=== PATIENT | female | born 1960 | race Caucasian/White ===

== ENCOUNTER 2020-09-28 09:58 | Emergency (ER) | payer MEDICAID, SELFPAY ==
[2020-09-28 10:41] VITALS: BP 109/50; PULSE 67; RESP 16; TEMP 36.4; O2SAT 95; BMI 28.3
--- NOTE | 2020-09-28 10:47 | ED.PSYCH ---
HPI - Psych General Chief Complaint: Psychiatric Symptoms Stated Complaint: Crisis Time Seen by Provider: 09/28/20 10:46 Source: patient Mode of arrival: ambulatory Limitations: no limitations History of Present Illness HPI Narrative: Patient is a 59-year-old female with a past medical history of anxiety and depression who presents saying that the devil is talking to her, she states she is a bad person bc she is mentally ill and she is going to hel . She denies SI or HI. She is asking for Ativan stating that it helps her feel better. She states she normally goes to [facility] for her care but they told her not to come back because she was going there too much. She states she does take 2 mental health medications and took 30 mg of Zyprexa this morning which is double her normal dose. She denies seeing a therapist or psychiatrist for her issues. She states she always has these thoughts in her head but today they are worse, she cannot articulate why today is worse. She keeps repeatedly asking for Ativan. She denies any physical complaints. Related Data Home Medications Medication Instructions Recorded Confirmed Vistaril 1 cap PO DAILY 09/28/20 09/28/20 Zyprexa 1 tab PO DAILY 09/28/20 09/28/20 Allergies Allergy/AdvReac Type Severity Reaction Status Date / Time cephalexin [From Keflex] Allergy Hives Verified 09/28/20 10:40 Review of Systems Review of Systems: Yes all other systems are reviewed and are negative [facility] Past Medical History Medical History Anxiety Surgical History S/P appendectomy Social History Social History Alcohol intake: never Patient Tobacco Use Status: Never used Tobacco Use of substances other than those prescribed or required for medical reasons: No Advance Directives: No Advance Directives Information Provided: No Physical Exam Vital Signs: Vital Signs: Last Vital Signs Temp 97.5 F 09/28/20 10:41 Pulse 67 09/28/20 10:41 Resp 16 09/28/20 10:41 BP 109/50 L 09/28/20 10:41 Pulse Ox 95 09/28/20 10:41 Body Mass Index 28.3 Const: General: cooperative, healthy appearing, comfortable, no acute distress and well developed Orientation/consciousness: patient oriented x3 Limitations: no limitations HENMT: Head: Yes normal to inspection Eyes: General: appearance normal, both eyes and all related structures Neck: Neck: Yes normal visual inspection and Yes full ROM Resp: Effort & Inspection: normal respiratory effort and able to speak in complete sentences Auscultation: clear to auscultation bilaterally Cardio: Rate: regular rate Rhythm: regular rhythm Heart sounds: normal S1 and S2 GI: Inspection: Yes normal to inspection Skin: General skin exam: no rashes or lesions noted Neuro: General: patient oriented x3 Extrem: General: Yes normal to inspection Psych: Appearance: grossly normal and well kempt Speech and movement: Normal speech and movement present Affect: Anxious affect present Attitude: cooperative Thought content: suicidality, no homicidality, Hallucination(s) present auditory and Depressive thoughts present Insight: Fair insight present (Psych) Judgement: Fair judgement present (Psych) Course Course Course Narrative: Patient is a 59-year-old female with a past medical history of anxiety and depression who presents saying that the devil is talking to her, she states she is a bad person bc she is mentally ill and she is going to hell . She denies SI or HI. VSS. PE grossly normal sans hearing the devil, will give ativan and referral for [facility]. Reevaluation(s) Reevaluation #1: Patient is requesting to leave, she has to go to work tomorrow, denies SI or HI, denies the double speaking to her anymore. Will discharge home with close follow-up with her psychiatrist. Time: 13:22 [facility] - Psych Lab Data Result diagrams: 09/28/20 12:05 09/28/20 12:04 Labs: Lab Results 09/28/20 09/28/20 09/28/20 Range/Units 11:11 11:11 12:04 WBC (4.8-10.8) X10*3/uL RBC (4.20-5.50) X10*6/uL Hgb (12.0-16.0) g/dl Hct (37-47) % MCV (80-98) fL MCH (27.0-33.0) pg MCHC (31.0-35.0) g/dl RDW (11.0-16.0) % Plt Count (160-400) X10*3/uL MPV (9.4-12.3) fL Immature Gran % (Auto) (0.0-0.4) % Neut % (Auto) (45-73) % Lymph % (Auto) (20-40) % [place] % (Auto) (2-11) % Eos % (Auto) (0-4) % Baso % (Auto) (0-2) % Lymph # (Auto) (1.2-4.9) X10*3/uL [place] # (Auto) (0.1-1.2) X10*3/uL Eos # (Auto) (0.0-0.4) X10*3/uL Baso # (Auto) (0.0-0.2) X10*3/uL Abs Immat Gran (auto) (0.00-0.03) X10*3/uL Absolute Neuts (auto) (2.0-8.3) X10*3/uL Absolute Nucleated RBC (0.0-0.012) X10*3/uL Nucleated RBC % (auto) (0.0-0.2) /100WBC PT (10.8-13.0) SEC INR (0.9-1.1) Sodium 141 (135-145) mmol/L Potassium 4.2 (3.3-5.1) mmol/L Chloride 109 H (96-108) mmol/L Carbon Dioxide 21 L (22-29) mmol/L Anion Gap 15 (12-20) BUN 12 (9-16) mg/dL Creatinine 0.69 (0.5-1.4) mg/dL Estim Creat Clear Calc 89.1 Estimated GFR > 60 Random Glucose 137 H (60-115) mg/dL Calcium 9.3 (8.4-10.2) mg/dL Magnesium 2.0 (1.6-2.6) mg/dL Total Bilirubin 0.4 (0.0-1.0) mg/dL AST 15 (5-31) U/L ALT 20 (0-31) U/L Alkaline Phosphatase 83 (39-117) U/L Total Protein 6.6 (6.5-8.0) g/dL Albumin 4.1 (3.5-5.0) g/dL Urine Color YELLOW Urine Appearance CLOUDY Urine pH 5.5 (5.0-8.0) Ur Specific [place] >= 1.030 H (1.005-1.025) Urine Protein NEG (NEG-TRACE) MG/DL Urine Glucose (UA) NEG (NEG) MG/DL Urine Ketones NEG (NEG) MG/DL Urine Blood NEG (NEG) Urine Nitrite NEG (NEG) Ur Leukocyte Esterase NEG (NEG) Urine Opiates Screen Not Detected (Not Detect) Ur Barbiturates Screen POSITIVE H (Not Detect) Ur Phencyclidine Scrn Not Detected (Not Detect) Ur Amphetamines Screen Not Detected (Not Detect) U Benzodiazepines Scrn Not Detected (Not Detect) Urine Cocaine Screen Not Detected (Not Detect) U Marijuana (THC) Screen POSITIVE H (Not Detect) Ethyl Alcohol mg/dL COVID-19 ([facility]) (Negative) COVID-19 Clin Com 09/28/20 09/28/20 09/28/20 Range/Units 12:04 12:04 12:05 WBC 5.9 (4.8-10.8) X10*3/uL RBC 4.40 (4.20-5.50) X10*6/uL Hgb 13.1 (12.0-16.0) g/dl Hct 38.1 (37-47) % MCV 86.6 (80-98) fL MCH 29.8 (27.0-33.0) pg MCHC 34.4 (31.0-35.0) g/dl RDW 11.9 (11.0-16.0) % Plt Count 330 (160-400) X10*3/uL MPV 10.3 (9.4-12.3) fL Immature Gran % (Auto) 0.3 (0.0-0.4) % Neut % (Auto) 70.6 (45-73) % Lymph % (Auto) 22.6 (20-40) % [place] % (Auto) 4.9 (2-11) % Eos % (Auto) 0.8 (0-4) % Baso % (Auto) 0.8 (0-2) % Lymph # (Auto) 1.3 (1.2-4.9) X10*3/uL [place] # (Auto) 0.3 (0.1-1.2) X10*3/uL Eos # (Auto) 0.1 (0.0-0.4) X10*3/uL Baso # (Auto) 0.1 (0.0-0.2) X10*3/uL Abs Immat Gran (auto) 0.02 (0.00-0.03) X10*3/uL Absolute Neuts (auto) 4.2 (2.0-8.3) X10*3/uL Absolute Nucleated RBC 0.000 (0.0-0.012) X10*3/uL Nucleated RBC % (auto) 0.0 (0.0-0.2) /100WBC PT (10.8-13.0) SEC INR (0.9-1.1) Sodium (135-145) mmol/L Potassium (3.3-5.1) mmol/L Chloride (96-108) mmol/L Carbon Dioxide (22-29) mmol/L Anion Gap (12-20) BUN (9-16) mg/dL Creatinine (0.5-1.4) mg/dL Estim Creat Clear Calc Estimated GFR Random Glucose (60-115) mg/dL Calcium (8.4-10.2) mg/dL Magnesium (1.6-2.6) mg/dL Total Bilirubin (0.0-1.0) mg/dL AST (5-31) U/L ALT (0-31) U/L Alkaline Phosphatase (39-117) U/L Total Protein (6.5-8.0) g/dL Albumin (3.5-5.0) g/dL Urine Color Urine Appearance Urine pH (5.0-8.0) Ur Specific [place] (1.005-1.025) Urine Protein (NEG-TRACE) MG/DL Urine Glucose (UA) (NEG) MG/DL Urine Ketones (NEG) MG/DL Urine Blood (NEG) Urine Nitrite (NEG) Ur Leukocyte Esterase (NEG) Urine Opiates Screen (Not Detect) Ur Barbiturates Screen (Not Detect) Ur Phencyclidine Scrn (Not Detect) Ur Amphetamines Screen (Not Detect) U Benzodiazepines Scrn (Not Detect) Urine Cocaine Screen (Not Detect) U Marijuana (THC) Screen (Not Detect) Ethyl Alcohol < 10 mg/dL COVID-19 ([facility]) Negative (Negative) COVID-19 Clin Com See Note 09/28/20 Range/Units 12:05 WBC (4.8-10.8) X10*3/uL RBC (4.20-5.50) X10*6/uL Hgb (12.0-16.0) g/dl Hct (37-47) % MCV (80-98) fL MCH (27.0-33.0) pg MCHC (31.0-35.0) g/dl RDW (11.0-16.0) % Plt Count (160-400) X10*3/uL MPV (9.4-12.3) fL Immature Gran % (Auto) (0.0-0.4) % Neut % (Auto) (45-73) % Lymph % (Auto) (20-40) % [place] % (Auto) (2-11) % Eos % (Auto) (0-4) % Baso % (Auto) (0-2) % Lymph # (Auto) (1.2-4.9) X10*3/uL [place] # (Auto) (0.1-1.2) X10*3/uL Eos # (Auto) (0.0-0.4) X10*3/uL Baso # (Auto) (0.0-0.2) X10*3/uL Abs Immat Gran (auto) (0.00-0.03) X10*3/uL Absolute Neuts (auto) (2.0-8.3) X10*3/uL Absolute Nucleated RBC (0.0-0.012) X10*3/uL Nucleated RBC % (auto) (0.0-0.2) /100WBC PT 13.6 H (10.8-13.0) SEC INR 1.1 (0.9-1.1) Sodium (135-145) mmol/L Potassium (3.3-5.1) mmol/L Chloride (96-108) mmol/L Carbon Dioxide (22-29) mmol/L Anion Gap (12-20) BUN (9-16) mg/dL Creatinine (0.5-1.4) mg/dL Estim Creat Clear Calc Estimated GFR Random Glucose (60-115) mg/dL Calcium (8.4-10.2) mg/dL Magnesium (1.6-2.6) mg/dL Total Bilirubin (0.0-1.0) mg/dL AST (5-31) U/L ALT (0-31) U/L Alkaline Phosphatase (39-117) U/L Total Protein (6.5-8.0) g/dL Albumin (3.5-5.0) g/dL Urine Color Urine Appearance Urine pH (5.0-8.0) Ur Specific [place] (1.005-1.025) Urine Protein (NEG-TRACE) MG/DL Urine Glucose (UA) (NEG) MG/DL Urine Ketones (NEG) MG/DL Urine Blood (NEG) Urine Nitrite (NEG) Ur Leukocyte Esterase (NEG) Urine Opiates Screen (Not Detect) Ur Barbiturates Screen (Not Detect) Ur Phencyclidine Scrn (Not Detect) Ur Amphetamines Screen (Not Detect) U Benzodiazepines Scrn (Not Detect) Urine Cocaine Screen (Not Detect) U Marijuana (THC) Screen (Not Detect) Ethyl Alcohol mg/dL COVID-19 ([facility]) (Negative) COVID-19 Clin Com Discharge Plan Discharge Clinical Impression: Panic attack Patient Disposition: Home, Self-Care Instructions: Panic Attack (ED) Additional Instructions: Please be sure to take both of your mental health medications, as prescribed, daily. Please be sure to follow-up with your primary care doctor or your therapist if you continue to have panic attacks. I have also attached some information for you on how to manage your panic attacks at home. If you have any thoughts of hurting yourself anyone else or have any auditory or visual hallucinations, please return to the emergency department. Prescriptions: No Action Vistaril 50 MG capsule 1 cap PO DAILY RF: 0 Zyprexa 15 MG tablet 1 tab PO DAILY RF: 0
[2020-09-28] MEDS: LORazepam 1 MG TABLET PO (11:16)
[2020-09-28 11:38] LABS: Amphetamine Screen Urine Not Detected (Not Detect); Barbiturates, Urine POSITIVE (Not Detect); Benzodiazepines Screen Urine Not Detected (Not Detect); Cannabinoid Screen Urine POSITIVE (Not Detect); Cocaine Screen Urine Not Detected (Not Detect); Opiate Screen Urine Not Detected (Not Detect); Phencyclidine Screen Urine Not Detected (Not Detect)
--- NOTE | 2020-09-28 11:43 | PC.NURSE ---
N referral sent electronically
--- NOTE | 2020-09-28 11:53 | PC.NURSE ---
Report recieved. MHT currently at bedside drawing blood. Pt calm and cooperative. Waiting to be seen by N
[2020-09-28 12:17] LABS: MANUAL DIFF FLAG NO
[2020-09-28 12:18] LABS: Basophils Absolute Auto 0.1 X10*3/uL (0.0-0.2); Basophils Percent Auto 0.8 % (0-2); Eosinophils Absolute Auto 0.1 X10*3/uL (0.0-0.4); Eosinophils Percent Auto 0.8 % (0-4); Hematocrit 38.1 % (37-47); Hemoglobin 13.1 g/dl (12.0-16.0); Imm Gran Abs Auto 0.02 X10*3/uL (0.00-0.03); Imm Gran Pct Auto 0.3 % (0.0-0.4); Lymphocytes Absolute Auto 1.3 X10*3/uL (1.2-4.9); Lymphocytes Percent Auto 22.6 % (20-40); Mean Corpuscular HGB Conc 34.4 g/dl (31.0-35.0); Mean Corpuscular Hemoglobin 29.8 pg (27.0-33.0); Mean Corpuscular Volume 86.6 fL (80-98); Mean Platelet Volume 10.3 fL (9.4-12.3); Monocytes Absolute Auto 0.3 X10*3/uL (0.1-1.2); Monocytes Percent Auto 4.9 % (2-11); Neutrophils Absolute Auto 4.2 X10*3/uL (2.0-8.3); Neutrophils Percent Auto 70.6 % (45-73); Platelet Count 330 X10*3/uL (160-400); Red Cell Distribution Width 11.9 % (11.0-16.0); White Blood Count 5.9 X10*3/uL (4.8-10.8)
[2020-09-28 12:20] LABS: INTERNATIONAL NORM RATIO 1.1 (0.9-1.1); Prothrombin Time 13.6 SEC (10.8-13.0)
--- NOTE | 2020-09-28 12:35 | PC.NURSE ---
Received confirmation call from [facility], ETA unknown
[2020-09-28 12:37] LABS: COVID-19 Test Negative (Negative)
[2020-09-28 12:47] LABS: Ethanol < 10 mg/dL
[2020-09-28 12:52] LABS: Alanine Aminotransferase 20 U/L (0-31); Albumin Level 4.1 g/dL (3.5-5.0); Alkaline Phosphatase 83 U/L (39-117); Anion Gap 15 (12-20); Aspartate Amino Transferase 15 U/L (5-31); Bilirubin Total 0.4 mg/dL (0.0-1.0); Blood Urea Nitrogen 12 mg/dL (9-16); Calcium 9.3 mg/dL (8.4-10.2); Carbon Dioxide 21 mmol/L (22-29); Chloride 109 mmol/L (96-108); Creatinine Clr Calc Pharmacy 89.1; Estimated Glomerular Filt Rate > 60; Glucose Random 137 mg/dL (60-115); Potassium 4.2 mmol/L (3.3-5.1); Sodium 141 mmol/L (135-145); Total Protein 6.6 g/dL (6.5-8.0)
[2020-09-28 13:04] LABS: Glucose Urine UA NEG (NEG); Leukocyte Esterase Urine NEG (NEG); Nitrite Urine NEG (NEG); PH 5.5 (5.0-8.0); Specific Gravity - Urine >= 1.030 (1.005-1.025); Urine Blood NEG (NEG); Urine Ketones NEG (NEG); Urine Protein NEG (NEG-TRACE)
[2020-09-28 13:06] LABS: Appearance Urine CLOUDY; Color Urine YELLOW
== END 2020-09-28 13:35 | disposition home or self-care (01) ==
PROVIDERS: Physician Assistant; Physician Assistant Medical; Emergency Provider Emergency Medicine Emergency Medical Services; PCP Family Medicine
DX: F33.1 Major depressive disorder, recurrent, moderate (principal); F41.0 Panic disorder [episodic paroxysmal anxiety]; F43.0 Acute stress reaction; Z79.899 Other long term (current) drug therapy; Z20.822 Contact with and (suspected) exposure to COVID-19
CPT/HCPCS: 36415; 80053; 80307; 81003; 82077; 83735; 85025; 85610; 87635; 99285

== ENCOUNTER 2020-09-30 10:16 | Emergency (ER) | payer MEDICAID, SELFPAY ==
[2020-09-30 10:21] VITALS: BP 143/65; PULSE 85; RESP 24; O2SAT 100; BMI 28.3
[2020-09-30 10:34] VITALS: PULSE 95; PULSE 97; RESP 24; O2SAT 97; BMI 28.3
--- NOTE | 2020-09-30 10:46 | ED.ANXIETY ---
HPI - Anxiety General Chief Complaint: Anxiety <CLAUDETTE Hdz Last Filed: 09/30/20 16:50> Stated Complaint: PSYCH EMERGENCY PER PT, MED ISSUE <CLAUDETTE Hdz Last Filed: 09/30/20 16:50> Time Seen by Provider: 09/30/20 10:38 <CLAUDETTE Hdz Last Filed: 09/30/20 16:50> Source: patient and EMS <CLAUDETTE Hdz Last Filed: 09/30/20 16:50> Mode of arrival: EMS <CLAUDETTE Hdz Last Filed: 09/30/20 16:50> Limitations: no limitations <CLAUDETTE Hdz Last Filed: 09/30/20 16:50> History of Present Illness HPI narrative: 59 y/o with history of anxiety who presents to the ED via EMS with acute anxiety attack. She was at work this morning when she started feeling very anxious and left. She went home and smoked marijuana and then threw it away because it wasn't helping me. EMS was called. She admits to negative thought process and spiraling thoughts for months. She is talking about the devil and going to hell. She is uncontrollably moving her legs. She admits to using crack and heroin last week but not today. She has been self-medicating because of her worsening anxiety. 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 <CLAUDETTE Hdz Last Filed: 09/30/20 16:50> MD complaint: anxiety <CLAUDETTE dHz Last Filed: 09/30/20 16:50> Onset (ago): month(s) <CLAUDETTE Hdz Last Filed: 09/30/20 16:50> Symptoms: sense of impending doom <CLAUDETTE Hdz Last Filed: 09/30/20 16:50> Severity: severe <CLAUDETTE Hdz Last Filed: 09/30/20 16:50> Quality: intermittent <CLAUDETTE Hdz Last Filed: 09/30/20 16:50> Place: work <CLAUDETTE Hdz Last Filed: 09/30/20 16:50> History of similar episodes: Yes <CLAUDETTE Hdz Last Filed: 09/30/20 16:50> Provoking factors: emotional stress and work/job stress <CLAUDETTE Hdz Last Filed: 09/30/20 16:50> Relieving factors: medication <CLAUDETTE Hdz Last Filed: 09/30/20 16:50> Exacerbating factors: thinking about event <CLAUDETTE Hdz Last Filed: 09/30/20 16:50> Associated symptoms: denies other symptoms <CLAUDETTE Hdz Last Filed: 09/30/20 16:50> Related Data Home Medications: Previous Rx's Medication Instructions Recorded risperidone 1 mg PO BID 30 Days #60 tab 10/31/20 sertraline 50 mg PO DAILY 30 Days #30 tab 10/31/20 <CLAUDETTE Hdz Last Filed: 09/30/20 16:50> Allergies/Adverse Reactions: Allergies Allergy/AdvReac Type Severity Reaction Status Date / Time cephalexin [From Keflex] Allergy Hives Verified 09/28/20 10:40 <CLAUDETTE Hdz Last Filed: 09/30/20 16:50> Review of Systems Review of Systems: Constitutional: No Fever, No Chills ENT/Mouth: No sore throat, No Rhinorrhea, No Swallowing Difficulty Cardiovascular: No Chest Pain, No SOB, No Orthopnea, No Edema Respiratory: No Cough, No Sputum, No Wheezing, No dyspnea Gastrointestinal: No Nausea, No Vomiting, No Diarrhea, No abdominal Pain Genitourinary: No Dysuria, No Urinary Frequency, No Hematuria Musculoskeletal: No joint pain, No Myalgias Skin: No Skin Lesions, No rash Neuro: No Weakness, No Numbness, No Dizziness, No Headache Psych: + Anxiety/Panic, + Depression Heme/Lymph: No Bruising, No Lymphadenopathy Endocrine: No Polyuria, No Polydipsia <CLAUDETTE Hdz Last Filed: 09/30/20 16:50> PMF Past Medical History Attestation statement: The following information was validated with the patient. <CLAUDETTE Hdz Last Filed: 09/30/20 16:50> Medical History: Medical History Anxiety <CLAUDETTE Hdz - Last Filed: 09/30/20 16:50> Surgical History: Surgical History S/P appendectomy <CLAUDETTE Hdz - Last Filed: 09/30/20 16:50> Social History Social History: Social History Household Members: None Household Members Other:: none Housing: Apartment Do you presently have visiting nurse or other home services: No Alcohol intake: former Patient Tobacco Use Status: Never used Tobacco Substance Use Type: Crack/Cocaine, Heroin and Marijuana Advance Directives: Yes Advance Directives Information Provided: No Advance Directives on File: No Patient : No service: No Sexual orientation: Asexual, she reports <CLAUDETTE Hdz - Last Filed: 09/30/20 16:50> Physical Exam Vital Signs: Vital Signs: Last Vital Signs Temp 97.4 F 09/30/20 14:14 Pulse 79 09/30/20 14:56 Resp 18 09/30/20 14:56 BP 108/65 09/30/20 14:56 Pulse Ox 95 09/30/20 14:56 Body Mass Index 28.3 Appearance: Alert. Oriented X3. Restless, uncontrollable LE movements. Eyes: Pupils equal, round and reactive to light. ENT: Pharynx normal. Neck: Normal inspection. Neck supple. CVS: Normal heart rate and rhythm. Pulses normal. Respiratory: No respiratory distress. Breath sounds normal. Abdomen: Soft and nontender. +BS x4 Skin: Skin warm and dry. Normal skin color. Normal skin turgor. No rashes. Extremities: No lower extremity edema. Neuro: Oriented X 3. No motor deficit. No sensory deficit. <CLAUDETTE Hdz - Last Filed: 09/30/20 16:50> Vital Signs: Last Vital Signs Temp 97.4 F 09/30/20 14:14 Pulse 79 09/30/20 14:56 Resp 18 09/30/20 14:56 BP 108/65 09/30/20 14:56 Pulse Ox 95 09/30/20 14:56 Body Mass Index 28.3 <Bam Hamilton MD - Last Filed: 11/07/20 13:26> Course Course Course Narrative: 59 y/o female with substance abuse and anxiety presenting with severe anxiety attack while at work today. She has been hearing voice and having negative thoughts for months. Not suicidal or homicidal. She states she would never hurt herself. She is worried about going to hell. She admits to recent drug use. She is very anxious on arrival. Will give IV ativan, get Utox and lab workup. Will monitor closely. <CLAUDETTE Hdz - Last Filed: 09/30/20 16:50> I have reviewed the chart <Bam Hamilton MD - Last Filed: 11/07/20 13:26> Reevaluation(s) Reevaluation #1: Much improved after ativan. Speaking in complete and coherent sentences. She still admits to these negative thoughts but they are chronic and unchanged. She has a phone call today for an intake with a therapist. She continues to deny suicidal thoughts and would like to go home. Case d/w [facility] briefly who is recommending outpatient followup and that she would not meet criteria for inpatient level of care. She is stable for discharge home. <CLAUDETTE Hzd - Last Filed: 09/30/20 16:50> MDM - Anxiety Lab Data Result diagrams: : 09/30/20 10:58 09/30/20 10:58 <CLAUDETTE Hdz - Last Filed: 09/30/20 16:50> Labs: Lab Results 09/30/20 09/30/20 09/30/20 Range/Units 10:58 10:58 10:58 WBC 8.8 (4.8-10.8) X10*3/uL RBC 4.62 (4.20-5.50) X10*6/uL Hgb 13.7 (12.0-16.0) g/dl Hct 40.1 (37-47) % MCV 86.8 (80-98) fL MCH 29.7 (27.0-33.0) pg MCHC 34.2 (31.0-35.0) g/dl RDW 12.1 (11.0-16.0) % Plt Count 378 (160-400) X10*3/uL MPV 10.1 (9.4-12.3) fL Immature Gran % (Auto) 0.5 H (0.0-0.4) % Neut % (Auto) 74.8 H (45-73) % Lymph % (Auto) 17.8 L (20-40) % [place] % (Auto) 5.4 (2-11) % Eos % (Auto) 0.8 (0-4) % Baso % (Auto) 0.7 (0-2) % Lymph # (Auto) 1.6 (1.2-4.9) X10*3/uL [place] # (Auto) 0.5 (0.1-1.2) X10*3/uL Eos # (Auto) 0.1 (0.0-0.4) X10*3/uL Baso # (Auto) 0.1 (0.0-0.2) X10*3/uL Abs Immat Gran (auto) 0.04 H (0.00-0.03) X10*3/uL Absolute Neuts (auto) 6.6 (2.0-8.3) X10*3/uL Absolute Nucleated RBC 0.000 (0.0-0.012) X10*3/uL Nucleated RBC % (auto) 0.0 (0.0-0.2) /100WBC Sodium 142 (135-145) mmol/L Potassium 4.4 (3.3-5.1) mmol/L Chloride 110 H (96-108) mmol/L Carbon Dioxide 21 L (22-29) mmol/L Anion Gap 15 (12-20) BUN 11 (9-16) mg/dL Creatinine 0.76 (0.5-1.4) mg/dL Estim Creat Clear Calc 80.8 Estimated GFR > 60 Random Glucose 106 (60-115) mg/dL Calcium 9.7 (8.4-10.2) mg/dL Magnesium 2.0 (1.6-2.6) mg/dL Total Bilirubin 0.6 (0.0-1.0) mg/dL Direct Bilirubin < 0.2 (0.0-0.5) mg/dL AST 15 (5-31) U/L ALT 22 (0-31) U/L Alkaline Phosphatase 84 (39-117) U/L Total Protein 6.8 (6.5-8.0) g/dL Albumin 4.3 (3.5-5.0) g/dL Urine Color Urine Appearance Urine pH (5.0-8.0) Ur Specific [place] (1.005-1.025) Urine Protein (NEG-TRACE) MG/DL Urine Glucose (UA) (NEG) MG/DL Urine Ketones (NEG) MG/DL Urine Blood (NEG) Urine Nitrite (NEG) Ur Leukocyte Esterase (NEG) Urine Opiates Screen (Not Detect) Ur Barbiturates Screen (Not Detect) Ur Phencyclidine Scrn (Not Detect) Ur Amphetamines Screen (Not Detect) U Benzodiazepines Scrn (Not Detect) Urine Cocaine Screen (Not Detect) U Marijuana (THC) Screen (Not Detect) Ethyl Alcohol < 10 mg/dL 09/30/20 09/30/20 Range/Units 12:35 12:35 WBC (4.8-10.8) X10*3/uL RBC (4.20-5.50) X10*6/uL Hgb (12.0-16.0) g/dl Hct (37-47) % MCV (80-98) fL MCH (27.0-33.0) pg MCHC (31.0-35.0) g/dl RDW (11.0-16.0) % Plt Count (160-400) X10*3/uL MPV (9.4-12.3) fL Immature Gran % (Auto) (0.0-0.4) % Neut % (Auto) (45-73) % Lymph % (Auto) (20-40) % [place] % (Auto) (2-11) % Eos % (Auto) (0-4) % Baso % (Auto) (0-2) % Lymph # (Auto) (1.2-4.9) X10*3/uL [place] # (Auto) (0.1-1.2) X10*3/uL Eos # (Auto) (0.0-0.4) X10*3/uL Baso # (Auto) (0.0-0.2) X10*3/uL Abs Immat Gran (auto) (0.00-0.03) X10*3/uL Absolute Neuts (auto) (2.0-8.3) X10*3/uL Absolute Nucleated RBC (0.0-0.012) X10*3/uL Nucleated RBC % (auto) (0.0-0.2) /100WBC Sodium (135-145) mmol/L Potassium (3.3-5.1) mmol/L Chloride (96-108) mmol/L Carbon Dioxide (22-29) mmol/L Anion Gap (12-20) BUN (9-16) mg/dL Creatinine (0.5-1.4) mg/dL Estim Creat Clear Calc Estimated GFR Random Glucose (60-115) mg/dL Calcium (8.4-10.2) mg/dL Magnesium (1.6-2.6) mg/dL Total Bilirubin (0.0-1.0) mg/dL Direct Bilirubin (0.0-0.5) mg/dL AST (5-31) U/L ALT (0-31) U/L Alkaline Phosphatase (39-117) U/L Total Protein (6.5-8.0) g/dL Albumin (3.5-5.0) g/dL Urine Color YELLOW Urine Appearance HAZY Urine pH 6.0 (5.0-8.0) Ur Specific [place] >= 1.030 H (1.005-1.025) Urine Protein NEG (NEG-TRACE) MG/DL Urine Glucose (UA) NEG (NEG) MG/DL Urine Ketones NEG (NEG) MG/DL Urine Blood NEG (NEG) Urine Nitrite NEG (NEG) Ur Leukocyte Esterase NEG (NEG) Urine Opiates Screen Not Detected (Not Detect) Ur Barbiturates Screen POSITIVE H (Not Detect) Ur Phencyclidine Scrn Not Detected (Not Detect) Ur Amphetamines Screen Not Detected (Not Detect) U Benzodiazepines Scrn Not Detected (Not Detect) Urine Cocaine Screen Not Detected (Not Detect) U Marijuana (THC) Screen POSITIVE H (Not Detect) Ethyl Alcohol mg/dL <CLAUDETTE Hdz - Last Filed: 09/30/20 16:50> Lab Results 09/30/20 09/30/20 09/30/20 Range/Units 10:58 10:58 10:58 WBC 8.8 (4.8-10.8) X10*3/uL RBC 4.62 (4.20-5.50) X10*6/uL Hgb 13.7 (12.0-16.0) g/dl Hct 40.1 (37-47) % MCV 86.8 (80-98) fL MCH 29.7 (27.0-33.0) pg MCHC 34.2 (31.0-35.0) g/dl RDW 12.1 (11.0-16.0) % Plt Count 378 (160-400) X10*3/uL MPV 10.1 (9.4-12.3) fL Immature Gran % (Auto) 0.5 H (0.0-0.4) % Neut % (Auto) 74.8 H (45-73) % Lymph % (Auto) 17.8 L (20-40) % [place] % (Auto) 5.4 (2-11) % Eos % (Auto) 0.8 (0-4) % Baso % (Auto) 0.7 (0-2) % Lymph # (Auto) 1.6 (1.2-4.9) X10*3/uL [place] # (Auto) 0.5 (0.1-1.2) X10*3/uL Eos # (Auto) 0.1 (0.0-0.4) X10*3/uL Baso # (Auto) 0.1 (0.0-0.2) X10*3/uL Abs Immat Gran (auto) 0.04 H (0.00-0.03) X10*3/uL Absolute Neuts (auto) 6.6 (2.0-8.3) X10*3/uL Absolute Nucleated RBC 0.000 (0.0-0.012) X10*3/uL Nucleated RBC % (auto) 0.0 (0.0-0.2) /100WBC Sodium 142 (135-145) mmol/L Potassium 4.4 (3.3-5.1) mmol/L Chloride 110 H (96-108) mmol/L Carbon Dioxide 21 L (22-29) mmol/L Anion Gap 15 (12-20) BUN 11 (9-16) mg/dL Creatinine 0.76 (0.5-1.4) mg/dL Estim Creat Clear Calc 80.8 Estimated GFR > 60 Random Glucose 106 (60-115) mg/dL Calcium 9.7 (8.4-10.2) mg/dL Magnesium 2.0 (1.6-2.6) mg/dL Total Bilirubin 0.6 (0.0-1.0) mg/dL Direct Bilirubin < 0.2 (0.0-0.5) mg/dL AST 15 (5-31) U/L ALT 22 (0-31) U/L Alkaline Phosphatase 84 (39-117) U/L Total Protein 6.8 (6.5-8.0) g/dL Albumin 4.3 (3.5-5.0) g/dL Urine Color Urine Appearance Urine pH (5.0-8.0) Ur Specific [place] (1.005-1.025) Urine Protein (NEG-TRACE) MG/DL Urine Glucose (UA) (NEG) MG/DL Urine Ketones (NEG) MG/DL Urine Blood (NEG) Urine Nitrite (NEG) Ur Leukocyte Esterase (NEG) Urine Opiates Screen (Not Detect) Ur Barbiturates Screen (Not Detect) Ur Phencyclidine Scrn (Not Detect) Ur Amphetamines Screen (Not Detect) U Benzodiazepines Scrn (Not Detect) Urine Cocaine Screen (Not Detect) U Marijuana (THC) Screen (Not Detect) Ethyl Alcohol < 10 mg/dL 09/30/20 09/30/20 Range/Units 12:35 12:35 WBC (4.8-10.8) X10*3/uL RBC (4.20-5.50) X10*6/uL Hgb (12.0-16.0) g/dl Hct (37-47) % MCV (80-98) fL MCH (27.0-33.0) pg MCHC (31.0-35.0) g/dl RDW (11.0-16.0) % Plt Count (160-400) X10*3/uL MPV (9.4-12.3) fL Immature Gran % (Auto) (0.0-0.4) % Neut % (Auto) (45-73) % Lymph % (Auto) (20-40) % [place] % (Auto) (2-11) % Eos % (Auto) (0-4) % Baso % (Auto) (0-2) % Lymph # (Auto) (1.2-4.9) X10*3/uL [place] # (Auto) (0.1-1.2) X10*3/uL Eos # (Auto) (0.0-0.4) X10*3/uL Baso # (Auto) (0.0-0.2) X10*3/uL Abs Immat Gran (auto) (0.00-0.03) X10*3/uL Absolute Neuts (auto) (2.0-8.3) X10*3/uL Absolute Nucleated RBC (0.0-0.012) X10*3/uL Nucleated RBC % (auto) (0.0-0.2) /100WBC Sodium (135-145) mmol/L Potassium (3.3-5.1) mmol/L Chloride (96-108) mmol/L Carbon Dioxide (22-29) mmol/L Anion Gap (12-20) BUN (9-16) mg/dL Creatinine (0.5-1.4) mg/dL Estim Creat Clear Calc Estimated GFR Random Glucose (60-115) mg/dL Calcium (8.4-10.2) mg/dL Magnesium (1.6-2.6) mg/dL Total Bilirubin (0.0-1.0) mg/dL Direct Bilirubin (0.0-0.5) mg/dL AST (5-31) U/L ALT (0-31) U/L Alkaline Phosphatase (39-117) U/L Total Protein (6.5-8.0) g/dL Albumin (3.5-5.0) g/dL Urine Color YELLOW Urine Appearance HAZY Urine pH 6.0 (5.0-8.0) Ur Specific [place] >= 1.030 H (1.005-1.025) Urine Protein NEG (NEG-TRACE) MG/DL Urine Glucose (UA) NEG (NEG) MG/DL Urine Ketones NEG (NEG) MG/DL Urine Blood NEG (NEG) Urine Nitrite NEG (NEG) Ur Leukocyte Esterase NEG (NEG) Urine Opiates Screen Not Detected (Not Detect) Ur Barbiturates Screen POSITIVE H (Not Detect) Ur Phencyclidine Scrn Not Detected (Not Detect) Ur Amphetamines Screen Not Detected (Not Detect) U Benzodiazepines Scrn Not Detected (Not Detect) Urine Cocaine Screen Not Detected (Not Detect) U Marijuana (THC) Screen POSITIVE H (Not Detect) Ethyl Alcohol mg/dL <Bam Hamilton MD - Last Filed: 11/07/20 13:26> Critical Care Time Critical Care Time Critical Care Time: No <CLAUDETTE Hdz - Last Filed: 09/30/20 16:50> Discharge Plan Discharge Clinical Impression: Acute anxiety <CLAUDETTE Hdz - Last Filed: 09/30/20 16:50> Patient Disposition: Home, Self-Care <CLAUDETTE Hdz - Last Filed: 09/30/20 16:50> Instructions: Anxiety (ED) <CLAUDETTE Hdz - Last Filed: 09/30/20 16:50> Additional Instructions: DO NOT USE ANY DRUGS. Follow up with your provider this week. Arrange outpatient therapy LAURA. If you have recurrent symptoms come back to the ER for further evaluation. <CLAUDETTE Hdz - Last Filed: 09/30/20 16:50> Prescriptions: No Action sertraline 50 mg Tablet 50 mg PO DAILY 30 Days Qty: 30 RF: 0 risperidone 1 mg Tablet 1 mg PO BID 30 Days Qty: 60 RF: 0 <CLAUDETTE Hdz - Last Filed: 09/30/20 16:50> Interventions: ED Discharge Assessment Last Done: 09/30/20 15:54 <CLAUDETTE Hdz - Last Filed: 09/30/20 16:50> Discharge Date/Time: 09/30/20 15:55 <CLAUDETTE Hdz - Last Filed: 09/30/20 16:50>
--- NOTE | 2020-09-30 10:48 | PC.NURSE ---
Pt thrashing around in bed. pt has an impended sense of doom that she is going to . Pt states she is having thoughts that the devil is in her head. pt is very anxious, and is hyper ventilating. Provider at bedside
[2020-09-30] MEDS: LORazepam 2 MG/ML VIAL IVPUSH (10:51)
[2020-09-30 11:03] LABS: MANUAL DIFF FLAG NO
--- NOTE | 2020-09-30 11:03 | PC.NURSE ---
Patient beginning to relax and is not thrashing around in bed. pt talking more rational. pt admits to using marijuana. pt also states that she has used heroine and cocaine in the last week
[2020-09-30 11:06] LABS: Basophils Absolute Auto 0.1 X10*3/uL (0.0-0.2); Basophils Percent Auto 0.7 % (0-2); Eosinophils Absolute Auto 0.1 X10*3/uL (0.0-0.4); Eosinophils Percent Auto 0.8 % (0-4); Hematocrit 40.1 % (37-47); Hemoglobin 13.7 g/dl (12.0-16.0); Imm Gran Abs Auto 0.04 X10*3/uL (0.00-0.03); Imm Gran Pct Auto 0.5 % (0.0-0.4); Lymphocytes Absolute Auto 1.6 X10*3/uL (1.2-4.9); Lymphocytes Percent Auto 17.8 % (20-40); Mean Corpuscular HGB Conc 34.2 g/dl (31.0-35.0); Mean Corpuscular Hemoglobin 29.7 pg (27.0-33.0); Mean Corpuscular Volume 86.8 fL (80-98); Mean Platelet Volume 10.1 fL (9.4-12.3); Monocytes Absolute Auto 0.5 X10*3/uL (0.1-1.2); Monocytes Percent Auto 5.4 % (2-11); Neutrophils Absolute Auto 6.6 X10*3/uL (2.0-8.3); Neutrophils Percent Auto 74.8 % (45-73); Platelet Count 378 X10*3/uL (160-400); Red Blood Count 4.62 X10*6/uL (4.20-5.50); Red Cell Distribution Width 12.1 % (11.0-16.0); White Blood Count 8.8 X10*3/uL (4.8-10.8)
[2020-09-30 11:26] LABS: Ethanol < 10 mg/dL
[2020-09-30 11:28] LABS: Alanine Aminotransferase 22 U/L (0-31); Albumin Level 4.3 g/dL (3.5-5.0); Alkaline Phosphatase 84 U/L (39-117); Anion Gap 15 (12-20); Aspartate Amino Transferase 15 U/L (5-31); Bilirubin Direct < 0.2 mg/dL (0.0-0.5); Bilirubin Total 0.6 mg/dL (0.0-1.0); Blood Urea Nitrogen 11 mg/dL (9-16); Calcium 9.7 mg/dL (8.4-10.2); Carbon Dioxide 21 mmol/L (22-29); Chloride 110 mmol/L (96-108); Creatinine Clr Calc Pharmacy 80.8; Estimated Glomerular Filt Rate > 60; Glucose Random 106 mg/dL (60-115); Potassium 4.4 mmol/L (3.3-5.1); Sodium 142 mmol/L (135-145); Total Protein 6.8 g/dL (6.5-8.0)
--- NOTE | 2020-09-30 12:09 | PC.NURSE ---
Patient remains calm and relaxed currently. pt denies pain or shortness of breath.
[2020-09-30 12:10] VITALS: BP 115/71; PULSE 78; RESP 18; O2SAT 97
[2020-09-30 12:46] LABS: Glucose Urine UA NEG (NEG); Leukocyte Esterase Urine NEG (NEG); Nitrite Urine NEG (NEG); Specific Gravity - Urine >= 1.030 (1.005-1.025); Urine Blood NEG (NEG); Urine Ketones NEG (NEG); Urine Protein NEG (NEG-TRACE)
[2020-09-30 12:49] LABS: Appearance Urine HAZY; Color Urine YELLOW
--- NOTE | 2020-09-30 13:14 | PC.NURSE ---
Patient is lying in bed calm and relaxed. Pt talking on the phone off and on. No distress noted.
[2020-09-30 13:24] LABS: Amphetamine Screen Urine Not Detected (Not Detect); Barbiturates, Urine POSITIVE (Not Detect); Benzodiazepines Screen Urine Not Detected (Not Detect); Cannabinoid Screen Urine POSITIVE (Not Detect); Cocaine Screen Urine Not Detected (Not Detect); Opiate Screen Urine Not Detected (Not Detect); Phencyclidine Screen Urine Not Detected (Not Detect)
--- NOTE | 2020-09-30 14:10 | PC.NURSE ---
Patient is alert and oriented. Pt is calm and cooperative with staff. Pt states that she wants to go home that she does not want to wait for crisis to come talk with her because she has a outpatient call at 3pm with a crisis therapist. Provider notified of patient request.
[2020-09-30 14:14] VITALS: BP 105/80; PULSE 82; RESP 16; TEMP 36.3; O2SAT 96
[2020-09-30 14:56] VITALS: BP 108/65; PULSE 79; RESP 18; O2SAT 95
== END 2020-09-30 15:55 | disposition home or self-care (01) ==
PROVIDERS: Physician Assistant; Emergency Provider Emergency Medicine
DX: F41.1 Generalized anxiety disorder (principal); F19.10 Other psychoactive substance abuse, uncomplicated; Z79.899 Other long term (current) drug therapy
CPT/HCPCS: 36415; 80048; 80076; 80307; 81003; 82077; 83735; 85025; 96374; 99283; 99284; J2060

== ENCOUNTER 2020-10-01 11:55 | Emergency (ER) | payer MEDICAID, SELFPAY ==
--- NOTE | 2020-10-01 13:18 | ED_ITS ---
HPI - Psych General Chief Complaint: Psychiatric Symptoms Stated Complaint: crisis Time Seen by Provider: 10/01/20 13:06 Source: patient and old records reviewed Mode of arrival: ambulatory Limitations: no limitations History of Present Illness HPI Narrative: requesting ativan for her anxiety MD complaint: anxiety Onset (ago): year(s) Duration: intermittent History of same: Yes Relieving factors: other (ativan) Exacerbating factors: none Context: significant life stressor Associated psychiatric symptoms: depression Associated symptoms: denies other symptoms Treatments prior to arrival: none Related Data Home Medications Medication Instructions Recorded Confirmed Vistaril 1 cap PO DAILY 09/28/20 09/28/20 Zyprexa 1 tab PO DAILY 09/28/20 09/28/20 Allergies Allergy/AdvReac Type Severity Reaction Status Date / Time cephalexin [From Keflex] Allergy Hives Verified 09/28/20 10:40 Review of Systems Review of Systems: Constitutional : No Fever, No Chills ENT/Mouth : No Ear Pain, No Nasal Congestion, No sore throat Eyes: No Eye Pain, No Swelling, No Redness Cardiovascular : No Chest Pain, No SOB Respiratory : No Cough, No Sputum, No Dyspnea Gastrointestinal : No Nausea, No Vomiting, No Diarrhea, No Hematochezia, No Melena Genitourinary : No Dysuria, No Urinary Frequency, No Hematuria Musculoskeletal : No Myalgias Skin : No Skin Lesions, No rash Neuro : No Weakness, No Numbness, No Paresthesias, No Dizziness, No Headache Psych : positive Anxiety, positive Depression, no SI/HI Heme/Lymph: No Lymphadenopathy Endocrine : No Polyuria, No Polydipsia All other systems reviewed and are negative [facility] Past Medical History Attestation statement: The following information was validated with the patient. Medical History Anxiety Surgical History S/P appendectomy Social History Social History Alcohol intake: current Patient Tobacco Use Status: Never used Tobacco Substance Use Type: Crack/Cocaine, Heroin and Marijuana Advance Directives: No Advance Directives Information Provided: No Physical Exam Vital Signs: Appearance: Alert. Oriented X3. No acute distress. Anxiuos can i have ativan Eyes: Pupils equal, round and reactive to light. ENT: Pharynx normal. Neck: Normal inspection. Neck supple. CVS: Normal heart rate and rhythm. Pulses normal. Respiratory: No respiratory distress. Breath sounds normal. Abdomen: Soft and nontender. Skin: Skin warm and dry. Normal skin color. Normal skin turgor. Extremities: No lower extremity edema. No calf ttp Neuro: Oriented X 3. No motor deficit. No sensory deficit. Psych: no SI/HI, anxiety MDM - Psych MDM Narrative Medical decision making narrative: 59 yo female no SI, does not want inpatient comes to ED again asking for ativan - she has chronic benzodiazepine abuse, she wants nothing but ativan, I offered her crsis but she declines, she now wants to leave if she is not going to receive ativan Discharge Plan Discharge Clinical Impression: Acute anxiety Patient Disposition: Home, Self-Care Instructions: Anxiety (ED) Additional Instructions: return to ED for any worsening symptoms or concerns Prescriptions: No Action Vistaril 50 MG capsule 1 cap PO DAILY RF: 0 Zyprexa 15 MG tablet 1 tab PO DAILY RF: 0 Referrals: [facility] [Provider Group] - 2 days
--- NOTE | 2020-10-01 13:59 | PC.NURSE ---
this pt presented to the ED in the same behavioral state as yesterday via private car. she is anxious but directable- she requesting ativan from the ED MD who is familiar with the pt from prior encounters. MD educated the pt on the care plan that would not include benzos for her stated anxiety. the pt then chose to leave and follow up with her therapist she received her belongings back and left the ed in her vehicle
== END 2020-10-01 14:05 | disposition home or self-care (01) ==
PROVIDERS: Emergency Provider Emergency Medicine
DX: F41.9 Anxiety disorder, unspecified (principal); F13.10 Sedative, hypnotic or anxiolytic abuse, uncomplicated; F11.90 Opioid use, unspecified, uncomplicated; F14.90 Cocaine use, unspecified, uncomplicated; F12.90 Cannabis use, unspecified, uncomplicated
CPT/HCPCS: 99281

== ENCOUNTER 2020-10-24 08:14 | Inpatient (IN) | payer OTHER, MEDICAID, SELFPAY ==
[2020-10-24 08:27] VITALS: BP 132/82; PULSE 110; RESP 14; TEMP 36.2; O2SAT 96; BMI 27.0
--- NOTE | 2020-10-24 09:18 | ECG_ITS ---
Test Reason : MED CLEARANCE Blood Pressure : / mmHG Vent. Rate : 060 BPM Atrial Rate : 060 BPM P-R Int : 124 ms QRS Dur : 092 ms QT Int : 404 ms P-R-T Axes : 042 068 057 degrees QTc Int : 404 ms Normal sinus rhythm Normal ECG No previous ECGs available Referred By: Ashley Eisenberg Electronically Signed By:ROLY DENNY MD
--- NOTE | 2020-10-24 09:52 | ED_ITS ---
HPI - Psych General Chief Complaint: Psychiatric Symptoms <CLAUDETTE Hammer Last Filed: 10/24/20 17:59> Stated Complaint: crisis <CLAUDETTE Hammer Last Filed: 10/24/20 17:59> Time Seen by Provider: 10/24/20 09:14 <CLAUDETTE Hammer Last Filed: 10/24/20 17:59> Source: patient and EMS <CLAUDETTE Hammer Last Filed: 10/24/20 17:59> Mode of arrival: EMS <CLAUDETTE Hammer Last Filed: 10/24/20 17:59> History of Present Illness HPI Narrative: 59-year-old female with a past medical history of anxiety, BIBA c/o increased anxiety and hearing voices x a long time. Reports feels tremulous. Admits to using marijuana yesterday, denies other illicit substances / ETOH. reports voices told her to throw out her Ativan/ tell negative things about herself. Denies SI/HI, cough, fever, chills, CP/ SOB, abdominal pain, nausea /vo miting <CLAUDETTE Hammer Last Filed: 10/24/20 17:59> MD complaint: anxiety and hallucinations <CLAUDETTE Hammer Last Filed: 10/24/20 17:59> Related Data Home Medications: Home Medications Medication Instructions Recorded Confirmed lorazepam 1 tab PO TID PRN 10/24/20 10/24/20 olanzapine 1 tab PO BEDTIME 10/24/20 10/24/20 <CLAUDETTE Hammer Last Filed: 10/24/20 17:59> Allergies/Adverse Reactions: Allergies Allergy/AdvReac Type Severity Reaction Status Date / Time cephalexin [From Keflex] Allergy Hives Verified 09/28/20 10:40 <CLAUDETTE Hammer Last Filed: 10/24/20 17:59> Review of Systems Review of Systems: Constitutional: No Fever, No Chills Cardiovascular: No Chest Pain, No SOB Respiratory: No Cough, No Dyspnea Gastrointestinal: No Nausea, No Vomiting, No Abdominal pain Genitourinary: No Dysuria, No Hematuria Musculoskeletal: No joint pain, No Myalgias, No Joint Swelling Skin: No Skin Lesions, No rash Neuro: No Weakness, No Headache, + tremulous Psych: + Anxiety/Panic, No Depression, No SI/HI, +AH, No VH <CLAUDETTE Hammer - Last Filed: 10/24/20 17:59> Yes all other systems are reviewed and are negative <CLAUDETTE Hammer - Last Filed: 10/24/20 17:59> [facility] Past Medical History Attestation statement: The following information was validated with the patient. <CLAUDETTE Hammer - Last Filed: 10/24/20 17:59> Medical History: Medical History Anxiety <CLAUDETTE Hammer - Last Filed: 10/24/20 17:59> Surgical History: Surgical History S/P appendectomy <CLAUDETTE Hammer - Last Filed: 10/24/20 17:59> Social History Social History: Social History Alcohol intake: former Patient Tobacco Use Status: Never used Tobacco Smoked in Last 30 Days: No Use of substances other than those prescribed or required for medical reasons: No Substance Use Type: Crack/Cocaine, Heroin and Marijuana Last Used Substance: Unknown Any prior treatment program specific to substance use: No Advance Directives: No Advance Directives Information Provided: No Guardian: No Patient : No <CLAUDETTE Hammer - Last Filed: 10/24/20 17:59> Physical Exam Vital Signs: Vital Signs: Last Vital Signs Temp 98.1 F 10/25/20 06:13 Pulse 85 10/25/20 06:13 Resp 18 10/25/20 06:13 BP 126/80 10/25/20 06:13 Pulse Ox 100 10/25/20 06:13 Body Mass Index 27.0 <CLAUDETTE Hammer - Last Filed: 10/24/20 17:59> Vital Signs: Last Vital Signs Temp 98.1 F 10/25/20 06:13 Pulse 85 10/25/20 06:13 Resp 18 10/25/20 06:13 BP 126/80 10/25/20 06:13 Pulse Ox 100 10/25/20 06:13 Body Mass Index 27.0 <Esther Cruz [facility] Last Filed: 10/25/20 10:09> Const: Other: tremulous, rocking back and forth in bed on exam <Ashley soto [place] - Last Filed: 10/24/20 17:59> General: cooperative, healthy appearing, alert, awake and anxious; No diaphoretic <Ashley Eisenberg [facility] Last Filed: 10/24/20 17:59> Orientation/consciousness: patient oriented x3 <Ashley Eisenberg [facility] Last Filed: 10/24/20 17:59> Limitations: no limitations <Ashley Eisenberg [facility] Last Filed: 10/24/20 17:59> HENMT: Head: Yes normal to inspection <Ashley Eisenberg [facility] Last Filed: 05/16 17:59> Ears: hearing grossly normal bilaterally <Ashley Eisenberg [facility] Last Filed: 10/24/20 17:59> General nose exam: Normal external nose present <Ashley Eisenberg [facility] Last Filed: 10/24/20 17:59> Face and sinus: Yes normal facial exam <Ashley Eisenberg [facility] Last Filed: 10/24/20 17:59> Eyes: General: appearance normal, both eyes and all related structures <Ashley Eisenberg [facility] Last Filed: 10/24/20 17:59> EOM: EOMs intact bilaterally <Ashley Eisenberg [facility] Last Filed: 10/24/20 17:59> Neck: Neck: Yes normal visual inspection <Ashley Eisenberg [facility] Last Filed: 10/24/20 17:59> Resp: Effort & Inspection: normal respiratory effort <Ashley Eisenberg [facility] Last Filed: 10/24/20 17:59> Auscultation: clear to auscultation bilaterally, no crackles, no rhonchi and no wheezes <Ashley Eisenberg [facility] Last Filed: 10/24/20 17:59> Cardio: Rate: tachycardic <Ashley Eisenberg [facility] Last Filed: 10/24/20 17:59> Heart sounds: S1 normal heart sound present and S2 normal heart sound present <Ashley Eisenberg [place] - Last Filed: 10/24/20 17:59> GI: Inspection: Yes normal to inspection <CLAUDETTE Hammer Last Filed: 10/24/20 17:59> Palpation (GI): Soft to palpation and nontender <CLAUDETTE Hammer Last Filed: 10/24/20 17:59> Skin: Rashes: no rashes <CLAUDETTE Hammer Last Filed: 10/24/20 17:59> Wounds: no wounds <CLAUDETTE Hammer Last Filed: 10/24/20 17:59> Neuro: General: patient oriented x3 <CLAUDETTE Hammer Last Filed: 10/24/20 17:59> Gait exam (Neuro): Normal gait present <CLAUDETTE Hammer Last Filed: 10/24/20 17:59> Extrem: General: Yes normal to inspection <CLAUDETTE Hammer Last Filed: 10/24/20 17:59> Psych: Affect: Anxious affect present <CLAUDETTE Hammer Last Filed: 10/24/20 17:59> Attitude: Guarded attititude/behavior present <CLAUDETTE Hammer Last Filed: 10/24/20 17:59> Thought process: Loose association thought process present <CLAUDETTE Hammer Last Filed: 10/24/20 17:59> Thought content: Hallucination(s) present auditory <CLAUDETTE Hammer Last Filed: 10/24/20 17:59> Course Course Course Narrative: - labs unremarkable, UA negative, drug screen positive for THC -1320-- patient was evaluated by care team and is now an inpatient bed search - physician observation initiated 1356 as patient needs more time to be an inpatient bed search - patient had increasing agitation/ anxiety and was pacing around, was given 1 mg Ativan. Now acting normally. Was re-evaluated by care team, plan is to hold overnight and re-evaluate in the morning, should avoid benzos if possible -1800-- ED care transferred to [facility] pending re-evaluation in the morning by care team <CLAUDETTE Hammer Last Filed: 10/24/20 17:59> MDM - Psych MDM Narrative Medical decision making narrative: 59-year-old female with a past medical history of anxiety, BIBA c/o increased anxiety and hearing voices x a long time. Reports feels tremulous. On exam tachycardic, anxious, rocking back and forth in bed, tremulous, NAD/ nontoxic appearing, no diaphoresis. Concern for increased anxiety vs benzo withdrawal vs medication seeking. plan: EKG, labs, UA /MEZA, PO Zyprexa, BHN evaluation <CLAUDETTE Hammer - Last Filed: 10/24/20 17:59> Medical Records Attestation: I reviewed the patient's medical records. <CLAUDETTE Hammer - Last Filed: 10/24/20 17:59> Lab Data Attestation: I reviewed the patient's lab results. <CLAUDETTE Hammer - Last Filed: 10/24/20 17:59> Result diagrams: : 10/24/20 09:30 10/24/20 09:46 <CLAUDETTE Hammer - Last Filed: 10/24/20 17:59> Labs: Lab Results 10/24/20 10/24/20 10/24/20 Range/Units 09:29 09:30 09:30 WBC 6.3 (4.8-10.8) X10*3/uL RBC 4.65 (4.20-5.50) X10*6/uL Hgb 13.9 (12.0-16.0) g/dl Hct 40.2 (37-47) % MCV 86.5 (80-98) fL MCH 29.9 (27.0-33.0) pg MCHC 34.6 (31.0-35.0) g/dl RDW 12.5 (11.0-16.0) % Plt Count 311 (160-400) X10*3/uL MPV 9.9 (9.4-12.3) fL Immature Gran % (Auto) 0.3 (0.0-0.4) % Neut % (Auto) 64.7 (45-73) % Lymph % (Auto) 24.4 (20-40) % [place] % (Auto) 7.8 (2-11) % Eos % (Auto) 1.8 (0-4) % Baso % (Auto) 1.0 (0-2) % Lymph # (Auto) 1.5 (1.2-4.9) X10*3/uL [place] # (Auto) 0.5 (0.1-1.2) X10*3/uL Eos # (Auto) 0.1 (0.0-0.4) X10*3/uL Baso # (Auto) 0.1 (0.0-0.2) X10*3/uL Abs Immat Gran (auto) 0.02 (0.00-0.03) X10*3/uL Absolute Neuts (auto) 4.1 (2.0-8.3) X10*3/uL Absolute Nucleated RBC 0.000 (0.0-0.012) X10*3/uL Nucleated RBC % (auto) 0.0 (0.0-0.2) /100WBC Sodium (135-145) mmol/L Potassium (3.3-5.1) mmol/L Chloride (96-108) mmol/L Carbon Dioxide (22-29) mmol/L Anion Gap (12-20) BUN (9-16) mg/dL Creatinine (0.5-1.4) mg/dL Estim Creat Clear Calc Estimated GFR Random Glucose (60-115) mg/dL Calcium (8.4-10.2) mg/dL Magnesium (1.6-2.6) mg/dL Total Bilirubin (0.0-1.0) mg/dL Direct Bilirubin (0.0-0.5) mg/dL AST (5-31) U/L ALT (0-31) U/L Alkaline Phosphatase (39-117) U/L Total Protein (6.5-8.0) g/dL Albumin (3.5-5.0) g/dL Urine Color Urine Appearance Urine pH (5.0-8.0) Ur Specific [place] (1.005-1.025) Urine Protein (NEG-TRACE) MG/DL Urine Glucose (UA) (NEG) MG/DL Urine Ketones (NEG) MG/DL Urine Blood (NEG) Urine Nitrite (NEG) Ur Leukocyte Esterase (NEG) Urine Opiates Screen Not Detected (Not Detect) Ur Barbiturates Screen Not Detected (Not Detect) Ur Phencyclidine Scrn Not Detected (Not Detect) Ur Amphetamines Screen Not Detected (Not Detect) U Benzodiazepines Scrn Not Detected (Not Detect) Urine Cocaine Screen Not Detected (Not Detect) U Marijuana (THC) Screen POSITIVE H (Not Detect) COVID-19 (NORA) Negative (Negative) COVID-19 Clin Com See Note 10/24/20 10/24/20 Range/Units 09:30 09:46 WBC (4.8-10.8) X10*3/uL RBC (4.20-5.50) X10*6/uL Hgb (12.0-16.0) g/dl Hct (37-47) % MCV (80-98) fL MCH (27.0-33.0) pg MCHC (31.0-35.0) g/dl RDW (11.0-16.0) % Plt Count (160-400) X10*3/uL MPV (9.4-12.3) fL Immature Gran % (Auto) (0.0-0.4) % Neut % (Auto) (45-73) % Lymph % (Auto) (20-40) % [place] % (Auto) (2-11) % Eos % (Auto) (0-4) % Baso % (Auto) (0-2) % Lymph # (Auto) (1.2-4.9) X10*3/uL [place] # (Auto) (0.1-1.2) X10*3/uL Eos # (Auto) (0.0-0.4) X10*3/uL Baso # (Auto) (0.0-0.2) X10*3/uL Abs Immat Gran (auto) (0.00-0.03) X10*3/uL Absolute Neuts (auto) (2.0-8.3) X10*3/uL Absolute Nucleated RBC (0.0-0.012) X10*3/uL Nucleated RBC % (auto) (0.0-0.2) /100WBC Sodium 142 (135-145) mmol/L Potassium 4.3 (3.3-5.1) mmol/L Chloride 110 H (96-108) mmol/L Carbon Dioxide 24 (22-29) mmol/L Anion Gap 12 (12-20) BUN 14 (9-16) mg/dL Creatinine 0.77 (0.5-1.4) mg/dL Estim Creat Clear Calc 83.9 Estimated GFR > 60 Random Glucose 111 (60-115) mg/dL Calcium 9.5 (8.4-10.2) mg/dL Magnesium 2.1 (1.6-2.6) mg/dL Total Bilirubin 0.4 (0.0-1.0) mg/dL Direct Bilirubin 0.2 (0.0-0.5) mg/dL AST 11 (5-31) U/L ALT 20 (0-31) U/L Alkaline Phosphatase 90 (39-117) U/L Total Protein 7.0 (6.5-8.0) g/dL Albumin 4.5 (3.5-5.0) g/dL Urine Color YELLOW Urine Appearance CLEAR Urine pH 5.5 (5.0-8.0) Ur Specific [place] >= 1.030 H (1.005-1.025) Urine Protein NEG (NEG-TRACE) MG/DL Urine Glucose (UA) NEG (NEG) MG/DL Urine Ketones NEG (NEG) MG/DL Urine Blood NEG (NEG) Urine Nitrite NEG (NEG) Ur Leukocyte Esterase NEG (NEG) Urine Opiates Screen (Not Detect) Ur Barbiturates Screen (Not Detect) Ur Phencyclidine Scrn (Not Detect) Ur Amphetamines Screen (Not Detect) U Benzodiazepines Scrn (Not Detect) Urine Cocaine Screen (Not Detect) U Marijuana (THC) Screen (Not Detect) COVID-19 (NORA) (Negative) COVID-19 Clin Com <CLAUDETTE Hammer - Last Filed: 10/24/20 17:59> Lab Results 10/24/20 10/24/20 10/24/20 Range/Units 09:29 09:30 09:30 WBC 6.3 (4.8-10.8) X10*3/uL RBC 4.65 (4.20-5.50) X10*6/uL Hgb 13.9 (12.0-16.0) g/dl Hct 40.2 (37-47) % MCV 86.5 (80-98) fL MCH 29.9 (27.0-33.0) pg MCHC 34.6 (31.0-35.0) g/dl RDW 12.5 (11.0-16.0) % Plt Count 311 (160-400) X10*3/uL MPV 9.9 (9.4-12.3) fL Immature Gran % (Auto) 0.3 (0.0-0.4) % Neut % (Auto) 64.7 (45-73) % Lymph % (Auto) 24.4 (20-40) % [place] % (Auto) 7.8 (2-11) % Eos % (Auto) 1.8 (0-4) % Baso % (Auto) 1.0 (0-2) % Lymph # (Auto) 1.5 (1.2-4.9) X10*3/uL [place] # (Auto) 0.5 (0.1-1.2) X10*3/uL Eos # (Auto) 0.1 (0.0-0.4) X10*3/uL Baso # (Auto) 0.1 (0.0-0.2) X10*3/uL Abs Immat Gran (auto) 0.02 (0.00-0.03) X10*3/uL Absolute Neuts (auto) 4.1 (2.0-8.3) X10*3/uL Absolute Nucleated RBC 0.000 (0.0-0.012) X10*3/uL Nucleated RBC % (auto) 0.0 (0.0-0.2) /100WBC Sodium (135-145) mmol/L Potassium (3.3-5.1) mmol/L Chloride (96-108) mmol/L Carbon Dioxide (22-29) mmol/L Anion Gap (12-20) BUN (9-16) mg/dL Creatinine (0.5-1.4) mg/dL Estim Creat Clear Calc Estimated GFR Random Glucose (60-115) mg/dL Calcium (8.4-10.2) mg/dL Magnesium (1.6-2.6) mg/dL Total Bilirubin (0.0-1.0) mg/dL Direct Bilirubin (0.0-0.5) mg/dL AST (5-31) U/L ALT (0-31) U/L Alkaline Phosphatase (39-117) U/L Total Protein (6.5-8.0) g/dL Albumin (3.5-5.0) g/dL Urine Color Urine Appearance Urine pH (5.0-8.0) Ur Specific [place] (1.005-1.025) Urine Protein (NEG-TRACE) MG/DL Urine Glucose (UA) (NEG) MG/DL Urine Ketones (NEG) MG/DL Urine Blood (NEG) Urine Nitrite (NEG) Ur Leukocyte Esterase (NEG) Urine Opiates Screen Not Detected (Not Detect) Ur Barbiturates Screen Not Detected (Not Detect) Ur Phencyclidine Scrn Not Detected (Not Detect) Ur Amphetamines Screen Not Detected (Not Detect) U Benzodiazepines Scrn Not Detected (Not Detect) Urine Cocaine Screen Not Detected (Not Detect) U Marijuana (THC) Screen POSITIVE H (Not Detect) COVID-19 (NORA) Negative (Negative) COVID-19 Clin Com See Note 10/24/20 10/24/20 Range/Units 09:30 09:46 WBC (4.8-10.8) X10*3/uL RBC (4.20-5.50) X10*6/uL Hgb (12.0-16.0) g/dl Hct (37-47) % MCV (80-98) fL MCH (27.0-33.0) pg MCHC (31.0-35.0) g/dl RDW (11.0-16.0) % Plt Count (160-400) X10*3/uL MPV (9.4-12.3) fL Immature Gran % (Auto) (0.0-0.4) % Neut % (Auto) (45-73) % Lymph % (Auto) (20-40) % [place] % (Auto) (2-11) % Eos % (Auto) (0-4) % Baso % (Auto) (0-2) % Lymph # (Auto) (1.2-4.9) X10*3/uL [place] # (Auto) (0.1-1.2) X10*3/uL Eos # (Auto) (0.0-0.4) X10*3/uL Baso # (Auto) (0.0-0.2) X10*3/uL Abs Immat Gran (auto) (0.00-0.03) X10*3/uL Absolute Neuts (auto) (2.0-8.3) X10*3/uL Absolute Nucleated RBC (0.0-0.012) X10*3/uL Nucleated RBC % (auto) (0.0-0.2) /100WBC Sodium 142 (135-145) mmol/L Potassium 4.3 (3.3-5.1) mmol/L Chloride 110 H (96-108) mmol/L Carbon Dioxide 24 (22-29) mmol/L Anion Gap 12 (12-20) BUN 14 (9-16) mg/dL Creatinine 0.77 (0.5-1.4) mg/dL Estim Creat Clear Calc 83.9 Estimated GFR > 60 Random Glucose 111 (60-115) mg/dL Calcium 9.5 (8.4-10.2) mg/dL Magnesium 2.1 (1.6-2.6) mg/dL Total Bilirubin 0.4 (0.0-1.0) mg/dL Direct Bilirubin 0.2 (0.0-0.5) mg/dL AST 11 (5-31) U/L ALT 20 (0-31) U/L Alkaline Phosphatase 90 (39-117) U/L Total Protein 7.0 (6.5-8.0) g/dL Albumin 4.5 (3.5-5.0) g/dL Urine Color YELLOW Urine Appearance CLEAR Urine pH 5.5 (5.0-8.0) Ur Specific [place] >= 1.030 H (1.005-1.025) Urine Protein NEG (NEG-TRACE) MG/DL Urine Glucose (UA) NEG (NEG) MG/DL Urine Ketones NEG (NEG) MG/DL Urine Blood NEG (NEG) Urine Nitrite NEG (NEG) Ur Leukocyte Esterase NEG (NEG) Urine Opiates Screen (Not Detect) Ur Barbiturates Screen (Not Detect) Ur Phencyclidine Scrn (Not Detect) Ur Amphetamines Screen (Not Detect) U Benzodiazepines Scrn (Not Detect) Urine Cocaine Screen (Not Detect) U Marijuana (THC) Screen (Not Detect) COVID-19 (NORA) (Negative) COVID-19 Clin Com <CLAUDETTE Lamar - Last Filed: 10/25/20 10:09> Discharge Plan Discharge Clinical Impression: Acute anxiety <CLAUDETTE Hammer - Last Filed: 10/24/20 17:59> Prescriptions: No Action olanzapine 15 mg tablet 1 tab PO BEDTIME RF: 0 lorazepam 1 mg tablet 1 tab PO TID PRN (Reason: anxiety) RF: 0 <CLAUDETTE Hammer Last Filed: 10/24/20 17:59> ED Observation ED Observation Progress Notes 1: Progress Note: 10/25/20 - 10:08 CLAUDETTE Lamar - physician observation was started overnight. Vital signs remained stable within normal limits. Patient had an uneventful night. Patient is currently awake this morning she was reporting anxiety and was asking for hydroxyzine therefore 50 mg Q 4 hour p.r.n. order placed at this time. Otherwise patient d enies any additional complaints or concerns at this time. No focal neuro deficits are noted. Lungs clear to auscultation. CV RRR. Abdomen is soft and nontender. Patient was re-evaluated by the care team and they recommended inpatient Section 12 bed search therefore will continue to monitor as patient waits admission. <CLAUDETTE Lamar - Last Filed: 10/25/20 10:09>
[2020-10-24 09:53] LABS: MANUAL DIFF FLAG NO
[2020-10-24 09:55] LABS: Glucose Urine UA NEG (NEG); Leukocyte Esterase Urine NEG (NEG); Nitrite Urine NEG (NEG); PH 5.5 (5.0-8.0); Specific Gravity - Urine >= 1.030 (1.005-1.025); Urine Blood NEG (NEG); Urine Ketones NEG (NEG); Urine Protein NEG (NEG-TRACE)
[2020-10-24 09:56] LABS: Basophils Absolute Auto 0.1 X10*3/uL (0.0-0.2); Eosinophils Absolute Auto 0.1 X10*3/uL (0.0-0.4); Eosinophils Percent Auto 1.8 % (0-4); Hematocrit 40.2 % (37-47); Hemoglobin 13.9 g/dl (12.0-16.0); Imm Gran Abs Auto 0.02 X10*3/uL (0.00-0.03); Imm Gran Pct Auto 0.3 % (0.0-0.4); Lymphocytes Absolute Auto 1.5 X10*3/uL (1.2-4.9); Lymphocytes Percent Auto 24.4 % (20-40); Mean Corpuscular HGB Conc 34.6 g/dl (31.0-35.0); Mean Corpuscular Hemoglobin 29.9 pg (27.0-33.0); Mean Corpuscular Volume 86.5 fL (80-98); Mean Platelet Volume 9.9 fL (9.4-12.3); Monocytes Absolute Auto 0.5 X10*3/uL (0.1-1.2); Monocytes Percent Auto 7.8 % (2-11); Neutrophils Absolute Auto 4.1 X10*3/uL (2.0-8.3); Neutrophils Percent Auto 64.7 % (45-73); Platelet Count 311 X10*3/uL (160-400); Red Blood Count 4.65 X10*6/uL (4.20-5.50); Red Cell Distribution Width 12.5 % (11.0-16.0); White Blood Count 6.3 X10*3/uL (4.8-10.8)
[2020-10-24] MEDS: OLANZapine 10 MG TABLET PO (10:02)
[2020-10-24 10:03] LABS: Appearance Urine CLEAR; Color Urine YELLOW
[2020-10-24 10:09] LABS: COVID-19 Test Negative (Negative)
[2020-10-24 10:20] LABS: Amphetamine Screen Urine Not Detected (Not Detect); Barbiturates, Urine Not Detected (Not Detect); Benzodiazepines Screen Urine Not Detected (Not Detect); Cannabinoid Screen Urine POSITIVE (Not Detect); Cocaine Screen Urine Not Detected (Not Detect); Opiate Screen Urine Not Detected (Not Detect); Phencyclidine Screen Urine Not Detected (Not Detect)
[2020-10-24 10:22] LABS: Alanine Aminotransferase 20 U/L (0-31); Albumin Level 4.5 g/dL (3.5-5.0); Alkaline Phosphatase 90 U/L (39-117); Anion Gap 12 (12-20); Aspartate Amino Transferase 11 U/L (5-31); Bilirubin Direct 0.2 mg/dL (0.0-0.5); Bilirubin Total 0.4 mg/dL (0.0-1.0); Blood Urea Nitrogen 14 mg/dL (9-16); Calcium 9.5 mg/dL (8.4-10.2); Carbon Dioxide 24 mmol/L (22-29); Chloride 110 mmol/L (96-108); Creatinine Clr Calc Pharmacy 83.9; Estimated Glomerular Filt Rate > 60; Glucose Random 111 mg/dL (60-115); Magnesium 2.1 mg/dL (1.6-2.6); Potassium 4.3 mmol/L (3.3-5.1); Sodium 142 mmol/L (135-145)
[2020-10-24 12:02] VITALS: BP 135/88; PULSE 100; RESP 16; TEMP 36.3; O2SAT 97
[2020-10-24] MEDS: hydrOXYzine HCL 25 MG TABLET PO ×2 (13:11→18:24)
--- NOTE | 2020-10-24 14:51 | PHA.MEDREC ---
Pharmacy Consult ? Medication Reconciliation Pharmacy has completed the medication reconciliation. There are no remarkable issues for provider's attention. Katherine Álvarez, JonathanD
[2020-10-24] MEDS: LORazepam 1 MG TABLET PO (14:53)
[2020-10-25 06:13] VITALS: BP 126/80; PULSE 85; RESP 18; TEMP 36.7; O2SAT 100
--- NOTE | 2020-10-25 06:21 | PC.NURSE ---
Patient slept through the night, up x1 for bathroom use and for water, good behavioral control, mood was pleasant, disposition is re-evaluation by Care Team in the morning and possible discharge, VSS, will continue to monitor.
--- NOTE | 2020-10-25 07:18 | PC.NURSE ---
patient awakened early this morning and continued with restless gestures as observed yesterday afternoon, as t/w had left yesterday patient had expressed desire to dc however patient may be ambivalent at this time. t/w discussed potential for inpatient admission to perhaps resolve symptoms. patient asked for vistaril, t/w expressed need for time to pursue order. patient said she wanted ativan. t/w explained with the lack of a provider to follow up that might not be a productive option. patient protested but theyll give it to me if i need it . t/w responded not necessarily
[2020-10-25] MEDS: hydrOXYzine HCL 50 MG TABLET PO (09:34)
[2020-10-25] MEDS: LORazepam 1 MG TABLET PO ×2 (10:22→15:29)
[2020-10-25] MEDS: Acetaminophen 325 MG TABLET 975 MG PO (12:06)
[2020-10-25 15:55] VITALS: BP 143/65; PULSE 75; RESP 16; TEMP 36.6; O2SAT 97
[2020-10-25 18:00] VITALS: BP 116/65; PULSE 70; RESP 16; TEMP 36.3; O2SAT 98
--- NOTE | 2020-10-25 18:39 | PC.ADMIT ---
Mya is a 59 year old single female admitted to M3 on CV from [facility] ED for exacerbation of Obsessive Compulsive Disorder and sedative induced anxiety. 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 Mya is dressed in hospital garb, irritable but cooperative with admission assessment. She reports that being in the hospital is her only stressor. She exhibits poor insight and offers numerous complaints about the unit requiring frequent redirection to focus on admission assessment. At [facility] you can have your phone. I wouldn't be anxious if I had my phone. despite the fact that she was anxious prior to presenting at the ED for complaints of anxiety. Mya denies depression but presents with poor appetite ( reports 13 lb weight loss), poor sleep if unmedicated, and her ability to focus is impaired. She is negatively focused and perseverative. She denies perceptual disturbances of any kind. She denies current or history of ideation, plan or intent to harm self or others. She denies physical complaint.
[2020-10-25] MEDS: OLANZapine 7.5 MG TABLET 15 MG PO (22:01)
[2020-10-25] MEDS: traZODone HCL 50 MG TABLET PO (22:14)
[2020-10-25] MEDS: hydrOXYzine HCL 25 MG TABLET PO (22:15)
[2020-10-26 06:00] VITALS: BP 127/70; PULSE 79; RESP 16; TEMP 36.8; O2SAT 96
[2020-10-26] MEDS: LORazepam 1 MG TABLET PO (08:15)
[2020-10-26] MEDS: chlorproMAZINE HCl 25 MG TABLET PO (15:05)
[2020-10-26] MEDS: Sertraline HCL 50 MG TABLET PO (15:08)
[2020-10-26 15:22] LABS: Estimated Average Glucose 111 mg/dL; Hemoglobin A1c % 5.5 %
[2020-10-26 15:39] LABS: Cholesterol 225 mg/dL; HDL Cholesterol 34 mg/dL; LDL Cholesterol Calculated 147 mg/dl; Triglycerides 220 mg/dL
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
[2020-10-26 17:08] VITALS: BP 126/65; PULSE 75; RESP 16; TEMP 36.5; O2SAT 96
[2020-10-26] MEDS: chlorproMAZINE HCl 100 MG TABLET PO (21:49)
[2020-10-27] MEDS: chlorproMAZINE HCl 25 MG TABLET PO ×2 (07:39→11:44)
[2020-10-27] MEDS: Sertraline HCL 50 MG TABLET PO (07:40)
[2020-10-27 08:20] VITALS: BP 123/66; PULSE 87; RESP 18; TEMP 36.8; O2SAT 97
[2020-10-27] MEDS: chlorproMAZINE HCl 25 MG TABLET 50 MG PO ×2 (14:11→16:50)
--- NOTE | 2020-10-27 14:56 | P.PNPSI_ITS ---
Subjective Subjective Date of Service: 10/27/20 Reason For Visit: psychosis Interim History: pt reports she has become quite anxious and the thorazine 25 mg was not very helpful. MD suggests increasing to 50, and she agrees. she does ask repeatedly if there is anything else that might be tried. says no, this is the route we are on at the moment. she reports she did sleep well last night after receiving thorazine 100 mg. she had been lying motionless in bed as MD arrived in her room and she quickly sat up onto the edge of her bed and began rocking back and forth and fidgeting with her hands. she continued these movements throughout the entirety of the interview. per staff, slept well overnight on thorazine 100 mg. anxious during the day; had one thorazine 25 mg PRN this morning. Mental Status Exam Mental Status Exam Narrative: appropriately dressed and groomed. PMA of rocking and hand fidgeting. cooperative with interview. speech incr rate. nml amount, loudne ss, tone, latency. thoughts linear and logical. affect constricted, appropriate, hyper-intense, non-labile. mood anxious. no SI/HI/AHV expressed. Diagnostics Vital Signs (24Hr): Vital Signs - 24 hr 10/26/20 17:08 10/27/20 08:20 Temperature 97.7 F 98.3 F Pulse Rate 75 87 Respiratory Rate 16 18 Blood Pressure 126/65 123/66 Pulse Oximetry 96 97 Body Mass Index 27.0 Labs Results: 10/24/20 09:30 10/24/20 09:46 Labs: Laboratory Results - last 48 hr 10/26/20 10/26/20 15:00 15:00 Estimat Average Glucose 111 Hemoglobin A1c % 5.5 Triglycerides 220 Cholesterol 225 LDL Cholesterol, Calc 147 HDL Cholesterol 34 Medications Medications Current Medications Generic Name Dose Route Start Last Admin Trade Name Freq PRN Reason Stop Dose Admin Acetaminophen 975 mg 10/25/20 11:52 10/25/20 12:06 Acetaminophen 325 Mg Tablet PO 975 mg Q6H PRN Administration pain Al Hydroxide/Mg Hydroxide 30 ml 10/25/20 16:45 Magnesium Hydrox/Alum Hydrox 30 Ml Oral.Susp PO Q6H PRN Heartburn/Nausea Chlorpromazine HCl 100 mg 10/26/20 14:46 Chlorpromazine Hcl 100 Mg Tablet PO BEDTIME PRN Insomnia Chlorpromazine HCl 100 mg 10/26/20 21:00 10/26/20 21:49 Chlorpromazine Hcl 100 Mg Tablet PO 100 mg BEDTIME JOSEF Administration Chlorpromazine HCl 50 mg 10/27/20 13:30 10/27/20 14:11 Chlorpromazine Hcl 25 Mg Tablet PO 50 mg Q4H PRN Administration Anxiety Magnesium Hydroxide 30 ml 10/25/20 16:45 Milk Of Magnesia 30 Ml Oral.Susp PO DAILY PRN Constipation Nicotine Polacrilex 2 mg 10/25/20 16:45 Nicotine Polacrilex 2 Mg Gum BUCCAL Q2H PRN Nicotine Cravings Sertraline HCl 50 mg 10/26/20 15:00 10/27/20 07:40 Sertraline Hcl 50 Mg Tablet PO 50 mg DAILY JOSEF Administration Allergies Allergies Allergy/AdvReac Type Severity Reaction Status Date / Time cephalexin [From Keflex] Allergy Hives Verified 09/28/20 10:40 Assessment & Plan Assessment & Plan (1) Opioid use disorder: Status: Acute Code(s): F11.99 - Opioid use, unspecified with unspecified opioid-induced disorder Assessment and Plan: abstain (2) Sedative abuse: Status: Acute Code(s): F13.10 - Sedative, hypnotic or anxiolytic abuse, uncomplicated Assessment and Plan: DCed ativan. use thorazine for anxiety. (3) Anxiety disorder: Status: Acute Code(s): F41.9 - Anxiety disorder, unspecified Assessment and Plan: started zoloft 50 mg daily. thorazine 100 at bedtime and 50 mg PRN anxiety. (4) Cannabis use disorder, mild, abuse: Status: Acute Code(s): F12.10 - Cannabis abuse, uncomplicated Assessment and Plan: encourage abstinence Greater than 50% of the session was spent on counseling and/or coordination of care Reason for contiued inpatient stay Substantial Risk for: inability to function
[2020-10-27] MEDS: chlorproMAZINE HCl 100 MG TABLET PO ×2 (16:50→21:35)
[2020-10-27 18:00] VITALS: BP 117/79; PULSE 105; RESP 20; TEMP 36.6; O2SAT 95
[2020-10-27] MEDS: LORazepam 1 MG TABLET 2 MG PO (18:36)
--- NOTE | 2020-10-27 19:13 | PC.NURSE ---
Patient awoke this morning (after sleeping all night), presented anxious: wringing hands, shallow, rapid breathing, Why is this happening to me. My thoughts are too much to handle. This chief writer tried to assist patient with relaxation/ coping techniques with minimal effect. Thorazine 25mg po prn given with some effect. Patient was active in the milieu intermittently. She required some prompting to use affirmations to keep her thoughts positively focused. She attended groups and interacted appropriately with staff and peers in am. At 11:45 she requested and received another thorazine 25mg prn for racing thoughts. At that time she noted that she is being punished by god for having relationships with women because that is a sin. We did guided meditation with some effect., guided imagery. Patient met with MD and immediately came to request another ( higher dose) thorazine. Dr Wynn verballly approved that dose administered at 2pm. At 3pm patient presented at the nurses' station complaining of anxiety and requesting ativan. I spent > 1 hour prompting/ assisting patient to try coping skills with intermittent/ variable effect. At that point she was wincing and flailing, walking with unsteady gait, shouting, this is the worst I have ever felt. Thorazine 150mg ordered by Dr Wynn and given. When patient received the meds she began shouting. This will never work I need ativan. Pt was accompanied to her room and redirected multiple times, encouraged to allow thorazine to work. Weighted blanket was offered and tried without effect. Patient appeared to be fighting the effect of the medication. At 6:15 patient attempted to stab her wrist with a safety pen and then a plastic fork but staff intervened and no injury occurred. Patient was briefly placed on 1:1 nursing discretion and an order for ativan 2mg was received from Dr Wynn. When patient was told she would be receiving ativan her behavior changed drastically: Shouting, wincing, flailing stopped, gait became steady and patient waited calmly at the med room window. She held still for vital signs ( which we had been unable to obtain prior) and waited 20 minutes quietly while I obtained the order and administered the medication. Dr Wynn informed.
[2020-10-28 08:10] VITALS: BP 142/63; PULSE 112; RESP 18; TEMP 36.2; O2SAT 97
[2020-10-28] MEDS: Sertraline HCL 50 MG TABLET PO (08:19)
[2020-10-28] MEDS: chlorproMAZINE HCl 25 MG TABLET 50 MG PO ×2 (08:23→12:50)
[2020-10-28] MEDS: Lithium Carbonate ER 450 MG TABLET.ER PO ×2 (13:06→22:06)
--- NOTE | 2020-10-28 13:11 | HO.PSYCHPN ---
Subjective Subjective Date of Service: 10/28/20 Reason For Visit: psychosis Interim History: pt reports she became extremely anxious yesterday and that the ativan wasvery helpful. it's the thing she knows works from prior experience. she asks if she becomes extremely anxious again will it be available; states it is always an option. per nursing report once pt was told she would be getting ativan yesterday afternoon she was able to immediately control her behavior and wait for 8 minutes or so calmly for the medication, which does not support dysregulation so much as malingering. however, she did tolerate a very high dose of thorazine over the past 24H. the possibility she might have a bipolar diathesis was broached, and she is open to considering. she agrees to lithium trial with the expectation that if she feels better on it then we will have our answer. her strong preference is to continue with the ativan, but she is willing to give a novel approach a try. per nursing staff, pt's behavior yesterday afternoon was quite dramatic - scratching at arm with pen, flailing, wincing, shouting, throwing herself on the ground. then the announcement that ativan would be forthcoming, and a halt to the behaviors and a period of patiently waiting. Mental Status Exam Mental Status Exam Narrative: appropriately dressed and groomed. PMA of fidgetiness. cooperative with interview. speech incr rate. nml amount, loudness, tone, latency. thoughts linear and logical. affect constricted, appropriate, hyper-intense, non-labile. mood anxious. no SI/HI/AHV expressed. Diagnostics Vital Signs (24Hr): Vital Signs - 24 hr 10/27/20 18:00 10/28/20 08:10 Temperature 97.8 F 97.2 F Pulse Rate 105 H 112 H Respiratory Rate 20 18 Blood Pressure 117/79 142/63 H Pulse Oximetry 95 97 Body Mass Index 27.0 Labs Results: 10/24/20 09:30 10/24/20 09:46 Labs: Laboratory Results - last 48 hr 10/26/20 10/26/20 15:00 15:00 Estimat Average Glucose 111 Hemoglobin A1c % 5.5 Triglycerides 220 Cholesterol 225 LDL Cholesterol, Calc 147 HDL Cholesterol 34 Medications Medications Current Medications Generic Name Dose Route Start Last Admin Trade Name Freq PRN Reason Stop Dose Admin Acetaminophen 975 mg 10/25/20 11:52 10/25/20 12:06 Acetaminophen 325 Mg Tablet PO 975 mg Q6H PRN Administration pain Al Hydroxide/Mg Hydroxide 30 ml 10/25/20 16:45 Magnesium Hydrox/Alum Hydrox 30 Ml Oral.Susp PO Q6H PRN Heartburn/Nausea Chlorpromazine HCl 100 mg 10/26/20 14:46 Chlorpromazine Hcl 100 Mg Tablet PO BEDTIME PRN Insomnia Chlorpromazine HCl 100 mg 10/26/20 21:00 10/27/20 21:35 Chlorpromazine Hcl 100 Mg Tablet PO 100 mg BEDTIME JOSEF Administration Chlorpromazine HCl 50 mg 10/27/20 13:30 10/28/20 12:50 Chlorpromazine Hcl 25 Mg Tablet PO 50 mg Q4H PRN Administration Anxiety [place] Carbonate 450 mg 10/28/20 21:00 [place] Carbonate Er 450 Mg Tablet.Er PO BID JOSEF Magnesium Hydroxide 30 ml 10/25/20 16:45 Milk Of Magnesia 30 Ml Oral.Susp PO DAILY PRN Constipation Nicotine Polacrilex 2 mg 10/25/20 16:45 Nicotine Polacrilex 2 Mg Gum BUCCAL Q2H PRN Nicotine Cravings Sertraline HCl 50 mg 10/26/20 15:00 10/28/20 08:19 Sertraline Hcl 50 Mg Tablet PO 50 mg DAILY JOSEF Administration Allergies Allergies Allergy/AdvReac Type Severity Reaction Status Date / Time cephalexin [From Keflex] Allergy Hives Verified 09/28/20 10:40 Assessment & Plan Assessment & Plan (1) Opioid use disorder: Status: Acute Code(s): F11.99 - Opioid use, unspecified with unspecified opioid-induced disorder Assessment and Plan: abstain (2) Sedative abuse: Status: Acute Code(s): F13.10 - Sedative, hypnotic or anxiolytic abuse, uncomplicated Assessment and Plan: DCed ativan. use thorazine for anxiety. (3) Anxiety disorder: Status: Acute Code(s): F41.9 - Anxiety disorder, unspecified Assessment and Plan: starteded zoloft 50 mg daily. thorazine 100 at bedtime and 50 mg PRN anxiety. lithium trial on the chance this is an atypical augie presentation. (4) Cannabis use disorder, mild, abuse: Status: Acute Code(s): F12.10 - Cannabis abuse, uncomplicated Assessment and Plan: encourage abstinence Greater than 50% of the session was spent on counseling and/or coordination of care Reason for contiued inpatient stay Substantial Risk for: inability to function and rapid decompensation
[2020-10-28] MEDS: LORazepam 1 MG TABLET PO (17:04)
[2020-10-28] MEDS: chlorproMAZINE HCl 100 MG TABLET PO (22:06)
[2020-10-28 22:15] VITALS: BP 113/75; PULSE 95; TEMP 36.5
[2020-10-28] MEDS: traZODone HCL 50 MG TABLET PO (23:19)
[2020-10-29 08:31] VITALS: BP 117/73; PULSE 113; RESP 18; TEMP 36.5; O2SAT 97
[2020-10-29] MEDS: chlorproMAZINE HCl 25 MG TABLET 50 MG PO (08:32)
[2020-10-29] MEDS: Sertraline HCL 50 MG TABLET PO (08:32)
[2020-10-29] MEDS: Lithium Carbonate ER 450 MG TABLET.ER PO ×2 (08:32→20:36)
--- NOTE | 2020-10-29 09:28 | P.PNPSI_ITS ---
Subjective Subjective Date of Service: 10/29/20 Reason For Visit: psychosis Interim History: Pt reports intrusive derogatory thoughts. She is also preoccupied with ideas of devil, hypersexuality. She presents as restless, ambivalent about whether to stay longer in hospital or try to leave early. She denies SI/HI. She denies AH but appears internally preoccupied. She has been visible in the unit, social with select peers, going to groups. She reports in the past she has been on risperidone with good effect. She also reports ativan being helpful for anxiety, which initially she reported helps and la be only medication she needs but later she able to understand that delusional content related to devil, intrusive thoughts fueling anxiety and sense of restlessness, therefore, treating it with an antipsychotic that she has found helpful in past. Review of Systems Review of Systems Constitutional: No Fever, No Chills Cardiovascular: No Chest Pain, No SOB Respiratory: No Cough, No Dyspnea Gastrointestinal: No Nausea, No Vomiting, No Abdominal pain Genitourinary: No Dysuria, No Hematuria Musculoskeletal: No joint pain, No Myalgias, No Joint Swelling Skin: No Skin Lesions, No rash Neuro: No Weakness, No Headache, + tremulous Psych: + Anxiety/Panic, No Depression, No SI/HI, +AH, No VH Yes all other systems are reviewed and are negative Mental Status Exam Mental Status Exam Narrative: Appearance: casually groomed, fair hygiene, in NAD Behavior: cooperative Psychomotor: restless Speech: clear, normal rate/rhythm/volume, spontaneous TP: tangential TC: preoccupied with ideas of devil, intrusive derogatory thoughts Mood: anxious Affect:congruent SI:denies HI:denies AH/VH:appears internally preoccupied Delusions:paranoid delusions related to devil Insight/judgment:poor x2 Memory/cog: alert, oriented x 3. impaired secondary to psychiatric symptoms. Diagnostics Vital Signs (24Hr): Vital Signs - 24 hr 10/28/20 22:15 10/29/20 08:31 Temperature 97.7 F 97.7 F Pulse Rate 95 113 H Respiratory Rate 18 Blood Pressure 113/75 117/73 Pulse Oximetry 97 Body Mass Index 27.0 Labs Results: 10/24/20 09:30 10/24/20 09:46 Medications Medications Current Medications Generic Name Dose Route Start Last Admin Trade Name Freq PRN Reason Stop Dose Admin Acetaminophen 975 mg 10/25/20 11:52 10/25/20 12:06 Acetaminophen 325 Mg Tablet PO 975 mg Q6H PRN Administration pain Al Hydroxide/Mg Hydroxide 30 ml 10/25/20 16:45 Magnesium Hydrox/Alum Hydrox 30 Ml Oral.Susp PO Q6H PRN Heartburn/Nausea Chlorpromazine HCl 100 mg 10/26/20 14:46 Chlorpromazine Hcl 100 Mg Tablet PO BEDTIME PRN Insomnia Chlorpromazine HCl 100 mg 10/26/20 21:00 10/28/20 22:06 Chlorpromazine Hcl 100 Mg Tablet PO 100 mg BEDTIME JOSEF Administration Chlorpromazine HCl 50 mg 10/27/20 13:30 10/29/20 08:32 Chlorpromazine Hcl 25 Mg Tablet PO 50 mg Q4H PRN Administration Anxiety [place] Carbonate 450 mg 10/28/20 21:00 10/29/20 08:32 [place] Carbonate Er 450 Mg Tablet.Er PO 450 mg BID JOSEF Administration Lorazepam 1 mg 10/29/20 11:55 10/29/20 15:57 Lorazepam 1 Mg Tablet PO 1 mg TID JOSEF Administration Magnesium Hydroxide 30 ml 10/25/20 16:45 Milk Of Magnesia 30 Ml Oral.Susp PO DAILY PRN Constipation Nicotine Polacrilex 2 mg 10/25/20 16:45 Nicotine Polacrilex 2 Mg Gum BUCCAL Q2H PRN Nicotine Cravings Risperidone 1 mg 10/29/20 12:00 10/29/20 12:04 Risperidone 1 Mg Tablet PO 1 mg BID JOSEF Administration Sertraline HCl 50 mg 10/26/20 15:00 10/29/20 08:32 Sertraline Hcl 50 Mg Tablet PO 50 mg DAILY JOSEF Administration Trazodone HCl 50 mg 10/28/20 22:59 10/28/20 23:19 Trazodone Hcl 50 Mg Tablet PO 50 mg BEDTIME PRN Administration Sleep Allergies Allergies Allergy/AdvReac Type Severity Reaction Status Date / Time cephalexin [From Keflex] Allergy Hives Verified 09/28/20 10:40 Assessment & Plan Assessment & Plan (1) Opioid use disorder: Status: Acute Code(s): F11.99 - Opioid use, unspecified with unspecified opioid-induced disorder Assessment and Plan: abstain (2) Sedative abuse: Status: Acute Code(s): F13.10 - Sedative, hypnotic or anxiolytic abuse, uncomplicated Assessment and Plan: DCed ativan. use thorazine for anxiety. (3) Anxiety disorder: Status: Acute Code(s): F41.9 - Anxiety disorder, unspecified Assessment and Plan: starteded zoloft 50 mg daily. thorazine 100 at bedtime and 50 mg PRN anxiety. lithium trial on the chance this is an atypical augie presentation. 1. Risperidone 1mg po BID started on 10/29 2. continue thorazine 100mg po qhs and prn 3. Start ativan 1mg po TID prn anxiety on 10/29- may reduce as delusional content is less (4) Cannabis use disorder, mild, abuse: Status: Acute Code(s): F12.10 - Cannabis abuse, uncomplicated Assessment and Plan: encourage abstinence Greater than 50% of the session was spent on counseling and/or coordination of care Reason for contiued inpatient stay Substantial Risk for: inability to function
[2020-10-29] MEDS: risperiDONE 1 MG TABLET PO ×2 (12:04→20:36)
[2020-10-29] MEDS: LORazepam 1 MG TABLET PO ×3 (12:04→20:36)
--- NOTE | 2020-10-29 14:30 | MHC.CLN ---
NUTRITION PATIENT REPORTS SOME WEIGHT LOSS OVER ONE MONTH AGO. REPORTS NOW THAT SHE IS GAINING WEIGHT AND APPETITE IS GOOD. REPORTED WEIGHT LOSS DOES NOT APPEAR TO BE SIGNIFICANT.
[2020-10-29 18:00] VITALS: BP 126/60; PULSE 98; RESP 18; TEMP 36.6; O2SAT 97
[2020-10-29] MEDS: chlorproMAZINE HCl 100 MG TABLET PO (20:36)
[2020-10-30 06:00] VITALS: BP 103/63; PULSE 108; RESP 16; O2SAT 97
[2020-10-30] MEDS: LORazepam 1 MG TABLET PO (08:13)
[2020-10-30] MEDS: Lithium Carbonate ER 450 MG TABLET.ER PO (08:14)
[2020-10-30] MEDS: Sertraline HCL 50 MG TABLET PO (08:14)
[2020-10-30] MEDS: risperiDONE 1 MG TABLET PO ×2 (08:14→22:03)
--- NOTE | 2020-10-30 13:06 | HO.PSYCHPN ---
Subjective Subjective Date of Service: 10/30/20 Reason For Visit: psychosis Interim History: pt appears happy this morning, relates the story of how covering provider yesterday started her on ativan 1 mg TID at her request, along with risperidone, and she feels great. she has been on risperidone in the past and feels it works better for her to slow racing thoughts than the thorazine has or than olanzapine has done for her in the past. once she has related her tale, informs her he will not be sending her out with an ativan script due to substance abuse/misuse concerns. she denies any such history or behavior. she is aware her three day notice matures tomorrow and insists on leaving. MD suggests a longer stay to sort out the usefulness of lithium, pt insistson leaving tomorrow. she feels continuing on the sertraline and risperidone would be good for her but agrees to DC lithium for now. she begs and pleads to continue the ativan script; suggests he talk to whoever was prescribing it previously. she reports it was her [place]CP, rashida craft [place] [facility] [facility] [place]. pt precipitously leaves the interview room without any clear ending or resolution having been met. Mental Status Exam Mental Status Exam Narrative: appropriately dressed and groomed. no PMA/PMR initially, once she receivs bad news some IVM of the prasanna-oral muscles. cooperative with interview. speech incr rate, amount. nml loudness, tone. decr latency. thoughts linear and logical. affect full range, appropriate, hyper-intense, non-labile. mood euthymic. no SI/HI/AHV expressed. Diagnostics Vital Signs (24Hr): Vital Signs - 24 hr 10/29/20 18:00 10/30/20 06:00 Temperature 97.8 F Pulse Rate 98 108 H Respiratory Rate 18 16 Blood Pressure 126/60 103/63 Pulse Oximetry 97 97 Body Mass Index 27.0 Labs Results: 10/24/20 09:30 10/24/20 09:46 Medications Medications Current Medications Generic Name Dose Route Start Last Admin Trade Name Freq PRN Reason Stop Dose Admin Acetaminophen 975 mg 10/25/20 11:52 10/25/20 12:06 Acetaminophen 325 Mg Tablet PO 975 mg Q6H PRN Administration pain Al Hydroxide/Mg Hydroxide 30 ml 10/25/20 16:45 Magnesium Hydrox/Alum Hydrox 30 Ml Oral.Susp PO Q6H PRN Heartburn/Nausea Chlorpromazine HCl 50 mg 10/27/20 13:30 10/29/20 08:32 Chlorpromazine Hcl 25 Mg Tablet PO 50 mg Q4H PRN Administration Anxiety Magnesium Hydroxide 30 ml 10/25/20 16:45 Milk Of Magnesia 30 Ml Oral.Susp PO DAILY PRN Constipation Nicotine Polacrilex 2 mg 10/25/20 16:45 Nicotine Polacrilex 2 Mg Gum BUCCAL Q2H PRN Nicotine Cravings Risperidone 1 mg 10/29/20 12:00 10/30/20 08:14 Risperidone 1 Mg Tablet PO 1 mg BID JOSEF Administration Sertraline HCl 50 mg 10/26/20 15:00 10/30/20 08:14 Sertraline Hcl 50 Mg Tablet PO 50 mg DAILY JOSEF Administration Trazodone HCl 50 mg 10/28/20 22:59 10/28/20 23:19 Trazodone Hcl 50 Mg Tablet PO 50 mg BEDTIME PRN Administration Sleep Allergies Allergies Allergy/AdvReac Type Severity Reaction Status Date / Time cephalexin [From Keflex] Allergy Hives Verified 09/28/20 10:40 Assessment & Plan Assessment & Plan (1) Opioid use disorder: Status: Acute Code(s): F11.99 - Opioid use, unspecified with unspecified opioid-induced disorder Assessment and Plan: abstain (2) Sedative abuse: Status: Acute Code(s): F13.10 - Sedative, hypnotic or anxiolytic abuse, uncomplicated Assessment and Plan: DCed ativan. use thorazine or risperidone for anxiety. (3) Anxiety disorder: Status: Acute Code(s): F41.9 - Anxiety disorder, unspecified Assessment and Plan: starteded zoloft 50 mg daily. thorazine 100 at bedtime and 50 mg PRN anxiety. lithium trial on the chance this is an atypical augie presentation. 1. Risperidone 1mg po BID started on 10/29 at pt request. 2. DCed thorazine 100mg po qhs and prn per pt request. 3. pt persistent in her requests for ativan as the only thing that works for her. in light of her focus on that, her fixation on discharge tomorrow, inability to be in touch with her PCP today (most recent prescriber of the ativan), and her h/o sedative/hypnotic misuse, i do not feel comfortable providing her with a script at discharge. (4) Cannabis use disorder, mild, abuse: Status: Acute Code(s): F12.10 - Cannabis abuse, uncomplicated Assessment and Plan: encourage abstinence Greater than 50% of the session was spent on counseling and/or coordination of care Reason for contiued inpatient stay Substantial Risk for: inability to function
[2020-10-30 17:22] VITALS: BP 121/63; PULSE 91; RESP 16; TEMP 36.8; O2SAT 96
[2020-10-30] MEDS: traZODone HCL 50 MG TABLET PO (22:03)
[2020-10-31 06:00] VITALS: BP 123/73; PULSE 100; RESP 20; TEMP 36.7; O2SAT 95
[2020-10-31] MEDS: Sertraline HCL 50 MG TABLET PO (08:19)
[2020-10-31] MEDS: risperiDONE 1 MG TABLET PO (08:19)
--- NOTE | 2020-10-31 10:14 | P.DS_ITS ---
DS: Providers Provider Date of Service: 10/31/20 Date of admission: 10/25/20 16:16 Primary care physician: Rogelio Mckeon MD DS: Diagnosis Discharge Diagnosis (1) Opioid use disorder: Status: Acute (2) Sedative abuse: Status: Acute (3) Anxiety disorder: Status: Acute (4) Cannabis use disorder, mild, abuse: Status: Acute DS: Medications Discharge Medications Home Medications: Home Medications Medication Instructions Recorded Confirmed lorazepam 1 tab PO TID PRN 10/24/20 10/24/20 olanzapine 1 tab PO BEDTIME 10/24/20 10/24/20 Discharge Plan Discharge Patient Disposition: Home, Self-Care Discharge Diagnosis: Panic Disorder Referrals: Brenda Alegre (therapy intake) [Other] - 11/04/20 4:00 pm (Telehealth appointment) Catrachita Robins (psychiatrist) [Other] - 11/27/20 9:00 am (Telehealth appointment) Catrachita Robins (psychiatrist) [Other] - 12/26/20 9:00 am (Telehealth appointment) Rogelio Mckeon MD [Primary Care Provider] - 1 Week Discharge Medications: New sertraline 50 mg Tablet 50 mg PO DAILY 30 Days Qty: 30 RF: 0 risperidone 1 mg Tablet 1 mg PO BID 30 Days Qty: 60 RF: 0 Discontinued olanzapine 15 mg tablet 1 tab PO BEDTIME RF: 0 lorazepam 1 mg tablet 1 tab PO TID PRN (Reason: anxiety) RF: 0 Discharge Orders: Discharge Order (Routine); Ordered 10/31/20 Ordered By: Bartolo Wynn Diet: regular diet Activity on Discharge: As tolerated Stand Alone Forms: Patient Portal Discharge page, Community Support Care Plan Goals: maintain independent living, reduce anxiety to manageable levels. Health Concerns: none Plan of Treatment: continue to take medications as prescribed. develop relationships with therapist and prescriber, attend appointments as scheduled. Assessment: safe for discharge to the community. not committable. Discharge Date/Time: 10/31/20 12:19 Mental Status Exam Mental Status Exam Narrative: appropriately dressed and groomed. no PMA/PMR initially, as interview progressed began crying a bit and saying she was feeling very anxious. cooperative with interview. speech incr rate, amount. nml loudness, tone. decr latency. thoughts linear and logical. affect constricted, appropriate, hyper-intense, min-labile. mood anxious. no SI/HI/AVH.. Data Data Completed and Pending Completed studies during hospitalization [Text1]: 10/24/20 10/24/20 10/26/20 09:29 09:46 15:00 Sodium 142 Potassium 4.3 Chloride 110 H Carbon Dioxide 24 Anion Gap 12 BUN 14 Creatinine 0.77 Estim Creat Clear Calc 83.9 Estimated GFR > 60 Random Glucose 111 Estimat Average Glucose 111 Hemoglobin A1c % 5.5 Calcium 9.5 Magnesium 2.1 Total Bilirubin 0.4 Direct Bilirubin 0.2 AST 11 ALT 20 Alkaline Phosphatase 90 Total Protein 7.0 Albumin 4.5 Triglycerides Cholesterol LDL Cholesterol, Calc HDL Cholesterol Urine Opiates Screen Not Detected Ur Barbiturates Screen Not Detected Ur Phencyclidine Scrn Not Detected Ur Amphetamines Screen Not Detected U Benzodiazepines Scrn Not Detected Urine Cocaine Screen Not Detected U Marijuana (THC) Screen POSITIVE H 10/26/20 15:00 Sodium Potassium Chloride Carbon Dioxide Anion Gap BUN Creatinine Estim Creat Clear Calc Estimated GFR Random Glucose Estimat Average Glucose Hemoglobin A1c % Calcium Magnesium Total Bilirubin Direct Bilirubin AST ALT Alkaline Phosphatase Total Protein Albumin Triglycerides 220 Cholesterol 225 LDL Cholesterol, Calc 147 HDL Cholesterol 34 Urine Opiates Screen Ur Barbiturates Screen Ur Phencyclidine Scrn Ur Amphetamines Screen U Benzodiazepines Scrn Urine Cocaine Screen U Marijuana (THC) Screen DS: Summary Hospital Course Hospital Course: dennis Wynn MD 10/26 Admission Note: BIBA after calling 911 due to having a panic attack at home. reported the devil was in her head telling her she is a bad person. appeared overwhelmed by anxiety initially in the ED, then after 1 mg ativan was quite calm and conversational. reported to crisis staff that she had dumped her last ativan Rx because the voices told her they were bad. per friend Marino pt has been decompensating for the past several months, but the past 3-4 years have been difficult. 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 mid-september accidental overdose on heroin requiring narcan. on interview with , pt c/o severe anxiety, saying she has been having a severe fear of afraid she will be going to [facility]. she believes she is not on the right path to go to [facility]. reports she has been listening to Jose Macario [facility] [place] [facility] [employer] and that MD should listen to Mr. Macario in order to understand where she is coming from. discuss her h/o substance use disorder and the problematic aspects of benzos, redirects pt toward SSRI and neuroleptic to address potential psychotic Sx as well as anxiety. pt reports zyprexa does not address her anxiety. suggests thorazine and pt agrees to thorazine at HS as well as PRN anxiety. informs pt ativan will be DCed, about which she is reluctant. she also agrees to start SSRI. had had good experience on paxil but reports it gave her hives. suggests sertraline, and pt agrees. R/B discussed, including sedation, activation, MARIO, GI upset, sexual dysfunction. will start at 50 mg daily. Past Psychiatric History: psych hosps: pt reports about 12 psych hosps. SA: denies SIB: remote h/o punching through windows (x3) HIB: denies denies outpt Tx currently. per Kingsley ANAND 10/27 Progress Note: pt reports she has become quite anxious and the thorazine 25 mg was not very helpful. suggests increasing to 50, and she agrees. she does ask repeatedly if there is anything else that might be tried. says no, this is the route we are on at the moment. she reports she did sleep well last night after receiving thorazine 100 mg. she had been lying motionless in bed as MD arrived in her room and she quickly sat up onto the edge of her bed and began rocking back and forth and fidgeting with her hands. she continued these movements throughout the entirety of the interview. per staff, slept well overnight on thorazine 100 mg. anxious during the day; had one thorazine 25 mg PRN this morning. per Kingsley ANAND 10/28 Progress Note: pt reports she became extremely anxious yesterday and that the ativan wasvery helpful. it's the thing she knows works from prior experience. she asks if she becomes extremely anxious again will it be available; states it is always an option. per nursing report once pt was told she would be getting ativan yesterday afternoon she was able to immediately control her behavior and wait for 8 minutes or so calmly for the medication, which does not support dysregulation so much as malingering. however, she did tolerate a very high dose of thorazine over the past 24H. the possibility she might have a bipolar diathesis was broached, and she is open to considering. she agrees to lithium trial with the expectation that if she feels better on it then we will have our answer. her strong preference is to continue with the ativan, but she is willing to give a novel approach a try. per nursing staff, pt's behavior yesterday afternoon was quite dramatic - scratching at arm with pen, flailing, wincing, shouting, throwing herself on the ground. then the announcement that ativan would be forthcoming, and a halt to the behaviors and a period of patiently waiting. per Theirno CHILDERS 10/29 Progress Note: Pt reports intrusive derogatory thoughts. She is also preoccupied with ideas of devil, hypersexuality. She presents as restless, ambivalent about whether to stay longer in hospital or try to leave early. She denies SI/HI. She denies AH but appears internally preoccupied. She has been visible in the unit, social with select peers, going to groups. She reports in the past she has been on risperidone with good effect. She also reports ativan being helpful for anxiety, which initially she reported helps and la be only medication she needs but later she able to understand that delusional content related to devil, intrusive thoughts fueling anxiety and sense of restlessness, therefore, treating it with an antipsychotic that she has found helpful in past. per Kingsley ANAND 10/30 Progress Note: pt appears happy this morning, relates the story of how covering provider yesterday started her on ativan 1 mg TID at her request, along with risperidone, and she feels great. she has been on risperidone in the past and feels it works better for her to slow racing thoughts than the thorazine has or than olanzapine has done for her in the past. once she has related her tale, informs her he will not be sending her out with an ativan script due to substance abuse/misuse concerns. she denies any such history or behavior. she is aware her three day notice matures tomorrow and insists on leaving. MD suggests a longer stay to sort out the usefulness of lithium, pt insistson leaving tomorrow. she feels continuing on the sertraline and risperidone would be good for her but agrees to DC lithium for now. she begs and pleads to continue the ativan script; MD suggests he talk to whoever was prescribing it previously. she reports it was [place], [place]gelio [place]ckeon [place] [facility] [place] [facility] [place]. pt precipitously leaves the interview room without any clear ending or resolution having been met. 10/31: pt observed on the unit seated calmly interacting with peers playing card games, walking the duff calmly with staff. once in the interview room with pt begins to cry and become emotionally dysregulated. states she is very anxious, preoccupied with the of a cousin, wondering why he had to . states that her spiritual guru said something rather bizarre to her. says a few times she does not want to be like this and calms herself. informs her [facility] [place] yesterday so he has been unable to speak with Dr. Mckeon. she is encouraged to take medications as prescribed and to follow up with outpt providers. contacted [facility] again today and Dr. Mckeon was out; MD left a message for Dr. Linda saleh ativan prescription (that this MD did not prescriber her any due to concerns about misuse and that this MD had redirected her back to him to discuss the medication). Precis: starteded zoloft 50 mg daily. thorazine 100 at bedtime and 50 mg PRN anxiety. lithium trial on the chance this is an atypical augie presentation. 1. Risperidone 1mg po BID started on 10/29 at pt request. 2. DCed thorazine 100mg po qhs and prn per pt request. 3. pt persistent in her requests for ativan as the only thing that works for her. in light of her focus on that, her fixation on discharge rather than staying longer, inability to be in touch with her PCP (most recent prescriber of the ativan), and her h/o sedative/hypnotic misuse, i do not feel comfortable providing her with a script at discharge. Time Spent with Patient Time attestation: Total time spent providing and/or coordinating discharge services:
--- NOTE | 2020-10-31 10:23 | PC.NURSE ---
Patient is alert, fully oriented, pleasant and cooperative with discharge process. He denies ideation, plan or intent to harm self or others. Education done related to prescribed medications, diabetes management, appointments, coping skills and crisis numbers. Garett denies questions regarding discharge, He denies physical complaint.
[2020-10-31] MEDS: chlorproMAZINE HCl 25 MG TABLET 50 MG PO (11:45)
--- NOTE | 2020-10-31 12:15 | PC.NURSE ---
Patient is alert, fully oriented, pleasant and cooperative with discharge process. She denies ideation, plan or intent to harm self or others. Education done related to prescribed medications, appointments, coping skills and crisis numbers. Mya denies questions regarding discharge. Mya was provided with printed handouts regarding coping skills including affirmations, guided mediation, deep breathing, progressive relaxation. She denies physical complaint.
== END 2020-10-31 12:19 | disposition home or self-care (01) | DRG 756 ==
LOC: HO.ED 10-25 10:03 → HO.PADLT16 10-25 16:25
PROVIDERS: Physician Assistant; Admitting Provider Psychiatry & Neurology Psychiatry; Emergency Provider Emergency Medicine Emergency Medical Services; PCP Family Medicine; Visit Provider Psychiatry & Neurology Psychiatry
DX: F41.9 Anxiety disorder, unspecified (principal); R44.0 Auditory hallucinations; F12.10 Cannabis abuse, uncomplicated; F13.10 Sedative, hypnotic or anxiolytic abuse, uncomplicated; Z20.822 Contact with and (suspected) exposure to COVID-19; Z79.899 Other long term (current) drug therapy
CPT/HCPCS: 36415; 80048; 80061; 80076; 80307; 81003; 83036; 83735; 85025; 87635; 93005; 99285

== ENCOUNTER 2020-11-07 10:05 | Emergency (ER) | payer MEDICAID, SELFPAY ==
[2020-11-07 10:16] VITALS: BP 119/88; PULSE 74; RESP 16; TEMP 36.8; O2SAT 96
[2020-11-07 10:22] VITALS: BP 119/88; PULSE 74; RESP 16; TEMP 36.8; O2SAT 96; BMI 30.2
--- NOTE | 2020-11-07 10:28 | ED_ITS ---
HPI - Psych General Chief Complaint: Psychiatric Symptoms Stated Complaint: anxiety Time Seen by Provider: 11/07/20 10:15 Source: patient Mode of arrival: ambulatory Limitations: no limitations History of Present Illness HPI Narrative: Patient comes to the emergency room complaining of severe anxiety. Patient was discharged from on 10/31/2020. Patient reports poor intake, denies using drugs except marijuana. Patient states she has not had aching her prescribed medications either, states she does not know why. Patient says that in her head she wants to . Related Data Previous Rx's Medication Instructions Recorded risperidone 1 mg PO BID 30 Days #60 tab 10/31/20 sertraline 50 mg PO DAILY 30 Days #30 tab 10/31/20 Allergies Allergy/AdvReac Type Severity Reaction Status Date / Time cephalexin [From Keflex] Allergy Hives Verified 09/28/20 10:40 Review of Systems Review of Systems: Constitutional : No Weight loss, No Fever, No Chills, No Night Sweats, No Fatigue, No Malaise ENT/Mouth : No Hearing loss, No Ear Pain, No Nasal Congestion, No Sinus Pain, No Hoarseness, No sore throat, No Rhinorrhea, No Swallowing Difficulty Eyes: No Eye Pain, No Swelling, No Redness, No Foreign Body, No Discharge, No Vision Changes Cardiovascular : No Chest Pain, No SOB, No Dyspnea on Exertion, No Orthopnea, No Edema, No Palpitations Respiratory : No Cough, No Sputum, No Wheezing, No Smoke Exposure, No Dyspnea Gastrointestinal : No Nausea, No Vomiting, No Diarrhea, No Constipation, No abdominal Pain, No Hematochezia, No Melena Genitourinary : no irregular bleeding, No Dysuria, No Urinary Frequency, No Hematuria, No Urinary Incontinence, No Urgency, No Flank Pain, No Urinary Flow Changes, No Hesitancy Musculoskeletal : No joint pain, No Myalgias, No Joint Swelling Skin : No Skin Lesions, No rash Neuro : No Weakness, No Numbness, No Paresthesias, No Loss of Consciousness, No Dizziness, No Headache Psych : Complaining of severe anxiety, depression, states that in her head she wants to . Heme/Lymph: No Bruising, No Bleeding,No Lymphadenopathy Endocrine : No Polyuria, No Polydipsia, No Temperature Intolerance PMFSH Past Medical History Medical History Anxiety Surgical History S/P appendectomy Social History Social History Household Members: None Household Members Other:: none Housing: Apartment Do you presently have visiting nurse or other home services: No Alcohol intake: former Patient Tobacco Use Status: Never used Tobacco Substance Use Type: Crack/Cocaine, Heroin and Marijuana Advance Directives: Yes Advance Directives Information Provided: No Advance Directives on File: No Patient : No service: No Sexual orientation: Asexual, she reports Physical Exam Vital Signs: Vital Signs: Last Vital Signs Temp 98.2 F 11/07/20 10:22 Pulse 74 11/07/20 10:22 Resp 16 11/07/20 10:22 BP 119/88 11/07/20 10:22 Pulse Ox 96 11/07/20 10:22 Body Mass Index 30.2 Appearance: Alert. Oriented X3. No acute distress. Eyes: Pupils equal, round and reactive to light. ENT: Pharynx normal. Neck: Normal inspection. Neck supple. No lymph nodes noted. No crepitus CVS: Normal heart rate and rhythm. Pulses normal. Normal S1 and S2 Respiratory: No respiratory distress. Breath sounds normal. No Wheezing. No rales Abdomen: Soft and nontender. No rigidity. No distention. good BS x4 Skin: Skin warm and dry. Normal skin color. Normal skin turgor. Extremities: No lower extremity edema. No lower extremity edema. No Lacerations. No Rash Neuro: Oriented X 3. No motor deficit. No sensory deficit. Moving all extermities. No slurred speech. Course Course Course Narrative: Patient is demanding to have Ativan. Reviewing the patient's discharge notes, patient does have history sedative medication abuse. In her previous admission, patient was being medicated p.r.n. with Thorazine. Patient received 1 dose of p.o. Thorazine 25 mg Labs pending, [facility] consult pending Patient was evaluated by [facility], she is well known to their service. Patient told [facility] that she is not suicidal, patient requested benzodiazepines. At this time, patient was not giving any benzos. When benzos were denied to the patient, patient stated that she wants to be discharged home. Patient denies suicidal or homicidal ideation. Patient requested to eat lunch before discharge. MDM - Psych Lab Data Result diagrams: 11/07/20 10:47 11/07/20 10:47 Labs: Lab Results 11/07/20 11/07/20 11/07/20 Range/Units 10:38 10:39 10:39 WBC (4.8-10.8) X10*3/uL RBC (4.20-5.50) X10*6/uL Hgb (12.0-16.0) g/dl Hct (37-47) % MCV (80-98) fL MCH (27.0-33.0) pg MCHC (31.0-35.0) g/dl RDW (11.0-16.0) % Plt Count (160-400) X10*3/uL MPV (9.4-12.3) fL Immature Gran % (Auto) (0.0-0.4) % Neut % (Auto) (45-73) % Lymph % (Auto) (20-40) % [place] % (Auto) (2-11) % Eos % (Auto) (0-4) % Baso % (Auto) (0-2) % Lymph # (Auto) (1.2-4.9) X10*3/uL [place] # (Auto) (0.1-1.2) X10*3/uL Eos # (Auto) (0.0-0.4) X10*3/uL Baso # (Auto) (0.0-0.2) X10*3/uL Abs Immat Gran (auto) (0.00-0.03) X10*3/uL Absolute Neuts (auto) (2.0-8.3) X10*3/uL Absolute Nucleated RBC (0.0-0.012) X10*3/uL Nucleated RBC % (auto) (0.0-0.2) /100WBC Sodium (135-145) mmol/L Potassium (3.3-5.1) mmol/L Chloride (96-108) mmol/L Carbon Dioxide (22-29) mmol/L Anion Gap (12-20) BUN (9-16) mg/dL Creatinine (0.5-1.4) mg/dL Estim Creat Clear Calc Estimated GFR Random Glucose (60-115) mg/dL Calcium (8.4-10.2) mg/dL Total Bilirubin (0.0-1.0) mg/dL Direct Bilirubin (0.0-0.5) mg/dL AST (5-31) U/L ALT (0-31) U/L Alkaline Phosphatase (39-117) U/L Total Protein (6.5-8.0) g/dL Albumin (3.5-5.0) g/dL Urine Color YELLOW Urine Appearance CLEAR Urine pH 5.5 (5.0-8.0) Ur Specific [place] >= 1.030 H (1.005-1.025) Urine Protein NEG (NEG-TRACE) MG/DL Urine Glucose (UA) NEG (NEG) MG/DL Urine Ketones NEG (NEG) MG/DL Urine Blood NEG (NEG) Urine Nitrite NEG (NEG) Ur Leukocyte Esterase NEG (NEG) Urine Test NEGATIVE (NEGATIVE) Urine Opiates Screen Not Detected (Not Detect) Ur Barbiturates Screen Not Detected (Not Detect) Ur Phencyclidine Scrn Not Detected (Not Detect) Ur Amphetamines Screen Not Detected (Not Detect) U Benzodiazepines Scrn Not Detected (Not Detect) Urine Cocaine Screen Not Detected (Not Detect) U Marijuana (THC) Screen POSITIVE H (Not Detect) COVID-19 (NORA) (Negative) COVID-19 Clin Com 11/07/20 11/07/20 11/07/20 Range/Units 10:47 10:47 10:50 WBC 8.8 (4.8-10.8) X10*3/uL RBC 4.36 (4.20-5.50) X10*6/uL Hgb 12.8 (12.0-16.0) g/dl Hct 37.4 (37-47) % MCV 85.8 (80-98) fL MCH 29.4 (27.0-33.0) pg MCHC 34.2 (31.0-35.0) g/dl RDW 12.1 (11.0-16.0) % Plt Count 288 (160-400) X10*3/uL MPV 10.2 (9.4-12.3) fL Immature Gran % (Auto) 0.5 H (0.0-0.4) % Neut % (Auto) 72.8 (45-73) % Lymph % (Auto) 19.7 L (20-40) % [place] % (Auto) 5.5 (2-11) % Eos % (Auto) 1.0 (0-4) % Baso % (Auto) 0.5 (0-2) % Lymph # (Auto) 1.7 (1.2-4.9) X10*3/uL [place] # (Auto) 0.5 (0.1-1.2) X10*3/uL Eos # (Auto) 0.1 (0.0-0.4) X10*3/uL Baso # (Auto) 0.0 (0.0-0.2) X10*3/uL Abs Immat Gran (auto) 0.04 H (0.00-0.03) X10*3/uL Absolute Neuts (auto) 6.4 (2.0-8.3) X10*3/uL Absolute Nucleated RBC 0.000 (0.0-0.012) X10*3/uL Nucleated RBC % (auto) 0.0 (0.0-0.2) /100WBC Sodium 141 (135-145) mmol/L Potassium 4.1 (3.3-5.1) mmol/L Chloride 109 H (96-108) mmol/L Carbon Dioxide 25 (22-29) mmol/L Anion Gap 11 L (12-20) BUN 11 (9-16) mg/dL Creatinine 0.80 (0.5-1.4) mg/dL Estim Creat Clear Calc 85.2 Estimated GFR > 60 Random Glucose 107 (60-115) mg/dL Calcium 8.9 D (8.4-10.2) mg/dL Total Bilirubin 0.4 (0.0-1.0) mg/dL Direct Bilirubin < 0.2 (0.0-0.5) mg/dL AST 10 (5-31) U/L ALT 14 (0-31) U/L Alkaline Phosphatase 78 (39-117) U/L Total Protein 6.3 L (6.5-8.0) g/dL Albumin 4.0 (3.5-5.0) g/dL Urine Color Urine Appearance Urine pH (5.0-8.0) Ur Specific [place] (1.005-1.025) Urine Protein (NEG-TRACE) MG/DL Urine Glucose (UA) (NEG) MG/DL Urine Ketones (NEG) MG/DL Urine Blood (NEG) Urine Nitrite (NEG) Ur Leukocyte Esterase (NEG) Urine Test (NEGATIVE) Urine Opiates Screen (Not Detect) Ur Barbiturates Screen (Not Detect) Ur Phencyclidine Scrn (Not Detect) Ur Amphetamines Screen (Not Detect) U Benzodiazepines Scrn (Not Detect) Urine Cocaine Screen (Not Detect) U Marijuana (THC) Screen (Not Detect) COVID-19 (NORA) Negative (Negative) COVID-19 Clin Com See Note Discharge Plan Discharge Clinical Impression: Acute anxiety Patient Disposition: Home, Self-Care Instructions: Anxiety (ED) Additional Instructions: Please take your home medications as prescribed. Please follow-up with your primary care physician tomorrow. If you have any worsening or new symptoms, please return to the emergency room or call 911 Prescriptions: No Action sertraline 50 mg Tablet 50 mg PO DAILY 30 Days Qty: 30 RF: 0 risperidone 1 mg Tablet 1 mg PO BID 30 Days Qty: 60 RF: 0
[2020-11-07] MEDS: chlorproMAZINE HCl 25 MG TABLET PO (10:29)
[2020-11-07 10:59] LABS: MANUAL DIFF FLAG NO
[2020-11-07 11:04] LABS: Glucose Urine UA NEG (NEG); Leukocyte Esterase Urine NEG (NEG); Nitrite Urine NEG (NEG); PH 5.5 (5.0-8.0); Specific Gravity - Urine >= 1.030 (1.005-1.025); Urine Blood NEG (NEG); Urine Ketones NEG (NEG); Urine Protein NEG (NEG-TRACE)
[2020-11-07 11:09] LABS: UPreg QC Valid YES; Urine Pregnancy NEGATIVE (NEGATIVE)
[2020-11-07 11:10] LABS: Appearance Urine CLEAR; Color Urine YELLOW
[2020-11-07 11:16] LABS: Basophils Percent Auto 0.5 % (0-2); Eosinophils Absolute Auto 0.1 X10*3/uL (0.0-0.4); Hematocrit 37.4 % (37-47); Hemoglobin 12.8 g/dl (12.0-16.0); Imm Gran Abs Auto 0.04 X10*3/uL (0.00-0.03); Imm Gran Pct Auto 0.5 % (0.0-0.4); Lymphocytes Absolute Auto 1.7 X10*3/uL (1.2-4.9); Lymphocytes Percent Auto 19.7 % (20-40); Mean Corpuscular HGB Conc 34.2 g/dl (31.0-35.0); Mean Corpuscular Hemoglobin 29.4 pg (27.0-33.0); Mean Corpuscular Volume 85.8 fL (80-98); Mean Platelet Volume 10.2 fL (9.4-12.3); Monocytes Absolute Auto 0.5 X10*3/uL (0.1-1.2); Monocytes Percent Auto 5.5 % (2-11); Neutrophils Absolute Auto 6.4 X10*3/uL (2.0-8.3); Neutrophils Percent Auto 72.8 % (45-73); Platelet Count 288 X10*3/uL (160-400); Red Blood Count 4.36 X10*6/uL (4.20-5.50); Red Cell Distribution Width 12.1 % (11.0-16.0); White Blood Count 8.8 X10*3/uL (4.8-10.8)
[2020-11-07 11:18] LABS: COVID-19 Test Negative (Negative)
[2020-11-07 11:24] LABS: Alanine Aminotransferase 14 U/L (0-31); Alkaline Phosphatase 78 U/L (39-117); Anion Gap 11 (12-20); Aspartate Amino Transferase 10 U/L (5-31); Bilirubin Direct < 0.2 mg/dL (0.0-0.5); Bilirubin Total 0.4 mg/dL (0.0-1.0); Blood Urea Nitrogen 11 mg/dL (9-16); Calcium 8.9 mg/dL (8.4-10.2); Carbon Dioxide 25 mmol/L (22-29); Chloride 109 mmol/L (96-108); Creatinine Clr Calc Pharmacy 85.2; Estimated Glomerular Filt Rate > 60; Glucose Random 107 mg/dL (60-115); Potassium 4.1 mmol/L (3.3-5.1); Sodium 141 mmol/L (135-145); Total Protein 6.3 g/dL (6.5-8.0)
[2020-11-07 11:25] LABS: Amphetamine Screen Urine Not Detected (Not Detect); Barbiturates, Urine Not Detected (Not Detect); Benzodiazepines Screen Urine Not Detected (Not Detect); Cannabinoid Screen Urine POSITIVE (Not Detect); Cocaine Screen Urine Not Detected (Not Detect); Opiate Screen Urine Not Detected (Not Detect); Phencyclidine Screen Urine Not Detected (Not Detect)
--- NOTE | 2020-11-07 11:34 | PC.NURSE ---
per dr angeles and rebeca from CARE team no need to call [facility] att, wctm pt in pod, likely d/c home.
--- NOTE | 2020-11-07 12:46 | MHC.CARE ---
Patient is a 59 year-old woman, known to [facility] through previous ED visits for anxiety and one recent (D/C 10/31/20) [facility] admission. Local crisis team reported they are very familiar with patient who has OCD and anxiety at baseline, calls for support multiple times a day. Today patient drove herself to the hospital reported that she has not taken medications since discharge and has been feeling anxious, not functioning well. CARE Team met with patient in 3, she was alert and oriented, was difficult to engage, she sat on the side of the bed, was rocking back and forth, wringing her hands, staring intently, blinking her eyes tightly. Patient was unable to state why she has not taken her medication, stated they were not working. When asked what she needs and why she came to the hospital, patient said she needed an Ativan. Explained clearly to her that she will not be given Ativan today, patient stated that she wanted to go home. Explored patient's level of risk, she denied suicidal ideation, plan or intention. Discussed case with chick room supervisor and provider, plan is for patient to discharge home after lunch. If her presentation changes dramatically or she makes any statements about being unsafe or self-harming, please refer to [facility] Crisis for full evaluation.
[2020-11-07] MEDS: hydrOXYzine HCL 25 MG TABLET PO (12:55)
== END 2020-11-07 14:01 | disposition home or self-care (01) ==
PROVIDERS: Emergency Provider Emergency Medicine; PCP Family Medicine
DX: F41.9 Anxiety disorder, unspecified (principal); Z79.899 Other long term (current) drug therapy; Z20.822 Contact with and (suspected) exposure to COVID-19
CPT/HCPCS: 36415; 80048; 80076; 80307; 81003; 81025; 85025; 87635; 99284

== ENCOUNTER 2020-11-11 09:50 | Emergency (ER) | payer MEDICAID, SELFPAY ==
[2020-11-11 09:57] VITALS: BP 116/68; PULSE 71; RESP 20; TEMP 37; O2SAT 97; BMI 27.4
[2020-11-11 11:13] LABS: MANUAL DIFF FLAG NO
[2020-11-11 11:14] LABS: COVID-19 Test Negative (Negative)
[2020-11-11 11:16] LABS: Basophils Absolute Auto 0.1 X10*3/uL (0.0-0.2); Basophils Percent Auto 0.7 % (0-2); Eosinophils Absolute Auto 0.1 X10*3/uL (0.0-0.4); Eosinophils Percent Auto 1.3 % (0-4); Hematocrit 40.5 % (37-47); Hemoglobin 13.9 g/dl (12.0-16.0); Imm Gran Abs Auto 0.04 X10*3/uL (0.00-0.03); Imm Gran Pct Auto 0.5 % (0.0-0.4); Lymphocytes Absolute Auto 1.4 X10*3/uL (1.2-4.9); Lymphocytes Percent Auto 18.9 % (20-40); Mean Corpuscular HGB Conc 34.3 g/dl (31.0-35.0); Mean Corpuscular Hemoglobin 29.3 pg (27.0-33.0); Mean Corpuscular Volume 85.4 fL (80-98); Mean Platelet Volume 10.1 fL (9.4-12.3); Monocytes Absolute Auto 0.4 X10*3/uL (0.1-1.2); Monocytes Percent Auto 5.1 % (2-11); Neutrophils Absolute Auto 5.4 X10*3/uL (2.0-8.3); Neutrophils Percent Auto 73.5 % (45-73); Platelet Count 327 X10*3/uL (160-400); Red Blood Count 4.74 X10*6/uL (4.20-5.50); Red Cell Distribution Width 12.1 % (11.0-16.0); White Blood Count 7.4 X10*3/uL (4.8-10.8)
--- NOTE | 2020-11-11 11:26 | ED_ITS ---
HPI - Psych General Chief Complaint: Psychiatric Symptoms Stated Complaint: pt states the devil is in her head Time Seen by Provider: 11/11/20 10:42 Source: patient Mode of arrival: ambulatory Limitations: no limitations History of Present Illness HPI Narrative: Patient comes emergency room complaining hearing voices, states she hears the devil telling her that the patient is going to go to hell. Patient denies suicidal homicidal ideation. Patient is very anxious, states that she can no longer keep doing this. Patient states that she is extremely anxious and would like the Pradaxa and Ativan. Related Data Previous Rx's Medication Instructions Recorded risperidone 1 mg PO BID 30 Days #60 tab 10/31/20 sertraline 50 mg PO DAILY 30 Days #30 tab 10/31/20 Allergies Allergy/AdvReac Type Severity Reaction Status Date / Time cephalexin [From Keflex] Allergy Hives Verified 09/28/20 10:40 Review of Systems Review of Systems: Constitutional : No Weight loss, No Fever, No Chills, No Night Sweats, No Fatigue, No Malaise ENT/Mouth : No Hearing loss, No Ear Pain, No Nasal Congestion, No Sinus Pain, No Hoarseness, No sore throat, No Rhinorrhea, No Swallowing Difficulty Eyes: No Eye Pain, No Swelling, No Redness, No Foreign Body, No Discharge, No Vision Changes Cardiovascular : No Chest Pain, No SOB, No Dyspnea on Exertion, No Orthopnea, No Edema, No Palpitations Respiratory : No Cough, No Sputum, No Wheezing, No Smoke Exposure, No Dyspnea Gastrointestinal : No Nausea, No Vomiting, No Diarrhea, No Constipation, No a bdominal Pain, No Hematochezia, No Melena Genitourinary : no irregular bleeding, No Dysuria, No Urinary Frequency, No Hematuria, No Urinary Incontinence, No Urgency, No Flank Pain, No Urinary Flow Changes, No Hesitancy Musculoskeletal : No joint pain, No Myalgias, No Joint Swelling Skin : No Skin Lesions, No rash Neuro : No Weakness, No Numbness, No Paresthesias, No Loss of Consciousness, No Dizziness, No Headache Psych : Or homicidal ideation, complaining of anxiety, requesting Ativan and Zyprexa Heme/Lymph: No Bruising, No Bleeding,No Lymphadenopathy Endocrine : No Polyuria, No Polydipsia, No Temperature Intolerance PMFSH Past Medical History Medical History Anxiety Surgical History S/P appendectomy Social History Social History Household Members: None Household Members Other:: none Housing: Apartment Do you presently have visiting nurse or other home services: No Alcohol intake: never Patient Tobacco Use Status: Never used Tobacco Use of substances other than those prescribed or required for medical reasons: No Substance Use Type: Crack/Cocaine, Heroin and Marijuana Advance Directives: No Advance Directives Information Provided: No Patient : No service: No Sexual orientation: Asexual, she reports Physical Exam Vital Signs: Vital Signs: Last Vital Signs Temp 98.6 F 11/11/20 09:57 Pulse 71 11/11/20 09:57 Resp 20 11/11/20 09:57 BP 116/68 11/11/20 09:57 Pulse Ox 97 11/11/20 09:57 Body Mass Index 27.4 Appearance: Alert. Oriented X3. No acute distress. Eyes: Pupils equal, round and reactive to light. ENT: Pharynx normal. Neck: Normal inspection. Neck supple. No lymph nodes noted. No crepitus CVS: Normal heart rate and rhythm. Pulses normal. Normal S1 and S2 Respiratory: No respiratory distress. Breath sounds normal. No Wheezing. No rales Abdomen: Soft and nontender. No rigidity. No distention Skin: Skin warm and dry. Normal skin color. Normal skin turgor. Extremities: No lower extremity edema. No lower extremity edema. No Lacerations. No Rash Neuro: Oriented X 3. No motor deficit. No sensory deficit. Moving all extermities. No slurred speech. Psych: anxious, speaking in full sentences, very anxious stating that the there was sign her that she will go to [facility] Course Course Course Narrative: Reviewing patient's notes from Psychiatry on her previous admission, patient is not to be given Ativan. Patient will be given p.o. Thorazine [facility]. Patient was seen at another hospital this morning, patient when in requesting Ativan, same as she did when she came to emergency room. Unfortunately, patient has history benzodiazepine abuse. Patient is not suicidal, not homicidal, when patient found out that she was not getting any Ativan, patient requested to be discharged. MDM - Psych Lab Data Result diagrams: 11/11/20 11:05 11/11/20 11:05 Labs: Lab Results 11/11/20 11/11/20 11/11/20 Range/Units 10:47 11:05 11:05 WBC 7.4 (4.8-10.8) X10*3/uL RBC 4.74 (4.20-5.50) X10*6/uL Hgb 13.9 (12.0-16.0) g/dl Hct 40.5 (37-47) % MCV 85.4 (80-98) fL MCH 29.3 (27.0-33.0) pg MCHC 34.3 (31.0-35.0) g/dl RDW 12.1 (11.0-16.0) % Plt Count 327 (160-400) X10*3/uL MPV 10.1 (9.4-12.3) fL Immature Gran % (Auto) 0.5 H (0.0-0.4) % Neut % (Auto) 73.5 H (45-73) % Lymph % (Auto) 18.9 L (20-40) % [place] % (Auto) 5.1 (2-11) % Eos % (Auto) 1.3 (0-4) % Baso % (Auto) 0.7 (0-2) % Lymph # (Auto) 1.4 (1.2-4.9) X10*3/uL [place] # (Auto) 0.4 (0.1-1.2) X10*3/uL Eos # (Auto) 0.1 (0.0-0.4) X10*3/uL Baso # (Auto) 0.1 (0.0-0.2) X10*3/uL Abs Immat Gran (auto) 0.04 H (0.00-0.03) X10*3/uL Absolute Neuts (auto) 5.4 (2.0-8.3) X10*3/uL Absolute Nucleated RBC 0.000 (0.0-0.012) X10*3/uL Nucleated RBC % (auto) 0.0 (0.0-0.2) /100WBC Sodium 138 (135-145) mmol/L Potassium 4.3 (3.3-5.1) mmol/L Chloride 106 (96-108) mmol/L Carbon Dioxide 23 (22-29) mmol/L Anion Gap 13 (12-20) BUN 10 (9-16) mg/dL Creatinine 0.80 (0.5-1.4) mg/dL Estim Creat Clear Calc 75.7 Estimated GFR > 60 Random Glucose 115 (60-115) mg/dL Calcium 9.4 (8.4-10.2) mg/dL Total Bilirubin 0.5 (0.0-1.0) mg/dL AST 12 (5-31) U/L ALT 16 (0-31) U/L Alkaline Phosphatase 91 (39-117) U/L Total Protein 7.0 (6.5-8.0) g/dL Albumin 4.4 (3.5-5.0) g/dL Urine Color Urine Appearance Urine pH (5.0-8.0) Ur Specific [place] (1.005-1.025) Urine Protein (NEG-TRACE) MG/DL Urine Glucose (UA) (NEG) MG/DL Urine Ketones (NEG) MG/DL Urine Blood (NEG) Urine Nitrite (NEG) Ur Leukocyte Esterase (NEG) Urine RBC (0) /HPF Urine WBC (0-4) /HPF Ur Squamous Epith Cells /LPF Urine Bacteria /LPF Urine Test (NEGATIVE) Urine Opiates Screen (Not Detect) Ur Barbiturates Screen (Not Detect) Ur Phencyclidine Scrn (Not Detect) Ur Amphetamines Screen (Not Detect) U Benzodiazepines Scrn (Not Detect) Urine Cocaine Screen (Not Detect) U Marijuana (THC) Screen (Not Detect) Ethyl Alcohol mg/dL COVID-19 (NORA) Negative (Negative) COVID-19 Clin Com See Note 11/11/20 11/11/20 11/11/20 Range/Units 11:05 12:05 12:05 WBC (4.8-10.8) X10*3/uL RBC (4.20-5.50) X10*6/uL Hgb (12.0-16.0) g/dl Hct (37-47) % MCV (80-98) fL MCH (27.0-33.0) pg MCHC (31.0-35.0) g/dl RDW (11.0-16.0) % Plt Count (160-400) X10*3/uL MPV (9.4-12.3) fL Immature Gran % (Auto) (0.0-0.4) % Neut % (Auto) (45-73) % Lymph % (Auto) (20-40) % [place] % (Auto) (2-11) % Eos % (Auto) (0-4) % Baso % (Auto) (0-2) % Lymph # (Auto) (1.2-4.9) X10*3/uL [place] # (Auto) (0.1-1.2) X10*3/uL Eos # (Auto) (0.0-0.4) X10*3/uL Baso # (Auto) (0.0-0.2) X10*3/uL Abs Immat Gran (auto) (0.00-0.03) X10*3/uL Absolute Neuts (auto) (2.0-8.3) X10*3/uL Absolute Nucleated RBC (0.0-0.012) X10*3/uL Nucleated RBC % (auto) (0.0-0.2) /100WBC Sodium (135-145) mmol/L Potassium (3.3-5.1) mmol/L Chloride (96-108) mmol/L Carbon Dioxide (22-29) mmol/L Anion Gap (12-20) BUN (9-16) mg/dL Creatinine (0.5-1.4) mg/dL Estim Creat Clear Calc Estimated GFR Random Glucose (60-115) mg/dL Calcium (8.4-10.2) mg/dL Total Bilirubin (0.0-1.0) mg/dL AST (5-31) U/L ALT (0-31) U/L Alkaline Phosphatase (39-117) U/L Total Protein (6.5-8.0) g/dL Albumin (3.5-5.0) g/dL Urine Color YELLOW Urine Appearance CLOUDY Urine pH 5.5 (5.0-8.0) Ur Specific [place] >= 1.030 H (1.005-1.025) Urine Protein NEG (NEG-TRACE) MG/DL Urine Glucose (UA) NEG (NEG) MG/DL Urine Ketones NEG (NEG) MG/DL Urine Blood NEG (NEG) Urine Nitrite POS H (NEG) Ur Leukocyte Esterase 1+ H (NEG) Urine RBC 0 (0) /HPF Urine WBC 15-29 H (0-4) /HPF Ur Squamous Epith Cells 2+ /LPF Urine Bacteria 4+ /LPF Urine Test (NEGATIVE) Urine Opiates Screen Not Detected (Not Detect) Ur Barbiturates Screen Not Detected (Not Detect) Ur Phencyclidine Scrn Not Detected (Not Detect) Ur Amphetamines Screen Not Detected (Not Detect) U Benzodiazepines Scrn Not Detected (Not Detect) Urine Cocaine Screen Not Detected (Not Detect) U Marijuana (THC) Screen POSITIVE H (Not Detect) Ethyl Alcohol < 10 mg/dL COVID-19 (NORA) (Negative) COVID-19 Clin Com 11/11/20 Range/Units 12:05 WBC (4.8-10.8) X10*3/uL RBC (4.20-5.50) X10*6/uL Hgb (12.0-16.0) g/dl Hct (37-47) % MCV (80-98) fL MCH (27.0-33.0) pg MCHC (31.0-35.0) g/dl RDW (11.0-16.0) % Plt Count (160-400) X10*3/uL MPV (9.4-12.3) fL Immature Gran % (Auto) (0.0-0.4) % Neut % (Auto) (45-73) % Lymph % (Auto) (20-40) % [place] % (Auto) (2-11) % Eos % (Auto) (0-4) % Baso % (Auto) (0-2) % Lymph # (Auto) (1.2-4.9) X10*3/uL [place] # (Auto) (0.1-1.2) X10*3/uL Eos # (Auto) (0.0-0.4) X10*3/uL Baso # (Auto) (0.0-0.2) X10*3/uL Abs Immat Gran (auto) (0.00-0.03) X10*3/uL Absolute Neuts (auto) (2.0-8.3) X10*3/uL Absolute Nucleated RBC (0.0-0.012) X10*3/uL Nucleated RBC % (auto) (0.0-0.2) /100WBC Sodium (135-145) mmol/L Potassium (3.3-5.1) mmol/L Chloride (96-108) mmol/L Carbon Dioxide (22-29) mmol/L Anion Gap (12-20) BUN (9-16) mg/dL Creatinine (0.5-1.4) mg/dL Estim Creat Clear Calc Estimated GFR Random Glucose (60-115) mg/dL Calcium (8.4-10.2) mg/dL Total Bilirubin (0.0-1.0) mg/dL AST (5-31) U/L ALT (0-31) U/L Alkaline Phosphatase (39-117) U/L Total Protein (6.5-8.0) g/dL Albumin (3.5-5.0) g/dL Urine Color Urine Appearance Urine pH (5.0-8.0) Ur Specific [place] (1.005-1.025) Urine Protein (NEG-TRACE) MG/DL Urine Glucose (UA) (NEG) MG/DL Urine Ketones (NEG) MG/DL Urine Blood (NEG) Urine Nitrite (NEG) Ur Leukocyte Esterase (NEG) Urine RBC (0) /HPF Urine WBC (0-4) /HPF Ur Squamous Epith Cells /LPF Urine Bacteria /LPF Urine Test NEGATIVE (NEGATIVE) Urine Opiates Screen (Not Detect) Ur Barbiturates Screen (Not Detect) Ur Phencyclidine Scrn (Not Detect) Ur Amphetamines Screen (Not Detect) U Benzodiazepines Scrn (Not Detect) Urine Cocaine Screen (Not Detect) U Marijuana (THC) Screen (Not Detect) Ethyl Alcohol mg/dL COVID-19 (NORA) (Negative) COVID-19 Clin Com Discharge Plan Discharge Clinical Impression: Anxiety Patient Disposition: Home, Self-Care Instructions: Anxiety (ED) Additional Instructions: Please follow-up with your primary care physician tomorrow. If you have any worsening or new symptoms, please return to the emergency room or call 911 Prescriptions: No Action sertraline 50 mg Tablet 50 mg PO DAILY 30 Days Qty: 30 RF: 0 risperidone 1 mg Tablet 1 mg PO BID 30 Days Qty: 60 RF: 0
[2020-11-11 11:51] LABS: Ethanol < 10 mg/dL
[2020-11-11 11:56] LABS: Alanine Aminotransferase 16 U/L (0-31); Albumin Level 4.4 g/dL (3.5-5.0); Alkaline Phosphatase 91 U/L (39-117); Anion Gap 13 (12-20); Aspartate Amino Transferase 12 U/L (5-31); Bilirubin Total 0.5 mg/dL (0.0-1.0); Blood Urea Nitrogen 10 mg/dL (9-16); Calcium 9.4 mg/dL (8.4-10.2); Carbon Dioxide 23 mmol/L (22-29); Chloride 106 mmol/L (96-108); Creatinine Clr Calc Pharmacy 75.7; Estimated Glomerular Filt Rate > 60; Glucose Random 115 mg/dL (60-115); Potassium 4.3 mmol/L (3.3-5.1); Sodium 138 mmol/L (135-145)
[2020-11-11 12:22] LABS: Glucose Urine UA NEG (NEG); Leukocyte Esterase Urine 1+ (NEG); Nitrite Urine POS (NEG); PH 5.5 (5.0-8.0); Specific Gravity - Urine >= 1.030 (1.005-1.025); UACC Culture Trigger YES; Urine Blood NEG (NEG); Urine Ketones NEG (NEG); Urine Protein NEG (NEG-TRACE)
[2020-11-11 12:24] LABS: Appearance Urine CLOUDY; Color Urine YELLOW
[2020-11-11 12:25] LABS: UPreg QC Valid YES; Urine Pregnancy NEGATIVE (NEGATIVE)
--- NOTE | 2020-11-11 12:28 | PC.NURSE ---
MARICEL[facility] referral sent via online referral program
[2020-11-11 12:30] LABS: Bacteria Urine 4+ /LPF; RBC Urine 0 /HPF (0); Squamous Epithelial Cell Urine 2+ /LPF
--- NOTE | 2020-11-11 12:40 | PC.NURSE ---
this RN spoke w/Harmony at [facility] to confirm that [facility] received the online referral. N confirms receipt.
[2020-11-11 12:44] LABS: Amphetamine Screen Urine Not Detected (Not Detect); Barbiturates, Urine Not Detected (Not Detect); Benzodiazepines Screen Urine Not Detected (Not Detect); Cannabinoid Screen Urine POSITIVE (Not Detect); Cocaine Screen Urine Not Detected (Not Detect); Opiate Screen Urine Not Detected (Not Detect); Phencyclidine Screen Urine Not Detected (Not Detect)
[2020-11-11] MEDS: chlorproMAZINE HCl 25 MG TABLET PO (13:39)
--- NOTE | 2020-11-11 15:09 | MHC.CARE ---
CARE Team met with Pt to provide support. Pt is requesting for PRN Atvian. T/w explained that PRN Ativan would not be provided to Pt while in the ED. Pt now requesting to be d/c'd. Pt is denying current SI/HI/VH/AH. CARE Team called SCHEDULING SPECIALIST [place] who reported Pt presented to [facility] ED requesting Ativan and was discharged by SCHEDULING SPECIALIST. CARE Team case consulted with CARE online merchandising coordinator, plan for Pt to discharge. Pt provided [facility] Crisis information.
== END 2020-11-11 15:48 | disposition home or self-care (01) ==
PROVIDERS: Emergency Provider Emergency Medicine; PCP Family Medicine
DX: F41.9 Anxiety disorder, unspecified (principal); Z79.899 Other long term (current) drug therapy; Z20.822 Contact with and (suspected) exposure to COVID-19
CPT/HCPCS: 36415; 80053; 80307; 81001; 81003; 81025; 82077; 85025; 87086; 87635; 99284

== ENCOUNTER 2020-11-16 15:32 | Inpatient (IN) | payer OTHER, SELFPAY ==
[2020-11-16 15:50] VITALS: BP 107/64; PULSE 73; TEMP 36.2
[2020-11-16] MEDS: LORazepam 1 MG TABLET PO (16:25)
--- NOTE | 2020-11-16 16:39 | PC.ADMIT ---
Pt is a 59 year old female who presents to from [facility] ED at approx 15:30 on a cv status. Pt is covid -. No tox screen was performed before transport. Pt self presented to [facility] with complains of high anxiety, hopelessness and thoughts of dying. Pt has delusional thoughts of the devil. Pt mentioned I will be going to hell and there is nothing you can do about it .Pt denied trauma hx. Pt is diagnosed with major depression with psychotic features and delusional disorder. Pt required a stat dose of 1mg Ativan for high anxiety. Pt denied all psychotic symptoms during the admit. Pt restless during admit and shaking.Dr Porfirio Cobb called for orders and notified of admission.
[2020-11-16 17:52] VITALS: BP 116/73; PULSE 86
[2020-11-16] MEDS: Propranolol HCL 10 MG TABLET PO ×2 (17:52→20:29)
[2020-11-16 20:29] VITALS: BP 118/66; PULSE 73
[2020-11-16] MEDS: traZODone HCL 100 MG TABLET PO (20:29)
[2020-11-16] MEDS: diphenhydrAMINE HCL 25 MG TABLET 50 MG PO (20:29)
[2020-11-16] MEDS: OLANZapine 10 MG TABLET 20 MG PO (20:29)
[2020-11-17 06:00] VITALS: BP 133/77; PULSE 97; RESP 18; TEMP 36.5; O2SAT 98
[2020-11-17] MEDS: LORazepam 1 MG TABLET PO (08:25)
[2020-11-17] MEDS: Omeprazole 20 MG CAPSULE.DR PO (08:25)
[2020-11-17] MEDS: Escitalopram Oxalate 20 MG TABLET PO (08:25)
[2020-11-17 08:26] VITALS: BP 132/56; PULSE 75
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
[2020-11-17 14:25] VITALS: BP 109/97; PULSE 108
[2020-11-17] MEDS: Propranolol HCL 10 MG TABLET PO ×2 (14:25→19:57)
[2020-11-17] MEDS: OLANZapine 5 MG TABLET PO (14:47)
[2020-11-17] MEDS: hydrOXYzine HCL 50 MG TABLET PO (15:58)
[2020-11-17 16:55] VITALS: BP 120/75; PULSE 69; TEMP 36.6
[2020-11-17 19:57] VITALS: BP 116/67; PULSE 75
[2020-11-17] MEDS: OLANZapine 10 MG TABLET PO (19:57)
[2020-11-17] MEDS: diphenhydrAMINE HCL 25 MG TABLET 50 MG PO (19:57)
[2020-11-17] MEDS: traZODone HCL 100 MG TABLET PO (19:58)
[2020-11-18 06:00] VITALS: BP 109/67; PULSE 74; TEMP 35.8; O2SAT 96
[2020-11-18 08:29] VITALS: BP 110/68; PULSE 77
[2020-11-18] MEDS: Propranolol HCL 10 MG TABLET PO ×2 (08:29→19:48)
[2020-11-18] MEDS: Escitalopram Oxalate 10 MG TABLET PO (08:30)
[2020-11-18] MEDS: hydrOXYzine HCL 50 MG TABLET PO ×3 (08:30→18:20)
[2020-11-18] MEDS: OLANZapine 10 MG TABLET PO ×2 (08:30→19:47)
--- NOTE | 2020-11-18 08:31 | HO.PSYCHPN ---
Subjective Subjective Date of Service: 11/21/20 Reason For Visit: major depressive d/o w/psychonic Interim History: Pt reports feeling very anxious. She reports intrusive thoughts of going to hell and not able to find salvation as she thinks that if she is not able to meditate daily she will not find salvation. She reports feeling very anxious, unable to function. She is somewhat guarded and at times not wanting to provide much details. She reports passive suicidal ideation but denies any plan or intent to hurt herself. She has been mostly in room. Review of Systems Cardiovascular: Denies chest pain, Denies chest pain with activity, Denies lightheadedness and Denies dyspnea Respiratory: Denies dyspnea Musculoskeletal: Denies atrophy and Denies muscle weakness Mental Status Exam Mental Status Exam Narrative: Appearance: casually groomed, fair hygiene, in NAD Behavior:distressed limited her engagement in interview. Psychomotor: restless Speech: clear, normal rate/rhythm/volume, spontaneous TP: tangential TC: preoccupied with ideas of devil, intrusive derogatory thoughts Mood: anxious Affect:congruent SI:denies HI:denies AH/VH:reports hearing voices of devil Delusions:paranoid delusions related to devil/Jose master talking to her Insight/judgment:poor x2 Memory/cog: alert, oriented x 3. impaired secondary to psychiatric symptoms. Diagnostics Vital Signs (24Hr): Vital Signs - 24 hr 11/20/20 08:32 11/20/20 15:18 11/20/20 18:00 Temperature 97.9 F Pulse Rate 87 78 70 Respiratory Rate 18 Blood Pressure 111/71 142/58 H 106/74 Pulse Oximetry 93 11/20/20 20:28 11/21/20 06:24 Temperature 97.5 F Pulse Rate 62 62 Respiratory Rate 18 Blood Pressure 105/58 L 109/62 Pulse Oximetry 95 Medications Medications Current Medications Generic Name Dose Route Start Last Admin Trade Name Freq PRN Reason Stop Dose Admin Acetaminophen 650 mg 11/16/20 16:35 Acetaminophen 325 Mg Tablet PO Q6H PRN Headache/Pain Mild Scale (1-3) Al Hydroxide/Mg Hydroxide 30 ml 11/16/20 16:35 Magnesium Hydrox/Alum Hydrox 30 Ml Oral.Susp PO Q6H PRN Heartburn/Nausea Diphenhydramine HCl 50 mg 11/16/20 16:35 Diphenhydramine Hcl 25 Mg Tablet PO BEDTIME PRN insomnia Diphenhydramine HCl 50 mg 11/16/20 21:00 11/20/20 20:28 Diphenhydramine Hcl 25 Mg Tablet PO 50 mg BEDTIME JOSEF Administration Divalproex Sodium 500 mg 11/19/20 12:00 11/20/20 20:28 Divalproex Sodium 500 Mg Tablet. PO 500 mg BID JOSEF Administration Gabapentin 600 mg 11/16/20 16:45 11/20/20 20:28 Gabapentin 600 Mg Tablet PO 600 mg TID JOSEF Administration Hydroxyzine HCl 50 mg 11/17/20 15:26 11/20/20 15:17 Hydroxyzine Hcl 50 Mg Tablet PO 50 mg Q4H PRN Administration Anxiety Magnesium Hydroxide 30 ml 11/16/20 16:35 Milk Of Magnesia 30 Ml Oral.Susp PO DAILY PRN Constipation Olanzapine 5 mg 11/16/20 16:35 11/20/20 16:28 Olanzapine 5 Mg Tablet PO 5 mg Q4H PRN Administration agitation. max 4 doses in 24hr Olanzapine 10 mg 11/17/20 21:00 11/20/20 20:28 Olanzapine 10 Mg Tablet PO 10 mg BID JOSEF Administration Omeprazole 20 mg 11/17/20 09:00 11/20/20 08:32 Omeprazole 20 Mg Capsule. PO 20 mg DAILY JOSEF Administration Propranolol HCl 10 mg 11/16/20 16:45 11/20/20 20:28 Propranolol Hcl 10 Mg Tablet PO Not Given TID [facility] Protocol Sertraline HCl 50 mg 11/20/20 09:00 11/20/20 08:33 Sertraline Hcl 50 Mg Tablet PO 50 mg DAILY JOSEF Administration Trazodone HCl 100 mg 11/16/20 21:00 11/20/20 20:28 Trazodone Hcl 100 Mg Tablet PO 100 mg BEDTIME JOSEF Administration Allergies Allergies Allergy/AdvReac Type Severity Reaction Status Date / Time cephalexin [From Keflex] Allergy Hives Verified 09/28/20 10:40 Assessment & Plan Assessment & Plan (1) MDD (major depressive disorder), recurrent, severe, with psychosis: Status: Acute Code(s): F33.3 - Major depressive disorder, recurrent, severe with psychotic symptoms Assessment and Plan: 1. continue olanzapine 10mg po BID 2. Olanzapine 5mg po Q6hr prn agitation 3. AVOID BENZOS given hx of misuse and abuse. 4. we discussed adding depakote for mood stabilization - as pt continues to present as dysphoric, even with olanzapine and propanolol Greater than 50% of the session was spent on counseling and/or coordination of care Reason for contiued inpatient stay Substantial Risk for: inability to function
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
[2020-11-18] MEDS: OLANZapine 5 MG TABLET PO ×2 (13:09→19:47)
[2020-11-18 18:00] VITALS: BP 117/71; PULSE 73; RESP 18; TEMP 36.7; O2SAT 96
[2020-11-18] MEDS: Gabapentin 600 MG TABLET PO (19:47)
[2020-11-18] MEDS: traZODone HCL 100 MG TABLET PO (19:47)
[2020-11-18 19:48] VITALS: BP 111/73; PULSE 82
[2020-11-18] MEDS: diphenhydrAMINE HCL 25 MG TABLET 50 MG PO (19:48)
[2020-11-19 06:00] VITALS: BP 138/66; PULSE 67; RESP 18; TEMP 36.8; O2SAT 97
[2020-11-19] MEDS: OLANZapine 10 MG TABLET PO ×2 (08:18→20:25)
[2020-11-19] MEDS: Gabapentin 600 MG TABLET PO ×3 (08:19→20:25)
[2020-11-19] MEDS: Escitalopram Oxalate 10 MG TABLET PO (08:19)
[2020-11-19] MEDS: Omeprazole 20 MG CAPSULE.DR PO (08:19)
[2020-11-19 08:20] VITALS: BP 114/66; PULSE 71
[2020-11-19] MEDS: Propranolol HCL 10 MG TABLET PO ×2 (08:20→14:35)
[2020-11-19] MEDS: Divalproex Sodium 500 MG TABLET.DR PO ×2 (13:16→20:25)
[2020-11-19] MEDS: OLANZapine 5 MG TABLET PO (13:16)
[2020-11-19] MEDS: hydrOXYzine HCL 50 MG TABLET PO (13:16)
[2020-11-19 14:35] VITALS: BP 111/65; PULSE 65
[2020-11-19 18:00] VITALS: BP 138/69; PULSE 63; RESP 18; TEMP 36.6; O2SAT 98
[2020-11-19] MEDS: traZODone HCL 100 MG TABLET PO (20:25)
[2020-11-19] MEDS: diphenhydrAMINE HCL 25 MG TABLET 50 MG PO (20:25)
[2020-11-20 06:00] VITALS: BP 108/75; PULSE 72; TEMP 35.6; O2SAT 97
[2020-11-20 08:32] VITALS: BP 111/71; PULSE 87
[2020-11-20] MEDS: Omeprazole 20 MG CAPSULE.DR PO (08:32)
[2020-11-20] MEDS: Propranolol HCL 10 MG TABLET PO ×2 (08:32→15:18)
[2020-11-20] MEDS: OLANZapine 10 MG TABLET PO ×2 (08:33→20:28)
[2020-11-20] MEDS: Divalproex Sodium 500 MG TABLET.DR PO ×2 (08:33→20:28)
[2020-11-20] MEDS: Sertraline HCL 50 MG TABLET PO (08:33)
[2020-11-20] MEDS: Gabapentin 600 MG TABLET PO ×3 (08:33→20:28)
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
[2020-11-20] MEDS: hydrOXYzine HCL 50 MG TABLET PO (15:17)
[2020-11-20 15:18] VITALS: BP 142/58; PULSE 78
[2020-11-20] MEDS: OLANZapine 5 MG TABLET PO (16:28)
[2020-11-20 18:00] VITALS: BP 106/74; PULSE 70; RESP 18; TEMP 36.6; O2SAT 93
[2020-11-20 20:28] VITALS: BP 105/58; PULSE 62
[2020-11-20] MEDS: traZODone HCL 100 MG TABLET PO (20:28)
[2020-11-20] MEDS: diphenhydrAMINE HCL 25 MG TABLET 50 MG PO (20:28)
[2020-11-21 06:24] VITALS: BP 109/62; PULSE 62; RESP 18; TEMP 36.4; O2SAT 95
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
[2020-11-21] MEDS: Omeprazole 20 MG CAPSULE.DR PO (08:43)
[2020-11-21] MEDS: OLANZapine 10 MG TABLET PO (08:43)
[2020-11-21 08:44] VITALS: BP 119/70; PULSE 70
[2020-11-21] MEDS: Gabapentin 600 MG TABLET PO ×3 (08:44→21:04)
[2020-11-21] MEDS: Sertraline HCL 50 MG TABLET PO (08:44)
[2020-11-21] MEDS: Divalproex Sodium 500 MG TABLET.DR PO ×2 (08:44→21:04)
[2020-11-21] MEDS: Propranolol HCL 10 MG TABLET PO ×2 (08:44→21:05)
[2020-11-21] MEDS: hydrOXYzine HCL 50 MG TABLET PO (17:22)
[2020-11-21 18:00] VITALS: BP 119/62; PULSE 70; RESP 18; TEMP 36.4; O2SAT 96
[2020-11-21] MEDS: traZODone HCL 100 MG TABLET PO (21:04)
[2020-11-21] MEDS: OLANZapine 10 MG TABLET 20 MG PO (21:04)
[2020-11-21] MEDS: diphenhydrAMINE HCL 25 MG TABLET 50 MG PO (21:04)
[2020-11-21 21:05] VITALS: BP 115/60; PULSE 66
[2020-11-22 06:00] VITALS: BP 109/55; PULSE 66; RESP 16; TEMP 36.3; O2SAT 97
[2020-11-22] MEDS: OLANZapine 10 MG TABLET PO (09:02)
[2020-11-22] MEDS: Sertraline HCL 50 MG TABLET PO (09:02)
[2020-11-22] MEDS: Gabapentin 600 MG TABLET PO ×3 (09:02→21:08)
[2020-11-22] MEDS: Omeprazole 20 MG CAPSULE.DR PO (09:02)
[2020-11-22] MEDS: Divalproex Sodium 500 MG TABLET.DR PO ×2 (09:03→21:08)
[2020-11-22 09:05] VITALS: BP 119/57; PULSE 71
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
[2020-11-22] MEDS: OLANZapine 5 MG TABLET PO (12:27)
[2020-11-22] MEDS: hydrOXYzine HCL 50 MG TABLET PO ×2 (12:27→18:55)
[2020-11-22 17:34] VITALS: BP 113/68; PULSE 68; RESP 16; TEMP 36.7; O2SAT 98
[2020-11-22] MEDS: OLANZapine 10 MG TABLET 20 MG PO (21:07)
[2020-11-22 21:08] VITALS: BP 125/61; PULSE 70
[2020-11-22] MEDS: diphenhydrAMINE HCL 25 MG TABLET 50 MG PO (21:08)
[2020-11-22] MEDS: traZODone HCL 100 MG TABLET PO (21:08)
[2020-11-22] MEDS: Propranolol HCL 10 MG TABLET PO (21:08)
[2020-11-23 06:00] VITALS: BP 110/63; PULSE 65; RESP 18; TEMP 35.8; O2SAT 98
[2020-11-23 09:13] VITALS: BP 119/60; PULSE 69
[2020-11-23] MEDS: Gabapentin 600 MG TABLET PO ×3 (09:13→20:57)
[2020-11-23] MEDS: OLANZapine 10 MG TABLET PO (09:13)
[2020-11-23] MEDS: Omeprazole 20 MG CAPSULE.DR PO (09:13)
[2020-11-23] MEDS: Propranolol HCL 10 MG TABLET PO ×2 (09:13→20:57)
[2020-11-23] MEDS: Divalproex Sodium 500 MG TABLET.DR PO ×2 (09:13→20:57)
[2020-11-23] MEDS: Sertraline HCL 50 MG TABLET PO (09:13)
[2020-11-23] MEDS: hydrOXYzine HCL 50 MG TABLET PO ×2 (13:00→18:03)
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
[2020-11-23 16:22] VITALS: BP 111/73; PULSE 75; RESP 16; TEMP 36.6; O2SAT 98
[2020-11-23] MEDS: OLANZapine 10 MG TABLET 20 MG PO (20:56)
[2020-11-23 20:57] VITALS: BP 140/65; PULSE 70
[2020-11-23] MEDS: diphenhydrAMINE HCL 25 MG TABLET 50 MG PO (20:57)
[2020-11-23] MEDS: traZODone HCL 100 MG TABLET PO (20:57)
[2020-11-24] MEDS: Divalproex Sodium 500 MG TABLET.DR PO ×2 (09:00→21:03)
[2020-11-24] MEDS: Sertraline HCL 50 MG TABLET PO (09:00)
[2020-11-24] MEDS: Omeprazole 20 MG CAPSULE.DR PO (09:00)
[2020-11-24] MEDS: OLANZapine 10 MG TABLET PO (09:00)
[2020-11-24] MEDS: Gabapentin 600 MG TABLET PO ×3 (09:00→21:03)
[2020-11-24 09:01] VITALS: BP 124/58; PULSE 69
[2020-11-24] MEDS: hydrOXYzine HCL 50 MG TABLET PO (13:09)
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
[2020-11-24 17:04] VITALS: BP 114/67; PULSE 62; RESP 18; TEMP 36.8; O2SAT 95
[2020-11-24] MEDS: OLANZapine 10 MG TABLET 20 MG PO (21:02)
[2020-11-24 21:03] VITALS: BP 98/64; PULSE 69
[2020-11-24] MEDS: traZODone HCL 100 MG TABLET PO (21:03)
[2020-11-24] MEDS: diphenhydrAMINE HCL 25 MG TABLET 50 MG PO (21:03)
[2020-11-24] MEDS: Propranolol HCL 10 MG TABLET PO (21:03)
[2020-11-25 06:00] VITALS: BP 111/64; PULSE 70; RESP 18; TEMP 36; O2SAT 70
[2020-11-25 08:55] LABS: Valproate 60.9 mcg/mL (50.0-100.0)
[2020-11-25 09:07] VITALS: BP 111/64; PULSE 70
[2020-11-25] MEDS: Propranolol HCL 10 MG TABLET PO ×2 (09:07→21:12)
[2020-11-25] MEDS: Sertraline HCL 50 MG TABLET PO (09:08)
[2020-11-25] MEDS: OLANZapine 10 MG TABLET PO (09:08)
[2020-11-25] MEDS: Divalproex Sodium 500 MG TABLET.DR PO (09:08)
[2020-11-25] MEDS: Gabapentin 600 MG TABLET PO ×3 (09:11→21:04)
[2020-11-25] MEDS: Omeprazole 20 MG CAPSULE.DR PO (09:11)
--- NOTE | 2020-11-25 16:40 | HO.PSYCHPN ---
Subjective Subjective Date of Service: 11/25/20 Reason For Visit: major depressive d/o w/psychonic Subjective Notes: Conditional Voluntary Healthcare Proxy: No Guardianship: No Medical Problems Affecting Mental Status: No Interim History: Valproate Level 60.9. Pt agrees to titrate dosing to 750 mg bid. Reports she is feeling ready for discharge and wants to return to work on 11/27. Reports sleep/appt/concentration are intact, however we could do more to help with anxiety. Discussed rationale for not giving benzodiazepines Medication Compliance: Yes Side effects from medications: No (denies) Attending Groups: Intermittent (per pt report.) Review of Systems Acute medical concerns: No Medical Review of Systems: unchanged Review of Systems Psychiatric: Reports anxiety and Reports depression Mental Status Exam Mental Status Exam Patient Appearance: Appropriate Patient Orientation: Person, Place, Time and Situation Level of Consciousness: Alert Patient Behavior: Appropriate, Anxious and Good Eye Contact Mood Description: Anxious Affect Description: Constricted Patient Cognition Impaired: No Ability to Follow Directions: Good Speech Pattern: Spontaneous Speech Memory Description: Intact Hallucinations: None (denies) Delusions: Not Present Thought Process: Goal Oriented Thought Content: positive for Goal Oriented and positive for Suicidal Ideation (denies) Depressive Symptoms: Increased Anxiety Judgement: Fair Diagnostics Vital Signs (24Hr): Vital Signs - 24 hr 11/24/20 17:04 11/24/20 21:03 11/25/20 06:00 Temperature 98.2 F 96.8 F Pulse Rate 62 69 70 Respiratory Rate 18 18 Blood Pressure 114/67 98/64 111/64 Pulse Oximetry 95 70 L 11/25/20 09:07 Temperature Pulse Rate 70 Respiratory Rate Blood Pressure 111/64 Pulse Oximetry Labs Labs: Laboratory Results - last 48 hr 11/25/20 07:17 Valproic Acid 60.9 Medications Medications Current Medications Generic Name Dose Route Start Last Admin Trade Name Freq PRN Reason Stop Dose Admin Acetaminophen 650 mg 11/16/20 16:35 Acetaminophen 325 Mg Tablet PO Q6H PRN Headache/Pain Mild Scale (1-3) Al Hydroxide/Mg Hydroxide 30 ml 11/16/20 16:35 Magnesium Hydrox/Alum Hydrox 30 Ml Oral.Susp PO Q6H PRN Heartburn/Nausea Diphenhydramine HCl 50 mg 11/16/20 16:35 Diphenhydramine Hcl 25 Mg Tablet PO BEDTIME PRN insomnia Diphenhydramine HCl 50 mg 11/16/20 21:00 11/24/20 21:03 Diphenhydramine Hcl 25 Mg Tablet PO 50 mg BEDTIME JOSEF Administration Divalproex Sodium 750 mg 11/25/20 21:00 Divalproex Sodium 250 Mg Tablet.Dr PO BID JOSEF Gabapentin 600 mg 11/16/20 16:45 11/25/20 14:55 Gabapentin 600 Mg Tablet PO 600 mg TID JOSEF Administration Hydroxyzine HCl 50 mg 11/17/20 15:26 11/24/20 13:09 Hydroxyzine Hcl 50 Mg Tablet PO 50 mg Q4H PRN Administration Anxiety Magnesium Hydroxide 30 ml 11/16/20 16:35 Milk Of Magnesia 30 Ml Oral.Susp PO DAILY PRN Constipation Olanzapine 5 mg 11/16/20 16:35 11/22/20 12:27 Olanzapine 5 Mg Tablet PO 5 mg Q4H PRN Administration agitation. max 4 doses in 24hr Olanzapine 10 mg 11/22/20 09:00 11/25/20 09:08 Olanzapine 10 Mg Tablet PO 10 mg DAILY JOSEF Administration Olanzapine 20 mg 11/21/20 21:00 11/24/20 21:02 Olanzapine 10 Mg Tablet PO 20 mg BEDTIME JOSEF Administration Omeprazole 20 mg 11/17/20 09:00 11/25/20 09:11 Omeprazole 20 Mg Capsule. PO 20 mg DAILY JOSEF Administration Propranolol HCl 10 mg 11/21/20 21:00 11/25/20 09:07 Propranolol Hcl 10 Mg Tablet PO 10 mg BID JOSEF Administration Protocol Sertraline HCl 50 mg 11/20/20 09:00 11/25/20 09:08 Sertraline Hcl 50 Mg Tablet PO 50 mg DAILY JOSEF Administration Trazodone HCl 100 mg 11/16/20 21:00 11/24/20 21:03 Trazodone Hcl 100 Mg Tablet PO 100 mg BEDTIME JOSEF Administration Allergies Allergies Allergy/AdvReac Type Severity Reaction Status Date / Time cephalexin [From Keflex] Allergy Hives Verified 09/28/20 10:40 Assessment & Plan Assessment & Plan (1) MDD (major depressive disorder), recurrent, severe, with psychosis: Status: Acute Code(s): F33.3 - Major depressive disorder, recurrent, severe with psychotic symptoms Assessment and Plan: 1. continue olanzapine 10mg po daily and 20mg po qhs. 2. Olanzapine 5mg po Q6hr prn agitation 3. AVOID BENZOS given hx of misuse and abuse. 4. Increase depakote 750mg po BID. Valproate Level 11/25/20 60.9 (2) Moderate benzodiazepine use disorder: Status: Acute Code(s): F13.20 - Sedative, hypnotic or anxiolytic dependence, uncomplicated Assessment and Plan: NO change to the above Greater than 50% of the session was spent on counseling and/or coordination of care Patient educated on: medication risk/benefits, substance abuse and therapeutic strategies Informed Consent: further education needed Reason for contiued inpatient stay Substantial Risk for: harm to self, inability to function and rapid decompensation
[2020-11-25 18:00] VITALS: BP 108/85; PULSE 89; RESP 16; TEMP 36.8; O2SAT 98
[2020-11-25] MEDS: diphenhydrAMINE HCL 25 MG TABLET 50 MG PO (21:03)
[2020-11-25] MEDS: Divalproex Sodium 250 MG TABLET.DR 750 MG PO (21:04)
[2020-11-25] MEDS: OLANZapine 10 MG TABLET 20 MG PO (21:04)
[2020-11-25] MEDS: traZODone HCL 100 MG TABLET PO (21:04)
[2020-11-25] MEDS: hydrOXYzine HCL 50 MG TABLET PO (21:11)
[2020-11-25 21:12] VITALS: BP 131/87
[2020-11-26 06:00] VITALS: BP 98/58; PULSE 68; RESP 18; TEMP 36.1; O2SAT 96
[2020-11-26 09:18] VITALS: BP 100/88; PULSE 72
[2020-11-26] MEDS: Gabapentin 600 MG TABLET PO (09:18)
[2020-11-26] MEDS: Propranolol HCL 10 MG TABLET PO (09:18)
[2020-11-26] MEDS: Sertraline HCL 50 MG TABLET PO (09:19)
[2020-11-26] MEDS: Omeprazole 20 MG CAPSULE.DR PO (09:19)
[2020-11-26] MEDS: OLANZapine 10 MG TABLET PO (09:20)
[2020-11-26] MEDS: Divalproex Sodium 250 MG TABLET.DR 750 MG PO (09:20)
--- NOTE | 2020-11-27 06:45 | P.DS_ITS ---
DS: Providers Provider Date of Service: 11/26/20 Date of admission: 11/16/20 15:32 Date of discharge: 11/26/20 Primary care physician: Shalonda WILKINS Admitting clinician: Natividad Pa Attending physician on admission: Drew Armas Attending physician on discharge: Drew Armas Discharging clinician: Imelda Chavez DS: Diagnosis Discharge Diagnosis (1) MDD (major depressive disorder), recurrent, severe, with psychosis: Status: Acute (2) Moderate benzodiazepine use disorder: Status: Acute DS: Medications Discharge Medications Home Medications: Previous Rx's Medication Instructions Recorded divalproex 250 mg tablet,delayed 750 mg PO BID #180 tab 11/26/20 release gabapentin 300 mg capsule 2 cap PO TID #180 cap 11/26/20 naloxone 4 mg/actuation nasal 4 mg INTRANASAL Q2M PRN #2 ea 11/26/20 spray (Narcan) olanzapine 10 mg tablet 10 mg PO DAILY #30 tab 11/26/20 olanzapine 20 mg tablet 1 tab PO BEDTIME #30 tab 11/26/20 omeprazole 20 mg capsule,delayed 20 mg PO DAILY #30 cap 11/26/20 release propranolol 10 mg tablet 10 mg PO BID #60 tab 11/26/20 sertraline 50 mg tablet 50 mg PO DAILY 30 Days #30 tab 11/26/20 trazodone 100 mg tablet 100 mg PO BEDTIME #30 tab 11/26/20 Mental Status Exam Mental Status Exam Patient Appearance: Appropriate Patient Orientation: Person, Place, Time and Situation Level of Consciousness: Alert Patient Behavior: Appropriate, Anxious and Good Eye Contact Mood Description: Anxious Affect Description: Constricted Patient Cognition Impaired: No Ability to Follow Directions: Good Speech Pattern: Spontaneous Speech Memory Description: Intact Hallucinations: None (denies) Delusions: Not Present Thought Process: Goal Oriented Thought Content: positive for Goal Oriented and positive for Suicidal Ideation (denies) Depressive Symptoms: Increased Anxiety Judgement: Fair Data Data Completed and Pending Completed studies during hospitalization [Text1]: 11/25/20 07:17 Valproic Acid 60.9 DS: Summary Hospital Course Hospital Course: Pt was admitted on conditional voluntary after recent M3 admit (10/29) and then presenting for evaluation three times with reports of symptoms of anxiety and SI along with intrusive thoughts. New medication options discussed and implemented included Olanzapine, titrated to 10 mg a.m. 20 mg pm and 5 mg prn every six hours and Depakote, titrated to 750 mg bid with a level at discharge of 60.9. Benzodiazepines were avoided as pt has a history of misuse, although she continued to request reconsideration. Pt was able to utilize the milieu and team for support, establish management of her symptoms and discharged to home with her partner with out patient appointments scheduled. Time spent discussing smoking cessation with patient: 3 to 10 minutes Status at Discharge Cognitive/behavioral status at discharge: Alert, oriented, non-psychotic, non- suicidal. Functional status at discharge: independent ambulation Overall status at discharge: patient is progressing back to baseline Time Spent with Patient Time attestation: Total time spent providing and/or coordinating discharge services: 30 Time spent: Less than 30 minutes Discharge Plan Discharge Anticipated Discharge Date/Time: 11/26/20 14:00 Patient Disposition: Home, Self-Care Discharge Diagnosis: Recurrent major depression, severe, with psychosis Benzodiazepine use disorder Referrals: Mariluz Burton ([facility] Community Partner) [Other] (Call for assistance coordinating community services) Catrachita Robins (psychiatrist) [Other] - 11/27/20 9:00 am (Telehealth appointment) Catrachita Robins (psychiatrist) [Other] - 12/26/20 9:00 am (Telehealth appointment) Therapy [Other] (Next appointment is pending, intake will follow up to provide the date/time) Shalonda Jaffe PA [Physician Data Services Developer] - 11/29/20 10:35 am (IN OFFICE) Discharge Medications: New divalproex 250 mg Tablet,Delayed Release (Dr/Ec) 750 mg PO BID Qty: 180 RF: 0 olanzapine 10 mg Tablet 10 mg PO DAILY Qty: 30 RF: 0 propranolol 10 mg Tablet 10 mg PO BID Qty: 60 RF: 0 Narcan 4 mg/actuation spray,non-aerosol 4 mg intranasal Q2M PRN (Reason: opioid overdose) Qty: 2 RF: 0 Continued trazodone 100 mg Tablet 100 mg PO BEDTIME Qty: 30 RF: 0 gabapentin 300 mg capsule 2 cap PO TID Qty: 180 RF: 0 omeprazole 20 mg Capsule,Delayed Release(Dr/Ec) 20 mg PO DAILY Qty: 30 RF: 0 sertraline 50 mg Tablet 50 mg PO DAILY 30 Days Qty: 30 RF: 0 olanzapine 20 mg tablet 1 tab PO BEDTIME Qty: 30 RF: 0 Discontinued risperidone 1 mg Tablet 1 mg PO BID 30 Days Qty: 60 RF: 0 propranolol 10 mg Tablet 10 mg PO TID RF: 0 lorazepam 1 mg tablet 1 tab PO Q6H PRN (Reason: anxiety) RF: 0 escitalopram oxalate 20 mg tablet 1 tab PO DAILY RF: 0 Discharge Orders: Discharge Order (Routine); Ordered 11/26/20 Ordered By: Imelda Chavez Diet: advance to usual diet Activity on Discharge: As tolerated Stand Alone Forms: Patient Portal Discharge page, Community Support Care Plan Goals: Mood Stabilization Sobriety Health Concerns: Recurrent major depression with psychosis Benzodiazepine use disorder Cannabis use disorder Opiate use disorder Plan of Treatment: Attend scheduled appointments Take medications as directed. Assessment: Alert, non-suicidal, non-psychotic Discharge Date/Time: 11/26/20 12:45
== END 2020-11-26 12:45 | disposition home or self-care (01) | DRG 751 ==
PROVIDERS: Admitting Provider Psychiatry & Neurology Psychiatry; Visit Provider Social Worker
DX: F33.3 Major depressive disorder, recurrent, severe with psychotic symptoms (principal); R45.851 Suicidal ideations; F13.20 Sedative, hypnotic or anxiolytic dependence, uncomplicated; F41.9 Anxiety disorder, unspecified; Z79.899 Other long term (current) drug therapy
CPT/HCPCS: 36415; 80164; Q0163

== ENCOUNTER 2021-01-29 19:50 | Inpatient (IN) | payer OTHER, SELFPAY ==
[2021-01-29 21:40] VITALS: PULSE 81; TEMP 35.9; O2SAT 98
[2021-01-29] MEDS: OLANZapine 10 MG TABLET 20 MG PO (22:38)
[2021-01-29] MEDS: chlorproMAZINE HCl 25 MG TABLET 50 MG PO (22:38)
[2021-01-29] MEDS: traZODone HCL 100 MG TABLET PO (22:38)
--- NOTE | 2021-01-29 23:15 | PC.ADMIT ---
Pt is a 60 year old female admitted to the unit after referral from SUPER[facility]ING at [facility]. Arrived on unit at 2135 and placed on 5 minute safety checks per unit policy. Legal status: CV. Medical issues: fibroid tumors, breast cancer dx 11/01/20. Substance issues: Pt states that she has been sober from alcohol for several years. Reports smoking marijuana, last use yesterday. MEZA also positive for amphetamines. Precipitant: Pt reports that she has been experiencing a lot of anxiety and depression. She states that she frequently listened to a gentleman on the radio who talked a lot about heaven and hell, and she began to think too much into this, believing that she is no good and is going to go to hell. Pt states that she cannot get this thoughts out of her head. Also reports poor sleep, racing thoughts. Per crisis eval, pt was having [facility] telling her that the devil was going to take her to hell. Also c/o paranoid delusions and that the chief radiology, Jose Macario, is telling her that taking medications is sinful. Pt had presented to ED x3 in the last 3 days for worsening anxiety. At the time of admission, pt denies auditory/visual hallucinations. Denies SI, though states that she has had thoughts that she would be better off , but this is only due to these constant thoughts and high anxiety; pt reports that she is actually afraid of and therefore does not have active SI. Denies HI. She reports being compliant with her medication, though wonders how effective it is. Med reconciliation completed with pharamacy and patient. Nurse to nurse completed prior to admission. Treatment plan initiated. Sarah Perez APRN notified of admission and orders obtained. Pt placed on 15 minute safety checks. Verbalized understanding and agreement to seek out staff if needed.
[2021-01-30 08:20] VITALS: BP 122/61; PULSE 82; RESP 16; TEMP 36.8; O2SAT 96
[2021-01-30] MEDS: chlorproMAZINE HCl 25 MG TABLET 50 MG PO (09:21)
[2021-01-30] MEDS: chlorproMAZINE HCl 100 MG TABLET PO (09:51)
[2021-01-30] MEDS: LORazepam 1 MG TABLET 2 MG PO (15:26)
[2021-01-30] MEDS: Divalproex Sodium 500 MG TABLET.DR PO (15:27)
[2021-01-30] MEDS: OLANZapine ODT 10 MG TAB.RAPDIS 20 MG TRANSLINGU (15:30)
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
[2021-01-30 20:24] VITALS: BP 113/61; PULSE 80; TEMP 36.2; O2SAT 97
[2021-01-31 07:50] VITALS: BP 148/72; PULSE 93; RESP 16; TEMP 36.3; O2SAT 96
[2021-01-31] MEDS: Divalproex Sodium 500 MG TABLET.DR PO ×2 (08:01→21:43)
[2021-01-31] MEDS: OLANZapine 10 MG TABLET 20 MG PO ×2 (08:01→21:43)
[2021-01-31] MEDS: chlorproMAZINE HCl 100 MG TABLET PO ×2 (08:02→14:01)
--- NOTE | 2021-01-31 10:34 | P.PNPSI_ITS ---
Subjective Subjective Date of Service: 02/01/21 Reason For Visit: depressive disorder Subjective Notes: Conditional Voluntary Interim History: Pt presents calmer today in that she is less labile, less episodes of her yelling and punching her head. She reports she was able to sleep through the night with medications. 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 She reports AH are very distressing and bothersome. She denies SI. Although she reports nothing works medication do seem to help pt present as much less labile. Medication Compliance: Yes Side effects from medications: No Attending Groups: No Review of Systems Review of Systems General - no fevers or chills Cardiovascular - no chest pain Respiratory - no shortness of breath or cough Abdominal- no abdominal pain, nausea, vomiting, diarrhea Constitutional: Reports fatigue and Denies weight gain Eyes: Denies no additional eye complaints Cardiovascular: Denies chest pain, Denies chest pain at rest, Denies chest pain with activity, Denies Epigastric Pain, Denies syncope, Denies rapid heart rate, Denies irregular heart rhythm, Denies leg edema, Denies lightheadedness and Denies dyspnea Respiratory: Denies pain on inspiration, Denies pain with cough and Denies dyspnea Gastrointestinal: Denies constipation and Denies nausea Denies syncope Endocrine: Reports fatigue Mental Status Exam Mental Status Exam Narrative: Appearance: casually groomed, poor hygiene, restless Behavior:distressed limited her engagement in interview. 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 impaired secondary to psychiatric symptoms. Diagnostics Vital Signs (24Hr): Vital Signs - 24 hr 01/31/21 20:27 02/01/21 06:00 Temperature 97.4 F 97.3 F Pulse Rate 92 93 Respiratory Rate 18 16 Blood Pressure 106/68 122/78 Pulse Oximetry 98 98 Medications Medications Current Medications Acetaminophen (Acetaminophen 325 Mg Tablet) 650 mg PO Q6H PRN PRN Reason: Headache/Pain Mild Scale (1-3) Al Hydroxide/Mg Hydroxide (Magnesium Hydrox/Alum Hydrox 30 Ml Oral.Susp) 30 ml PO Q6H PRN PRN Reason: Heartburn/Nausea Chlorpromazine HCl (Chlorpromazine Hcl 100 Mg Tablet) 100 mg PO Q4H PRN PRN Reason: anxiety/agitation Last Admin: 02/01/21 08:00 Dose: 100 mg Documented by: Clonidine HCl (Clonidine Hcl 0.1 Mg Tablet) 0.1 mg PO BID PRN; Protocol PRN Reason: anxiety Divalproex Sodium (Divalproex Sodium 500 Mg Tablet.Dr) 500 mg PO BID [facility] Last Admin: 02/01/21 08:00 Dose: 500 mg Documented by: Magnesium Hydroxide (Milk Of Magnesia 30 Ml Oral.Susp) 30 ml PO DAILY PRN PRN Reason: Constipation Olanzapine (Olanzapine 10 Mg Tablet) 20 mg PO BID [facility] Last Admin: 02/01/21 08:00 Dose: 20 mg Documented by: Senna/Docusate Sodium (Sennosides/Docusate Sodium Tablet) 2 tab PO BEDTIME [facility] Last Admin: 01/31/21 21:43 Dose: 2 tab Documented by: Trazodone HCl (Trazodone Hcl 100 Mg Tablet) 100 mg PO BEDTIME [facility] Last Admin: 01/31/21 21:43 Dose: 100 mg Documented by: Allergies Allergies Allergy/AdvReac Type Severity Reaction Status Date / Time cephalexin [From Keflex] Allergy Hives Verified 09/28/20 10:40 Assessment & Plan Assessment & Plan (1) Mood disorder: Status: Acute Code(s): F39 - Unspecified mood [affective] disorder Assessment and Plan: Ms. Ritchie is a 60 year-old woman with hx of AH, labile mood, unclear use of substances including alcohol, cannabis and cocaine (although pt denies). Bipolar disorder versus schizoaffective disorder complicated by substance use and personality traits. She is known to this unit through 3 previous inpatient admission with similar presentation. she self presented to [facility] ED reporting increased depression, AH, suicidal ideation. In the ED her utox was positive for cannabinoids and amphetamines. Pt denies recent use of cocaine, or alcohol use. 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 We discussed risks, benefits and alternative treatment options. Although pt insists nothing has worked, she does appear much less labile with combination of depakote and antipsychotic. PLAN: 1. Admit M3 2. Increase Olanzapine to 20mg po BID 3. Start Depakote 1000mg po BID. 4. Given hx of misuse abuse of benzos and unclear substance use, use of benzodiazepines restricted to hospital but pt understands she would not be given rx on discharged. Pt denies significant alcohol use and denies withdrawal. 4. Obtain collateral information 5. Aftercare planning. Greater than 50% of the session was spent on counseling and/or coordination of care Reason for contiued inpatient stay Substantial Risk for: inability to function
--- NOTE | 2021-01-31 13:58 | P.CONIM_ITS ---
History of Present Illness Data of Consult Service Date: 01/31/21 Primary Care Provider: Rogelio Mckeon MD HPI Reason for consult: Routine Medical Consult This is a 60 yo F who is admitted to the inpatient adult psych unit. Medical consultation sought for routine medical H&P. Patient is seen and examined in her room. She appears to be anxious but denies any complaints. She denies any chronic medical issues. She endorses as a history of about appendectomy and breast cancer -- s/p lumpectomy and radiation. Review of Systems Review of Systems: General - no fevers or chills Cardiovascular - no chest pain Respiratory - no shortness of breath or cough Abdominal- no abdominal pain, nausea, vomiting, diarrhea PMFSH Medical History (Updated 01/31/21 @ 14:34 by Rob Bee MD) Anxiety Pertinent family history: denies any significant medical problems in the family Surgical History S/P appendectomy Social History Household Members: None Household Members Other:: none Housing: Apartment Do you presently have visiting nurse or other home services: No Alcohol intake: never Patient Tobacco Use Status: Never used Tobacco Use of substances other than those prescribed or required for medical reasons: No Substance Use Type: Crack/Cocaine, Heroin and Marijuana Currently Displaying Signs/Symptoms of Drug Intoxication Withdrawal: No Have you been hit, kicked, punched, or otherwise hurt by someone within the past year? If so, by whom?: No Do you feel safe in your current relationship?: No Is there a partner from a previous relationship who is making you feel unsafe now?: No Are you made to feel afraid or neglected: No Spiritual Healthcare Practices: none identified Muslim Healthcare Practices: none identified Cultural Healthcare Practices: none identified Advance Directives: No Advance Directives Information Provided: No Do you have thoughts of harming others: None Do you have a plan to hurt others: No Plan Recently lost weight without trying: No Nutrition Risks: No Nutritional Risk Patient : No : No Poor oral hygiene: No service: No Sexual orientation: Straight/Heterosexual Meds Allergies Allergy/AdvReac Type Severity Reaction Status Date / Time cephalexin [From Keflex] Allergy Hives Verified 09/28/20 10:40 Active Medications: Current Medications Acetaminophen (Acetaminophen 325 Mg Tablet) 650 mg PO Q6H PRN PRN Reason: Headache/Pain Mild Scale (1-3) Al Hydroxide/Mg Hydroxide (Magnesium Hydrox/Alum Hydrox 30 Ml Oral.Susp) 30 ml PO Q6H PRN PRN Reason: Heartburn/Nausea Chlorpromazine HCl (Chlorpromazine Hcl 100 Mg Tablet) 100 mg PO Q4H PRN PRN Reason: anxiety/agitation Last Admin: 01/31/21 08:02 Dose: 100 mg Documented by: Divalproex Sodium (Divalproex Sodium 500 Mg Tablet.Dr) 500 mg PO BID [facility] Last Admin: 01/31/21 08:01 Dose: 500 mg Documented by: Magnesium Hydroxide (Milk Of Magnesia 30 Ml Oral.Susp) 30 ml PO DAILY PRN PRN Reason: Constipation Olanzapine (Olanzapine 10 Mg Tablet) 20 mg PO BID [facility] Last Admin: 01/31/21 08:01 Dose: 20 mg Documented by: Senna/Docusate Sodium (Sennosides/Docusate Sodium Tablet) 2 tab PO BEDTIME [facility] Last Admin: 01/31/21 00:24 Dose: Not Given Documented by: Trazodone HCl (Trazodone Hcl 100 Mg Tablet) 100 mg PO BEDTIME [facility] Last Admin: 01/31/21 00:24 Dose: Not Given Documented by: Home Medications Medication Instructions Recorded Confirmed Last Taken Type lorazepam 1 mg tablet 1 mg PO TID PRN 01/29/21 01/29/21 Unknown History Physical Exam Vital Signs and Narrative: Vital Signs: Last Vital Signs Temp 97.3 F 01/31/21 07:50 Pulse 93 01/31/21 07:50 Resp 16 01/31/21 07:50 BP 148/72 H 01/31/21 07:50 Pulse Ox 96 01/31/21 07:50 Const: Other: General - no acute distress, appears comfortable Cardiovascular - regular rate and rhythm, S1-S2 Lungs - normal respiratory effort, clear to auscultation bilaterally, no wheezing Abdomen - soft, nontender, no rebound or guarding Extremities - no edema bilaterally Neuro - awake and alert, no focal deficits; CN 2-12 intact bilaterally Assessment and Plan (1) Routine medical exam: Status: Acute This is a 60 yo F with no significant PMH other than (breast ca - s/p lumpectomy and radiation) who is admitted to the adult psych floor. Medical services consulted for routine medical H&P. She has no current medical issues. Continue psych care. In regards to her breast cancer history - she reports that she follows up at [facility]. Recommend that she continues to do this as outpatient. Please re-consult with any issues arise. Thank you.
[2021-01-31] MEDS: HaloperidoL 5 MG TABLET PO (16:31)
[2021-01-31] MEDS: LORazepam 1 MG TABLET 2 MG PO (16:31)
[2021-01-31 20:27] VITALS: BP 106/68; PULSE 92; RESP 18; TEMP 36.3; O2SAT 98
[2021-01-31] MEDS: traZODone HCL 100 MG TABLET PO (21:43)
[2021-01-31] MEDS: Sennosides/Docusate Sodium TABLET 2 TAB PO (21:43)
[2021-02-01 06:00] VITALS: BP 122/78; PULSE 93; RESP 16; TEMP 36.3; O2SAT 98
[2021-02-01] MEDS: OLANZapine 10 MG TABLET 20 MG PO ×2 (08:00→21:10)
[2021-02-01] MEDS: Divalproex Sodium 500 MG TABLET.DR PO ×2 (08:00→21:09)
[2021-02-01] MEDS: chlorproMAZINE HCl 100 MG TABLET PO ×2 (08:00→15:06)
[2021-02-01 15:06] VITALS: BP 120/67; PULSE 100
[2021-02-01] MEDS: cloNIDine HCL 0.1 MG TABLET PO (15:06)
--- NOTE | 2021-02-01 17:01 | P.PNPSI_ITS ---
Subjective Subjective Date of Service: 02/01/21 Reason For Visit: depressive disorder Interim History: Pt reports anxiety and is requesting Lorazepam. Discussed that team has agreed not to offer Ativan due to dependence history. Team reports pt has been promoting behaviors to obtain Ativan as one time dose for emergent sx. Discussed with pt other options. In the past she has used clonidine and hydroxyzine with some success. Review of Systems Acute medical concerns: No Medical Review of Systems: unchanged Review of Systems Reports behavioral changes Psychiatric: Reports anxiety, Reports behavioral changes, Reports difficulty concentrating and Reports panic attacks Mental Status Exam Mental Status Exam Patient Appearance: Appropriate Patient Orientation: Person, Place, Time and Situation Level of Consciousness: Alert Patient Behavior: Talkative, Restless, Anxious and Good Eye Contact Mood Description: Anxious and Apprehensive Affect Description: Constricted Patient Cognition Impaired: No Ability to Follow Directions: Good Speech Pattern: Spontaneous Speech Memory Description: Episodic Impaired Hallucinations: None Delusions: Not Present Perceptual Disturbances: Depersonalization and Derealization Thought Process: Distracted and Rumination Thought Content: positive for [place] and positive for Circumstantial Depressive Symptoms: Increased Anxiety, Hopelessness, Unhappiness and Difficulty Concentrating Abnormal Motor Activity Signs and Symptoms: Restlessness Judgement: Fair Diagnostics Vital Signs (24Hr): Vital Signs - 24 hr 01/31/21 20:27 02/01/21 06:00 02/01/21 15:06 Temperature 97.4 F 97.3 F Pulse Rate 92 93 100 Respiratory Rate 18 16 Blood Pressure 106/68 122/78 120/67 Pulse Oximetry 98 98 Medications Medications Current Medications Acetaminophen (Acetaminophen 325 Mg Tablet) 650 mg PO Q6H PRN PRN Reason: Headache/Pain Mild Scale (1-3) Al Hydroxide/Mg Hydroxide (Magnesium Hydrox/Alum Hydrox 30 Ml Oral.Susp) 30 ml PO Q6H PRN PRN Reason: Heartburn/Nausea Chlorpromazine HCl (Chlorpromazine Hcl 100 Mg Tablet) 100 mg PO Q4H PRN PRN Reason: anxiety/agitation Last Admin: 02/01/21 15:06 Dose: 100 mg Documented by: Clonidine HCl (Clonidine Hcl 0.1 Mg Tablet) 0.1 mg PO BID PRN; Protocol PRN Reason: anxiety Last Admin: 02/01/21 15:06 Dose: 0.1 mg Documented by: Divalproex Sodium (Divalproex Sodium 500 Mg Tablet.) 500 mg PO BID [facility] Last Admin: 02/01/21 08:00 Dose: 500 mg Documented by: Magnesium Hydroxide (Milk Of Magnesia 30 Ml Oral.Susp) 30 ml PO DAILY PRN PRN Reason: Constipation Olanzapine (Olanzapine 10 Mg Tablet) 20 mg PO BID [facility] Last Admin: 02/01/21 08:00 Dose: 20 mg Documented by: Senna/Docusate Sodium (Sennosides/Docusate Sodium Tablet) 2 tab PO BEDTIME [facility] Last Admin: 01/31/21 21:43 Dose: 2 tab Documented by: Trazodone HCl (Trazodone Hcl 100 Mg Tablet) 100 mg PO BEDTIME [facility] Last Admin: 01/31/21 21:43 Dose: 100 mg Documented by: Allergies Allergies Allergy/AdvReac Type Severity Reaction Status Date / Time cephalexin [From Keflex] Allergy Hives Verified 09/28/20 10:40 Assessment & Plan Assessment & Plan (1) Mood disorder: Status: Acute Code(s): F39 - Unspecified mood [affective] disorder Assessment and Plan: Ms. Ritchie is a 60 year-old woman with hx of AH, labile mood, unclear use of substances including alcohol, cannabis and cocaine (although pt denies). Bipolar disorder versus schizoaffective disorder complicated by substance use and personality traits. She is known to this unit through 3 previous inpatient admission with similar presentation. she self presented to [facility] ED reporting increased depression, AH, suicidal ideation. In the ED her utox was positive for cannabinoids and amphetamines. Pt denies recent use of cocaine, or alcohol use. 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 We discussed risks, benefits and alternative treatment options. Although pt insists nothing has worked, she does appear much less labile with combination of depakote and antipsychotic. PLAN: 1. Admit M3 2. Increase Olanzapine to 20mg po BID 3. Start Depakote 1000mg po BID. 4. Given hx of misuse abuse of benzos and unclear substance use, use of benzodiazepines restricted to hospital but pt understands she would not be given rx on discharged. Pt denies significant alcohol use and denies withdrawal. 4. Obtain collateral information 5. Aftercare planning. 02/01/21: Coverage: Pt continues to report poor symptom mgt of anxiety and is requesting Lorazeapm. Team reports she is promoting behavioral situations to obtain one time doses-discussed with pt today who persists in requesting Lorazepam. She reports that by history Clonidine/Hydroxyzine have helped. She denies hx of misuse of these agents. Plan: Clonidine 0.1 mg bid prn anxiety. Greater than 50% of the session was spent on counseling and/or coordination of care Patient educated on: medication risk/benefits Informed Consent: understands Reason for contiued inpatient stay Substantial Risk for: harm to self, inability to function and rapid decompensation
[2021-02-01 19:46] VITALS: BP 110/64; PULSE 90; RESP 18; TEMP 36.3; O2SAT 98
[2021-02-01] MEDS: Sennosides/Docusate Sodium TABLET 2 TAB PO (21:09)
[2021-02-01] MEDS: traZODone HCL 100 MG TABLET PO (21:10)
[2021-02-02 09:05] VITALS: BP 99/64; PULSE 92; RESP 14; TEMP 36.8; O2SAT 98
[2021-02-02] MEDS: Divalproex Sodium 500 MG TABLET.DR PO ×2 (09:50→20:52)
[2021-02-02] MEDS: OLANZapine 10 MG TABLET 20 MG PO ×2 (09:50→20:51)
[2021-02-02 10:07] VITALS: BP 110/61; PULSE 103; O2SAT 97
[2021-02-02] MEDS: chlorproMAZINE HCl 100 MG TABLET PO ×2 (10:13→17:56)
[2021-02-02 10:14] VITALS: BP 110/61; PULSE 103
[2021-02-02] MEDS: cloNIDine HCL 0.1 MG TABLET PO ×2 (10:14→17:56)
--- NOTE | 2021-02-02 10:38 | P.PNPSI_ITS ---
Subjective Subjective Date of Service: 02/02/21 Reason For Visit: depressive disorder Interim History: Mya discussed wanting to return home on Wednesday in order to return to work on . She feels prepared. Team report an outburst last evening with reports of depression and intermittent auditory perceptual alterations. Review of all medications with pt. She is non committal regarding efficacy. She describes ongoing lability Discussed augmentation with low dose [place] which she is willing to trial. Medication Compliance: Yes Side effects from medications: No Attending Groups: Yes Review of Systems Acute medical concerns: No Medical Review of Systems: unchanged Review of Systems Reports behavioral changes Psychiatric: Reports anxiety, Reports behavioral changes, Reports difficulty concentrating and Reports panic attacks Mental Status Exam Mental Status Exam Patient Appearance: Appropriate Patient Orientation: Person, Place, Time and Situation Level of Consciousness: Alert Patient Behavior: Talkative, Restless, Anxious and Good Eye Contact Mood Description: Anxious and Apprehensive Affect Description: Constricted Patient Cognition Impaired: No Ability to Follow Directions: Good Speech Pattern: Spontaneous Speech Memory Description: Episodic Impaired Hallucinations: None Delusions: Not Present Perceptual Disturbances: Depersonalization and Derealization Thought Process: Distracted and Rumination Thought Content: positive for [place] and positive for Circumstantial Depressive Symptoms: Increased Anxiety, Hopelessness, Unhappiness and Difficulty Concentrating Abnormal Motor Activity Signs and Symptoms: Restlessness Judgement: Fair Diagnostics Vital Signs (24Hr): Vital Signs - 24 hr 02/01/21 15:06 02/01/21 19:46 02/02/21 09:05 Temperature 97.4 F 98.3 F Pulse Rate 100 90 92 Respiratory Rate 18 14 Blood Pressure 120/67 110/64 99/64 Pulse Oximetry 98 98 02/02/21 10:07 02/02/21 10:14 Temperature Pulse Rate 103 H 103 H Respiratory Rate Blood Pressure 110/61 110/61 Pulse Oximetry 97 Medications Medications Current Medications Acetaminophen (Acetaminophen 325 Mg Tablet) 650 mg PO Q6H PRN PRN Reason: Headache/Pain Mild Scale (1-3) Al Hydroxide/Mg Hydroxide (Magnesium Hydrox/Alum Hydrox 30 Ml Oral.Susp) 30 ml PO Q6H PRN PRN Reason: Heartburn/Nausea Chlorpromazine HCl (Chlorpromazine Hcl 100 Mg Tablet) 100 mg PO Q4H PRN PRN Reason: anxiety/agitation Last Admin: 02/02/21 10:13 Dose: 100 mg Documented by: Clonidine HCl (Clonidine Hcl 0.1 Mg Tablet) 0.1 mg PO BID PRN; Protocol PRN Reason: anxiety Last Admin: 02/02/21 10:14 Dose: 0.1 mg Documented by: Divalproex Sodium (Divalproex Sodium 500 Mg Tablet.) 500 mg PO BID [facility] Last Admin: 02/02/21 09:50 Dose: 500 mg Documented by: [place] Carbonate ([place] Carbonate 300 Mg Capsule) 300 mg PO BEDTIME [facility] Magnesium Hydroxide (Milk Of Magnesia 30 Ml Oral.Susp) 30 ml PO DAILY PRN PRN Reason: Constipation Olanzapine (Olanzapine 10 Mg Tablet) 20 mg PO BID [facility] Last Admin: 02/02/21 09:50 Dose: 20 mg Documented by: Senna/Docusate Sodium (Sennosides/Docusate Sodium Tablet) 2 tab PO BEDTIME [facility] Last Admin: 02/01/21 21:09 Dose: 2 tab Documented by: Trazodone HCl (Trazodone Hcl 100 Mg Tablet) 100 mg PO BEDTIME [facility] Last Admin: 02/01/21 21:10 Dose: 100 mg Documented by: Allergies Allergies Allergy/AdvReac Type Severity Reaction Status Date / Time cephalexin [From Keflex] Allergy Hives Verified 09/28/20 10:40 Assessment & Plan Assessment & Plan (1) Mood disorder: Status: Acute Code(s): F39 - Unspecified mood [affective] disorder Assessment and Plan: Ms. Ritchie is a 60 year-old woman with hx of AH, labile mood, unclear use of substances including alcohol, cannabis and cocaine (although pt denies). Bipolar disorder versus schizoaffective disorder complicated by substance use and personality traits. She is known to this unit through 3 previous inpatient admission with similar presentation. she self presented to [facility] ED reporting increased depression, AH, suicidal ideation. In the ED her utox was positive for cannabinoids and amphetamines. Pt denies recent use of cocaine, or alcohol use. 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 We discussed risks, benefits and alternative treatment options. Although pt insists nothing has worked, she does appear much less labile with combination of depakote and antipsychotic. PLAN: 1. Admit M3 2. Increase Olanzapine to 20mg po BID 3. Start Depakote 1000mg po BID. 4. Given hx of misuse abuse of benzos and unclear substance use, use of benzodiazepines restricted to hospital but pt understands she would not be given rx on discharged. Pt denies significant alcohol use and denies withdrawal. 4. Obtain collateral information 5. Aftercare planning. 02/01/21: Coverage: Pt continues to report poor symptom mgt of anxiety and is requesting Lorazeapm. Team reports she is promoting behavioral situations to obtain one time doses-discussed with pt today who persists in requesting Lorazepam. She reports that by history Clonidine/Hydroxyzine have helped. She denies hx of misuse of these agents. Plan: Clonidine 0.1 mg bid prn anxiety. 02/02/21: Pt discussing discharge and reporting ongoing breakthrough lability with a reported outburst on 02/01 along with intermittent auditory perceptual alterations. Will begin a trial of low dose [place] to augment Depakote while titrating (short term) to assist in mood mgt. Greater than 50% of the session was spent on counseling and/or coordination of care Patient educated on: medication risk/benefits Informed Consent: understands and further education needed Reason for contiued inpatient stay Substantial Risk for: harm to self, inability to function and rapid decompensation
[2021-02-02 17:56] VITALS: BP 112/68; PULSE 96
[2021-02-02 18:00] VITALS: BP 107/71; PULSE 85; RESP 18; TEMP 36.2; O2SAT 96
[2021-02-02] MEDS: traZODone HCL 100 MG TABLET PO (20:52)
[2021-02-02] MEDS: Lithium Carbonate 300 MG CAPSULE PO (20:52)
[2021-02-03] MEDS: OLANZapine 10 MG TABLET 20 MG PO ×2 (09:06→20:07)
[2021-02-03] MEDS: Divalproex Sodium 500 MG TABLET.DR PO ×2 (09:06→20:07)
[2021-02-03 09:10] VITALS: BP 112/65; PULSE 91
[2021-02-03] MEDS: cloNIDine HCL 0.1 MG TABLET PO ×2 (09:10→21:15)
[2021-02-03 09:37] VITALS: BP 112/65; PULSE 91; RESP 16; TEMP 36.3; O2SAT 98
--- NOTE | 2021-02-03 15:10 | P.PNPSI_ITS ---
Subjective Subjective Date of Service: 02/03/21 Reason For Visit: depressive disorder Subjective Notes: 3 Day (02/06/21) Interim History: Team reports three day notice to 02/06. Pt reporting sx of depression/anxiety 09/02. Constipation sx resolved. [place] augment initiated 02/02. Pt reports feeling prepared for discharge even with symptoms as she is focused on a return to work Medication Compliance: Yes Side effects from medications: No Attending Groups: Yes Review of Systems Acute medical concerns: No Medical Review of Systems: unchanged Review of Systems Review of Systems Yes all other systems are reviewed and are negative Reports behavioral changes Psychiatric: Reports anxiety, Reports behavioral changes, Reports depression, Reports irritability and Reports suicidal ideation (denies) Mental Status Exam Mental Status Exam Patient Appearance: Appropriate Patient Orientation: Person, Place, Time and Situation Level of Consciousness: Alert Patient Behavior: Talkative, Restless, Anxious and Good Eye Contact Mood Description: Anxious and Apprehensive Affect Description: Constricted Patient Cognition Impaired: No Ability to Follow Directions: Good Speech Pattern: Spontaneous Speech Memory Description: Episodic Impaired Hallucinations: None Delusions: Not Present Perceptual Disturbances: Depersonalization and Derealization Thought Process: Distracted and Rumination Thought Content: positive for [place] and positive for Circumstantial Depressive Symptoms: Increased Anxiety, Hopelessness, Unhappiness and Difficulty Concentrating Abnormal Motor Activity Signs and Symptoms: Restlessness Judgement: Fair Diagnostics Vital Signs (24Hr): Vital Signs - 24 hr 02/02/21 17:56 02/02/21 18:00 02/03/21 09:10 Temperature 97.1 F Pulse Rate 96 85 91 Respiratory Rate 18 Blood Pressure 112/68 107/71 112/65 Pulse Oximetry 96 02/03/21 09:37 Temperature 97.3 F Pulse Rate 91 Respiratory Rate 16 Blood Pressure 112/65 Pulse Oximetry 98 Medications Medications Current Medications Acetaminophen (Acetaminophen 325 Mg Tablet) 650 mg PO Q6H PRN PRN Reason: Headache/Pain Mild Scale (1-3) Al Hydroxide/Mg Hydroxide (Magnesium Hydrox/Alum Hydrox 30 Ml Oral.Susp) 30 ml PO Q6H PRN PRN Reason: Heartburn/Nausea Chlorpromazine HCl (Chlorpromazine Hcl 100 Mg Tablet) 100 mg PO Q4H PRN PRN Reason: anxiety/agitation Last Admin: 02/02/21 17:56 Dose: 100 mg Documented by: Clonidine HCl (Clonidine Hcl 0.1 Mg Tablet) 0.1 mg PO BID PRN; Protocol PRN Reason: anxiety Last Admin: 02/03/21 09:10 Dose: 0.1 mg Documented by: Divalproex Sodium (Divalproex Sodium 500 Mg Tablet.) 500 mg PO BID [facility] Last Admin: 02/03/21 09:06 Dose: 500 mg Documented by: [place] Carbonate ([place] Carbonate 300 Mg Capsule) 300 mg PO BEDTIME [facility] Last Admin: 02/02/21 20:52 Dose: 300 mg Documented by: Magnesium Hydroxide (Milk Of Magnesia 30 Ml Oral.Susp) 30 ml PO DAILY PRN PRN Reason: Constipation Olanzapine (Olanzapine 10 Mg Tablet) 20 mg PO BID [facility] Last Admin: 02/03/21 09:06 Dose: 20 mg Documented by: Polyethylene Glycol (Polyethylene Glycol 3350 17 Gm Powd.Pack) 17 gm PO DAILY PRN PRN Reason: Constipation Senna/Docusate Sodium (Sennosides/Docusate Sodium Tablet) 2 tab PO BEDTIME [facility] Last Admin: 02/02/21 20:51 Dose: Not Given Documented by: Trazodone HCl (Trazodone Hcl 100 Mg Tablet) 100 mg PO BEDTIME [facility] Last Admin: 02/02/21 20:52 Dose: 100 mg Documented by: Allergies Allergies Allergy/AdvReac Type Severity Reaction Status Date / Time cephalexin [From Keflex] Allergy Hives Verified 09/28/20 10:40 Assessment & Plan Assessment & Plan (1) Mood disorder: Status: Acute Code(s): F39 - Unspecified mood [affective] disorder Assessment and Plan: Ms. Ritchie is a 60 year-old woman with hx of AH, labile mood, unclear use of substances including alcohol, cannabis and cocaine (although pt denies). Bipolar disorder versus schizoaffective disorder complicated by substance use and personality traits. She is known to this unit through 3 previous inpatient admission with similar presentation. she self presented to [facility] ED reporting increased depression, AH, suicidal ideation. In the ED her utox was positive for cannabinoids and amphetamines. Pt denies recent use of cocaine, or alcohol use. 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 We discussed risks, benefits and alternative treatment options. Although pt insists nothing has worked, she does appear much less labile with combination of depakote and antipsychotic. PLAN: 1. Admit M3 2. Increase Olanzapine to 20mg po BID 3. Start Depakote 1000mg po BID. 4. Given hx of misuse abuse of benzos and unclear substance use, use of benzodiazepines restricted to hospital but pt understands she would not be given rx on discharged. Pt denies significant alcohol use and denies withdrawal. 4. Obtain collateral information 5. Aftercare planning. 02/01/21: Coverage: Pt continues to report poor symptom mgt of anxiety and is requesting Lorazeapm. Team reports she is promoting behavioral situations to obtain one time doses-discussed with pt today who persists in requesting Lorazepam. She reports that by history Clonidine/Hydroxyzine have helped. She denies hx of misuse of these agents. Plan: Clonidine 0.1 mg bid prn anxiety. 02/02/21: Pt discussing discharge and reporting ongoing breakthrough lability with a reported outburst on 02/01 along with intermittent auditory perceptual alterations. Will begin a trial of low dose [place] to augment Depakote while titrating (short term) to assist in mood mgt. 02/03/21: Three day notice to 02/06. Pt requesting discharge 02/05 so she may return to work on 02/06. Reports sx of depression anxiety 09/02. [place] augment initiated 02/02. Denies SI. Constipation reportedly resolved. Continue current regime. Greater than 50% of the session was spent on counseling and/or coordination of care Patient educated on: medication risk/benefits Informed Consent: understands and further education needed Reason for contiued inpatient stay Substantial Risk for: harm to self, harm to others, inability to function and rapid decompensation
[2021-02-03] MEDS: chlorproMAZINE HCl 100 MG TABLET PO (17:43)
[2021-02-03 18:00] VITALS: BP 112/57; PULSE 88; RESP 18; TEMP 35.7; O2SAT 97
[2021-02-03] MEDS: Lithium Carbonate 300 MG CAPSULE PO (20:06)
[2021-02-03] MEDS: Sennosides/Docusate Sodium TABLET 2 TAB PO (20:07)
[2021-02-03] MEDS: traZODone HCL 100 MG TABLET PO (20:08)
[2021-02-03 21:15] VITALS: BP 112/57; PULSE 88
[2021-02-04 09:49] VITALS: BP 105/80; PULSE 101; RESP 16; TEMP 36.2; O2SAT 98
[2021-02-04 09:51] VITALS: BP 105/80; PULSE 101
[2021-02-04] MEDS: OLANZapine 10 MG TABLET 20 MG PO ×2 (09:51→20:15)
[2021-02-04] MEDS: Divalproex Sodium 500 MG TABLET.DR PO ×2 (09:51→20:15)
[2021-02-04] MEDS: cloNIDine HCL 0.1 MG TABLET PO ×2 (09:51→18:24)
--- NOTE | 2021-02-04 13:07 | P.PNPSI_ITS ---
Subjective Subjective Date of Service: 02/04/21 Reason For Visit: depressive disorder Interim History: pt reports she is doing well, no complaints or requests, hoping to discharge tomorrow. feels her regimen is working well for her. per staff, pt doing well. Mental Status Exam Mental Status Exam Narrative: Appearance: casually groomed, fair hygiene Behavior:no PMA/PMR Speech: clear, normal rate/rhythm/volume, spontaneous TP: linear and logical TC: no delusions or paranoia noted Mood: euthymic Affect: constricted, normo-intense, non-labile SI:denies HI:denies AH/VH: denies Diagnostics Vital Signs (24Hr): Vital Signs - 24 hr 02/03/21 18:00 02/03/21 21:15 02/04/21 09:49 Temperature 96.2 F L 97.1 F Pulse Rate 88 88 101 H Respiratory Rate 18 16 Blood Pressure 112/57 L 112/57 L 105/80 Pulse Oximetry 97 98 02/04/21 09:51 Temperature Pulse Rate 101 H Respiratory Rate Blood Pressure 105/80 Pulse Oximetry Medications Medications Current Medications Acetaminophen (Acetaminophen 325 Mg Tablet) 650 mg PO Q6H PRN PRN Reason: Headache/Pain Mild Scale (1-3) Al Hydroxide/Mg Hydroxide (Magnesium Hydrox/Alum Hydrox 30 Ml Oral.Susp) 30 ml PO Q6H PRN PRN Reason: Heartburn/Nausea Chlorpromazine HCl (Chlorpromazine Hcl 100 Mg Tablet) 100 mg PO Q4H PRN PRN Reason: anxiety/agitation Last Admin: 02/03/21 17:43 Dose: 100 mg Documented by: Clonidine HCl (Clonidine Hcl 0.1 Mg Tablet) 0.1 mg PO BID PRN; Protocol PRN Reason: anxiety Last Admin: 02/04/21 09:51 Dose: 0.1 mg Documented by: Divalproex Sodium (Divalproex Sodium 500 Mg Tablet.Dr) 500 mg PO BID [facility] Last Admin: 02/04/21 09:51 Dose: 500 mg Documented by: [place] Carbonate ([place] Carbonate 300 Mg Capsule) 300 mg PO BEDTIME [facility] Last Admin: 02/03/21 20:06 Dose: 300 mg Documented by: Magnesium Hydroxide (Milk Of Magnesia 30 Ml Oral.Susp) 30 ml PO DAILY PRN PRN Reason: Constipation Olanzapine (Olanzapine 10 Mg Tablet) 20 mg PO BID [facility] Last Admin: 02/04/21 09:51 Dose: 20 mg Documented by: Polyethylene Glycol (Polyethylene Glycol 3350 17 Gm Powd.Pack) 17 gm PO DAILY PRN PRN Reason: Constipation Senna/Docusate Sodium (Sennosides/Docusate Sodium Tablet) 2 tab PO BEDTIME [facility] Last Admin: 02/03/21 20:07 Dose: 2 tab Documented by: Trazodone HCl (Trazodone Hcl 100 Mg Tablet) 100 mg PO BEDTIME [facility] Last Admin: 02/03/21 20:08 Dose: 100 mg Documented by: Allergies Allergies Allergy/AdvReac Type Severity Reaction Status Date / Time cephalexin [From Keflex] Allergy Hives Verified 09/28/20 10:40 Assessment & Plan Assessment & Plan (1) Mood disorder: Status: Acute Code(s): F39 - Unspecified mood [affective] disorder Assessment and Plan: Ms. Ritchie is a 60 year-old woman with hx of AH, labile mood, unclear use of substances including alcohol, cannabis and cocaine (although pt denies). Bipolar disorder versus schizoaffective disorder complicated by substance use and personality traits. She is known to this unit through 3 previous inpatient admission with similar presentation. she self presented to [facility] ED reporting increased depression, AH, suicidal ideation. In the ED her utox was positive for cannabinoids and amphetamines. Pt denies recent use of cocaine, or alcohol use. 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 We discussed risks, benefits and alternative treatment options. Although pt insists nothing has worked, she does appear much less labile with combination of depakote and antipsychotic. PLAN: 1. Admit M3 2. Increased Olanzapine to 20mg po BID 3. Started Depakote 1000mg po BID. 4. Given hx of misuse abuse of benzos and unclear substance use, use of benzodiazepines restricted to hospital but pt understands she would not be given rx on discharged. Pt denies significant alcohol use and denies withdrawal. 4. Obtain collateral information 5. Aftercare planning. 02/01/21: Coverage: Pt continues to report poor symptom mgt of anxiety and is requesting Lorazeapm. Team reports she is promoting behavioral situations to obtain one time doses-discussed with pt today who persists in requesting Lorazepam. She reports that by history Clonidine/Hydroxyzine have helped. She denies hx of misuse of these agents. Plan: Clonidine 0.1 mg bid prn anxiety. 02/02/21: Pt discussing discharge and reporting ongoing breakthrough lability with a reported outburst on 02/01 along with intermittent auditory perceptual alterations. Will begin a trial of low dose [place] to augment Depakote while titrating (short term) to assist in mood mgt. 02/03/21: Three day notice to 02/06. Pt requesting discharge 02/05 so she may return to work on 02/06. Reports sx of depression anxiety 09/02. [place] augment initiated 02/02. Denies SI. Constipation reportedly resolved. Continue current regime. 02/04/21: pt denies any psychiatric Sx, has no requests other than discharge tomorrow. labs ordered for tomorrow morning (VPA, BMP, CBC, LFTs). Greater than 50% of the session was spent on counseling and/or coordination of care Reason for contiued inpatient stay Substantial Risk for: harm to self, inability to function and rapid decompensation
[2021-02-04 18:24] VITALS: BP 122/62; PULSE 72
[2021-02-04] MEDS: chlorproMAZINE HCl 100 MG TABLET PO (18:24)
[2021-02-04 20:05] VITALS: BP 112/58; PULSE 92; RESP 18; TEMP 36.5; O2SAT 94
[2021-02-04] MEDS: Sennosides/Docusate Sodium TABLET 2 TAB PO (20:15)
[2021-02-04] MEDS: traZODone HCL 100 MG TABLET PO (20:15)
[2021-02-04] MEDS: Lithium Carbonate 300 MG CAPSULE PO (20:15)
[2021-02-05 06:53] LABS: MANUAL DIFF FLAG NO
[2021-02-05 06:57] LABS: Basophils Absolute Auto 0.1 X10*3/uL (0.0-0.2); Eosinophils Absolute Auto 0.2 X10*3/uL (0.0-0.4); Eosinophils Percent Auto 4.2 % (0-4); Hematocrit 40.5 % (37-47); Hemoglobin 13.7 g/dl (12.0-16.0); Imm Gran Abs Auto 0.02 X10*3/uL (0.00-0.03); Imm Gran Pct Auto 0.4 % (0.0-0.4); Lymphocytes Absolute Auto 1.7 X10*3/uL (1.2-4.9); Lymphocytes Percent Auto 36.4 % (20-40); Mean Corpuscular HGB Conc 33.8 g/dl (31.0-35.0); Mean Corpuscular Hemoglobin 29.9 pg (27.0-33.0); Mean Corpuscular Volume 88.4 fL (80-98); Mean Platelet Volume 10.4 fL (9.4-12.3); Monocytes Absolute Auto 0.5 X10*3/uL (0.1-1.2); Monocytes Percent Auto 10.5 % (2-11); Neutrophils Absolute Auto 2.3 X10*3/uL (2.0-8.3); Neutrophils Percent Auto 47.5 % (45-73); Platelet Count 255 X10*3/uL (160-400); Red Blood Count 4.58 X10*6/uL (4.20-5.50); Red Cell Distribution Width 12.3 % (11.0-16.0); White Blood Count 4.8 X10*3/uL (4.8-10.8)
[2021-02-05 07:16] LABS: Alanine Aminotransferase 13 U/L (0-31); Albumin Level 3.9 g/dL (3.5-5.0); Alkaline Phosphatase 69 U/L (39-117); Anion Gap 10 (12-20); Aspartate Amino Transferase 9 U/L (5-31); Bilirubin Direct < 0.2 mg/dL (0.0-0.5); Bilirubin Total 0.3 mg/dL (0.0-1.0); Blood Urea Nitrogen 14 mg/dL (9-16); Calcium 9.2 mg/dL (8.4-10.2); Carbon Dioxide 27 mmol/L (22-29); Chloride 106 mmol/L (96-108); Estimated Glomerular Filt Rate > 60; Glucose Random 102 mg/dL (60-115); Potassium 4.5 mmol/L (3.3-5.1); Sodium 138 mmol/L (135-145); Total Protein 6.2 g/dL (6.5-8.0)
[2021-02-05 08:34] LABS: Valproate 83.8 mcg/mL (50.0-100.0)
[2021-02-05 08:48] VITALS: BP 139/67; PULSE 81; RESP 17; TEMP 36.7; O2SAT 97
[2021-02-05] MEDS: Divalproex Sodium 500 MG TABLET.DR PO (08:51)
[2021-02-05] MEDS: OLANZapine 10 MG TABLET 20 MG PO (08:51)
[2021-02-05 08:53] VITALS: BP 139/67; PULSE 81
[2021-02-05] MEDS: cloNIDine HCL 0.1 MG TABLET PO (08:53)
--- NOTE | 2021-02-05 09:22 | P.DS_ITS ---
DS: Providers Provider Date of Service: 02/05/21 Date of admission: 01/29/21 19:50 Primary care physician: Rogelio Mckeon MD Consults: 01/29/21 19:49 Consult to Hospitalist Routine Consulting Provider: Hospitalist Reason For Exam: Transfer from acute care facility DS: Medications Discharge Medications Home Medications: Previous Rx's Medication Instructions Recorded clonidine HCl 0.1 mg tablet 0.1 mg PO BID PRN #15 tab 02/05/21 divalproex 500 mg tablet,delayed 500 mg PO BID #60 tab 02/05/21 release olanzapine 20 mg tablet 20 mg PO BID #60 tab 02/05/21 sennosides 8.6 mg-docusate sodium 2 tab PO BEDTIME #60 tab 02/05/21 50 mg tablet (Senna Plus) trazodone 100 mg tablet 100 mg PO BEDTIME #30 tab 02/05/21 Data Data Completed and Pending Completed studies during hospitalization [Text1]: 02/05/21 02/05/21 06:48 06:48 WBC 4.8 RBC 4.58 Hgb 13.7 Hct 40.5 MCV 88.4 MCH 29.9 MCHC 33.8 RDW 12.3 Plt Count 255 MPV 10.4 Immature Gran % (Auto) 0.4 Neut % (Auto) 47.5 Lymph % (Auto) 36.4 [place] % (Auto) 10.5 Eos % (Auto) 4.2 H Baso % (Auto) 1.0 Lymph # (Auto) 1.7 [place] # (Auto) 0.5 Eos # (Auto) 0.2 Baso # (Auto) 0.1 Abs Immat Gran (auto) 0.02 Absolute Neuts (auto) 2.3 Absolute Nucleated RBC 0.000 Nucleated RBC % (auto) 0.0 Sodium 138 Potassium 4.5 Chloride 106 Carbon Dioxide 27 Anion Gap 10 L BUN 14 Creatinine 0.75 Estim Creat Clear Calc TNP Estimated GFR > 60 Random Glucose 102 Calcium 9.2 Total Bilirubin 0.3 Direct Bilirubin < 0.2 AST 9 ALT 13 Alkaline Phosphatase 69 D Total Protein 6.2 L Albumin 3.9 Valproic Acid 83.8 DS: Summary Hospital Course Hospital Course: HPI: Narrative: Ms. Ritchie is a 60 year-old woman with hx of mood disorder, psychosis, substance use including cocaine, alcohol use. Ms. Ritchie has had more than 16 ED visits this year due to anxious mood, AH mostly of a sampler radioactive waste. She has also had about 6 inpatient psychiatric admission this year with similar presentation. Ms. Ritchie is known to this unit through at least 3 previous inpatient admission with similar presentation. This time, pt had presented initially 3 times in a row to ED at [facility]. Per [employer] [employer] crisis report, pt reported increased anxious mood, passive suicidal ideation, auditory hallucinations of sampler radioactive waste telling her that she is not worth it and that medications are not good. In the ED, her utox is positive for cannabis, which she admits using almost daily. Pt denies alcohol use or minimize it. She was also positive for amphetamines, which she denies using. On the unit, Ms. Ritchie presents as labile, having episodes of screaming, hitting her head, reporting I can't stop thoughts in my head. She requests ati van, which has been of concern in the past as pt has hx of misusing benzodiazepines. Per crisis report, pt had reported drinking daily. Today, pt reports she had 3 beers in a week and denied any symptoms of withdrawal. She does report using cannabis daily as she states it calmer her down. Although pt reports nothing has worked, pt does significantly calm down and appears much less labile with combination of depakote and antipsychotic. Past Psychiatric History: psych hosps: pt reports more than 12 psych hospitalizations. In 2020- more than 17 ED visits. And total of 5 inpatient admission- 3 of them at [facility] [place]. OP: reports seeing providers through [facility] [employer]. SA: denies SIB: remote h/o punching through windows (x3) HIB: denies Past medication trials: depakote, olanzapine, risperidone, thorazine Medical Evaluation Reviewed: Yes HOSPITAL COURSE On the unit, Ms. Ritchie was admitted on a CV and placed on 15 minutes checks for safety. Pt initially presented as very irritable, labile, dysphoric, reporting thinking that she will go to hell, hearing voices of redio host who several years ago. Significant degree of druze preoccupation with themes of pt being sinner, not worth of God's forgiveness. After discussing risks, benefits and alternative treatment options, pt reported nothing works. However,, based on previous admission, pt does respond to combination of mood stabilizer and antipsychotic.She was started on Olanzapine and depakote. Her affect gradually presented as much less irritable, less labile/dysphoric. She reported less intensity of AH of sampler radioactive waste. Her sleep/appetite improved. Her insight is poor in that she does not see need to continue medications on discharge and quickly de-compensate. There were no incidences of disruptive behaviors nor use of restraints. She did agree to follow through with OP through [employer]. Time spent discussing smoking cessation with patient: 3 to 10 minutes Status at Discharge Cognitive/behavioral status at discharge: Pt presents as much less labile/dysphoric, explosive, anxious. She denies SI/HI. Less intrusive thoughts of Marino Master and devil. No signs of aggression towards self or others several days prior to discharge Functional status at discharge: independent ambulation Overall status at discharge: patient is progressing back to baseline Time Spent with Patient Time attestation: Total time spent providing and/or coordinating discharge services: Discharge Plan Discharge Patient Disposition: Home, Self-Care Discharge Diagnosis: Schizoaffective versus Bipolar type 1 Disorder polysubstance use Referrals: Briseyda Johnson (therapist) [Other] Wanda (psychiatrist) [Other] - 02/12/21 11:00 am (In-person appointment) Rogelio Mckeon MD [Primary Care Provider] - 1 Week Discharge Medications: New clonidine HCl 0.1 mg Tablet 0.1 mg PO BID PRN (Reason: anxiety) Qty: 15 RF: 1 divalproex 500 mg Tablet,Delayed Release (Dr/Ec) 500 mg PO BID Qty: 60 RF: 0 olanzapine 20 mg tablet 20 mg PO BID Qty: 60 RF: 0 sennosides-docusate sodium [Senna Plus] 8.6-50 mg Tablet 2 tab PO BEDTIME Qty: 60 RF: 0 trazodone 100 mg Tablet 100 mg PO BEDTIME Qty: 30 RF: 0 Discontinued trazodone 100 mg Tablet 100 mg PO BEDTIME Qty: 30 RF: 0 olanzapine 20 mg tablet 1 tab PO BEDTIME Qty: 30 RF: 0 lorazepam 1 mg Tablet 1 mg PO TID PRN (Reason: Anxiety) RF: 0 Discharge Orders: Discharge Order (Routine); Ordered 02/05/21 Ordered By: Natividad Pa Diet: regular diet Activity on Discharge: As tolerated Stand Alone Forms: Patient Portal Discharge page, Community Support Care Plan Goals: 1. Maintain mood 2. No SI/HI 3. Less labile mood Health Concerns: 1. Follow up with PCP Plan of Treatment: 1. Take medications as prescribed 2. Follow through with appointments 3. Go to nearest ED or call 911 in event of emergency Assessment: Pt much less labile, no SI/HI. Less AH, less delusional content. Discharge Date/Time: 02/05/21 11:57
--- NOTE | 2021-02-05 13:14 | PC.NURSE ---
Patient is Alert and oriented x 4. Patient is in a stable mood. Patient is cooperative with staff. Speech is coherent and appropriate. Patient verbalizes an understanding of discharge instructions. Patient is in agreement with discharge. Patient denies SI/HI/AH/VH. Patient states I feel safe and ready to go. I am going to go back to work. Patient is independent and ambulatory with a steady gait.
== END 2021-02-05 11:57 | disposition home or self-care (01) | DRG 753 ==
PROVIDERS: Admitting Provider Psychiatry & Neurology Psychiatry; PCP Family Medicine; Visit Provider Social Worker
DX: F39 Unspecified mood [affective] disorder (principal); F19.90 Other psychoactive substance use, unspecified, uncomplicated; Z79.899 Other long term (current) drug therapy
CPT/HCPCS: 36415; 80048; 80076; 80164; 85025

== ENCOUNTER 2021-07-17 19:11 | Inpatient (IN) | payer OTHER, MEDICAID, SELFPAY ==
--- NOTE | 2021-07-17 | ECG_ITS ---
Test Reason : MED CLEARANCE Blood Pressure : / mmHG Vent. Rate : 093 BPM Atrial Rate : 093 BPM P-R Int : 132 ms QRS Dur : 080 ms QT Int : 332 ms P-R-T Axes : 072 069 051 degrees QTc Int : 412 ms Normal sinus rhythm Possible Left atrial enlargement Nonspecific ST abnormality Abnormal ECG No previous ECGs available Referred By: Jose Smith Electronically Signed By:ROLY DENNY MD
[2021-07-17 19:24] VITALS: BP 124/88; PULSE 106; RESP 20; TEMP 37.4; O2SAT 95; BMI 26.6
[2021-07-17 19:46] LABS: Appearance Urine CLEAR; Color Urine YELLOW; Glucose Urine UA NEG (NEG); Leukocyte Esterase Urine NEG (NEG); Nitrite Urine NEG (NEG); PH 5.5 (5.0-8.0); Specific Gravity - Urine >= 1.030 (1.005-1.025); Urine Blood NEG (NEG); Urine Ketones 5 MG/DL (NEG); Urine Protein NEG (NEG-TRACE)
[2021-07-17 20:01] LABS: Amphetamine Screen Urine Not Detected (Not Detect); Barbiturates, Urine Not Detected (Not Detect); Benzodiazepines Screen Urine Not Detected (Not Detect); Cannabinoid Screen Urine POSITIVE (Not Detect); Cocaine Screen Urine Not Detected (Not Detect); Fentanyl, urine Not Detected (Not Detect); Opiate Screen Urine Not Detected (Not Detect); Phencyclidine Screen Urine Not Detected (Not Detect)
[2021-07-17 20:02] LABS: COVID-19 Test Negative (Negative)
[2021-07-17 20:17] LABS: MANUAL DIFF FLAG NO
[2021-07-17 20:19] LABS: Basophils Absolute Auto 0.1 X10*3/uL (0.0-0.2); Basophils Percent Auto 0.7 % (0-2); Eosinophils Absolute Auto 0.1 X10*3/uL (0.0-0.4); Eosinophils Percent Auto 0.7 % (0-4); Hematocrit 43.3 % (37.0-47.0); Imm Gran Abs Auto 0.05 X10*3/uL (0.00-0.03); Imm Gran Pct Auto 0.4 % (0.0-0.4); Lymphocytes Absolute Auto 2.6 X10*3/uL (1.2-4.9); Lymphocytes Percent Auto 21.5 % (20-40); Mean Corpuscular HGB Conc 34.6 g/dl (31.0-35.0); Mean Corpuscular Hemoglobin 29.8 pg (27.0-33.0); Mean Corpuscular Volume 86.1 fL (80.0-98.0); Mean Platelet Volume 10.5 fL (9.4-12.3); Monocytes Percent Auto 7.9 % (2-11); Neutrophils Absolute Auto 8.4 x10*3/uL (2.0-8.3); Neutrophils Percent Auto 68.8 % (45-73); Platelet Count 372 X10*3/uL (160-400); Red Blood Count 5.03 X10*6/uL (4.20-5.50); Red Cell Distribution Width 12.2 % (11.0-16.0); White Blood Count 12.2 X10*3/uL (4.8-10.8)
[2021-07-17 20:33] LABS: Ethanol < 10 mg/dL
[2021-07-17] MEDS: OLANZapine 10 MG TABLET 20 MG PO (20:36)
[2021-07-17] MEDS: diphenhydrAMINE HCL 25 MG TABLET 50 MG PO (20:36)
[2021-07-17 20:39] LABS: Acetaminophen LAB < 1 mcg/mL (<30); Alanine Aminotransferase 22 U/L (0-31); Albumin Level 4.7 g/dL (3.5-5.0); Alkaline Phosphatase 94 U/L (39-117); Anion Gap 17 (12-20); Aspartate Amino Transferase 15 U/L (5-31); Bilirubin Direct 0.2 mg/dL (0.0-0.5); Bilirubin Total 0.7 mg/dL (0.0-1.0); Blood Urea Nitrogen 14 mg/dL (9-16); Carbon Dioxide 20 mmol/L (22-29); Chloride 107 mmol/L (96-108); Creatinine Clr Calc Pharmacy 72.8; Estimated Glomerular Filt Rate > 60; Glucose Random 143 mg/dL (60-115); Potassium 4.1 mmol/L (3.3-5.1); Salicylate < 5.0 mg/dL (15-30); Sodium 140 mmol/L (135-145); Total Protein 7.6 g/dL (6.5-8.0)
[2021-07-17 20:45] LABS: Valproate < 2.0 mcg/mL (50.0-100.0)
[2021-07-17 20:58] LABS: TSH reflex Free T4 2.42 uIU/mL (0.32-4.0)
--- NOTE | 2021-07-17 22:04 | ED.PSYCH ---
HPI - Psych General Chief Complaint: Psychiatric Symptoms Stated Complaint: Crisis Time Seen by Provider: 07/17/21 20:16 Source: patient Mode of arrival: ambulatory Limitations: no limitations History of Present Illness HPI Narrative: 60-year-old female with significant history of psych presents to ED for suicidal ideation. Patient states she is going to hell because she is a bad person. Patient states she is compliant with her meds. Patient states voices telling her she is a bad person. Patient denies any visual hallucinations. Related Data Home Medications Medication Instructions Recorded Confirmed clonazepam 0.5 mg tablet 0.5 mg PO BID PRN 07/17/21 07/17/21 clonidine HCl 0.1 mg tablet 1 tab PO Q8H PRN 07/17/21 07/17/21 olanzapine 20 mg tablet 1 tab PO BEDTIME 07/17/21 07/17/21 trazodone 100 mg tablet 1 tab PO BEDTIME 07/17/21 07/17/21 Allergies Allergy/AdvReac Type Severity Reaction Status Date / Time cephalexin [From Keflex] Allergy Hives Verified 04/02/21 14:07 From KEFLEX Allergy Unknown UNK Uncoded 04/02/21 14:07 From PAXIL Allergy Unknown UNK Uncoded 04/02/21 14:07 Review of Systems Review of Systems: Suicidal ideation Yes all other systems are reviewed and are negative [facility] Past Medical History Medical History (Updated 07/17/21 @ 22:10 by CLAUDETTE Nicholson) Anxiety Surgical History (Updated 04/02/21 @ 14:07 by Latoya Pelletier) S/P appendectomy Social History Social History (System 04/02/21 @ 14:07 by Latoya Pelletier) Household Members: None Household Members Other:: none Housing: Apartment Do you presently have visiting nurse or other home services: No Alcohol intake: never Patient Tobacco Use Status: Never used Tobacco Substance Use Type: Crack/Cocaine, Heroin and Marijuana Advance Directives: No Patient : No service: No Sexual orientation: Straight/Heterosexual Physical Exam Vital Signs: Vital Signs: Last Vital Signs Temp 99.3 F 07/17/21 19:24 Pulse 106 H 07/17/21 19:24 Resp 20 07/17/21 19:24 BP 124/88 07/17/21 19:24 Pulse Ox 95 07/17/21 19:24 BMI result Body Mass Index 26.6 Const: General: cooperative, healthy appearing, comfortable, no acute distress, well developed, alert, awake and Physically active Orientation/consciousness: patient oriented x3 HEENT: Head: Yes normal to inspection, Yes No palpable skull fracture present, Yes normocephalic, Yes atraumatic and No abrasion Eyes: General: appearance normal, both eyes and all related structures Neck: Neck: Yes normal visual inspection, Yes full ROM, Yes no lymphadenopathy, Yes no meningeal signs, Yes trachea midline, Yes supple, No anterior neck swelling and No tender Chest: Chest palpation & inspection: normal inspection of the chest and normal palpation of entire chest wall Resp: Effort & Inspection: normal respiratory effort and able to speak in complete sentences Cardio: Jugular venous distension: no JVD Heart sounds: S1 normal heart sound present and S2 normal heart sound present GI: Inspection: Yes normal to inspection and No abdominal wall ecchymosis Palpation (GI): Soft to palpation, not firm, nontender, no guarding and not rigid : General: No CVA tenderness and Yes no CVA tenderness Back/Spine/Pelvis: Back: no CVA tenderness, No CVA tenderness and No back tenderness Skin: General skin exam: no rashes or lesions noted and elasticity normal Neuro: General: patient oriented x3, gait normal, no meningeal signs and CN's II-XI intact bilaterally Cranial nerves: Yes CN's II-XII intact bilaterally Extrem: General: Yes normal to inspection and Yes full ROM Psych: Other: Suicidal Appearance: grossly normal, well kempt and not disheveled Course Course Course Narrative: Basic labs ordered. Crisis consult placed Reevaluation(s) Reevaluation #1: Patient labs normal and at baseline. Patient awaiting psych evaluation. Time: 22:09 MDM - Psych MDM Narrative Medical decision making narrative: Suicidal ideation Lab Data Result diagrams: 07/17/21 20:10 07/17/21 20:10 Labs: Lab Results 07/17/21 07/17/21 07/17/21 Range/Units 19:37 19:37 19:37 WBC (4.8-10.8) X10*3/uL RBC (4.20-5.50) X10*6/uL Hgb (12.0-16.0) g/dl Hct (37.0-47.0) % MCV (80.0-98.0) fL MCH (27.0-33.0) pg MCHC (31.0-35.0) g/dl RDW (11.0-16.0) % Plt Count (160-400) X10*3/uL MPV (9.4-12.3) fL Immature Gran % (Auto) (0.0-0.4) % Neut % (Auto) (45-73) % Lymph % (Auto) (20-40) % [place] % (Auto) (2-11) % Eos % (Auto) (0-4) % Baso % (Auto) (0-2) % Lymph # (Auto) (1.2-4.9) X10*3/uL [place] # (Auto) (0.1-1.2) X10*3/uL Eos # (Auto) (0.0-0.4) X10*3/uL Baso # (Auto) (0.0-0.2) X10*3/uL Abs Immat Gran (auto) (0.00-0.03) X10*3/uL Absolute Neuts (auto) (2.0-8.3) x10*3/uL Absolute Nucleated RBC (0.0-0.012) X10*3/uL Nucleated RBC % (auto) (0.0-0.2) /100WBC Sodium Potassium Chloride Carbon Dioxide Anion Gap BUN Creatinine Estim Creat Clear Calc Estimated GFR Random Glucose Calcium Magnesium (1.6-2.6) mg/dL Total Bilirubin (0.0-1.0) mg/dL Direct Bilirubin (0.0-0.5) mg/dL AST (5-31) U/L ALT (0-31) U/L Alkaline Phosphatase (39-117) U/L Total Protein (6.5-8.0) g/dL Albumin (3.5-5.0) g/dL TSH (0.32-4.0) uIU/mL Urine Color YELLOW Urine Appearance CLEAR Urine pH 5.5 (5.0-8.0) Ur Specific [place] >= 1.030 H (1.005-1.025) Urine Protein NEG (NEG-TRACE) MG/DL Urine Glucose (UA) NEG (NEG) MG/DL Urine Ketones 5 (NEG) MG/DL Urine Blood NEG (NEG) Urine Nitrite NEG (NEG) Ur Leukocyte Esterase NEG (NEG) Salicylates (15-30) mg/dL Urine Opiates Screen Not Detected (Not Detect) Urine Fentanyl Screen Not Detected (Not Detect) Acetaminophen (<30) mcg/mL Ur Barbiturates Screen Not Detected (Not Detect) Valproic Acid (50.0-100.0) mcg/mL Ur Phencyclidine Scrn Not Detected (Not Detect) Ur Amphetamines Screen Not Detected (Not Detect) U Benzodiazepines Scrn Not Detected (Not Detect) Urine Cocaine Screen Not Detected (Not Detect) U Marijuana (THC) Screen POSITIVE H (Not Detect) Ethyl Alcohol mg/dL COVID-19 ([facility]A) Negative (Negative) COVID-19 Clin Com See Note 07/17/21 07/17/21 07/17/21 Range/Units 20:10 20:10 20:10 WBC 12.2 H (4.8-10.8) X10*3/uL RBC 5.03 (4.20-5.50) X10*6/uL Hgb 15.0 (12.0-16.0) g/dl Hct 43.3 (37.0-47.0) % MCV 86.1 (80.0-98.0) fL MCH 29.8 (27.0-33.0) pg MCHC 34.6 (31.0-35.0) g/dl RDW 12.2 (11.0-16.0) % Plt Count 372 (160-400) X10*3/uL MPV 10.5 (9.4-12.3) fL Immature Gran % (Auto) 0.4 (0.0-0.4) % Neut % (Auto) 68.8 (45-73) % Lymph % (Auto) 21.5 (20-40) % [place] % (Auto) 7.9 (2-11) % Eos % (Auto) 0.7 (0-4) % Baso % (Auto) 0.7 (0-2) % Lymph # (Auto) 2.6 (1.2-4.9) X10*3/uL [place] # (Auto) 1.0 (0.1-1.2) X10*3/uL Eos # (Auto) 0.1 (0.0-0.4) X10*3/uL Baso # (Auto) 0.1 (0.0-0.2) X10*3/uL Abs Immat Gran (auto) 0.05 H (0.00-0.03) X10*3/uL Absolute Neuts (auto) 8.4 H (2.0-8.3) x10*3/uL Absolute Nucleated RBC 0.000 (0.0-0.012) X10*3/uL Nucleated RBC % (auto) 0.0 (0.0-0.2) /100WBC Sodium Cancelled Potassium Cancelled Chloride Cancelled Carbon Dioxide Cancelled Anion Gap Cancelled BUN Cancelled Creatinine Cancelled Estim Creat Clear Calc Cancelled Estimated GFR Cancelled Random Glucose Cancelled Calcium Cancelled Magnesium (1.6-2.6) mg/dL Total Bilirubin (0.0-1.0) mg/dL Direct Bilirubin (0.0-0.5) mg/dL AST (5-31) U/L ALT (0-31) U/L Alkaline Phosphatase (39-117) U/L Total Protein (6.5-8.0) g/dL Albumin (3.5-5.0) g/dL TSH (0.32-4.0) uIU/mL Urine Color Urine Appearance Urine pH (5.0-8.0) Ur Specific [place] (1.005-1.025) Urine Protein (NEG-TRACE) MG/DL Urine Glucose (UA) (NEG) MG/DL Urine Ketones (NEG) MG/DL Urine Blood (NEG) Urine Nitrite (NEG) Ur Leukocyte Esterase (NEG) Salicylates (15-30) mg/dL Urine Opiates Screen (Not Detect) Urine Fentanyl Screen (Not Detect) Acetaminophen (<30) mcg/mL Ur Barbiturates Screen (Not Detect) Valproic Acid (50.0-100.0) mcg/mL Ur Phencyclidine Scrn (Not Detect) Ur Amphetamines Screen (Not Detect) U Benzodiazepines Scrn (Not Detect) Urine Cocaine Screen (Not Detect) U Marijuana (THC) Screen (Not Detect) Ethyl Alcohol < 10 mg/dL COVID-19 (NORA) (Negative) COVID-19 Clin Com 07/17/21 07/17/21 Range/Units 20:10 20:10 WBC (4.8-10.8) X10*3/uL RBC (4.20-5.50) X10*6/uL Hgb (12.0-16.0) g/dl Hct (37.0-47.0) % MCV (80.0-98.0) fL MCH (27.0-33.0) pg MCHC (31.0-35.0) g/dl RDW (11.0-16.0) % Plt Count (160-400) X10*3/uL MPV (9.4-12.3) fL Immature Gran % (Auto) (0.0-0.4) % Neut % (Auto) (45-73) % Lymph % (Auto) (20-40) % [place] % (Auto) (2-11) % Eos % (Auto) (0-4) % Baso % (Auto) (0-2) % Lymph # (Auto) (1.2-4.9) X10*3/uL [place] # (Auto) (0.1-1.2) X10*3/uL Eos # (Auto) (0.0-0.4) X10*3/uL Baso # (Auto) (0.0-0.2) X10*3/uL Abs Immat Gran (auto) (0.00-0.03) X10*3/uL Absolute Neuts (auto) (2.0-8.3) x10*3/uL Absolute Nucleated RBC (0.0-0.012) X10*3/uL Nucleated RBC % (auto) (0.0-0.2) /100WBC Sodium 140 Potassium 4.1 Chloride 107 Carbon Dioxide 20 L Anion Gap 17 BUN 14 Creatinine 0.84 Estim Creat Clear Calc 72.8 Estimated GFR > 60 Random Glucose 143 H Calcium 10.0 D Magnesium 2.0 Cancelled (1.6-2.6) mg/dL Total Bilirubin 0.7 (0.0-1.0) mg/dL Direct Bilirubin 0.2 (0.0-0.5) mg/dL AST 15 D (5-31) U/L ALT 22 (0-31) U/L Alkaline Phosphatase 94 D (39-117) U/L Total Protein 7.6 D (6.5-8.0) g/dL Albumin 4.7 D (3.5-5.0) g/dL TSH 2.42 Cancelled (0.32-4.0) uIU/mL Urine Color Urine Appearance Urine pH (5.0-8.0) Ur Specific [place] (1.005-1.025) Urine Protein (NEG-TRACE) MG/DL Urine Glucose (UA) (NEG) MG/DL Urine Ketones (NEG) MG/DL Urine Blood (NEG) Urine Nitrite (NEG) Ur Leukocyte Esterase (NEG) Salicylates < 5.0 L Cancelled (15-30) mg/dL Urine Opiates Screen (Not Detect) Urine Fentanyl Screen (Not Detect) Acetaminophen < 1 Cancelled (<30) mcg/mL Ur Barbiturates Screen (Not Detect) Valproic Acid < 2.0 L (50.0-100.0) mcg/mL Ur Phencyclidine Scrn (Not Detect) Ur Amphetamines Screen (Not Detect) U Benzodiazepines Scrn (Not Detect) Urine Cocaine Screen (Not Detect) U Marijuana (THC) Screen (Not Detect) Ethyl Alcohol mg/dL COVID-19 ([facility]) (Negative) COVID-19 Clin Com Discharge Plan Discharge Clinical Impression: Depression Patient Disposition: Still a Patient Prescriptions: No Action trazodone 100 mg tablet 1 tab PO BEDTIME 0RF olanzapine 20 mg tablet 1 tab PO BEDTIME 0RF clonazepam 0.5 mg tablet 0.5 mg PO BID PRN (Reason: Anxiety) 0RF clonidine HCl 0.1 mg tablet 1 tab PO Q8H PRN (Reason: anxiety) 0RF
[2021-07-17 22:06] VITALS: BP 115/84; PULSE 114; RESP 20; O2SAT 96
[2021-07-17] MEDS: traZODone HCL 100 MG TABLET PO (22:06)
[2021-07-17] MEDS: clonazePAM 0.5 MG TABLET PO (22:06)
[2021-07-17] MEDS: cloNIDine HCL 0.1 MG TABLET PO (22:06)
[2021-07-18] MEDS: HaloperidoL 5 MG TABLET 10 MG PO (01:04)
--- NOTE | 2021-07-18 05:55 | PC.NURSE ---
Patient slept though the night, no distress observed/reported, behavior appropriate and non concerning at this time, medication compliant, patient was assessed by [facility], disposition per [facility] is section 12 inpatient bed search, will continue to monitor. Patient was restless, tangential, speech pressured, paranoid at the time of arrival, Olanzapine 20 mg and Benadryl 50 mg administered at 2036 with some effect, HS medication were administered thereafter, with good effect, slept until woken up [facility] for assessment, patient was engaged but got restless and shaky, Haldol 10 mg PO administered at 0104 with + effect. Patient in bed appears sleeping.
[2021-07-18 05:57] VITALS: BP 106/59; PULSE 83; RESP 15; TEMP 36.7; O2SAT 95
--- NOTE | 2021-07-18 08:22 | PC.NURSE ---
Pt's friend Cruz would like pt to call him when she wakes up [phone]
[2021-07-18] MEDS: clonazePAM 0.5 MG TABLET PO ×2 (08:31→15:41)
--- NOTE | 2021-07-18 08:32 | PC.NURSE ---
Pt requesting PRN clonazepam, appears anxious, states I'm going to soon
[2021-07-18 09:07] VITALS: RESP 16
[2021-07-18] MEDS: Acetaminophen 325 MG TABLET 650 MG PO (10:46)
--- NOTE | 2021-07-18 14:55 | PC.NURSE ---
Report given to Emile YANG
--- NOTE | 2021-07-18 16:06 | PC.NURSE ---
Patient verbalized understanding of reason for admission to [facility] escorted to m3 via wheelchair with security, belongings and staff
[2021-07-18 16:26] VITALS: BP 119/77; PULSE 101; RESP 17; TEMP 36.8; O2SAT 97
--- NOTE | 2021-07-18 16:59 | PC.ADMIT ---
PT admitted to unit from [facility] on conditional voluntary with a diagnosis of Bipolar I with psychotic features. Pt presented to the ED via [facility] department due to increased SI, anxiety and depression. Upon arrival to unit pt denies SI, states that she her license was recently suspended and she lost it and made suicidal statements, she states that she does and did not have thoughts of suicide. PT states that she is just worried that by losing her car she will lose her job, her home and her cats. Pt reports feeling extremely overwhelmed with increased depression and anxiety. Pt denies hallucinations and delusions. She presents as hopeless stating do you think things will get better for me? I don't think this will ever get better . Pt reports being medication compliant, though states that she does not feel the medications are helping currently. Pt is calm and cooperative with admission process, focused on dinner. Pt is covid negative. Tox screen was positive for THC. 15 minute safety checks initiated for safety.
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
[2021-07-18 20:36] VITALS: BP 110/67; PULSE 98; TEMP 36.6; O2SAT 95
[2021-07-18] MEDS: OLANZapine 10 MG TABLET 20 MG PO (21:05)
[2021-07-18] MEDS: Lithium Carbonate ER 300 MG TABLET.ER PO (21:05)
[2021-07-18] MEDS: traZODone HCL 100 MG TABLET PO (21:06)
[2021-07-19 08:27] LABS: Cholesterol 200 mg/dL; HDL Cholesterol 31 mg/dL; LDL Cholesterol Calculated 143 mg/dl; Triglycerides 134 mg/dL
[2021-07-19 08:49] LABS: Free T4 (Free Thyroxine) 0.97 ng/dL (0.71-1.85); Thyroid Stimulating Hormone 2.43 uIU/mL (0.32-4.0)
[2021-07-19 08:54] LABS: Estimated Average Glucose 114 mg/dL; Hemoglobin A1c % 5.6 %
[2021-07-19] MEDS: clonazePAM 0.5 MG TABLET PO ×2 (08:57→14:42)
[2021-07-19 09:04] VITALS: BP 131/60; PULSE 92; RESP 16; TEMP 36.4; O2SAT 96
--- NOTE | 2021-07-19 14:28 | HO.PSYCHPN ---
Subjective Subjective Date of Service: 07/19/21 Reason For Visit: SI Interim History: Patient seen and discussed with team. Patient evaluated today and upon interview she reports increased anxiety, as her brother cant help her with rides, which she needs to get to work due to suspended license. Says I slept a little bit. Continues with perseverative thoughts, Im so negative, thinking of past things, says she has regrets. Klonopin didnt do anything, will temporarily increase to 1 mg PRN. Still feels like medication is a waste of time. Willing to go up on olanzapine. Mood is anxious, I cant stand it, its mental thing, im blocked. In the milieu, patient is safe and appropriate in behavior. Denies SI/SIB/HI upon inquiry. Denies irritability or assaultive ideation. Says she feels safe. Medication Compliance: Yes Side effects from medications: No Attending Groups: Yes Review of Systems Acute medical concerns: No Medical Review of Systems: unchanged Mental Status Exam Mental Status Exam Narrative: A&O. Well groomed, good hygiene, overweight. Good eye contact, attentive. No Tics or Tremors. No abnormal involuntary movements. Calm, cooperative, engaged. Non-pressured speech, spontaneous with regular rate and rhythm, normal volume and prosody. No prolonged speech latency or dysarthria. Mood is ?anxious,? affect is anxious. Denies SI/SIB/HI upon inquiry. Denies A/VH. Endorses fixed delusional thought content, ideations of reference. Thoughts are perseverative. No known cognitive or memory impairment. Insight/ Judgment limited but adequate. Diagnostics Vital Signs (24Hr): Vital Signs - 24 hr 07/20/21 20:05 Respiratory Rate 16 BMI result Body Mass Index 26.6 Labs Results: 07/17/21 20:10 07/17/21 20:10 Labs: Laboratory Results - last 48 hr 07/19/21 07/19/21 07/19/21 07:02 07:02 07:02 Estimat Average Glucose 114 Hemoglobin A1c % 5.6 Triglycerides 134 Cholesterol 200 LDL Cholesterol, Calc 143 HDL Cholesterol 31 Vitamin B12 258 Folate 13.4 TSH 2.43 Free T4 0.97 Medications Medications Current Medications Acetaminophen (Acetaminophen 325 Mg Tablet) 650 mg PO Q6H PRN PRN Reason: Headache/Pain Mild Scale (1-3) Al Hydroxide/Mg Hydroxide (Magnesium Hydrox/Alum Hydrox 30 Ml Oral.Susp) 30 ml PO Q6H PRN PRN Reason: Heartburn/Nausea Clonazepam (Clonazepam 1 Mg Tablet) 1 mg PO BID PRN PRN Reason: Anxiety Last Admin: 07/20/21 15:59 Dose: 1 mg Documented by: Clonidine HCl (Clonidine Hcl 0.1 Mg Tablet) 0.1 mg PO Q8H PRN; Protocol PRN Reason: anxiety Last Admin: 07/20/21 16:21 Dose: 0.1 mg Documented by: Hydroxyzine HCl (Hydroxyzine Hcl 25 Mg Tablet) 25 mg PO BEDTIME PRN PRN Reason: Anxiety [place] Carbonate ([place] Carbonate Er 450 Mg Tablet.Er) 450 mg PO BEDTIME JOSEF Last Admin: 07/20/21 20:13 Dose: 450 mg Documented by: Magnesium Hydroxide (Milk Of Magnesia 30 Ml Oral.Susp) 30 ml PO DAILY PRN PRN Reason: Constipation Nicotine Polacrilex (Nicotine Polacrilex 2 Mg Gum) 2 mg BUCCAL Q2H PRN PRN Reason: Nicotine Cravings Olanzapine (Olanzapine 10 Mg Tablet) 30 mg PO BEDTIME JOSEF Last Admin: 07/20/21 20:13 Dose: 30 mg Documented by: Trazodone HCl (Trazodone Hcl 100 Mg Tablet) 100 mg PO BEDTIME JOSEF Last Admin: 07/20/21 20:13 Dose: 100 mg Documented by: Trazodone HCl (Trazodone Hcl 50 Mg Tablet) 50 mg PO BEDTIME PRN PRN Reason: Insomnia Allergies Allergies Allergy/AdvReac Type Severity Reaction Status Date / Time cephalexin [From Keflex] Allergy Hives Verified 04/02/21 14:07 From KEFLEX Allergy Unknown UNK Uncoded 04/02/21 14:07 From PAXIL Allergy Unknown UNK Uncoded 04/02/21 14:07 Assessment & Plan Assessment & Plan (1) Schizoaffective disorder, depressive type: Status: Acute Code(s): F25.1 - Schizoaffective disorder, depressive type Plan Mya is a 60 y.o. Female who carries a dx of schizoaffective disorder. She [place] [facility] [place] due to SI, stating she is going to [facility] because she is a bad person. She endorsed AH, hearing voices telling her she is a bad person. Precipitating factors include that [place] had [place] car towed for driving under an indefinite suspended license. Utox positive for cannabis only. Plan: -Reviewed chart and pt historically has done well with a combination of mood stabilizer and antipsychotic. During previous admission on M3 in 01/2021, pt was stabilized on Olanzapine and depakote. Hx of benzodiazepine abuse. She has been adherent with olanzapine 20 mg QHS. However, pt says she would like to trial a different mood stabilizer, has not been adherent with depakote because she did not notice a benefit. Pt is willing to trial lithium for sx of depression, passive SI, and racing perseverative thoughts.?Will start lithium ER 300 mg QHS. 07/19: increase klonopin to 1 mg BID PRN for anxious distress. Increase zyprexa to 30 mg QHS for delusional thought content, perseveration. Q15 min safety checks, CV Monitor response to medications. Monitor for safety in the milieu. Discharge on stabilization. Patient seen. Chart reviewed. Discussed with team. Obtain collateral contact info?as needed I spent minutes with the patient and/or on the patient floor today, greater than?50% of which was spent counseling/coordinating care. Reason for contiued inpatient stay Substantial Risk for: harm to self, inability to function and med/psych decompensation
[2021-07-19] MEDS: clonazePAM 1 MG TABLET PO (16:08)
[2021-07-19] MEDS: OLANZapine 10 MG TABLET 30 MG PO (20:59)
[2021-07-19] MEDS: Lithium Carbonate ER 300 MG TABLET.ER PO (20:59)
[2021-07-19] MEDS: traZODone HCL 100 MG TABLET PO (20:59)
[2021-07-19 21:01] VITALS: BP 116/64; PULSE 82; TEMP 36.6; O2SAT 96
[2021-07-20] MEDS: clonazePAM 1 MG TABLET PO ×2 (10:30→15:59)
[2021-07-20] MEDS: cloNIDine HCL 0.1 MG TABLET PO (16:21)
--- NOTE | 2021-07-20 18:34 | P.PNPSI_ITS ---
Subjective Subjective Date of Service: 07/20/21 Reason For Visit: SI Subjective Notes: Koroma Warning and Conditional Voluntary Interim History: Patient seen and discussed with team. Patient evaluated today and upon interview pt reports I dont see a solution my problem, ruminating on losing her license, doesnt think she can afford [employer] to get to work. Doesnt think she can get provider to sign the paperwork to obtain her license. Says she feels the same on medication. No questions or concerns. Mood is not good. She is able to sleep at night. During the day I dont know what to do with myself, so I lay down, its a terrible existence. Says even when she tries to distract herself, I still get caught up in my head, cant stop ruminating.? In the milieu, patient is safe but isolative to her room. Denies SI/SIB/HI upon inquiry. Medication Compliance: Yes Side effects from medications: No Attending Groups: No Review of Systems Acute medical concerns: No Medical Review of Systems: unchanged Mental Status Exam Mental Status Exam Narrative: A&O. Well groomed, good hygiene, overweight. Good eye contact, attentive. No Tics or Tremors. No abnormal involuntary movements. Calm, cooperative, engaged. Non-pressured speech, spontaneous with regular rate and rhythm, normal volume and prosody. No prolonged speech latency or dysarthria. Mood is ?anxious,? affect is anxious, distressed. Denies SI/SIB/HI upon inquiry. Denies A/VH. Endorses fixed delusional thought content, ideations of reference. Thoughts are perseverative/ ruminative. No known cognitive or memory impairment. Insight/ Judgment limited but adequate. Diagnostics Vital Signs (24Hr): Vital Signs - 24 hr 07/20/21 20:05 Respiratory Rate 16 BMI result Body Mass Index 26.6 Labs Results: 07/17/21 20:10 07/17/21 20:10 Labs: Laboratory Results - last 48 hr 07/19/21 07/19/21 07/19/21 07:02 07:02 07:02 Estimat Average Glucose 114 Hemoglobin A1c % 5.6 Triglycerides 134 Cholesterol 200 LDL Cholesterol, Calc 143 HDL Cholesterol 31 Vitamin B12 258 Folate 13.4 TSH 2.43 Free T4 0.97 Medications Medications Current Medications Acetaminophen (Acetaminophen 325 Mg Tablet) 650 mg PO Q6H PRN PRN Reason: Headache/Pain Mild Scale (1-3) Al Hydroxide/Mg Hydroxide (Magnesium Hydrox/Alum Hydrox 30 Ml Oral.Susp) 30 ml PO Q6H PRN PRN Reason: Heartburn/Nausea Clonazepam (Clonazepam 1 Mg Tablet) 1 mg PO BID PRN PRN Reason: Anxiety Last Admin: 07/20/21 15:59 Dose: 1 mg Documented by: Clonidine HCl (Clonidine Hcl 0.1 Mg Tablet) 0.1 mg PO Q8H PRN; Protocol PRN Reason: anxiety Last Admin: 07/20/21 16:21 Dose: 0.1 mg Documented by: Hydroxyzine HCl (Hydroxyzine Hcl 25 Mg Tablet) 25 mg PO BEDTIME PRN PRN Reason: Anxiety [place] Carbonate ([place] Carbonate Er 450 Mg Tablet.Er) 450 mg PO BEDTIME JOSEF Last Admin: 07/20/21 20:13 Dose: 450 mg Documented by: Magnesium Hydroxide (Milk Of Magnesia 30 Ml Oral.Susp) 30 ml PO DAILY PRN PRN Reason: Constipation Nicotine Polacrilex (Nicotine Polacrilex 2 Mg Gum) 2 mg BUCCAL Q2H PRN PRN Reason: Nicotine Cravings Olanzapine (Olanzapine 10 Mg Tablet) 30 mg PO BEDTIME JOSEF Last Admin: 07/20/21 20:13 Dose: 30 mg Documented by: Trazodone HCl (Trazodone Hcl 100 Mg Tablet) 100 mg PO BEDTIME JOSEF Last Admin: 07/20/21 20:13 Dose: 100 mg Documented by: Trazodone HCl (Trazodone Hcl 50 Mg Tablet) 50 mg PO BEDTIME PRN PRN Reason: Insomnia Allergies Allergies Allergy/AdvReac Type Severity Reaction Status Date / Time cephalexin [From Keflex] Allergy Hives Verified 04/02/21 14:07 From KEFLEX Allergy Unknown UNK Uncoded 04/02/21 14:07 From PAXIL Allergy Unknown UNK Uncoded 04/02/21 14:07 Assessment & Plan Assessment & Plan (1) Schizoaffective disorder, depressive type: Status: Acute Code(s): F25.1 - Schizoaffective disorder, depressive type Plan Mya is a 60 y.o. Female who carries a dx of schizoaffective disorder. She presented to [facility] [place] [facility] on [place]17[place]21 due to SI, stating she is [facility] because she is a bad person. She endorsed AH, hearing voices telling her she is a bad person. Precipitating factors include that [place] [employer] had her car towed for driving under an indefinite suspended license. Utox positive for cannabis only. Plan: -Reviewed chart and pt historically has done well with a combination of mood stabilizer and antipsychotic. During previous admission on M3 in 01/2021, pt was stabilized on Olanzapine and depakote. Hx of benzodiazepine abuse. She has been adherent with olanzapine 20 mg QHS. However, pt says she would like to trial a different mood stabilizer, has not been adherent with depakote because she did not notice a benefit. Pt is willing to trial lithium for sx of depression, passive SI, and racing perseverative thoughts.?Will start lithium ER 300 mg QHS. 07/19: increase klonopin to 1 mg BID PRN for anxious distress. Increase zyprexa to 30 mg QHS for delusional thought content, perseveration. 07/20: Increase lithium to 450 mg ER to target depression, mood dysregulation, obtain lab work for Li level. Tolerating meds but denies benefit. Q15 min safety checks, CV Monitor response to medications. Monitor for safety in the milieu. Discharge on stabilization. Patient seen. Chart reviewed. Discussed with team. Obtain collateral contact info?as needed I spent minutes with the patient and/or on the patient floor today, greater than?50% of which was spent counseling/coordinating care. Reason for contiued inpatient stay Substantial Risk for: harm to self, rapid decompensation and med/psych d ecompensation
[2021-07-20 20:05] VITALS: RESP 16
[2021-07-20] MEDS: traZODone HCL 100 MG TABLET PO (20:13)
[2021-07-20] MEDS: OLANZapine 10 MG TABLET 30 MG PO (20:13)
[2021-07-20] MEDS: Lithium Carbonate ER 450 MG TABLET.ER PO (20:13)
[2021-07-21 04:57] LABS: Folate 13.4 ng/mL (> or = 4.0); Vitamin B12 258 pg/mL (200-900)
[2021-07-21 08:50] VITALS: BP 125/89; PULSE 97; RESP 18; TEMP 36.2; O2SAT 98
[2021-07-21] MEDS: cloNIDine HCL 0.1 MG TABLET PO (09:00)
[2021-07-21] MEDS: clonazePAM 1 MG TABLET PO ×2 (09:00→16:02)
--- NOTE | 2021-07-21 12:54 | P.PNPSI_ITS ---
Subjective Subjective Date of Service: 07/21/21 Reason For Visit: SI Interim History: pt found resting in her bed late morning, easily rousable and comes with MD to interview room. states she would like to discharge on . 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 she is concerned bcse she will have to use ubers and it will cost her a lot of money. denies SI/HI/AVH but says she is pretty depressed. per staff, visible, intermittently tearful. difficult to calm. isolative to bed. slept all NOC. Mental Status Exam Mental Status Exam Narrative: A&O. Well groomed, fair hygiene, overweight. fair eye contact, attentive. No Tics or Tremors. mild cud-chewing motion of mandible. Calm, cooperative, engaged. Non-pressured speech, spontaneous with regular rate and rhythm, normal volume and prosody. No prolonged speech latency or dysarthria. Mood is ?pretty depressed,? affect is constricted. Denies SI/HI/AVH. Diagnostics Vital Signs (24Hr): Vital Signs - 24 hr 07/20/21 20:05 07/21/21 08:50 Temperature 97.1 F Pulse Rate 97 Respiratory Rate 16 18 Blood Pressure 125/89 Pulse Oximetry 98 BMI result Body Mass Index 26.6 Labs Results: 07/17/21 20:10 07/17/21 20:10 Labs: Laboratory Results - last 48 hr 07/19/21 07:02 Vitamin B12 258 Folate 13.4 Medications Medications Current Medications Acetaminophen (Acetaminophen 325 Mg Tablet) 650 mg PO Q6H PRN PRN Reason: Headache/Pain Mild Scale (1-3) Al Hydroxide/Mg Hydroxide (Magnesium Hydrox/Alum Hydrox 30 Ml Oral.Susp) 30 ml PO Q6H PRN PRN Reason: Heartburn/Nausea Clonazepam (Clonazepam 1 Mg Tablet) 1 mg PO BID PRN PRN Reason: Anxiety Last Admin: 07/21/21 09:00 Dose: 1 mg Documented by: Clonidine HCl (Clonidine Hcl 0.1 Mg Tablet) 0.1 mg PO Q8H PRN; Protocol PRN Reason: anxiety Last Admin: 07/21/21 09:00 Dose: 0.1 mg Documented by: Hydroxyzine HCl (Hydroxyzine Hcl 25 Mg Tablet) 25 mg PO BEDTIME PRN PRN Reason: Anxiety [place] Carbonate ([place] Carbonate Er 450 Mg Tablet.Er) 450 mg PO BEDTIME [facility] Last Admin: 07/20/21 20:13 Dose: 450 mg Documented by: Magnesium Hydroxide (Milk Of Magnesia 30 Ml Oral.Susp) 30 ml PO DAILY PRN PRN Reason: Constipation Nicotine Polacrilex (Nicotine Polacrilex 2 Mg Gum) 2 mg BUCCAL Q2H PRN PRN Reason: Nicotine Cravings Olanzapine (Olanzapine 10 Mg Tablet) 30 mg PO BEDTIME [facility] Last Admin: 07/20/21 20:13 Dose: 30 mg Documented by: Trazodone HCl (Trazodone Hcl 100 Mg Tablet) 100 mg PO BEDTIME [facility] Last Admin: 07/20/21 20:13 Dose: 100 mg Documented by: Trazodone HCl (Trazodone Hcl 50 Mg Tablet) 50 mg PO BEDTIME PRN PRN Reason: Insomnia Allergies Allergies Allergy/AdvReac Type Severity Reaction Status Date / Time cephalexin [From Keflex] Allergy Hives Verified 04/02/21 14:07 From KEFLEX Allergy Unknown UNK Uncoded 04/02/21 14:07 From PAXIL Allergy Unknown UNK Uncoded 04/02/21 14:07 Assessment & Plan Assessment & Plan (1) Schizoaffective disorder, depressive type: Status: Acute Code(s): F25.1 - Schizoaffective disorder, depressive type Plan Mya is a 60 y.o. Female who carries a dx of schizoaffective disorder. She presented to [facility] on 07/17/21 due to SI, stating she is going to hell because she is a bad person. She endorsed AH, hearing voices telling her she is a bad person. Precipitating factors include that [place] [employer] had her car towed for driving under an indefinite suspended license. Utox positive for cannabis only. Plan: -Reviewed chart and pt historically has done well with a combination of mood stabilizer and antipsychotic. During previous admission on M3 in 01/2021, pt was stabilized on Olanzapine and depakote. Hx of benzodiazepine abuse. She has been adherent with olanzapine 20 mg QHS. However, pt says she would like to trial a different mood stabilizer, has not been adherent with depakote because she did not notice a benefit. Pt is willing to trial lithium for sx of depression, passive SI, and racing perseverative thoughts.?Will start lithium ER 300 mg QHS. 07/19: increase klonopin to 1 mg BID PRN for anxious distress. Increase zyprexa to 30 mg QHS for delusional thought content, perseveration. 07/20: Increase lithium to 450 mg ER to target depression, mood dysregulation, obtain lab work for Li level. Tolerating meds but denies benefit. 07/21: appears improved from admission. no change in meds today. planning for discharge. check lithium level morning. T/C reduction in zyprexa due to possible TD (jaw mvmt). I spent ___25___ minutes with the patient and/or on the patient floor today, greater than?50% of which was spent counseling/coordinating care. Reason for contiued inpatient stay Substantial Risk for: harm to self, inability to function and rapid decomp ensation
[2021-07-21 15:59] VITALS: BP 118/74; PULSE 100; RESP 18; O2SAT 96
[2021-07-21 22:02] VITALS: RESP 16
[2021-07-21] MEDS: traZODone HCL 100 MG TABLET PO (22:19)
[2021-07-21] MEDS: OLANZapine 10 MG TABLET 30 MG PO (22:19)
[2021-07-21] MEDS: Lithium Carbonate ER 450 MG TABLET.ER PO (22:19)
[2021-07-22 09:50] VITALS: BP 130/81; PULSE 99; RESP 18; TEMP 35.2; O2SAT 99
[2021-07-22] MEDS: clonazePAM 1 MG TABLET PO (09:51)
--- NOTE | 2021-07-22 10:44 | HO.PSYCHPN ---
Subjective Subjective Date of Service: 07/22/21 Reason For Visit: SI Interim History: pt found seated in milieu, easily engaged. reports no change in clinical status from yesterday. remains anxious about returning to work without her own transportation and the cost to her of uber or lyft. planning to discharge on morning. denies any psychotic Sx, says mood is OK, denies SI. agreeable to lithium level and to reduce HS zyprexa from 30 mg to 20 mg as of tonight. per staff, irritable and anxious. slept well overnight. focused on car/work. Mental Status Exam Mental Status Exam Narrative: A&O. Well groomed, fair hygiene, overweight. fair eye contact, attentive. No Tics or Tremors. less cud-chewing motion of mandible. Calm, cooperative, engaged. Non-pressured speech, spontaneous with regular rate and rhythm, normal volume and prosody. No prolonged speech latency or dysarthria. Mood is ?OK,? affect is constricted. Denies SI. no HI/AVH expressed. Diagnostics Vital Signs (24Hr): Vital Signs - 24 hr 07/21/21 15:59 07/21/21 22:02 Pulse Rate 100 Respiratory Rate 18 16 Blood Pressure 118/74 Pulse Oximetry 96 BMI result Body Mass Index 26.6 Labs Results: 07/17/21 20:10 07/17/21 20:10 Labs: Laboratory Results - last 48 hr 07/19/21 07:02 Vitamin B12 258 Folate 13.4 Medications Medications Current Medications Acetaminophen (Acetaminophen 325 Mg Tablet) 650 mg PO Q6H PRN PRN Reason: Headache/Pain Mild Scale (1-3) Al Hydroxide/Mg Hydroxide (Magnesium Hydrox/Alum Hydrox 30 Ml Oral.Susp) 30 ml PO Q6H PRN PRN Reason: Heartburn/Nausea Clonazepam (Clonazepam 1 Mg Tablet) 1 mg PO BID PRN PRN Reason: Anxiety Last Admin: 07/22/21 09:51 Dose: 1 mg Documented by: Clonidine HCl (Clonidine Hcl 0.1 Mg Tablet) 0.1 mg PO Q8H PRN; Protocol PRN Reason: anxiety Last Admin: 07/21/21 09:00 Dose: 0.1 mg Documented by: Hydroxyzine HCl (Hydroxyzine Hcl 25 Mg Tablet) 25 mg PO BEDTIME PRN PRN Reason: Anxiety [place] Carbonate ([place] Carbonate Er 450 Mg Tablet.Er) 450 mg PO BEDTIME [facility] Last Admin: 07/21/21 22:19 Dose: 450 mg Documented by: Magnesium Hydroxide (Milk Of Magnesia 30 Ml Oral.Susp) 30 ml PO DAILY PRN PRN Reason: Constipation Nicotine Polacrilex (Nicotine Polacrilex 2 Mg Gum) 2 mg BUCCAL Q2H PRN PRN Reason: Nicotine Cravings Olanzapine (Olanzapine 10 Mg Tablet) 20 mg PO BEDTIME [facility] Trazodone HCl (Trazodone Hcl 100 Mg Tablet) 100 mg PO BEDTIME [facility] Last Admin: 07/21/21 22:19 Dose: 100 mg Documented by: Trazodone HCl (Trazodone Hcl 50 Mg Tablet) 50 mg PO BEDTIME PRN PRN Reason: Insomnia Allergies Allergies Allergy/AdvReac Type Severity Reaction Status Date / Time cephalexin [From Keflex] Allergy Hives Verified 04/02/21 14:07 From KEFLEX Allergy Unknown UNK Uncoded 04/02/21 14:07 From PAXIL Allergy Unknown UNK Uncoded 04/02/21 14:07 Assessment & Plan Assessment & Plan (1) Schizoaffective disorder, depressive type: Status: Acute Code(s): F25.1 - Schizoaffective disorder, depressive type Plan Mya is a 60 y.o. Female who carries a dx of schizoaffective disorder. She presented to [facility] on 07/17/21 due to SI, stating she is going to hell because she is a bad person. She endorsed AH, hearing voices telling her she is a bad person. Precipitating factors include that [place] [employer] had her car towed for driving under an indefinite suspended license. Utox positive for cannabis only. Plan: -Reviewed chart and pt historically has done well with a combination of mood stabilizer and antipsychotic. During previous admission on M3 in 01/2021, pt was stabilized on Olanzapine and depakote. Hx of benzodiazepine abuse. She has been adherent with olanzapine 20 mg QHS. However, pt says she would like to trial a different mood stabilizer, has not been adherent with depakote because she did not notice a benefit. Pt is willing to trial lithium for sx of depression, passive SI, and racing perseverative thoughts.?Will start lithium ER 300 mg QHS. 07/19: increase klonopin to 1 mg BID PRN for anxious distress. Increase zyprexa to 30 mg QHS for delusional thought content, perseveration. 07/20: Increase lithium to 450 mg ER to target depression, mood dysregulation, obtain lab work for Li level. Tolerating meds but denies benefit. 07/21: appears improved from admission. no change in meds today. planning for discharge. check lithium level . T/C reduction in zyprexa due to possible TD (jaw mvmt). 07/22: zyprexa decreased from 30 mg QHS to 20 mg QHS as of tonight. labs . I spent ___25___ minutes with the patient and/or on the patient floor today, greater than?50% of which was spent counseling/coordinating care. Reason for contiued inpatient stay Substantial Risk for: harm to self, inability to function and rapid decompensation
[2021-07-22 12:53] VITALS: BP 134/75; PULSE 98; RESP 18; O2SAT 97
[2021-07-22] MEDS: cloNIDine HCL 0.1 MG TABLET PO (12:55)
[2021-07-22] MEDS: Acetaminophen 325 MG TABLET 650 MG PO (16:15)
[2021-07-22] MEDS: Magnesium Hydrox/Alum Hydrox 30 ML ORAL.SUSP PO (16:55)
[2021-07-22 20:10] VITALS: BP 131/75; PULSE 93; RESP 19; TEMP 36.6; O2SAT 97
[2021-07-22] MEDS: traZODone HCL 100 MG TABLET PO (20:17)
[2021-07-22] MEDS: OLANZapine 10 MG TABLET 20 MG PO (20:18)
[2021-07-22] MEDS: Lithium Carbonate ER 450 MG TABLET.ER PO (20:18)
[2021-07-22] MEDS: traZODone HCL 50 MG TABLET PO (21:31)
[2021-07-23] MEDS: hydrOXYzine HCL 25 MG TABLET PO ×2 (02:30→23:44)
[2021-07-23] MEDS: traZODone HCL 50 MG TABLET PO ×2 (02:30→23:44)
[2021-07-23 08:32] VITALS: BP 121/77; PULSE 93; RESP 18; TEMP 36.7; O2SAT 97
[2021-07-23] MEDS: clonazePAM 1 MG TABLET PO ×2 (08:36→15:13)
[2021-07-23] MEDS: cloNIDine HCL 0.1 MG TABLET PO (08:36)
--- NOTE | 2021-07-23 14:41 | HO.PSYCHPN ---
Subjective Subjective Date of Service: 07/23/21 Reason For Visit: SI Interim History: pt found sleeping in her bed mid-morning. states she did not sleep well last night but does not know why. no change in her emotional state. planning for discharge tomorrow. aware lithium level to be drawn. per staff, 3-day up tomorrow. anxious. comes to groups only very briefly. taking klonopin and clonidine PRNs. up at 0230 got trazodone and atarax and slept after. Mental Status Exam Mental Status Exam Narrative: A&O. Well groomed, fair hygiene, overweight. fair eye contact, attentive. No Tics or Tremors. no motion of mandible noted. Calm, cooperative, engaged. Non-pressured speech, spontaneous with regular rate and rhythm, normal volume and prosody. No prolonged speech latency or dysarthria. naffect is constricted. no SI/HI/AVH expressed. Diagnostics Vital Signs (24Hr): Vital Signs - 24 hr 07/22/21 20:10 07/23/21 08:32 Temperature 97.8 F 98.0 F Pulse Rate 93 93 Respiratory Rate 19 18 Blood Pressure 131/75 121/77 Pulse Oximetry 97 97 BMI result Body Mass Index 26.6 Labs Results: 07/17/21 20:10 07/17/21 20:10 Medications Medications Current Medications Acetaminophen (Acetaminophen 325 Mg Tablet) 650 mg PO Q6H PRN PRN Reason: Headache/Pain Mild Scale (1-3) Last Admin: 07/22/21 16:15 Dose: 650 mg Documented by: Al Hydroxide/Mg Hydroxide (Magnesium Hydrox/Alum Hydrox 30 Ml Oral.Susp) 30 ml PO Q6H PRN PRN Reason: Heartburn/Nausea Last Admin: 07/22/21 16:55 Dose: 30 ml Documented by: Clonazepam (Clonazepam 1 Mg Tablet) 1 mg PO BID PRN PRN Reason: Anxiety Last Admin: 07/23/21 08:36 Dose: 1 mg Documented by: Clonidine HCl (Clonidine Hcl 0.1 Mg Tablet) 0.1 mg PO Q8H PRN; Protocol PRN Reason: anxiety Last Admin: 07/23/21 08:36 Dose: 0.1 mg Documented by: Hydroxyzine HCl (Hydroxyzine Hcl 25 Mg Tablet) 25 mg PO BEDTIME PRN PRN Reason: Anxiety Last Admin: 07/23/21 02:30 Dose: 25 mg Documented by: [place] Carbonate ([place] Carbonate Er 450 Mg Tablet.Er) 450 mg PO BEDTIME [facility] Last Admin: 07/22/21 20:18 Dose: 450 mg Documented by: Magnesium Hydroxide (Milk Of Magnesia 30 Ml Oral.Susp) 30 ml PO DAILY PRN PRN Reason: Constipation Nicotine Polacrilex (Nicotine Polacrilex 2 Mg Gum) 2 mg BUCCAL Q2H PRN PRN Reason: Nicotine Cravings Olanzapine (Olanzapine 10 Mg Tablet) 20 mg PO BEDTIME [facility] Last Admin: 07/22/21 20:18 Dose: 20 mg Documented by: Trazodone HCl (Trazodone Hcl 100 Mg Tablet) 100 mg PO BEDTIME [facility] Last Admin: 07/22/21 20:17 Dose: 100 mg Documented by: Trazodone HCl (Trazodone Hcl 50 Mg Tablet) 50 mg PO BEDTIME PRN PRN Reason: Insomnia Last Admin: 07/23/21 02:30 Dose: 50 mg Documented by: Allergies Allergies Allergy/AdvReac Type Severity Reaction Status Date / Time cephalexin [From Keflex] Allergy Hives Verified 04/02/21 14:07 From KEFLEX Allergy Unknown UNK Uncoded 04/02/21 14:07 From PAXIL Allergy Unknown UNK Uncoded 04/02/21 14:07 Assessment & Plan Assessment & Plan (1) Schizoaffective disorder, depressive type: Status: Acute Code(s): F25.1 - Schizoaffective disorder, depressive type Plan Mya is a 60 y.o. Female who carries a dx of schizoaffective disorder. She presented to [facility] on 07/17/21 due to SI, stating she is going to [facility] because she is a bad person. She endorsed AH, hearing voices telling her she is a bad person. Precipitating factors include that [place] [employer] had her car towed for driving under an indefinite suspended license. Utox positive for cannabis only. Plan: -Reviewed chart and pt historically has done well with a combination of mood stabilizer and antipsychotic. During previous admission on M3 in 01/2021, pt was stabilized on Olanzapine and depakote. Hx of benzodiazepine abuse. She has been adherent with olanzapine 20 mg QHS. However, pt says she would like to trial a different mood stabilizer, has not been adherent with depakote because she did not notice a benefit. Pt is willing to trial lithium for sx of depression, passive SI, and racing perseverative thoughts.?Will start lithium ER 300 mg QHS. 07/19: increase klonopin to 1 mg BID PRN for anxious distress. Increase zyprexa to 30 mg QHS for delusional thought content, perseveration. 07/20: Increase lithium to 450 mg ER to target depression, mood dysregulation, obtain lab work for Li level. Tolerating meds but denies benefit. 07/21: appears improved from admission. no change in meds today. planning for discharge. check lithium level morning. T/C reduction in zyprexa due to possible TD (jaw mvmt). 07/22: zyprexa decreased from 30 mg QHS to 20 mg QHS as of tonight. labs . 07/23: no change. DC tomorrow at 11. I spent __25____ minutes with the patient and/or on the patient floor today, greater than?50% of which was spent counseling/coordinating care. Reason for contiued inpatient stay Substantial Risk for: harm to self, inability to function and rapid decompensation
[2021-07-23] MEDS: traZODone HCL 100 MG TABLET PO (20:52)
[2021-07-23] MEDS: OLANZapine 10 MG TABLET 20 MG PO (20:52)
[2021-07-23] MEDS: Lithium Carbonate ER 450 MG TABLET.ER PO (20:52)
[2021-07-23 20:55] VITALS: BP 114/68; PULSE 94; TEMP 35.8; O2SAT 96
[2021-07-24 08:00] VITALS: BMI 27.6
[2021-07-24 09:00] VITALS: BP 128/71; PULSE 100; RESP 18; TEMP 36.6; O2SAT 95
[2021-07-24 09:03] LABS: Lithium 0.46 mmol/L (0.60-1.20)
[2021-07-24 09:09] LABS: Anion Gap 14 (12-20); Blood Urea Nitrogen 16 mg/dL (9-16); Calcium 9.5 mg/dL (8.4-10.2); Carbon Dioxide 23 mmol/L (22-29); Chloride 107 mmol/L (96-108); Creatinine Clr Calc Pharmacy 82.7; Estimated Glomerular Filt Rate > 60; Glucose Random 116 mg/dL (60-115); Potassium 4.5 mmol/L (3.3-5.1); Sodium 139 mmol/L (135-145)
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
[2021-07-24] MEDS: clonazePAM 1 MG TABLET PO (10:51)
[2021-07-24] MEDS: cloNIDine HCL 0.1 MG TABLET PO (10:51)
== END 2021-07-24 11:18 | disposition home or self-care (01) | DRG 750 ==
LOC: HO.ED 22:10 → HO.PADLT16 07-18 15:09
PROVIDERS: Physician Assistant; Admitting Provider Psychiatry & Neurology Psychiatry; Emergency Provider Emergency Medicine; Visit Provider Psychiatry & Neurology Psychiatry
DX: F25.1 Schizoaffective disorder, depressive type (principal); R45.851 Suicidal ideations; Z20.822 Contact with and (suspected) exposure to COVID-19; Z79.899 Other long term (current) drug therapy
CPT/HCPCS: 36415; 80048; 80061; 80076; 80143; 80164; 80178; 80179; 80307; 81003; 82077; 82607; 82746; 83036; 83735; 84439; 84443; 85025; 87635; 93005; 99284; 99285; Q0163

== ENCOUNTER 2023-02-02 11:50 | Emergency (ER) | payer MEDICAID, SELFPAY ==
[2023-02-02 11:57] VITALS: BP 126/84; BP 132/69; PULSE 108; PULSE 96; RESP 18; TEMP 36.4; O2SAT 96; O2SAT 98; BMI 30.7
[2023-02-02 13:30] LABS: Alanine Aminotransferase 29 U/L (0-31); Albumin Level 4.5 g/dL (3.5-5.0); Alkaline Phosphatase 81 U/L (39-117); Anion Gap 15 (12-20); Aspartate Amino Transferase 20 U/L (5-31); Bilirubin Total 0.4 mg/dL (0.0-1.0); Blood Urea Nitrogen 10 mg/dL (9-16); Calcium 10.3 mg/dL (8.4-10.2); Carbon Dioxide 21 mmol/L (22-29); Chloride 108 mmol/L (96-108); Estimated Glomerular Filt Rate > 60; Ethanol < 10 mg/dL; Glucose Random 119 mg/dL (60-115); Magnesium 1.9 mg/dL (1.6-2.6); Potassium 4.2 mmol/L (3.3-5.1); Sodium 140 mmol/L (135-145); Total Protein 7.7 g/dL (6.5-8.0)
--- NOTE | 2023-02-02 13:45 | ED.PSYCH ---
HPI - Psych General Chief Complaint: Psychiatric Symptoms Stated Complaint: substance use Time Seen by Provider: 02/02/23 12:00 Source: patient and EMS Mode of arrival: EMS Limitations: no limitations History of Present Illness HPI Narrative: This is a 62-year-old female History of depression, anxiety, schizoaffective disorder, opiate use disorder, breast cancer presenting by ambulance with paranoia and bizarre behavior after smoking marijuana, patient reports the double tells her that marijuana is bad, she says she has been smoking to try to calm herself down however she thinks it may be doing the office it. 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 No hallucinations. Denies SI and HI. No medical complaints. Reports she is followed by psychiatrist and med compliant. Related Data Home Medications Medication Instructions Recorded Confirmed olanzapine 20 mg tablet 1 tab PO BEDTIME 07/17/21 02/02/23 clonazepam 1 mg tablet 1 mg PO BID PRN Anxiety 02/02/23 02/02/23 haloperidol 1 mg tablet 1 mg PO TID PRN anxiety 02/02/23 02/02/23 hydroxyzine HCl 25 mg tablet 25 mg PO TID PRN anxiety 02/02/23 02/02/23 Allergies Allergy/AdvReac Type Severity Reaction Status Date / Time cephalexin [From Keflex] Allergy Hives Verified 04/02/21 14:07 From KEFLEX Allergy Unknown UNK Uncoded 04/02/21 14:07 From PAXIL Allergy Unknown UNK Uncoded 04/02/21 14:07 Review of Systems Review of Systems: Constitutional : No Weight loss, No Fever, No Chills, No Fatigue, No Malaise ENT/Mouth : No sore throat, No Rhinorrhea Eyes: No Eye Pain, No Swelling, No Redness Cardiovascular : No Chest Pain, No SOB, No Dyspnea on Exertion, No Orthopnea, No Edema, No Palpitations Respiratory : No Cough, No Sputum, No Wheezing Gastrointestinal : No Nausea, No Vomiting, No Diarrhea, No Constipation, No abdominal Pain, No Hematochezia, No Melena Genitourinary : No Dysuria, No Urinary Frequency, No Hematuria, Musculoskeletal : No joint pain, No Myalgias, No Joint Swelling Skin : No Skin Lesions, No rash Neuro : No Weakness, No Numbness, No Dizziness, No Headache Psych : + Anxiety/Panic, + Depression All other systems reviewed and are negative Yes all other systems are reviewed and are negative [facility] Past Medical History Attestation statement: The following information was validated with the patient. Source: old records reviewed and nursing notes reviewed Medical History Depression Anxiety Surgical History S/P appendectomy Social History Social History Household Members: Spouse Household Members Other:: none Housing: Apartment Do you presently have visiting nurse or other home services: No Alcohol intake: never Patient Tobacco Use Status: Never used Tobacco Substance Use Type: Marijuana Advance Directives: No Advance Directives Information Provided: Yes Healthcare Proxy: No Guardian: No service: No Sexual orientation: N/A Physical Exam Vital Signs: Vital Signs: Last Vital Signs Temp 97.3 F 02/03/23 07:32 Pulse 78 02/03/23 07:32 Resp 18 02/03/23 07:32 BP 122/86 02/03/23 07:32 Pulse Ox 96 02/03/23 07:32 O2 Del Method Room Air 02/03/23 07:32 BMI result Body Mass Index 30.7 vss Appearance: Alert.? Oriented X3.? No acute distress.? Head: Normocephalic, atraumatic, no step-offs or deformities Eyes: Pupils equal, round and reactive to light.? CVS: Normal heart rate and rhythm.? Pulses normal.? Respiratory: No respiratory distress.? Breath sounds normal.? Abdomen: Soft and nontender.? Skin: Skin warm and dry.? Normal skin color.? Normal skin turgor.? Extremities: No lower extremity edema.? No calf ttp. 5/5 strength to bilateral upper and lower extremities Neuro: Oriented X 3.? No motor deficit.? No sensory deficit. CN 2-12 intact Course Reevaluation(s) Reevaluation #1: CBC unremarkable. Chemistry unremarkable. UA without infection. Urine toxicology positive for benzodiazepines and marijuana. Patient was given medications by Psychiatry. Will continue to monitor pending care team evaluation. Time: 13:49 Reevaluation #2: I spoke to Psychiatry nurse practitioner states patient is to be admitted. Care team to follow. Time: 14:15 Reevaluation #3: Patient doing better seen by care team and psych cleared to go home w/ out patient providers. Apt w/ therapist today at 3:00. No si or hi Time: 10:44 Medications Administered Generic Name Dose Route Start Last Admin Trade Name Freq PRN Reason Stop Dose Admin Haloperidol 2 mg 02/02/23 21:00 02/03/23 08:07 Haloperidol 1 Mg Tablet PO 2 mg BID JOSEF Administration Olanzapine 20 mg 02/02/23 21:00 02/02/23 20:25 Olanzapine Odt 10 Mg Tab.Rapdis TRANSLINGU 20 mg BEDTIME JOSEF Administration Propranolol HCl 20 mg 02/02/23 21:00 02/03/23 08:07 Propranolol Hcl 20 Mg Tablet PO 20 mg BID JOSEF Administration Protocol Discontinued Medications Generic Name Dose Route Start Last Admin Trade Name Freq PRN Reason Stop Dose Admin Clonazepam 1 mg 02/02/23 12:02 02/02/23 12:07 Clonazepam 1 Mg Tablet PO 02/02/23 12:03 1 mg ONCE ONE Administration Clonazepam 1 mg 02/03/23 08:44 02/03/23 08:49 Clonazepam 1 Mg Tablet PO 02/03/23 08:45 1 mg ONCE ONE Administration Lorazepam 1 mg 02/02/23 16:24 02/02/23 16:29 Lorazepam 1 Mg Tablet PO 02/02/23 16:25 1 mg ONCE ONE Administration Olanzapine 10 mg 02/02/23 12:00 02/02/23 12:07 Olanzapine Odt 10 Mg Tab.Rapdis TRANSLINGU 02/02/23 12:01 10 mg ONCE ONE Administration Medical Decision Making Medical Decision Making [facility] Narrative: 1332 62-year-old female presents with paranoia status post smoking marijuana. Physical examination benign. Likely anxiety secondary to marijuana and paranoia. other differentials include schizoaffective disorder versus bipolar. will rule out alcohol intoxication, polysubstance abuse. Unlikely metabolic derangements. Plan- labs, care team eval. Differential Diagnosis Differential Diagnoses: The differential diagnosis associated with the presentation includes Likely anxiety secondary to marijuana and paranoia. other differentials include schizoaffective disorder versus bipolar. will rule out alcohol intoxication, polysubstance abuse. Unlikely metabolic derangements. Admission/Observation Consideration of admission/observation: Escalation of care including admission/observation considered likely Lab Data MDM Lab Attestation statement: I reviewed the patient's lab results. 02/02/23 13:10 02/02/23 13:10 Labs: Lab Results 02/02/23 02/02/23 Range/Units 12:08 13:10 WBC 8.2 (4.8-10.8) X10*3/uL RBC 4.94 (4.20-5.50) X10*6/uL Hgb 14.7 (12.0-16.0) g/dl Hct 41.9 (37.0-47.0) % MCV 84.8 (80.0-98.0) fL MCH 29.8 (27.0-33.0) pg MCHC 35.1 H (31.0-35.0) g/dl RDW 12.1 (11.0-16.0) % Plt Count 347 (160-400) X10*3/uL MPV 9.9 (9.4-12.3) fL Immature Gran % (Auto) 0.2 (0.0-0.4) % Neut % (Auto) 69.5 (45-73) % Lymph % (Auto) 21.5 (20-40) % [place] % (Auto) 6.6 (2-11) % Eos % (Auto) 1.2 (0-4) % Baso % (Auto) 1.0 (0-2) % Lymph # (Auto) 1.8 (1.2-4.9) X10*3/uL [place] # (Auto) 0.5 (0.1-1.2) X10*3/uL Eos # (Auto) 0.1 (0.0-0.4) X10*3/uL Baso # (Auto) 0.1 (0.0-0.2) X10*3/uL Abs Immat Gran (auto) 0.02 (0.00-0.03) X10*3/uL Absolute Neuts (auto) 5.7 (2.0-8.3) x10*3/uL Absolute Nucleated RBC 0.000 (0.0-0.012) X10*3/uL Nucleated RBC % (auto) 0.0 (0.0-0.2) /100WBC Sodium 140 (135-145) mmol/L Potassium 4.2 (3.3-5.1) mmol/L Chloride 108 (96-108) mmol/L Carbon Dioxide 21 L (22-29) mmol/L Anion Gap 15 (12-20) BUN 10 (9-16) mg/dL Creatinine 0.76 (0.5-1.4) mg/dL Estim Creat Clear Calc 87.0 Estimated GFR > 60 Random Glucose 119 H (60-115) mg/dL Calcium 10.3 H D (8.4-10.2) mg/dL Magnesium 1.9 (1.6-2.6) mg/dL Total Bilirubin 0.4 (0.0-1.0) mg/dL AST 20 (5-31) U/L ALT 29 (0-31) U/L Alkaline Phosphatase 81 (39-117) U/L Total Protein 7.7 (6.5-8.0) g/dL Albumin 4.5 (3.5-5.0) g/dL Urine Color Yellow Urine Appearance Clear Urine pH 5.5 (5.0-9.0) Ur Specific [place] 1.010 (1.005-1.025) Urine Protein Negative (Neg-Trace) mg/dL Urine Glucose (UA) Negative (Negative) mg/dL Urine Ketones Negative (Negative) mg/dL Urine Blood Negative (Negative) Urine Nitrite Negative (Negative) Ur Leukocyte Esterase Negative (Negative) Salicylates < 5.0 L (15-30) mg/dL Urine Opiates Screen Not Detected (Not Detect) Urine Fentanyl Screen Not Detected (Not Detect) Acetaminophen < 17 (<30) mcg/mL Ur Barbiturates Screen Not Detected (Not Detect) Ur Phencyclidine Scrn Not Detected (Not Detect) Ur Amphetamines Screen Not Detected (Not Detect) U Benzodiazepines Scrn POSITIVE H (Not Detect) [place] < 0.10 L (0.60-1.20) mmol/L Urine Cocaine Screen Not Detected (Not Detect) U Marijuana (THC) Screen POSITIVE H (Not Detect) Ethyl Alcohol < 10 mg/dL COVID-19 (NORA) Negative (Negative) COVID-19 Clin Com See Note Critical Care Time Critical Care Time Critical Care Time: No Discharge Plan Discharge Clinical Impression: Acute anxiety, Depression Patient Disposition: Home, Self-Care Instructions: Depression (ED), Anxiety (ED) Additional Instructions: Take your medications as prescribed. If you were prescribed antibiotics today, it is important that you take your medication to their entirety, do not skip any doses, do not finish them early. Follow-up with your primary care provider this week. Return to the emergency department with new or worsening symptoms. Such as fevers, chills, chest pain, shortness of breath, nausea, vomiting, dizziness, headache, vision changes, lethargy In case of emergency call 911 Prescriptions: No Action olanzapine 20 mg tablet 1 tab PO BEDTIME clonazepam 1 mg tablet 1 mg PO BID PRN (Reason: Anxiety) haloperidol 1 mg tablet 1 mg PO TID PRN (Reason: anxiety) hydroxyzine HCl 25 mg tablet 25 mg PO TID PRN (Reason: anxiety) Referrals: Physician,Unknown J [Primary Care Provider] - 2 days Interventions: [place]-Suicide Risk Severity Scale Last Done: 02/03/23 06:29
[2023-02-02 20:22] VITALS: BP 123/87; PULSE 83; RESP 16; TEMP 36.4; O2SAT 96
[2023-02-03 00:44] VITALS: BP 112/76; PULSE 68; RESP 17; TEMP 36.4; O2SAT 96
--- NOTE | 2023-02-03 06:31 | PC.NURSE ---
Patient slept through the night, no distress observed/reported, behavior non concerning, medication compliant, patient was assessed by care team disposition is pending, patient will be reevaluated, labs completed/resulted, VSS, will continue to monitor.
[2023-02-03 07:32] VITALS: BP 122/86; PULSE 78; RESP 18; TEMP 36.3; O2SAT 96
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
== END 2023-02-03 11:18 | disposition home or self-care (01) ==
PROVIDERS: Physician Assistant; Emergency Provider Student in an Organized Health Care Education/Training Program
DX: F33.1 Major depressive disorder, recurrent, moderate (principal); F25.9 Schizoaffective disorder, unspecified; F41.1 Generalized anxiety disorder; F43.0 Acute stress reaction; R94.31 Abnormal electrocardiogram [ECG] [EKG]; F11.90 Opioid use, unspecified, uncomplicated; F12.90 Cannabis use, unspecified, uncomplicated; Z11.52 Encounter for screening for COVID-19; Z20.822 Contact with and (suspected) exposure to COVID-19; Z20.828 Contact with and (suspected) exposure to other viral communicable diseases; Z79.899 Other long term (current) drug therapy
CPT/HCPCS: 36415; 80053; 80143; 80178; 80179; 80307; 81003; 83735; 85025; 87635; 93005; 99284; S9485

== ENCOUNTER → 2023-02-02 12:48 | Outpatient (BNV) | payer OTHER, SELFPAY | PROVIDERS: Emergency Provider Student in an Organized Health Care Education/Training Program; Visit Provider Social Worker | DX: F20.0 Paranoid schizophrenia (principal) | CPT/HCPCS: 99285 ==

== ENCOUNTER 2023-07-07 17:59 | Inpatient (IN) | payer MEDICAID, OTHER, SELFPAY ==
--- NOTE | 2023-07-07 | ECG_ITS ---
Test Reason : AMS Blood Pressure : / mmHG Vent. Rate : 074 BPM Atrial Rate : 074 BPM P-R Int : 126 ms QRS Dur : 084 ms QT Int : 380 ms P-R-T Axes : 046 058 053 degrees QTc Int : 421 ms Normal sinus rhythm Normal ECG When compared with ECG of 02-FEB-2023 18:17, Criteria for Septal infarct are no longer Present ST no longer depressed in Anterior leads Referred By: Generic ED Physician Electronically Signed By:ROLY DENNY MD
[2023-07-07 18:20] VITALS: BP 111/74; PULSE 93; RESP 16; TEMP 36.9; O2SAT 98; BMI 27.5
--- NOTE | 2023-07-07 19:04 | PC.NURSE ---
Pt brought to rm 19 for treatment assumed care of pt at this time. Pt states she doesn't know why she is here or what is going on. States she went to an AA meeting to find peace but I didn't find it . Brought to ED by two women at meeting. 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 States she hasn't done that in a while though Reports this is the 4th ER visit this week. Seen at [facility] yesterday and discharged with recovery services. Pt states she was supposed to see therapist but i blew her off because I didn't want to drive Denies SI/HI, denies hx of withdrawal seizures. Ambulatory to bathroom with tech, urine sample obtained and sent for processing. laboratory monitor applied, NSR on monitor, VSS. Awaiting primary provider eval, aware of plan of care.
[2023-07-07 19:22] LABS: MANUAL DIFF FLAG NO
[2023-07-07 19:23] VITALS: BP 124/73; PULSE 81; RESP 20; O2SAT 96
[2023-07-07 19:24] LABS: Basophils Percent Auto 0.4 % (0-2); Eosinophils Absolute Auto 0.1 X10*3/uL (0.0-0.4); Eosinophils Percent Auto 0.6 % (0-4); Hemoglobin 13.4 g/dl (12.0-16.0); Imm Gran Abs Auto 0.03 X10*3/uL (0.00-0.03); Imm Gran Pct Auto 0.3 % (0.0-0.4); Lymphocytes Absolute Auto 2.2 X10*3/uL (1.2-4.9); Lymphocytes Percent Auto 22.3 % (20-40); Mean Corpuscular HGB Conc 34.4 g/dl (31.0-35.0); Mean Corpuscular Hemoglobin 28.9 pg (27.0-33.0); Mean Corpuscular Volume 84.2 fL (80.0-98.0); Monocytes Percent Auto 10.7 % (2-11); Neutrophils Absolute Auto 6.3 x10*3/uL (2.0-8.3); Neutrophils Percent Auto 65.7 % (45-73); Platelet Count 457 X10*3/uL (160-400); Red Blood Count 4.63 X10*6/uL (4.20-5.50); Red Cell Distribution Width 12.8 % (11.0-16.0); White Blood Count 9.6 X10*3/uL (4.8-10.8)
[2023-07-07 19:37] LABS: Amphetamine Screen Urine Not Detected (Not Detect); Barbiturates, Urine Not Detected (Not Detect); Benzodiazepines Screen Urine POSITIVE (Not Detect); Cannabinoid Screen Urine POSITIVE (Not Detect); Cocaine Screen Urine Not Detected (Not Detect); Fentanyl, urine Not Detected (Not Detect); Opiate Screen Urine Not Detected (Not Detect); Phencyclidine Screen Urine Not Detected (Not Detect)
[2023-07-07 19:44] LABS: Alanine Aminotransferase 30 U/L (0-31); Albumin Level 4.5 g/dL (3.5-5.0); Alkaline Phosphatase 87 U/L (39-117); Anion Gap 15 (12-20); Aspartate Amino Transferase 16 U/L (5-31); Bilirubin Total 0.5 mg/dL (0.0-1.0); Blood Urea Nitrogen 15 mg/dL (9-16); Calcium 10.1 mg/dL (8.4-10.2); Carbon Dioxide 23 mmol/L (22-29); Chloride 108 mmol/L (96-108); Creatinine Clr Calc Pharmacy 82.2; Estimated Glomerular Filt Rate > 60; Glucose Random 140 mg/dL (60-115); Potassium 4.2 mmol/L (3.3-5.1); Sodium 142 mmol/L (135-145); Total Protein 7.6 g/dL (6.5-8.0)
--- NOTE | 2023-07-07 20:21 | PC.NURSE ---
Pt resting on stretcher talking incessantly on cell phone since previous RN interaction. NAD, VSS. Lab results received, awaiting provider eval.
[2023-07-07 21:59] VITALS: BP 132/89; PULSE 73; RESP 18; TEMP 37; O2SAT 95
--- NOTE | 2023-07-07 22:28 | PC.NURSE ---
Pt resting on stretcher eyes closed, skin pwd respirations even unlabored, VSS. Continues to await provider for primary eval.
--- NOTE | 2023-07-07 22:57 | ED_ITS ---
HPI - General Adult General Chief complaint: General Medical Stated complaint: etoh, benzo withdrawal Time Seen by Provider: 07/07/23 22:56 Source: patient Mode of arrival: ambulatory Limitations: no limitations History of Present Illness HPI narrative: Patient history of depression, schizoaffective disorder noncompliant to her antipsychotics takes Ativan for anxiety and depression ran out of her medication as she took extra for last 1 week been to different ERs 4 times received Ativan last night at [facility] brought by a team as she has not functional and feel more depressed denies any hallucinations very tremulous feels like she was withdrawing. Denies any SI no hallucinations or delusion patient is smoking cannabis all day she does same when she feels depressed Related Data Home Medications Medication Instructions Recorded Confirmed hydroxyzine HCl 25 mg tablet 25 mg PO TID PRN anxiety 02/02/23 07/08/23 diazepam 5 mg tablet 5 mg PO BID 07/08/23 07/08/23 fluoxetine 20 mg capsule 20 mg PO DAILY 07/08/23 07/08/23 Previous Rx's Medication Instructions Recorded olanzapine 20 mg tablet 20 mg PO BEDTIME #30 tabs 02/03/23 Allergies Allergy/AdvReac Type Severity Reaction Status Date / Time cephalexin [From Keflex] Allergy Hives Verified 04/02/21 14:07 From KEFLEX Allergy Unknown UNK Uncoded 04/02/21 14:07 From PAXIL Allergy Unknown UNK Uncoded 04/02/21 14:07 Review of Systems 2 Review of Systems: Yes all other systems are reviewed and are negative PMFSH Past Medical History Surgical History S/P appendectomy Social History Social History Household Members: Spouse Household Members Other:: none Housing: Apartment Do you presently have visiting nurse or other home services: No Alcohol intake: never Patient Tobacco Use Status: Never used Tobacco Smoked in Last 30 Days: No Substance Use Type: Marijuana and Prescription Drugs Advance Directives: No Advance Directives Information Provided: No Patient : No service: No Sexual orientation: N/A Physical Exam ED Vital Signs: Vital Signs - 24 hr 07/07/23 18:20 07/07/23 19:23 07/07/23 21:59 Temperature 98.5 F 98.6 F Pulse Rate 93 81 73 Respiratory Rate 16 20 18 Blood Pressure 111/74 124/73 132/89 Pulse Oximetry 98 96 95 Oxygen Delivery Method Room Air Room Air Room Air 07/08/23 01:51 Temperature 98.8 F Pulse Rate 71 Respiratory Rate 16 Blood Pressure 108/67 Pulse Oximetry 95 Oxygen Delivery Method Room Air BMI result Body Mass Index 27.5 Appearance: Alert. Oriented X3. No acute distress. Eyes: PERRLA, No Nystagmus ENT: Pharynx normal. Oral Mucosa moist Neck: Normal inspection. Neck supple. CVS: Normal heart rate and rhythm. Pulses normal. Respiratory: No respiratory distress. Equal air entry bilateral, no wheezing/rales/rhonchi Abdomen: Soft and nontender. Bowel sounds are present, no mass palpable, no CVA tenderness Skin: Skin warm and dry. Normal skin color. Normal skin turgor. Extremities: No lower extremity edema. No calf tenderness psych: Feels depressed denies any hallucination or delusions no SI or HI Neuro: Oriented X 3. No motor deficit. No sensory deficit.No cerebellar signs , cranial nerves II-XII intact Medications Administered Discontinued Medications Generic Name Dose Route Start Last Admin Trade Name Freq PRN Reason Stop Dose Admin Ibuprofen 600 mg 07/08/23 02:30 07/08/23 02:33 Ibuprofen 600 Mg Tablet PO 07/08/23 02:31 600 mg ONCE ONE Administration Olanzapine 5 mg 07/08/23 01:53 07/08/23 02:02 Olanzapine 5 Mg Tablet PO 07/08/23 01:54 5 mg ONCE ONE Administration Medical Decision Making Medical Decision Making [facility] Narrative: Patient depression schizoaffective disorder feel more depressed seen by care team plan for inpatient psych evaluation patient is not compliant to her medication for schizoaffective disorder Lab Data [facility] Lab Attestation statement: I reviewed the patient's lab results. 07/07/23 19:14 07/07/23 19:14 Labs: Lab Results 07/07/23 Range/Units 19:14 WBC 9.6 (4.8-10.8) X10*3/uL RBC 4.63 (4.20-5.50) X10*6/uL Hgb 13.4 (12.0-16.0) g/dl Hct 39.0 (37.0-47.0) % MCV 84.2 (80.0-98.0) fL MCH 28.9 (27.0-33.0) pg MCHC 34.4 (31.0-35.0) g/dl RDW 12.8 (11.0-16.0) % Plt Count 457 H D (160-400) X10*3/uL MPV 10.0 (9.4-12.3) fL Immature Gran % (Auto) 0.3 (0.0-0.4) % Neut % (Auto) 65.7 (45-73) % Lymph % (Auto) 22.3 (20-40) % [place] % (Auto) 10.7 (2-11) % Eos % (Auto) 0.6 (0-4) % Baso % (Auto) 0.4 (0-2) % Lymph # (Auto) 2.2 (1.2-4.9) X10*3/uL [place] # (Auto) 1.0 (0.1-1.2) X10*3/uL Eos # (Auto) 0.1 (0.0-0.4) X10*3/uL Baso # (Auto) 0.0 (0.0-0.2) X10*3/uL Abs Immat Gran (auto) 0.03 (0.00-0.03) X10*3/uL Absolute Neuts (auto) 6.3 (2.0-8.3) x10*3/uL Absolute Nucleated RBC 0.000 (0.0-0.012) X10*3/uL Nucleated RBC % (auto) 0.0 (0.0-0.2) /100WBC Sodium 142 (135-145) mmol/L Potassium 4.2 (3.3-5.1) mmol/L Chloride 108 (96-108) mmol/L Carbon Dioxide 23 (22-29) mmol/L Anion Gap 15 (12-20) BUN 15 (9-16) mg/dL Creatinine 0.71 (0.5-1.4) mg/dL Estim Creat Clear Calc 82.2 Estimated GFR > 60 Random Glucose 140 H (60-115) mg/dL Calcium 10.1 (8.4-10.2) mg/dL Total Bilirubin 0.5 (0.0-1.0) mg/dL AST 16 (5-31) U/L ALT 30 (0-31) U/L Alkaline Phosphatase 87 (39-117) U/L Total Protein 7.6 (6.5-8.0) g/dL Albumin 4.5 (3.5-5.0) g/dL Urine Opiates Screen Not Detected (Not Detect) Urine Fentanyl Screen Not Detected (Not Detect) Ur Barbiturates Screen Not Detected (Not Detect) Ur Phencyclidine Scrn Not Detected (Not Detect) Ur Amphetamines Screen Not Detected (Not Detect) U Benzodiazepines Scrn POSITIVE H (Not Detect) Urine Cocaine Screen Not Detected (Not Detect) U Marijuana (THC) Screen POSITIVE H (Not Detect) Ethyl Alcohol < 10 mg/dL Discharge Plan Discharge Clinical Impression: Moderate benzodiazepine use disorder, Schizoaffective disorder, depressive type, Anxiety disorder, Cannabis abuse Patient Disposition: Still a Patient Prescriptions: No Action hydroxyzine HCl 25 mg tablet 25 mg PO TID PRN (Reason: anxiety) olanzapine 20 mg tablet 20 mg PO BEDTIME Qty: 30 0RF fluoxetine 20 mg capsule 20 mg PO DAILY diazepam 5 mg tablet 5 mg PO BID
--- NOTE | 2023-07-07 23:07 | PC.NURSE ---
Provider to bedside for primary eval, report given to Ashley RN, pt exits my care at this time.
[2023-07-08 00:32] LABS: Ethanol < 10 mg/dL
--- NOTE | 2023-07-08 01:42 | PC.NURSE ---
this rn assumed care of pt @ 8590. @ this time pt continues to deny SI/HI, denies AH/VH pt changed into ligature free hospital attire. report given to POD
[2023-07-08 01:51] VITALS: BP 108/67; PULSE 71; RESP 16; TEMP 37.1; O2SAT 95
[2023-07-08] MEDS: OLANZapine 5 MG TABLET PO (02:02)
[2023-07-08] MEDS: Ibuprofen 600 MG TABLET PO ×2 (02:33→14:00)
--- NOTE | 2023-07-08 06:43 | PC.NURSE ---
Assumed care of pt at 0300. PT appears to be sleeping. Respirations even and unlabored. Safety precautions in place. Plan of care ongoing
--- NOTE | 2023-07-08 08:33 | PC.NURSE ---
Assumed care of patient at 0700, patient appears to be sleeping, respirations even and unlabored, no apparent distress noted. Continue plan of care for Sec 12, inpatient bedsearch
[2023-07-08] MEDS: diazePAM 5 MG TABLET PO ×2 (08:35→21:28)
[2023-07-08] MEDS: FLUoxetine HCl 20 MG CAPSULE PO (08:35)
[2023-07-08 09:04] VITALS: BP 120/84; PULSE 90; RESP 18; TEMP 37.1; O2SAT 96
[2023-07-08 09:17] LABS: COVID-19 Test Negative (Negative); IDNOW Serial# 9DB6401D
[2023-07-08 12:18] LABS: Appearance Urine Turbid; Color Urine Dark Yellow; Glucose Urine UA Negative (Negative); Leukocyte Esterase Urine Trace (Negative); Nitrite Urine Negative (Negative); Specific Gravity - Urine >= 1.030 (1.005-1.025); UMIC TRIGGER UA YES; Urine Blood Negative (Negative); Urine Ketones Trace mg/dL (Negative); Urine Protein Trace mg/dL (Neg-Trace)
[2023-07-08 12:34] LABS: Bacteria Urine 1+ (None Seen); RBC Urine 0-2 /HPF (0-2); WBC Urine 0-5 /HPF (0-5)
[2023-07-08 12:36] LABS: Calcium Oxalate Crystals Urine Present
--- NOTE | 2023-07-08 13:07 | PC.NURSE ---
Patient aware of plan of care for inpatient admission to , calm and cooperative, no apparent distress noted, eating lunch at this time
[2023-07-08] MEDS: Acetaminophen 325 MG TABLET 975 MG PO (14:01)
[2023-07-08 15:25] VITALS: BP 128/70; PULSE 87; RESP 16; TEMP 36.7; O2SAT 96
[2023-07-08 15:27] VITALS: BMI 28.0
[2023-07-08] MEDS: Acetaminophen 325 MG TABLET 650 MG PO (16:19)
--- NOTE | 2023-07-08 16:25 | PC.ADMIT ---
Patient admitted to S1 from [facility] at 1515 on CV. Has made request for 3 day notice. Patient has been diagnosed with Schizoaffective disorder, depressive type. Hx of polysubstance use including alcohol, marijuana and benzodiazepines. Patient currently reports taking valium daily with 2 alcoholic beverages. Also reports cannabis use daily, all day long. Patient also has a history of med non-compliance. Presents as alert and oriented to person, place, time and situation. Patient states, I want to clear my mind so I can think straight. Dressed in hospital attire. Appears to have good Hygiene. Patient makes appropriate eye contact. Denies SI/HI/Avh. Able to contract for safety. Denies pain. Oriented to unit. Phone numbers obtained from cell phone. Patient observed to be watching tv with peers.
[2023-07-08 18:00] VITALS: BP 116/65; PULSE 75; RESP 16; TEMP 36; O2SAT 97
[2023-07-08] MEDS: OLANZapine 10 MG TABLET 20 MG PO (21:27)
[2023-07-09 08:22] LABS: Estimated Average Glucose 111 mg/dL; Hemoglobin A1c % 5.5 % (<6.0)
[2023-07-09] MEDS: FLUoxetine HCl 20 MG CAPSULE PO (08:31)
[2023-07-09] MEDS: diazePAM 5 MG TABLET PO ×2 (08:31→19:54)
[2023-07-09 08:33] LABS: Alanine Aminotransferase 29 U/L (0-31); Albumin Level 4.1 g/dL (3.5-5.0); Alkaline Phosphatase 76 U/L (39-117); Anion Gap 11 (12-20); Aspartate Amino Transferase 15 U/L (5-31); Bilirubin Total 0.6 mg/dL (0.0-1.0); Blood Urea Nitrogen 18 mg/dL (9-16); Calcium 9.3 mg/dL (8.4-10.2); Carbon Dioxide 25 mmol/L (22-29); Chloride 108 mmol/L (96-108); Cholesterol 191 mg/dL (<200); Creatinine Clr Calc Pharmacy 64.8; Estimated Glomerular Filt Rate > 60; Glucose Fasting 199 mg/dL (60-99); HDL Cholesterol 33 mg/dL (>40); LDL Cholesterol Calculated 121 mg/dL (<100); Sodium 140 mmol/L (135-145); Total Protein 6.9 g/dL (6.5-8.0); Triglycerides 185 mg/dL (<150)
[2023-07-09 08:49] LABS: Thyroid Stimulating Hormone 1.67 uIU/mL (0.32-4.0)
[2023-07-09 09:05] LABS: Folate 10.3 ng/mL (> or = 4.0); Vitamin B12 339 pg/mL (200-900)
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
[2023-07-09 13:07] VITALS: BP 116/63; PULSE 88; RESP 18
[2023-07-09] MEDS: Propranolol HCL 20 MG TABLET PO ×2 (13:08→19:53)
[2023-07-09] MEDS: OLANZapine 10 MG TABLET PO (13:08)
[2023-07-09 18:00] VITALS: BP 101/59; PULSE 71; RESP 18; TEMP 36.2; O2SAT 96
[2023-07-09] MEDS: OLANZapine 10 MG TABLET 20 MG PO (19:56)
[2023-07-10 08:00] VITALS: BP 143/92; PULSE 98; RESP 20; TEMP 36.8; O2SAT 99
[2023-07-10] MEDS: FLUoxetine HCl 20 MG CAPSULE PO (09:22)
[2023-07-10] MEDS: Propranolol HCL 20 MG TABLET PO ×2 (09:22→19:41)
[2023-07-10] MEDS: OLANZapine 10 MG TABLET PO (09:22)
[2023-07-10] MEDS: diazePAM 5 MG TABLET PO (09:22)
--- NOTE | 2023-07-10 10:06 | P.PNPSI_ITS ---
Subjective Subjective Date of Service: 07/10/23 Reason For Visit: SI Subjective Notes: Conditional Voluntary and 3 Day Interim History: Pt reports sleeping better. She reports less AH of Jose Master and other preoccupation about being a sinner, going to hell. She also appears calmer with propanolol- especially tapping feet. She has been visible on the unit, social with select peers. No behavioral concerns. She denies SI/HI. Review of Systems Review of Systems Yes all other systems are reviewed and are negative Mental Status Exam Mental Status Exam Narrative: Appearance:wearing hospital gown, fair hygiene, in NAD behavior:cooperative Psychomotor:restlessness, bilat tapping feet Speech:mostly clear, regular rate/rhythm/volume, spontaneous TP:mostly linear TC:worried about , being a sinner Mood: better Affect:restless/dysphoric SI: denies HI:none VH/AH: hearing voices of Jose masters Delusions:orthodoxy/paranoid delusions Insight/judgment:poor x 2. memory/cog: alert, oriented x 3. poor attention due to being internally preoccupied. Diagnostics Vital Signs (24Hr): Vital Signs - 24 hr 07/09/23 13:07 07/09/23 18:00 Temperature 97.2 F Pulse Rate 88 71 Respiratory Rate 18 18 Blood Pressure 116/63 101/59 L Pulse Oximetry 96 Oxygen Delivery Method Room Air BMI result Body Mass Index 28.0 Labs 07/07/23 19:14 07/09/23 08:07 Labs: Laboratory Results - last 48 hr 07/07/23 07/09/23 19:14 08:07 Sodium 140 Potassium 4.0 Chloride 108 Carbon Dioxide 25 Anion Gap 11 L BUN 18 H Creatinine 0.91 Estim Creat Clear Calc 64.8 Estimated GFR > 60 Fasting Glucose 199 H Estimat Average Glucose 111 Hemoglobin A1c % 5.5 Calcium 9.3 D Total Bilirubin 0.6 AST 15 ALT 29 Alkaline Phosphatase 76 Total Protein 6.9 Albumin 4.1 Triglycerides 185 H Cholesterol 191 LDL Cholesterol, Calc 121 H HDL Cholesterol 33 L Vitamin B12 339 Folate 10.3 TSH 1.67 Urine Color Dark Yellow Urine Appearance Turbid Urine pH 5.0 Ur Specific [place] >= 1.030 H Urine Protein Trace Urine Glucose (UA) Negative Urine Ketones Trace Urine Blood Negative Urine Nitrite Negative Ur Leukocyte Esterase Trace H Urine RBC 0-2 Urine WBC 0-5 Ur Squamous Epith Cells 3-5 Calcium Oxalate Crystal Present Urine Bacteria 1+ Hyaline Casts 3-5 Medications Medications Current Medications Acetaminophen (Acetaminophen 325 Mg Tablet) 650 mg PO Q6H PRN PRN Reason: Headache/Pain Mild Scale (1-3) Last Admin: 07/08/23 16:19 Dose: 650 mg Al Hydroxide/Mg Hydroxide (Magnesium Hydrox/Alum Hydrox 30 Ml Oral.Susp) 30 ml PO Q6H PRN PRN Reason: Heartburn/Nausea Benztropine Mesylate (Benztropine Mesylate 1 Mg Tablet) 1 mg PO TID PRN PRN Reason: Extrapyramidal Effects Diazepam (Diazepam 5 Mg Tablet) 5 mg PO BID [facility] Last Admin: 07/10/23 09:22 Dose: 5 mg Fluoxetine HCl (Fluoxetine Hcl 20 Mg Capsule) 20 mg PO DAILY [facility] Last Admin: 07/10/23 09:22 Dose: 20 mg Haloperidol (Haloperidol 5 Mg Tablet) 5 mg PO Q6H PRN PRN Reason: agitation Magnesium Hydroxide (Milk Of Magnesia 30 Ml Oral.Susp) 30 ml PO DAILY PRN PRN Reason: Constipation Olanzapine (Olanzapine 10 Mg Tablet) 20 mg PO BEDTIME [facility] Last Admin: 07/09/23 19:56 Dose: 20 mg Olanzapine (Olanzapine 10 Mg Tablet) 10 mg PO DAILY [facility] Last Admin: 07/10/23 09:22 Dose: 10 mg Propranolol HCl (Propranolol Hcl 20 Mg Tablet) 20 mg PO BID [facility]; Protocol Last Admin: 07/10/23 09:22 Dose: 20 mg Trazodone HCl (Trazodone Hcl 50 Mg Tablet) 50 mg PO BEDTIME MRX1 PRN PRN Reason: Insomnia Allergies Allergies Allergy/AdvReac Type Severity Reaction Status Date / Time cephalexin [From Keflex] Allergy Hives Verified 07/08/23 14:36 From KEFLEX Allergy Unknown UNK Uncoded 07/08/23 14:36 From PAXIL Allergy Unknown UNK Uncoded 07/08/23 14:36 Assessment & Plan Assessment & Plan (1) Schizoaffective disorder, depressive type: Status: Acute Code(s): F25.1 - Schizoaffective disorder, depressive type (2) Tardive akathisia: Status: Acute Code(s): G25.71 - Drug induced akathisia Plan Ms. Haynes is a 62 year-old woman with hx of schizoaffective disorder who is well known to [facility]. She self presented reporting increase AH,orthodoxy delusions, passive SI. Utox is positive for cannabinoids and benzodiazepine. PLAN 1. continue current medications 2. obtain collateral information 3. aftercare planning. Reason for continued inpatient stay Substantial Risk for: inability to function Time Spent With Patient Time: Total time managing care of this patient today ____ minutes.
[2023-07-10 18:00] VITALS: BP 118/64; PULSE 64; RESP 20; TEMP 36.6; O2SAT 96
[2023-07-10] MEDS: diazePAM 5 MG TABLET 2.5 MG PO (19:40)
[2023-07-10] MEDS: OLANZapine 10 MG TABLET 20 MG PO (19:41)
[2023-07-10] MEDS: traZODone HCL 50 MG TABLET PO (19:44)
[2023-07-11 08:20] VITALS: BP 125/69; PULSE 72; RESP 16; TEMP 36.3; O2SAT 97
[2023-07-11] MEDS: diazePAM 5 MG TABLET 2.5 MG PO ×2 (08:26→20:49)
[2023-07-11] MEDS: OLANZapine 10 MG TABLET PO (08:26)
[2023-07-11] MEDS: Propranolol HCL 20 MG TABLET PO ×2 (08:26→20:50)
[2023-07-11] MEDS: FLUoxetine HCl 20 MG CAPSULE PO (08:27)
--- NOTE | 2023-07-11 13:30 | HO.PSYCHPN ---
Subjective Subjective Date of Service: 07/11/23 Reason For Visit: SI Interim History: Pt reports sleeping better. She reports less AH of Jose Master and other preoccupation about being a sinner, going to hell. She also appears calmer with propanolol- especially tapping feet. She has been visible on the unit, social with select peers. No behavioral concerns. She denies SI/HI. Review of Systems Review of Systems Yes all other systems are reviewed and are negative Mental Status Exam Mental Status Exam Narrative: Appearance:wearing hospital gown, fair hygiene, in NAD behavior:cooperative Psychomotor:restlessness, bilat tapping feet Speech:mostly clear, regular rate/rhythm/volume, spontaneous TP:mostly linear TC:worried about , being a sinner Mood: better Affect:restless/dysphoric SI: denies HI:none VH/AH: hearing voices of Jose masters Delusions:oriental orthodox/paranoid delusions Insight/judgment:poor x 2. memory/cog: alert, oriented x 3. poor attention due to being internally preoccupied. Diagnostics Vital Signs (24Hr): Vital Signs - 24 hr 07/10/23 18:00 07/11/23 08:20 Temperature 97.8 F 97.3 F Pulse Rate 64 72 Respiratory Rate 20 16 Blood Pressure 118/64 125/69 Pulse Oximetry 96 97 Oxygen Delivery Method Room Air Room Air BMI result Body Mass Index 28.0 Labs 07/07/23 19:14 07/09/23 08:07 Medications Medications Current Medications Acetaminophen (Acetaminophen 325 Mg Tablet) 650 mg PO Q6H PRN PRN Reason: Headache/Pain Mild Scale (1-3) Last Admin: 07/08/23 16:19 Dose: 650 mg Al Hydroxide/Mg Hydroxide (Magnesium Hydrox/Alum Hydrox 30 Ml Oral.Susp) 30 ml PO Q6H PRN PRN Reason: Heartburn/Nausea Benztropine Mesylate (Benztropine Mesylate 1 Mg Tablet) 1 mg PO TID PRN PRN Reason: Extrapyramidal Effects Diazepam (Diazepam 5 Mg Tablet) 2.5 mg PO BID [facility] Last Admin: 07/11/23 08:26 Dose: 2.5 mg Fluoxetine HCl (Fluoxetine Hcl 20 Mg Capsule) 20 mg PO DAILY [facility] Last Admin: 07/11/23 08:27 Dose: 20 mg Haloperidol (Haloperidol 5 Mg Tablet) 5 mg PO Q6H PRN PRN Reason: agitation Magnesium Hydroxide (Milk Of Magnesia 30 Ml Oral.Susp) 30 ml PO DAILY PRN PRN Reason: Constipation Olanzapine (Olanzapine 10 Mg Tablet) 20 mg PO BEDTIME [facility] Last Admin: 07/10/23 19:41 Dose: 20 mg Olanzapine (Olanzapine 10 Mg Tablet) 10 mg PO DAILY [facility] Last Admin: 07/11/23 08:26 Dose: 10 mg Propranolol HCl (Propranolol Hcl 20 Mg Tablet) 20 mg PO BID [facility]; Protocol Last Admin: 07/11/23 08:26 Dose: 20 mg Trazodone HCl (Trazodone Hcl 50 Mg Tablet) 50 mg PO BEDTIME PRN PRN Reason: Insomnia Last Admin: 07/10/23 19:44 Dose: 50 mg Allergies Allergies Allergy/AdvReac Type Severity Reaction Status Date / Time cephalexin [From Keflex] Allergy Hives Verified 07/08/23 14:36 From KEFLEX Allergy Unknown UNK Uncoded 07/08/23 14:36 From PAXIL Allergy Unknown UNK Uncoded 07/08/23 14:36 Assessment & Plan Assessment & Plan (1) Schizoaffective disorder, depressive type: Status: Acute Code(s): F25.1 - Schizoaffective disorder, depressive type (2) Tardive akathisia: Status: Acute Code(s): G25.71 - Drug induced akathisia Plan Ms. Haynes is a 62 year-old woman with hx of schizoaffective disorder who is well known to [facility]. She self presented reporting increase AH,oriental orthodox delusions, passive SI. Utox is positive for cannabinoids and benzodiazepine. PLAN 1. continue tx. Reason for continued inpatient stay Substantial Risk for: inability to function Time Spent With Patient Time: Total time managing care of this patient today ____ minutes.
[2023-07-11] MEDS: HaloperidoL 5 MG TABLET PO (17:32)
[2023-07-11 18:00] VITALS: BP 124/69; PULSE 62; RESP 18; TEMP 36.2; O2SAT 97
[2023-07-11] MEDS: traZODone HCL 50 MG TABLET PO (20:49)
[2023-07-11] MEDS: OLANZapine 10 MG TABLET 20 MG PO (20:49)
[2023-07-12 07:59] VITALS: BP 130/56; PULSE 80; RESP 16; TEMP 36.3; O2SAT 96
[2023-07-12] MEDS: Propranolol HCL 20 MG TABLET PO ×2 (08:31→20:07)
[2023-07-12] MEDS: OLANZapine 10 MG TABLET PO (08:31)
[2023-07-12] MEDS: FLUoxetine HCl 20 MG CAPSULE PO (08:31)
[2023-07-12] MEDS: diazePAM 5 MG TABLET 2.5 MG PO ×2 (08:31→20:07)
--- NOTE | 2023-07-12 11:19 | HO.PSYCHPN ---
Subjective Subjective Date of Service: 07/12/23 Reason For Visit: SI Subjective Notes: Conditional Voluntary Interim History: Pt reports sleeping better. She reports hearing some voices causing anxiety. She denies SI/HI. She has been visible on the unit. She agrees with discharge tomorrow. No behaviors. Review of Systems Review of Systems Yes all other systems are reviewed and are negative Mental Status Exam Mental Status Exam Narrative: Appearance:wearing hospital gown, fair hygiene, in NAD behavior:cooperative Psychomotor:restlessness, bilat tapping feet Speech:mostly clear, regular rate/rhythm/volume, spontaneous TP:mostly linear TC:worried about , being a sinner Mood: better Affect:restless/dysphoric SI: denies HI:none VH/AH: hearing voices of Jose masters Delusions:confucianism/paranoid delusions Insight/judgment:poor x 2. memory/cog: alert, oriented x 3. poor attention due to being internally preoccupied. Diagnostics Vital Signs (24Hr): Vital Signs - 24 hr 07/11/23 18:00 07/12/23 07:59 Temperature 97.2 F 97.4 F Pulse Rate 62 80 Respiratory Rate 18 16 Blood Pressure 124/69 130/56 L Pulse Oximetry 97 96 Oxygen Delivery Method Room Air Room Air BMI result Body Mass Index 28.0 Labs 07/07/23 19:14 07/09/23 08:07 Medications Medications Current Medications Acetaminophen (Acetaminophen 325 Mg Tablet) 650 mg PO Q6H PRN PRN Reason: Headache/Pain Mild Scale (1-3) Last Admin: 07/08/23 16:19 Dose: 650 mg Al Hydroxide/Mg Hydroxide (Magnesium Hydrox/Alum Hydrox 30 Ml Oral.Susp) 30 ml PO Q6H PRN PRN Reason: Heartburn/Nausea Benztropine Mesylate (Benztropine Mesylate 1 Mg Tablet) 1 mg PO TID PRN PRN Reason: Extrapyramidal Effects Diazepam (Diazepam 5 Mg Tablet) 2.5 mg PO BID [facility] Last Admin: 07/12/23 08:31 Dose: 2.5 mg Fluoxetine HCl (Fluoxetine Hcl 20 Mg Capsule) 20 mg PO DAILY JOSEF Last Admin: 07/12/23 08:31 Dose: 20 mg Haloperidol (Haloperidol 5 Mg Tablet) 5 mg PO Q6H PRN PRN Reason: agitation Last Admin: 07/11/23 17:32 Dose: 5 mg Magnesium Hydroxide (Milk Of Magnesia 30 Ml Oral.Susp) 30 ml PO DAILY PRN PRN Reason: Constipation Olanzapine (Olanzapine 10 Mg Tablet) 20 mg PO BEDTIME JOSEF Last Admin: 07/11/23 20:49 Dose: 20 mg Olanzapine (Olanzapine 10 Mg Tablet) 10 mg PO DAILY JOSEF Last Admin: 07/12/23 08:31 Dose: 10 mg Propranolol HCl (Propranolol Hcl 20 Mg Tablet) 20 mg PO BID JOSEF; Protocol Last Admin: 07/12/23 08:31 Dose: 20 mg Trazodone HCl (Trazodone Hcl 50 Mg Tablet) 50 mg PO BEDTIME PRN PRN Reason: Insomnia Last Admin: 07/11/23 20:49 Dose: 50 mg Allergies Allergies Allergy/AdvReac Type Severity Reaction Status Date / Time cephalexin [From Keflex] Allergy Hives Verified 07/08/23 14:36 From KEFLEX Allergy Unknown UNK Uncoded 07/08/23 14:36 From PAXIL Allergy Unknown UNK Uncoded 07/08/23 14:36 Assessment & Plan Assessment & Plan (1) Schizoaffective disorder, depressive type: Status: Acute Code(s): F25.1 - Schizoaffective disorder, depressive type (2) Tardive akathisia: Status: Acute Code(s): G25.71 - Drug induced akathisia Plan Ms. Haynes is a 62 year-old woman with hx of schizoaffective disorder who is well known to [facility]. She self presented reporting increase AH,confucianism delusions, passive SI. Utox is positive for cannabinoids and benzodiazepine. PLAN 1. continue tx. Reason for continued inpatient stay Substantial Risk for: inability to function Time Spent With Patient Time: Total time managing care of this patient today ____ minutes.
[2023-07-12] MEDS: HaloperidoL 5 MG TABLET PO (15:23)
[2023-07-12 20:02] VITALS: BP 122/63; PULSE 66; RESP 17; TEMP 36.1; O2SAT 98
[2023-07-12] MEDS: OLANZapine 10 MG TABLET 20 MG PO (20:07)
[2023-07-12] MEDS: traZODone HCL 50 MG TABLET PO (20:08)
[2023-07-12] MEDS: Acetaminophen 325 MG TABLET 650 MG PO (21:00)
[2023-07-13 08:30] VITALS: BP 134/62; PULSE 81; RESP 20; TEMP 36.3; O2SAT 96
[2023-07-13] MEDS: Propranolol HCL 20 MG TABLET PO (08:36)
[2023-07-13] MEDS: OLANZapine 10 MG TABLET PO (08:36)
[2023-07-13] MEDS: diazePAM 5 MG TABLET 2.5 MG PO (08:36)
[2023-07-13] MEDS: FLUoxetine HCl 20 MG CAPSULE PO (08:36)
--- NOTE | 2023-07-13 09:32 | PM.PSYDC ---
DS: Providers Provider Date of Service: 07/13/23 Date of admission: 07/08/23 14:30 Primary care physician: Unknown Physician Discharging clinician: Natividad Pa DS: Diagnosis Discharge Diagnosis (1) Schizoaffective disorder, depressive type: Status: Acute (2) Tardive akathisia: Status: Acute DS: Medications Discharge Medications Home Medications: Home Medications Medication Instructions Recorded Confirmed fluoxetine 20 mg capsule 20 mg PO DAILY 07/08/23 07/08/23 Previous Rx's Medication Instructions Recorded olanzapine 10 mg tablet 10 mg PO DAILY #30 tabs 07/13/23 olanzapine 20 mg tablet 20 mg PO BEDTIME #30 tabs 07/13/23 propranolol 20 mg tablet 20 mg PO BID #60 tabs 07/13/23 trazodone 50 mg tablet 50 mg PO BEDTIME PRN Insomnia #30 07/13/23 tabs Mental Status Exam Mental Status Exam Narrative: Appearance:wearing hospital gown, fair hygiene, in NAD behavior:cooperative Psychomotor:less bilat tapping feet s/s akathisia Speech:mostly clear, regular rate/rhythm/volume, spontaneous TP:mostly linear TC: feeling better, looking forward to go home Mood: better Affect:less restless SI: denies HI:none VH/AH: less AH. Delusions:less gnosticist/paranoid delusions Insight/judgment:improving x 2. memory/cog: alert, oriented x 3. improved attention as psychosis and delusions are less. Data Data Completed and Pending Completed studies during hospitalization [Text1]: 07/07/23 07/08/23 07/09/23 19:14 08:56 08:07 WBC 9.6 RBC 4.63 Hgb 13.4 Hct 39.0 MCV 84.2 MCH 28.9 MCHC 34.4 RDW 12.8 Plt Count 457 H D MPV 10.0 Immature Gran % (Auto) 0.3 Neut % (Auto) 65.7 Lymph % (Auto) 22.3 [place] % (Auto) 10.7 Eos % (Auto) 0.6 Baso % (Auto) 0.4 Lymph # (Auto) 2.2 [place] # (Auto) 1.0 Eos # (Auto) 0.1 Baso # (Auto) 0.0 Abs Immat Gran (auto) 0.03 Absolute Neuts (auto) 6.3 Absolute Nucleated RBC 0.000 Nucleated RBC % (auto) 0.0 Sodium 142 140 Potassium 4.2 4.0 Chloride 108 108 Carbon Dioxide 23 25 Anion Gap 15 11 L BUN 15 18 H Creatinine 0.71 0.91 Estim Creat Clear Calc 82.2 64.8 Estimated GFR > 60 > 60 Random Glucose 140 H Fasting Glucose 199 H Estimat Average Glucose 111 Hemoglobin A1c % 5.5 Calcium 10.1 9.3 D Total Bilirubin 0.5 0.6 AST 16 15 ALT 30 29 Alkaline Phosphatase 87 76 Total Protein 7.6 6.9 Albumin 4.5 4.1 Triglycerides 185 H Cholesterol 191 LDL Cholesterol, Calc 121 H HDL Cholesterol 33 L Vitamin B12 339 Folate 10.3 TSH 1.67 Urine Color Dark Yellow Urine Appearance Turbid Urine pH 5.0 Ur Specific [place] >= 1.030 H Urine Protein Trace Urine Glucose (UA) Negative Urine Ketones Trace Urine Blood Negative Urine Nitrite Negative Ur Leukocyte Esterase Trace H Urine RBC 0-2 Urine WBC 0-5 Ur Squamous Epith Cells 3-5 Calcium Oxalate Crystal Present Urine Bacteria 1+ Hyaline Casts 3-5 Urine Opiates Screen Not Detected Urine Fentanyl Screen Not Detected Ur Barbiturates Screen Not Detected Ur Phencyclidine Scrn Not Detected Ur Amphetamines Screen Not Detected U Benzodiazepines Scrn POSITIVE H Urine Cocaine Screen Not Detected U Marijuana (THC) Screen POSITIVE H Ethyl Alcohol < 10 COVID-19 (NORA) Negative COVID-19 Clin Com See Note DS: Summary Hospital Course Hospital Course: Ms. Ritchie is a 62 year-old woman with hx of schizoaffective disorder, cannabis use, hx of cocaine use in remission who self presented to [facility] ED reporting increased anxious mood, depression, unable to stay still. Utox was positive for cannabinoids and benzodiazepine. She apparently was brought in by two peers from AA meeting. Pt is known to this story writer through previous admission with similar presentation. On the unit, pt presents as dysphoric. She reports she is smoking cannabis daily. She also reports she stopped taking olanzapine. She reports hearing voices of Jose Master- orthopedic radiologic technologist that talks about afterlife and other spiritual themes. She reports she is worried she will go to hell or . 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 She denied SI/HI. She presents with constant tapping of both feet- which is not new appear to be chronic akathisia and appear independent of antipsychotic as she reports she has stopped it. She reports recently she was taken off diazepam (although [facility] shows is an active prescription). Past Psychiatric History: -Hx of multiple psych inpatient admissions. Previous admission to [facility] M3 01/30/21-02/05/21. -Per chart, pt has a hx of multiple ED visits due to anxious distress, SI in context of AH, hears voice of orthopedic radiologic technologist telling her that she is not worth it and that medications are not good. Hx of gnosticist preoccupation with themes of pt being sinner, not worth of God's forgiveness. -Pt has OP services ASSISTANT ASSOCIATE FULL PROFESSOR: Garett Rob NP. -Past medication trials: depakote, risperidone, thorazine, haldol, olanzapine Medical Evaluation Reviewed: Yes HOSPITAL COURSE On the unit, pt was admitted on a CV and placed on 15 minutes checks for safety. She signed a 3 day. Pt presented hearing voices of orthopedic radiologic technologist and delusions with themes of gnosticist preoccupation of her being a sinner and going to hell. She also presented with what seems to be chronic akathisia- tapping feet, restless, even without antipsychotic use as she reported she stopped taking olanzapine several days before coming to the hospital. We discussed risks, benefits and alternative treatment options, she agreed to continue olanzapine 10mg po daily and 20mg po qhs. She was started on propanolol for akathisia with good effect. Her affect presented much less dysphoric. She reported less AH, less gnosticist delusions. She was visible on the unit and attended assigned groups. He was social with select peers. There were no incidences of disruptive behaviors nor need for restraints. She denied suicidal or homicidal ideation throughout this admission. She was eating and sleeping well. Status at Discharge Cognitive/behavioral status at discharge: Pt with less dysphoric, less anxious and much less hypervigilant affect. No SI/HI. less AH. Les gnosticist delusions. No aggression towards self or others. She is sleeping and eating well. Future oriented. Functional status at discharge: independent ambulation Overall status at discharge: patient is progressing back to baseline Time Spent with Patient Time attestation: Total time managing care of this patient today __35__ minutes. Time spent: Greater than 30 minutes Discharge Plan Discharge Anticipated Discharge Date/Time: 07/13/23 09:21 Patient Disposition: Home, Self-Care Discharge Diagnosis: schizoaffective disorder Referrals: Marino Rob APRN [facility] [Other] - 07/20/23 1:00 pm (Your next psychiatry appointment with Marino Rob is 07/20/23 at 1PM.) [facility] therapist-Barb [Other] - 07/14/23 3:00 pm (Your next appointment with your therapist Barb Locke is 07/14/23 at 3PM. You also have a job tracer named Mya who you meet with along with your PACT services. ) [facility] [Other] - 07/19/23 11:30 am (Follow up Appointment has been scheduled for Wednesday07/19/23 at 11:30am.) Discharge Medications: New propranolol 20 mg Tablet 20 mg PO BID Qty: 60 0RF Protocol: Hold for SBP/HR < HOLD for SBP < : 90 HOLD for HR < : 60 olanzapine 20 mg tablet 20 mg PO BEDTIME Qty: 30 0RF trazodone 50 mg Tablet 50 mg PO BEDTIME PRN (Reason: Insomnia) Qty: 30 0RF olanzapine 10 mg Tablet 10 mg PO DAILY Qty: 30 0RF Continued fluoxetine 20 mg capsule 20 mg PO DAILY Discontinued hydroxyzine HCl 25 mg tablet 25 mg PO TID PRN (Reason: anxiety) olanzapine 20 mg tablet 20 mg PO BEDTIME Qty: 30 0RF diazepam 5 mg tablet 5 mg PO BID Discharge Orders: Discharge Order (Routine); Ordered 07/13/23 Ordered By: Natividad Pa Diet: Regular diet Activity on Discharge: As tolerated Stand Alone Forms: Patient Portal Discharge page, Community Support Care Plan Goals: 1. Maintain mood 2. No SI/HI 3. Less AH/VH Health Concerns: Follow up with PCP Plan of Treatment: 1. take medications as prescribed 2. go to nearest ED or call 911 in event of emergency. Assessment: Pt with brighter, non labile affect. residual voices, less gnosticist delusions. No SI/HI. Pt sleeping and eating well.
== END 2023-07-13 11:08 | disposition home or self-care (01) | DRG 885 ==
LOC: HO.ED 07-08 07:30 → HO.PGERI 07-08 14:34
PROVIDERS: Admitting Provider Social Worker; Emergency Provider Internal Medicine; Visit Provider Social Worker
DX: F25.1 Schizoaffective disorder, depressive type (principal); F13.20 Sedative, hypnotic or anxiolytic dependence, uncomplicated; R45.851 Suicidal ideations; F12.10 Cannabis abuse, uncomplicated; G25.71 Drug induced akathisia; Z20.822 Contact with and (suspected) exposure to COVID-19; Z79.899 Other long term (current) drug therapy
CPT/HCPCS: 36415; 80053; 80061; 80307; 81001; 82607; 82746; 83036; 84443; 85025; 87635; 93005; 99285; S9485

== ENCOUNTER → 2023-07-07 19:32 | Outpatient (BNV) | payer MEDICAID, SELFPAY | PROVIDERS: Emergency Provider Internal Medicine; Visit Provider Internal Medicine Cardiovascular Disease | DX: R41.82 Altered mental status, unspecified (principal) | CPT/HCPCS: 93010 ==

== ENCOUNTER → 2023-07-08 14:30 | Outpatient (BNV) | payer OTHER, SELFPAY | PROVIDERS: Admitting Provider Social Worker; Emergency Provider Internal Medicine; Visit Provider Social Worker | DX: F25.1 Schizoaffective disorder, depressive type (principal); G25.71 Drug induced akathisia | CPT/HCPCS: 90792; 99231; 99232; 99239 ==

== ENCOUNTER 2023-09-05 13:08 | Inpatient (IN) | payer OTHER, SELFPAY ==
[2023-09-05 13:15] VITALS: BP 107/81; PULSE 61; RESP 18; TEMP 36.6; O2SAT 94; BMI 27.5
--- NOTE | 2023-09-05 13:15 | ED.GENADULT ---
HPI - General Adult General Chief complaint: Psychiatric Symptoms Stated complaint: Crisis Time Seen by Provider: 09/05/23 13:39 Source: patient Mode of arrival: ambulatory History of Present Illness HPI narrative: 62-year-old female who presents with significant life stressors, specifically patient is experiencing a lot of anxiety regarding her finances and job prospects stating that she is stressed out but denies any SI/HI. Patient states that she is currently on buspirone and is increased her intake of cannabis in an effort to overcome her level of anxiety. Related Data Home Medications ?Medication ?Instructions ?Recorded ?Confirmed buspirone 10 mg tablet 10 mg PO BID 09/05/23 09/05/23 Previous Rx's ?Medication ?Instructions ?Recorded propranolol 20 mg tablet 20 mg PO BID #60 tabs 07/13/23 Allergies Allergy/AdvReac Type Severity Reaction Status Date / Time cephalexin [From Keflex] Allergy Hives Verified 09/05/23 13:17 From KEFLEX Allergy Unknown UNK Uncoded 07/08/23 14:36 From PAXIL Allergy Unknown UNK Uncoded 07/08/23 14:36 Review of Systems Review of Systems: Pertinent positives and negatives as stated in HPI [facility] Past Medical History Source: nursing notes reviewed Surgical History S/P appendectomy Social History Social History Household Members: None Household Members Other:: none Housing: Apartment Do you presently have visiting nurse or other home services: No Alcohol intake: never Patient Tobacco Use Status: Never used Tobacco Smoked in Last 30 Days: No Use of substances other than those prescribed or required for medical reasons: Yes Substance Use Type: Marijuana Last Used Substance: Days (ago) Any prior treatment program specific to substance use: No Advance Directives: No Advance Directives Information Provided: No Do you have a plan to hurt others: No Plan Patient : No service: No Sexual orientation: N/A Physical Exam ED Vital Signs: Vital Signs - 24 hr 09/05/23 13:15 09/05/23 14:15 Temperature 97.9 F 97.9 F Pulse Rate 61 61 Respiratory Rate 18 18 Blood Pressure 107/81 107/81 Pulse Oximetry 94 94 Oxygen Delivery Method Room Air BMI result Body Mass Index 27.5 VITAL SIGNS: Reviewed. GENERAL: Well developed, well nourished, in no acute distress. HEAD: Normocephalic/atraumatic EYES: PERRLA, EOMI EARS: Ext canals without abnormality NOSE: Nares patent bilateral OROPHARYNX: no oral lesions noted, posterior pharynx clear NECK: Supple, no adenopathy LUNGS: Normal breath sounds. No adventitious sounds or accessory muscle use. SpO2<94> CARDIOVASCULAR: Regular rate and rhythm without noted murmurs ABDOMEN: Soft, non-tender, non-distended with bowel sounds. MUSCULOSKELETAL: No tenderness, deformities, or effusions noted on gross inspection. EXTREMITIES: No cyanosis, clubbing or edema. SKIN: Inspection of the skin reveals no rashes NEUROLOGIC: Alert and oriented x 4. Strength and sensation to light touch were grossly intact x 4, cranial nerves 2-12 are grossly intact PSYCH: Anxiety Course Course Course Narrative: RME performed by Cathy Kohler PA-C. Patient is a 62 year old assigned female at presenting to the emergency department in crisis. Patient has a history of mood disorder, schizophrenia, and anxiety. Patient states that she is in crisis and needs psychiatric help. Detailed physical exam and review of systems are deferred to the business process representative. Labs ordered. auto body repair estimator aware of patient - patient brought back to main department. Medications Administered Discontinued Medications Generic Name Dose Route Start Last Admin Trade Name Freq PRN Reason Stop Dose Admin Hydroxyzine HCl 50 mg 09/05/23 16:06 09/05/23 16:10 Hydroxyzine Hcl 50 Mg Tablet PO 09/05/23 16:07 50 mg ONCE ONE Administration Medical Decision Making Medical Decision Making [facility] Narrative: 62-year-old female with history and clinical presentation, DDX: Increased anxiety, will rule out underlying medical etiologies. I reviewed all investigations and hematologic indices are negative for leukocytosis/anemia/thrombocytopenia. Chemistry indices are negative for MARIAN/electrolyte/liver enzyme derangements. Urinalysis negative for UTI or hematuria. UDS is negative other than for the endorsed cannabis. Salicylate/acetaminophen and ETOH are negative. COVID-19 is negative. Patient is medically cleared for further evaluation by the care team. 1613: Care team has evaluated the patient and she will be an inpatient bed search and placed on a section 12. Patient placed in physician observation because the patient needed more time for care team evaluation and identification of bed placement. At the time observation was started the patient's vital signs were stable, patient is alert and oriented but anxious, neuro: Nonfocal, CV RRR, lungs clear Differential Diagnosis Differential Diagnoses: The differential diagnosis associated with the presentation includes Please see the discussion above Admission/Observation Consideration of admission/observation: Escalation of care including admission/observation considered Please see the discussion above Consult Healthcare Provider Management of the patient was discussed with: Timber Management Specialist Please see the discussion above Lab Data MDM Lab Attestation statement: I reviewed the patient's lab results. Please see the discussion above 09/05/23 13:50 09/05/23 13:50 Labs: Lab Results 09/05/23 09/05/23 09/05/23 Range/Units 13:50 13:53 14:01 WBC 9.5 (4.8-10.8) X10*3/uL RBC 4.70 (4.20-5.50) X10*6/uL Hgb 14.4 (12.0-16.0) g/dl Hct 40.7 (37.0-47.0) % MCV 86.6 (80.0-98.0) fL MCH 30.6 (27.0-33.0) pg MCHC 35.4 H (31.0-35.0) g/dl RDW 13.1 (11.0-16.0) % Plt Count 362 (160-400) X10*3/uL MPV 10.5 (9.4-12.3) fL Immature Gran % (Auto) 0.2 (0.0-0.4) % Neut % (Auto) 59.7 (45-73) % Lymph % (Auto) 30.0 (20-40) % [place] % (Auto) 6.7 (2-11) % Eos % (Auto) 2.2 (0-4) % Baso % (Auto) 1.2 (0-2) % Lymph # (Auto) 2.8 (1.2-4.9) X10*3/uL [place] # (Auto) 0.6 (0.1-1.2) X10*3/uL Eos # (Auto) 0.2 (0.0-0.4) X10*3/uL Baso # (Auto) 0.1 (0.0-0.2) X10*3/uL Abs Immat Gran (auto) 0.02 (0.00-0.03) X10*3/uL Absolute Neuts (auto) 5.7 (2.0-8.3) x10*3/uL Absolute Nucleated RBC 0.000 (0.0-0.012) X10*3/uL Nucleated RBC % (auto) 0.0 (0.0-0.2) /100WBC Sodium 143 (135-145) mmol/L Potassium 4.4 (3.3-5.1) mmol/L Chloride 109 H (96-108) mmol/L Carbon Dioxide 23 (22-29) mmol/L Anion Gap 15 (12-20) BUN 14 (9-16) mg/dL Creatinine 0.79 (0.5-1.4) mg/dL Estim Creat Clear Calc 76.7 Estimated GFR > 60 Random Glucose 109 (60-115) mg/dL Calcium 9.8 (8.4-10.2) mg/dL Total Bilirubin 0.3 (0.0-1.0) mg/dL AST 13 (5-31) U/L ALT 18 (0-31) U/L Alkaline Phosphatase 87 (39-117) U/L Total Protein 7.5 (6.5-8.0) g/dL Albumin 4.4 (3.5-5.0) g/dL Urine Color Yellow Urine Appearance Clear Urine pH 5.5 (5.0-9.0) Ur Specific [place] 1.025 (1.005-1.025) Urine Protein Negative (Neg-Trace) mg/dL Urine Glucose (UA) Negative (Negative) mg/dL Urine Ketones Negative (Negative) mg/dL Urine Blood Negative (Negative) Urine Nitrite Negative (Negative) Ur Leukocyte Esterase Negative (Negative) Salicylates < 5.0 L (15-30) mg/dL Urine Opiates Screen Not Detected (Not Detect) Ur Buprenorphine Scrn Not Detected (Not Detect) ng/mL Ur Oxycodone Screen Not Detected (Not Detect) ng/mL Urine Methadone Screen Not Detected (Not Detect) ng/mL Urine Fentanyl Screen Not Detected (Not Detect) Acetaminophen < 3 (<30) mcg/mL Ur Barbiturates Screen Not Detected (Not Detect) Ur Phencyclidine Scrn Not Detected (Not Detect) Ur Amphetamines Screen Not Detected (Not Detect) U Benzodiazepines Scrn Not Detected (Not Detect) Urine Cocaine Screen Not Detected (Not Detect) U Marijuana (THC) Screen POSITIVE H (Not Detect) Ethyl Alcohol < 10 mg/dL COVID-19 (NORA) Negative (Negative) COVID-19 Clin Com See Note Independent Interpretation I performed an independent interpretation of an: EKG Interpretation: Sinus bradycardia, HR-58, no STEMI, OR/QRS/QTC is within normal limits. External Record Review External record reviewed: Outpatient record and Prior outpatient labs Chronic Conditions Schizoaffective, mood disorder, Critical Care Time Critical Care Time Critical Care Time: Yes Total Critical Care Time: 30 Attestation: I personally attest to this time spent taking care of the patient. Discharge Plan Discharge Clinical Impression: Anxiety Patient Disposition: Still a Patient Prescriptions: No Action propranolol 20 mg Tablet 20 mg PO BID Qty: 60 0RF Protocol: Hold for SBP/HR < HOLD for SBP < : 90 HOLD for HR < : 60 buspirone 10 mg tablet 10 mg PO BID Interventions: [place]-Suicide Risk Severity Scale Last Done: 09/05/23 14:24 Print Language: Vincentian
--- NOTE | 2023-09-05 13:17 | ECG_ITS ---
Test Reason : QT CHECK Blood Pressure : / mmHG Vent. Rate : 058 BPM Atrial Rate : 058 BPM P-R Int : 114 ms QRS Dur : 088 ms QT Int : 410 ms P-R-T Axes : 067 060 045 degrees QTc Int : 402 ms Sinus bradycardia Otherwise normal ECG When compared with ECG of 07-JUL-2023 19:32, No significant change was found Referred By: Cathy Kohler Electronically Signed By:ROLY DENNY MD
--- NOTE | 2023-09-05 13:27 | PC.NURSE ---
[phone] KAT SERNA, FRIEND, WHO BROUGHT PT IN
[2023-09-05 13:56] LABS: MANUAL DIFF FLAG NO
[2023-09-05 13:57] LABS: Basophils Absolute Auto 0.1 X10*3/uL (0.0-0.2); Basophils Percent Auto 1.2 % (0-2); Eosinophils Absolute Auto 0.2 X10*3/uL (0.0-0.4); Eosinophils Percent Auto 2.2 % (0-4); Hematocrit 40.7 % (37.0-47.0); Hemoglobin 14.4 g/dl (12.0-16.0); Imm Gran Abs Auto 0.02 X10*3/uL (0.00-0.03); Imm Gran Pct Auto 0.2 % (0.0-0.4); Lymphocytes Absolute Auto 2.8 X10*3/uL (1.2-4.9); Mean Corpuscular HGB Conc 35.4 g/dl (31.0-35.0); Mean Corpuscular Hemoglobin 30.6 pg (27.0-33.0); Mean Corpuscular Volume 86.6 fL (80.0-98.0); Mean Platelet Volume 10.5 fL (9.4-12.3); Monocytes Absolute Auto 0.6 X10*3/uL (0.1-1.2); Monocytes Percent Auto 6.7 % (2-11); Neutrophils Absolute Auto 5.7 x10*3/uL (2.0-8.3); Neutrophils Percent Auto 59.7 % (45-73); Platelet Count 362 X10*3/uL (160-400); Red Cell Distribution Width 13.1 % (11.0-16.0); White Blood Count 9.5 X10*3/uL (4.8-10.8)
[2023-09-05 14:08] LABS: Appearance Urine Clear; Color Urine Yellow; Glucose Urine UA Negative (Negative); Leukocyte Esterase Urine Negative (Negative); Nitrite Urine Negative (Negative); PH 5.5 (5.0-9.0); Specific Gravity - Urine 1.025 (1.005-1.025); Urine Blood Negative (Negative); Urine Ketones Negative (Negative); Urine Protein Negative (Neg-Trace)
[2023-09-05 14:15] VITALS: BP 107/81; PULSE 61; RESP 18; TEMP 36.6; O2SAT 94
[2023-09-05 14:21] LABS: Alanine Aminotransferase 18 U/L (0-31); Albumin Level 4.4 g/dL (3.5-5.0); Alkaline Phosphatase 87 U/L (39-117); Anion Gap 15 (12-20); Aspartate Amino Transferase 13 U/L (5-31); Bilirubin Total 0.3 mg/dL (0.0-1.0); Blood Urea Nitrogen 14 mg/dL (9-16); Calcium 9.8 mg/dL (8.4-10.2); Carbon Dioxide 23 mmol/L (22-29); Chloride 109 mmol/L (96-108); Creatinine Clr Calc Pharmacy 76.7; Estimated Glomerular Filt Rate > 60; Ethanol < 10 mg/dL; Glucose Random 109 mg/dL (60-115); Potassium 4.4 mmol/L (3.3-5.1); Sodium 143 mmol/L (135-145); Total Protein 7.5 g/dL (6.5-8.0)
[2023-09-05 14:21] LABS: Amphetamine Screen Urine Not Detected (Not Detect); Barbiturates, Urine Not Detected (Not Detect); Benzodiazepines Screen Urine Not Detected (Not Detect); Buprenorphine Scr Not Detected (Not Detect); Cannabinoid Screen Urine POSITIVE (Not Detect); Cocaine Screen Urine Not Detected (Not Detect); Fentanyl, urine Not Detected (Not Detect); Methadone Screen, Urine Not Detected (Not Detect); Opiate Screen Urine Not Detected (Not Detect); Oxycodone Screen Urine Not Detected (Not Detect); Phencyclidine Screen Urine Not Detected (Not Detect)
[2023-09-05 14:34] LABS: COVID-19 Test Negative (Negative); IDNOW Serial# 08D9AD1C
[2023-09-05 14:34] LABS: Acetaminophen LAB < 3 mcg/mL (<30); Salicylate < 5.0 mg/dL (15-30)
[2023-09-05] MEDS: hydrOXYzine HCL 50 MG TABLET PO (16:10)
[2023-09-05] MEDS: OLANZapine 10 MG TABLET PO (17:29)
[2023-09-05 19:33] VITALS: BP 97/60; PULSE 58; RESP 18; TEMP 36.4; O2SAT 97
[2023-09-05] MEDS: busPIRone HCl 10 MG TABLET PO (20:03)
--- NOTE | 2023-09-06 07:01 | PC.NURSE ---
Patient slept through the night, no distress observed/reported, disposition per care team is section 12 inpatient bed search, meds and meals compliant, no behavior issues, will continue to monitor
--- NOTE | 2023-09-06 07:10 | PC.NURSE ---
Assumed care of patient at 0645. Patient is observed resting quietly in their bed. No signs of distress observed. Breathing is even and unlabored. Will continue plan of care.
[2023-09-06] MEDS: Propranolol HCL 20 MG TABLET PO (08:37)
[2023-09-06] MEDS: busPIRone HCl 10 MG TABLET PO ×2 (08:37→20:43)
[2023-09-06 10:59] VITALS: BP 126/76; PULSE 53; RESP 18; TEMP 36.7; O2SAT 98
[2023-09-06 11:19] VITALS: BP 127/68; PULSE 60; RESP 16; TEMP 36.4; O2SAT 98
[2023-09-06 11:58] VITALS: BMI 27.4
[2023-09-06] MEDS: hydrOXYzine HCL 25 MG TABLET PO (14:03)
[2023-09-06] MEDS: Gabapentin 100 MG CAPSULE PO ×2 (14:03→20:45)
[2023-09-06] MEDS: clonazePAM 0.5 MG TABLET PO ×2 (14:26→20:43)
--- NOTE | 2023-09-06 15:03 | PC.NURSE ---
Pt requested and signed a 3 day notice after it was explained to her. Zafar Segovia and charger operator helper notified along with Jamin Sandra
--- NOTE | 2023-09-06 15:34 | PC.ADMIT ---
Pt is a 62 year old female admitted to M5 on a CV from the [facility] ED with diagnosis of anxiety. Shortly after arriving to unit asked for a 3 day notice and signed it. Pt known to CARE team and last IPLOC at [facility] in June. Pt reports having debilitating anxiety and difficulty with self regulation. On admission noted rocking back and forth, having various facial movements, and unable to sit still. She is worried that she will become homeless as she has not been able to work much. Also noted to be preoccupied with the devil telling me I'm going to hell... and I have no future. She admits to smoking marijuana all day long and did so right before admission. She reports finding AA groups helpful and she last drank alcohol 2 weeks ago. She did request that a recovery consult to be ordered. She wants to feel better but feels that she is hopeless and nothing seems to work . Denies SI/HI/AVH but feels like she can't keep going on like this. She has a psychiatric hx of schizoaffective dz, anxiety, and misuse of benzodiazepines. Previously on psychotropics and it's unclear when she stopped taking them. Prior to admission home meds buspar and propanolol which she was taking more than prescribed in attempts to manage her anxiety. She is cooperative with admission process and all paperwork signed/completed. She'll be started on escitalopram tomorrow and is using Klonipin and atarax for anxiety with good effect.
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
[2023-09-06 20:00] VITALS: BP 116/58; PULSE 69; RESP 17; TEMP 36.6; O2SAT 96
[2023-09-06] MEDS: traZODone HCL 50 MG TABLET PO (20:43)
[2023-09-06] MEDS: OLANZapine 10 MG TABLET 20 MG PO (20:43)
[2023-09-06] MEDS: Acetaminophen 325 MG TABLET 650 MG PO (20:50)
[2023-09-07 08:25] LABS: TSH reflex Free T4 3.48 uIU/mL (0.32-4.0)
[2023-09-07 09:33] VITALS: BP 117/58; PULSE 84; RESP 18; TEMP 36.9; O2SAT 98
[2023-09-07 09:34] VITALS: BP 117/58; PULSE 84
[2023-09-07] MEDS: Escitalopram Oxalate 5 MG TABLET PO (09:34)
[2023-09-07] MEDS: Gabapentin 100 MG CAPSULE PO ×3 (09:34→20:45)
[2023-09-07] MEDS: busPIRone HCl 10 MG TABLET PO ×2 (09:34→20:45)
[2023-09-07] MEDS: Propranolol HCL 20 MG TABLET PO ×2 (09:34→20:45)
--- NOTE | 2023-09-07 09:53 | P.PNPSI_ITS ---
Subjective Subjective Date of Service: 09/07/23 Reason For Visit: Anxiety Subjective Notes: Conditional Voluntary and 3 Day Healthcare Proxy: No Guardianship: No Medical Problems Affecting Mental Status: No Interim History: Three day notice to 09/08. Review with pt previous admits, med trials. Pt agrees regimes were effective, but I stopped. States she is willing to resume regime she took during her most recent admissio, with Lexapro not Prozac used as the antidepressant. 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 Klonopin stopped as we had discussed yesterday afte 3 doses. Medication Compliance: Yes Side effects from medications: No Attending Groups: Intermittent Review of Systems Acute medical concerns: No Medical Review of Systems: unchanged Review of Systems Review of Systems Yes all other systems are reviewed and are negative Mental Status Exam Mental Status Exam Patient Appearance: Fatigued Patient Orientation: Person, Place, Time and Situation Level of Consciousness: Alert Patient Behavior: Appropriate, Talkative, Cooperative and Good Eye Contact Mood Description: Depressed, Anxious, Labile and Apprehensive Affect Description: Depressed, Anxious, Labile and Apprehensive Patient Cognition Impaired: No Ability to Follow Directions: Good Speech Pattern: Spontaneous Speech Memory Description: Intact Hallucinations: None Delusions: Not Present Perceptual Disturbances: Depersonalization and Derealization Thought Process: Rumination Thought Content: positive for Circumstantial and positive for Perseveration Depressive Symptoms: Increased Anxiety, Hopelessness, Unhappiness and Low Self Esteem Judgement: Fair Diagnostics Vital Signs (24Hr): Vital Signs - 24 hr 09/06/23 10:59 09/06/23 11:19 09/06/23 20:00 Temperature 98.1 F 97.5 F 97.9 F Pulse Rate 53 60 69 Respiratory Rate 18 16 17 Blood Pressure 126/76 127/68 116/58 L Pulse Oximetry 98 98 96 Oxygen Delivery Method Room Air Room Air Room Air 09/07/23 09:33 09/07/23 09:34 Temperature 98.4 F Pulse Rate 84 84 Respiratory Rate 18 Blood Pressure 117/58 L 117/58 L Pulse Oximetry 98 Oxygen Delivery Method Room Air BMI result Body Mass Index 27.4 Labs 09/05/23 13:50 09/05/23 13:50 Labs: Laboratory Results - last 48 hr 09/05/23 09/05/23 09/05/23 13:50 13:53 14:01 WBC 9.5 RBC 4.70 Hgb 14.4 Hct 40.7 MCV 86.6 MCH 30.6 MCHC 35.4 H RDW 13.1 Plt Count 362 MPV 10.5 Immature Gran % (Auto) 0.2 Neut % (Auto) 59.7 Lymph % (Auto) 30.0 [place] % (Auto) 6.7 Eos % (Auto) 2.2 Baso % (Auto) 1.2 Lymph # (Auto) 2.8 [place] # (Auto) 0.6 Eos # (Auto) 0.2 Baso # (Auto) 0.1 Abs Immat Gran (auto) 0.02 Absolute Neuts (auto) 5.7 Absolute Nucleated RBC 0.000 Nucleated RBC % (auto) 0.0 Sodium 143 Potassium 4.4 Chloride 109 H Carbon Dioxide 23 Anion Gap 15 BUN 14 Creatinine 0.79 Estim Creat Clear Calc 76.7 Estimated GFR > 60 Random Glucose 109 Calcium 9.8 Total Bilirubin 0.3 AST 13 ALT 18 Alkaline Phosphatase 87 Total Protein 7.5 Albumin 4.4 TSH Urine Color Yellow Urine Appearance Clear Urine pH 5.5 Ur Specific [place] 1.025 Urine Protein Negative Urine Glucose (UA) Negative Urine Ketones Negative Urine Blood Negative Urine Nitrite Negative Ur Leukocyte Esterase Negative Salicylates < 5.0 L Urine Opiates Screen Not Detected Ur Buprenorphine Scrn Not Detected Ur Oxycodone Screen Not Detected Urine Methadone Screen Not Detected Urine Fentanyl Screen Not Detected Acetaminophen < 3 Ur Barbiturates Screen Not Detected Ur Phencyclidine Scrn Not Detected Ur Amphetamines Screen Not Detected U Benzodiazepines Scrn Not Detected Urine Cocaine Screen Not Detected U Marijuana (THC) Screen POSITIVE H Ethyl Alcohol < 10 COVID-19 ([facility]) Negative COVID-19 Clin Com See Note 09/07/23 07:38 WBC RBC Hgb Hct MCV MCH MCHC RDW Plt Count MPV Immature Gran % (Auto) Neut % (Auto) Lymph % (Auto) [place] % (Auto) Eos % (Auto) Baso % (Auto) Lymph # (Auto) [place] # (Auto) Eos # (Auto) Baso # (Auto) Abs Immat Gran (auto) Absolute Neuts (auto) Absolute Nucleated RBC Nucleated RBC % (auto) Sodium Potassium Chloride Carbon Dioxide Anion Gap BUN Creatinine Estim Creat Clear Calc Estimated GFR Random Glucose Calcium Total Bilirubin AST ALT Alkaline Phosphatase Total Protein Albumin TSH 3.48 Urine Color Urine Appearance Urine pH Ur Specific [place] Urine Protein Urine Glucose (UA) Urine Ketones Urine Blood Urine Nitrite Ur Leukocyte Esterase Salicylates Urine Opiates Screen Ur Buprenorphine Scrn Ur Oxycodone Screen Urine Methadone Screen Urine Fentanyl Screen Acetaminophen Ur Barbiturates Screen Ur Phencyclidine Scrn Ur Amphetamines Screen U Benzodiazepines Scrn Urine Cocaine Screen U Marijuana (THC) Screen Ethyl Alcohol COVID-19 ([facility]) COVID-19 Clin Com Medications Medications Current Medications Acetaminophen (Acetaminophen 325 Mg Tablet) 650 mg PO Q6H PRN PRN Reason: Headache/Pain Mild Scale (1-3) Last Admin: 09/06/23 20:50 Dose: 650 mg Al Hydroxide/Mg Hydroxide (Magnesium Hydrox/Alum Hydrox 30 Ml Oral.Susp) 30 ml PO Q6H PRN PRN Reason: Heartburn/Nausea Buspirone HCl (Buspirone Hcl 10 Mg Tablet) 10 mg PO BID [facility] Last Admin: 09/07/23 09:34 Dose: 10 mg Escitalopram Oxalate (Escitalopram Oxalate 5 Mg Tablet) 5 mg PO DAILY [facility] Last Admin: 09/07/23 09:34 Dose: 5 mg Gabapentin (Gabapentin 100 Mg Capsule) 100 mg PO TID [facility] Last Admin: 09/07/23 09:34 Dose: 100 mg Hydroxyzine HCl (Hydroxyzine Hcl 25 Mg Tablet) 25 mg PO Q6H PRN PRN Reason: Anxiety Last Admin: 09/06/23 14:03 Dose: 25 mg Magnesium Hydroxide (Milk Of Magnesia 30 Ml Oral.Susp) 30 ml PO DAILY PRN PRN Reason: Constipation Nicotine (Nicotine 21 Mg Patch.Td24) 21 mg TRANSDERMA DAILY PRN PRN Reason: smoking cessation Nicotine Polacrilex (Nicotine Polacrilex 2 Mg Gum) 4 mg BUCCAL Q2H PRN PRN Reason: Nicotine Cravings Olanzapine (Olanzapine 10 Mg Tablet) 20 mg PO BEDTIME [facility] Last Admin: 09/06/23 20:43 Dose: 20 mg Propranolol HCl (Propranolol Hcl 20 Mg Tablet) 20 mg PO BID [facility]; Protocol Last Admin: 09/07/23 09:34 Dose: 20 mg Trazodone HCl (Trazodone Hcl 50 Mg Tablet) 50 mg PO BEDTIME MRX1 PRN PRN Reason: Insomnia Last Admin: 09/06/23 20:43 Dose: 50 mg Allergies Allergies Allergy/AdvReac Type Severity Reaction Status Date / Time cephalexin [From Keflex] Allergy Hives Verified 09/05/23 13:17 From KEFLEX Allergy Unknown UNK Uncoded 07/08/23 14:36 From PAXIL Allergy Unknown UNK Uncoded 07/08/23 14:36 Assessment & Plan Assessment & Plan (1) Anxiety: Status: Acute Code(s): F41.9 - Anxiety disorder, unspecified (2) Schizoaffective disorder, depressive type: Status: Acute Code(s): F25.1 - Schizoaffective disorder, depressive type (3) Cannabis use disorder, mild, abuse: Status: Acute Code(s): F12.10 - Cannabis abuse, uncomplicated Plan 62 yo female, history of schizoaffective disorder, cannabis use, reports severe anxiety which is keeping her from being able to work and she fears for her financial security. She reports family is frustrated with her and she states they no longer believe she is being truthful about sx. Discharge from M3 in June with an effective regime of Prozac 20 mg/ Olanzapine 10 mg a.m. 20 mg hs, Propranolol 20 mg bid and Trazodone prn. Reports she is now taking Buspirone/Propranolol. Plan: Collateral contact Klonopin 0.5 mg bid (short term dosing) Olanzapine 20 mg HS Escitalopram 5 mg daily Gabapentin 100 mg tid Continue buspirone/propranolol TDN signed on admit 09/07/23: Discontinue klonopin Olanzapine 10 mg a.m. Informed Consent: understands Reason for continued inpatient stay Substantial Risk for: rapid decompensation Time Spent With Patient Time: Total time managing care of this patient today ____ minutes.
[2023-09-07] MEDS: clonazePAM 0.5 MG TABLET PO (10:21)
--- NOTE | 2023-09-07 15:35 | MHC.RECOVRN ---
Met with pt on M5 after pt requested to meet with Addiction regarding marijuana use. Pt is currently admitted for treatment of schizoaffective disorder and anxiety. Pt awake, alert, difficult to engage in conversation, withdrawn. Pt reports she does not have concerns regarding her marijuana use. When asked if pt feels her marijuana use is detrimental pt states yes, because I don't have the money to buy it. Upon further discussion, pt feels her marijuana use is a sin after listening to a Judaism podcast. Pt reports this podcast is ruining her life. Pt seems ambivalent overall regarding marijuana use. Educated pt on recovery support services if she decides she would like support. Pt reports she has prayed with someone and was encouraged to go to AA meetings. Pt states I just rock while I'm sitting there. Encouraged pt that meetings are not helpful for everyone and there are other services and groups out there, including recovery coaching. Pt is not interested in a assistant boys track coach at this time, states I'm going to soon. I won't need one. Pt was provided with written resources, information, and t/w contact information if she feels she would like to discuss further. Pt denies questions or concerns for t/w.
[2023-09-07 20:00] VITALS: BP 110/60; PULSE 76; TEMP 36.2; O2SAT 96
[2023-09-07] MEDS: OLANZapine 10 MG TABLET 20 MG PO (20:45)
[2023-09-08 09:45] VITALS: BP 108/65; PULSE 70; RESP 16; TEMP 36.3; O2SAT 98
[2023-09-08 09:49] VITALS: BP 108/65; PULSE 70
[2023-09-08] MEDS: Propranolol HCL 20 MG TABLET PO ×2 (09:49→20:35)
[2023-09-08] MEDS: Gabapentin 100 MG CAPSULE PO ×3 (09:50→20:35)
[2023-09-08] MEDS: Escitalopram Oxalate 5 MG TABLET PO (09:50)
[2023-09-08] MEDS: OLANZapine 10 MG TABLET PO (09:50)
[2023-09-08] MEDS: busPIRone HCl 10 MG TABLET PO ×2 (09:50→20:35)
--- NOTE | 2023-09-08 11:55 | HO.PSYCHPN ---
Subjective Subjective Date of Service: 09/08/23 Reason For Visit: Anxiety Subjective Notes: Conditional Voluntary and 3 Day Healthcare Proxy: No Guardianship: No Medical Problems Affecting Mental Status: No Interim History: Medication review with Mya. Tolerating regime thus far. Review of previous regimes when in patient which gave indication of positive response. Discussed [facility] referral and pt moving forward. She reports she has attended some groups and has found this helpful. Medication Compliance: Yes Side effects from medications: No Attending Groups: Yes Review of Systems Acute medical concerns: No Medical Review of Systems: unchanged Review of Systems Review of Systems Yes all other systems are reviewed and are negative Mental Status Exam Mental Status Exam Patient Appearance: Appropriate Patient Orientation: Person, Place, Time and Situation Level of Consciousness: Alert Patient Behavior: Appropriate, Talkative, Cooperative and Good Eye Contact Mood Description: Labile and Apprehensive Affect Description: Labile Patient Cognition Impaired: No Ability to Follow Directions: Good Speech Pattern: Spontaneous Speech Memory Description: Intact Hallucinations: None Delusions: Not Present Perceptual Disturbances: Depersonalization and Derealization Thought Process: Rumination Thought Content: positive for Circumstantial Depressive Symptoms: Increased Anxiety, Unhappiness and Low Self Esteem Judgement: Good Diagnostics Vital Signs (24Hr): Vital Signs - 24 hr 09/07/23 20:00 09/08/23 09:45 09/08/23 09:49 Temperature 97.2 F 97.3 F Pulse Rate 76 70 70 Respiratory Rate 16 Blood Pressure 110/60 108/65 108/65 Pulse Oximetry 96 98 Oxygen Delivery Method Room Air Room Air BMI result Body Mass Index 27.4 Labs 09/05/23 13:50 09/05/23 13:50 Labs: Laboratory Results - last 48 hr 09/07/23 07:38 TSH 3.48 Medications Medications Current Medications Acetaminophen (Acetaminophen 325 Mg Tablet) 650 mg PO Q6H PRN PRN Reason: Headache/Pain Mild Scale (1-3) Last Admin: 09/06/23 20:50 Dose: 650 mg Al Hydroxide/Mg Hydroxide (Magnesium Hydrox/Alum Hydrox 30 Ml Oral.Susp) 30 ml PO Q6H PRN PRN Reason: Heartburn/Nausea Buspirone HCl (Buspirone Hcl 10 Mg Tablet) 10 mg PO BID [facility] Last Admin: 09/08/23 09:50 Dose: 10 mg Escitalopram Oxalate (Escitalopram Oxalate 5 Mg Tablet) 5 mg PO DAILY [facility] Last Admin: 09/08/23 09:50 Dose: 5 mg Gabapentin (Gabapentin 100 Mg Capsule) 100 mg PO TID [facility] Last Admin: 09/08/23 09:50 Dose: 100 mg Hydroxyzine HCl (Hydroxyzine Hcl 25 Mg Tablet) 25 mg PO Q6H PRN PRN Reason: Anxiety Last Admin: 09/06/23 14:03 Dose: 25 mg Magnesium Hydroxide (Milk Of Magnesia 30 Ml Oral.Susp) 30 ml PO DAILY PRN PRN Reason: Constipation Nicotine (Nicotine 21 Mg Patch.Td24) 21 mg TRANSDERMA DAILY PRN PRN Reason: smoking cessation Nicotine Polacrilex (Nicotine Polacrilex 2 Mg Gum) 4 mg BUCCAL Q2H PRN PRN Reason: Nicotine Cravings Olanzapine (Olanzapine 10 Mg Tablet) 20 mg PO BEDTIME [facility] Last Admin: 09/07/23 20:45 Dose: 10 mg Olanzapine (Olanzapine 10 Mg Tablet) 10 mg PO DAILY [facility] Last Admin: 09/08/23 09:50 Dose: 10 mg Propranolol HCl (Propranolol Hcl 20 Mg Tablet) 20 mg PO BID [facility]; Protocol Last Admin: 09/08/23 09:49 Dose: 20 mg Trazodone HCl (Trazodone Hcl 50 Mg Tablet) 50 mg PO BEDTIME MRX1 PRN PRN Reason: Insomnia Last Admin: 09/06/23 20:43 Dose: 50 mg Allergies Allergies Allergy/AdvReac Type Severity Reaction Status Date / Time cephalexin [From Keflex] Allergy Hives Verified 09/05/23 13:17 From KEFLEX Allergy Unknown UNK Uncoded 07/08/23 14:36 From PAXIL Allergy Unknown UNK Uncoded 07/08/23 14:36 Assessment & Plan Assessment & Plan (1) Anxiety: Status: Acute Code(s): F41.9 - Anxiety disorder, unspecified (2) Schizoaffective disorder, depressive type: Status: Acute Code(s): F25.1 - Schizoaffective disorder, depressive type (3) Cannabis use disorder, mild, abuse: Status: Acute Code(s): F12.10 - Cannabis abuse, uncomplicated Plan 62 yo female, history of schizoaffective disorder, cannabis use, reports severe anxiety which is keeping her from being able to work and she fears for her financial security. She reports family is frustrated with her and she states they no longer believe she is being truthful about sx. Discharge from M3 in June with an effective regime of Prozac 20 mg/ Olanzapine 10 mg a.m. 20 mg hs, Propranolol 20 mg bid and Trazodone prn. Reports she is now taking Buspirone/Propranolol. Plan: Collateral contact Klonopin 0.5 mg bid (short term dosing) Olanzapine 20 mg HS Escitalopram 5 mg daily Gabapentin 100 mg tid Continue buspirone/propranolol TDN signed on admit 09/07/23: Discontinue klonopin Olanzapine 10 mg a.m. 09/08/23 Continue regime Three day notice expires 09/08. Per pt, she believes 09/09. Reason for continued inpatient stay Substantial Risk for: rapid decompensation Time Spent With Patient Time: Total time managing care of this patient today ____ minutes.
[2023-09-08 20:00] VITALS: BP 94/53; PULSE 70; RESP 16; TEMP 36.2; O2SAT 97
[2023-09-08] MEDS: OLANZapine 10 MG TABLET 20 MG PO (20:34)
[2023-09-09 07:00] VITALS: BMI 27.4
[2023-09-09 08:28] VITALS: BP 131/73; PULSE 74; RESP 20; TEMP 36.9; O2SAT 98
[2023-09-09] MEDS: busPIRone HCl 10 MG TABLET PO (08:44)
[2023-09-09 08:45] VITALS: BP 131/73; PULSE 74
[2023-09-09] MEDS: OLANZapine 10 MG TABLET PO (08:45)
[2023-09-09] MEDS: Escitalopram Oxalate 5 MG TABLET PO (08:45)
[2023-09-09] MEDS: Gabapentin 100 MG CAPSULE PO (08:45)
[2023-09-09] MEDS: Propranolol HCL 20 MG TABLET PO (08:45)
--- NOTE | 2023-09-09 11:56 | PM.PSYDC ---
DS: Providers Provider Date of Service: 09/09/23 Date of admission: 09/06/23 09:43 Date of discharge: 09/09/23 Primary care physician: Nguyen Hanna MD Admitting clinician: Imelda Chavez Attending physician on admission: Drew Armas Consults: 09/06/23 16:25 Addiction Medicine Routine Consulting Provider: Addiction Covering Reason for consultation: Daily marijuana use Has provider been notified: Yes Attending physician on discharge: Drew Armas Discharging clinician: Imelda Chavez DS: Diagnosis Discharge Diagnosis (1) Anxiety: Status: Acute (2) Schizoaffective disorder, depressive type: Status: Acute (3) Cannabis use disorder, mild, abuse: Status: Acute DS: Medications Discharge Medications Home Medications: Previous Rx's ?Medication ?Instructions ?Recorded buspirone 10 mg tablet 10 mg PO BID #60 tabs 09/09/23 escitalopram oxalate 5 mg tablet 5 mg PO DAILY #30 tabs 09/09/23 gabapentin 100 mg capsule 100 mg PO TID #90 caps 09/09/23 olanzapine 10 mg tablet 10 mg PO DAILY #30 tabs 09/09/23 olanzapine 10 mg tablet 20 mg (2 x 10 mg) PO BEDTIME #60 09/09/23 tabs propranolol 20 mg tablet 20 mg PO BID #60 tabs 09/09/23 Mental Status Exam Mental Status Exam Patient Appearance: Appropriate Patient Orientation: Person, Place, Time and Situation Level of Consciousness: Alert Patient Behavior: Appropriate, Talkative, Cooperative and Good Eye Contact Mood Description: Labile and Apprehensive Affect Description: Labile Patient Cognition Impaired: No Ability to Follow Directions: Good Speech Pattern: Spontaneous Speech Memory Description: Intact Hallucinations: None Delusions: Not Present Perceptual Disturbances: Depersonalization and Derealization Thought Process: Rumination Thought Content: positive for Circumstantial Depressive Symptoms: Increased Anxiety, Unhappiness and Low Self Esteem Judgement: Good Data Data Completed and Pending Completed studies during hospitalization [Text1]: 09/05/23 09/05/23 09/05/23 13:50 13:53 14:01 WBC 9.5 RBC 4.70 Hgb 14.4 Hct 40.7 MCV 86.6 MCH 30.6 MCHC 35.4 H RDW 13.1 Plt Count 362 MPV 10.5 Immature Gran % (Auto) 0.2 Neut % (Auto) 59.7 Lymph % (Auto) 30.0 Andrew % (Auto) 6.7 Eos % (Auto) 2.2 Baso % (Auto) 1.2 Lymph # (Auto) 2.8 Andrew # (Auto) 0.6 Eos # (Auto) 0.2 Baso # (Auto) 0.1 Abs Immat Gran (auto) 0.02 Absolute Neuts (auto) 5.7 Absolute Nucleated RBC 0.000 Nucleated RBC % (auto) 0.0 Sodium 143 Potassium 4.4 Chloride 109 H Carbon Dioxide 23 Anion Gap 15 BUN 14 Creatinine 0.79 Estim Creat Clear Calc 76.7 Estimated GFR > 60 Random Glucose 109 Calcium 9.8 Total Bilirubin 0.3 AST 13 ALT 18 Alkaline Phosphatase 87 Total Protein 7.5 Albumin 4.4 TSH Urine Color Yellow Urine Appearance Clear Urine pH 5.5 Ur Specific [place] 1.025 Urine Protein Negative Urine Glucose (UA) Negative Urine Ketones Negative Urine Blood Negative Urine Nitrite Negative Ur Leukocyte Esterase Negative Salicylates < 5.0 L Urine Opiates Screen Not Detected Ur Buprenorphine Scrn Not Detected Ur Oxycodone Screen Not Detected Urine Methadone Screen Not Detected Urine Fentanyl Screen Not Detected Acetaminophen < 3 Ur Barbiturates Screen Not Detected Ur Phencyclidine Scrn Not Detected Ur Amphetamines Screen Not Detected U Benzodiazepines Scrn Not Detected Urine Cocaine Screen Not Detected U Marijuana (THC) Screen POSITIVE H Ethyl Alcohol < 10 COVID-19 ([facility]) Negative COVID-19 Clin Com See Note 09/07/23 07:38 WBC RBC Hgb Hct MCV MCH MCHC RDW Plt Count MPV Immature Gran % (Auto) Neut % (Auto) Lymph % (Auto) Andrew % (Auto) Eos % (Auto) Baso % (Auto) Lymph # (Auto) Andrew # (Auto) Eos # (Auto) Baso # (Auto) Abs Immat Gran (auto) Absolute Neuts (auto) Absolute Nucleated RBC Nucleated RBC % (auto) Sodium Potassium Chloride Carbon Dioxide Anion Gap BUN Creatinine Estim Creat Clear Calc Estimated GFR Random Glucose Calcium Total Bilirubin AST ALT Alkaline Phosphatase Total Protein Albumin TSH 3.48 Urine Color Urine Appearance Urine pH Ur Specific [place] Urine Protein Urine Glucose (UA) Urine Ketones Urine Blood Urine Nitrite Ur Leukocyte Esterase Salicylates Urine Opiates Screen Ur Buprenorphine Scrn Ur Oxycodone Screen Urine Methadone Screen Urine Fentanyl Screen Acetaminophen Ur Barbiturates Screen Ur Phencyclidine Scrn Ur Amphetamines Screen U Benzodiazepines Scrn Urine Cocaine Screen U Marijuana (THC) Screen Ethyl Alcohol COVID-19 ([facility]) COVID-19 Clin Com DS: Summary Hospital Course Hospital Course: Admission to adult psychiatry for exacerbation of schizoaffective disorder, anxiety, cannabis use disorder in the context of psychosocial stressors, conflict with family, employment conflicts and ambivalance about choices for her future. Pt signed a three day notice of intent upon admission. Medications were evaluated and adjusted. [facility] referral was completed with pt. Milieu therapy was offered to pt during her stay. She was discharged to return to [facility] for out patient psychiatric care. Time spent discussing smoking cessation with patient: 3 to 10 minutes Status at Discharge Functional status at discharge: independent ambulation Overall status at discharge: patient is progressing back to baseline Time Spent with Patient Time attestation: Total time managing care of this patient today ____ minutes. Time spent: Less than 30 minutes Discharge Plan Discharge Anticipated Discharge Date/Time: 09/09/23 12:00 Patient Disposition: Home, Self-Care Discharge Diagnosis: Schizoaffective Disorder, Depressed Anxiety Cannabis use disorder Referrals: [facility]: Garett Rob (psychiatry) [Other] - 09/21/23 1:30 pm (Hospital Discharge Appointment Appointment in person ) Barb Locke: [facility] (therapist) [Other] - 09/15/23 3:00 pm (Hospital Discharge Appointment ) Mirella: [facility] [Other] - 1 Week (Patient referred to [facility] will be in contact after discharge You should follow-up on referral if you do not hear from leadership coach within one week after discharge.) Nguyen Hanna MD [Primary Care Provider] - 09/16/23 3:30 pm (IN OFFICE) Discharge Medications: New olanzapine 10 mg Tablet 20 mg PO BEDTIME Qty: 60 0RF olanzapine 10 mg Tablet 10 mg PO DAILY Qty: 30 0RF gabapentin 100 mg Capsule 100 mg PO TID Qty: 90 0RF escitalopram oxalate 5 mg Tablet 5 mg PO DAILY Qty: 30 0RF Continued buspirone 10 mg tablet 10 mg PO BID Qty: 60 0RF propranolol 20 mg Tablet 20 mg PO BID Qty: 60 0RF Protocol: Hold for SBP/HR < HOLD for SBP < : 90 HOLD for HR < : 60 Discontinued olanzapine 10 mg tablet 10 mg PO QAM Discharge Orders: Discharge Order (Routine); Ordered 09/09/23 Ordered By: Imelda Chavez Diet: Regular diet Activity on Discharge: As tolerated Stand Alone Forms: Patient Portal Discharge page, Community Support Print Language: Turkmen Care Plan Goals: Mood and Behavioral Stabilization Sobriety Health Concerns: Mood and Behavioral Stabilization Sobriety Plan of Treatment: Attend scheduled appointments Take medications as directed Work with recovery coaching team Call/Return as needed An application has been sent to [facility] indicating your interest in a vocational consult. They may be reached at [phone]. Assessment: Pt interviewed prior to discharge and found to be fully oriented and without SI/HI. Pt has insight and demonstrates good judgment in terms of wanting to pursue treatment. Pt is not in imminent risk of harm to self or others and has a safety plan that includes presenting to the closest ER or calling 911 if feeling unsafe. Pt has been observed closely by nursing and unit staff throughout admission. Pt has not engaged in any behaviors that suggest dangerousness to self or others and has demonstrated appropriate behaviors and impulse control. Discharge Date/Time: 09/09/23 11:20
== END 2023-09-09 11:20 | disposition home or self-care (01) | DRG 885 ==
LOC: HO.ED 09-06 07:17 → HO.PM5 09-06 10:33
PROVIDERS: Physician Assistant Medical; Admitting Provider Psychiatry & Neurology Psychiatry; Emergency Provider Student in an Organized Health Care Education/Training Program; PCP Family Medicine; Visit Provider Clinical Nurse Specialist Psychiatric/Mental Health, Adult
DX: F25.1 Schizoaffective disorder, depressive type (principal); F41.9 Anxiety disorder, unspecified; F12.10 Cannabis abuse, uncomplicated; Z20.822 Contact with and (suspected) exposure to COVID-19; Z87.891 Personal history of nicotine dependence; Z79.899 Other long term (current) drug therapy
CPT/HCPCS: 36415; 80053; 80143; 80179; 80307; 81003; 84443; 85025; 87635; 93005; 99285; S9485

== ENCOUNTER → 2023-09-05 13:17 | Outpatient (BNV) | payer OTHER, SELFPAY | PROVIDERS: Admitting Provider Psychiatry & Neurology Psychiatry; Emergency Provider Student in an Organized Health Care Education/Training Program; PCP Family Medicine; Visit Provider Internal Medicine Cardiovascular Disease | DX: I45.81 Long QT syndrome (principal) | CPT/HCPCS: 93010 ==

== ENCOUNTER → 2023-09-06 09:43 | Outpatient (BNV) | payer OTHER, SELFPAY | PROVIDERS: Admitting Provider Psychiatry & Neurology Psychiatry; Emergency Provider Student in an Organized Health Care Education/Training Program; PCP Family Medicine; Visit Provider Clinical Nurse Specialist Psychiatric/Mental Health, Adult | DX: F25.1 Schizoaffective disorder, depressive type (principal); F41.9 Anxiety disorder, unspecified; F12.10 Cannabis abuse, uncomplicated | CPT/HCPCS: 90792; 99231; 99232; 99238 ==

== ENCOUNTER 2023-11-03 11:59 | Emergency (ER) | payer OTHER, SELFPAY ==
[2023-11-03 12:08] VITALS: BP 115/91; PULSE 80; RESP 16; TEMP 36.1; O2SAT 96; BMI 28.3
--- NOTE | 2023-11-03 12:13 | PC.NURSE ---
Mya comes in from home today after experiencing increased anxiety after smoking marijuana. Patient reports she is being tormented and that the angels are listening . Patient denies SI/HI/AH at this time. Patient is unable to keep still, constantly moving stating i can't be here anymore I need to leave, I cannot be alive . patient continues to deny SI
[2023-11-03 12:17] VITALS: RESP 22
[2023-11-03] MEDS: LORazepam 1 MG TABLET 2 MG PO (12:20)
--- NOTE | 2023-11-03 12:22 | PC.NURSE ---
Patient took Ativan PO willingly without issue
[2023-11-03 12:45] LABS: Appearance Urine Clear; Color Urine Yellow; Glucose Urine UA Negative (Negative); Leukocyte Esterase Urine Trace (Negative); Nitrite Urine Negative (Negative); PH 5.5 (5.0-9.0); UMIC TRIGGER UACC YES; Urine Blood Negative (Negative); Urine Ketones Trace mg/dL (Negative); Urine Protein Negative (Neg-Trace)
[2023-11-03 12:47] LABS: Bacteria Urine None Seen (None Seen); Hyaline Casts Urine 0-2 /LPF (0-2); RBC Urine 0-2 /HPF (0-2); Squamous Epithelial Cell Urine 0-2 /HPF (0-2); WBC Urine 0-5 /HPF (0-5)
[2023-11-03 12:54] LABS: MANUAL DIFF FLAG NO
[2023-11-03 12:57] LABS: Amphetamine Screen Urine Not Detected (Not Detect); Barbiturates, Urine Not Detected (Not Detect); Benzodiazepines Screen Urine Not Detected (Not Detect); Buprenorphine Scr Not Detected (Not Detect); Cannabinoid Screen Urine POSITIVE (Not Detect); Cocaine Screen Urine Not Detected (Not Detect); Fentanyl, urine Not Detected (Not Detect); Methadone Screen, Urine Not Detected (Not Detect); Opiate Screen Urine Not Detected (Not Detect); Oxycodone Screen Urine Not Detected (Not Detect); Phencyclidine Screen Urine Not Detected (Not Detect)
--- NOTE | 2023-11-03 12:57 | ED.PSYCH ---
HPI - Psych General Chief Complaint: Psychiatric Symptoms Stated Complaint: ANXIOUS/AUD CHEN AFTER SMOKING MARIJUANA PER EMS Time Seen by Provider: 11/03/23 12:16 Source: patient and old records reviewed Mode of arrival: ambulatory Limitations: no limitations History of Present Illness ED Provider: MIRZA TOMPKINS Narrative: 62 yo female with PMH of anxiety, schizoaffective disorder, mood disorder, sedative abuse here with c/o severe anxiety requesting meds to help. Denies SI/HI/AH/VH. She does not want to go inpatient she notes she just had a lot of stress at home happen at once but she is safe at home. complaint: anxiety Onset (ago): day(s) (2) Duration: intermittent History of same: Yes Relieving factors: none Exacerbating factors: other Context: significant life stressor Associated psychiatric symptoms: none Associated symptoms: denies other symptoms Treatments prior to arrival: none Related Data Home Medications ?Medication ?Instructions ?Recorded ?Confirmed buspirone 5 mg tablet 5 mg PO BID 11/03/23 11/03/23 fluvoxamine 25 mg tablet 50 mg PO BID 11/03/23 11/03/23 olanzapine 10 mg tablet 10 mg PO DAILY 11/03/23 11/03/23 Allergies Allergy/AdvReac Type Severity Reaction Status Date / Time cephalexin [From Keflex] Allergy Hives Verified 11/03/23 12:10 From KEFLEX Allergy Unknown UNK Uncoded 11/03/23 12:10 From PAXIL Allergy Unknown UNK Uncoded 11/03/23 12:10 Review of Systems Review of Systems: Constitutional : No Fever, No Chills ENT/Mouth : No Ear Pain, No Nasal Congestion, No sore throat Eyes: No Eye Pain, No Swelling, No Redness Cardiovascular : No Chest Pain, No SOB Respiratory : No Cough, No Sputum, No Dyspnea Gastrointestinal : No Nausea, No Vomiting, No Diarrhea, No Hematochezia, No Melena Genitourinary : No Dysuria, No Urinary Frequency, No Hematuria Musculoskeletal : No Myalgias Skin : No Skin Lesions, No rash Neuro : No Weakness, No Numbness, No Paresthesias, No Dizziness, No Headache Psych : positive Anxiety, positive Depression, no SI/HI Heme/Lymph: No Lymphadenopathy Endocrine : No Polyuria, No Polydipsia All other systems reviewed and are negative [facility] Past Medical History Attestation statement: The following information was validated with the patient. Source: old records reviewed Medical History Opioid use disorder Sedative abuse Mood disorder Anxiety Schizoaffective disorder, depressive type Surgical History S/P appendectomy Social History Social History Household Members: None Household Members Other:: none Housing: Apartment Do you presently have visiting nurse or other home services: No Alcohol intake: never Patient Tobacco Use Status: Former Tobacco user Tobacco use type: Cigarette Smoked in Last 30 Days: No Second Hand Smoke Exposure: No Use of substances other than those prescribed or required for medical reasons: Yes Substance Use Type: Marijuana Substance Use Frequency: Daily Advance Directives: No Advance Directives Information Provided: Yes Patient : No service: No Sexual orientation: Straight/Heterosexual Physical Exam Vital Signs: Vital Signs: Last Vital Signs Temp 96.9 F 11/03/23 12:08 Pulse 80 11/03/23 12:08 Resp 22 H 11/03/23 12:17 BP 115/91 H 11/03/23 12:08 Pulse Ox 96 11/03/23 12:08 O2 Del Method Room Air 11/03/23 12:08 BMI result Body Mass Index 28.3 Appearance: Alert. Oriented X3. No acute distress. much more calm after ativan - I saw her after the dosing Eyes: Pupils equal, round and reactive to light. ENT: Pharynx normal. Neck: Normal inspection. Neck supple. CVS: Normal heart rate and rhythm. Pulses normal. Respiratory: No respiratory distress. Breath sounds normal. Abdomen: Soft and nontender. Skin: Skin warm and dry. Normal skin color. Normal skin turgor. Extremities: No lower extremity edema. No calf ttp Neuro: Oriented X 3. No motor deficit. No sensory deficit. Medications Administered Discontinued Medications Generic Name Dose Route Start Last Admin Trade Name Freq PRN Reason Stop Dose Admin Lorazepam 2 mg 11/03/23 12:16 11/03/23 12:20 Lorazepam 1 Mg Tablet PO 11/03/23 12:17 2 mg ONCE ONE Administration Medical Decision Making Medical Decision Making MDM Narrative: 62 yo female with PMH of anxiety, schizoaffective disorder, mood disorder, sedative abuse here with c/o anxiety due to life stress no SI/HI/AH/VH she states after ativan feels better and has safe place to go home she does not want to go inpatient. At this time not sectionable she declines to stay will DC home Differential Diagnosis Differential Diagnoses: The differential diagnosis associated with the presentation includes anxiety Admission/Observation Consideration of admission/observation: Escalation of care including admission/observation considered does not want to stay no SI/HI no AH wants to go home Lab Data MDM Lab Attestation statement: I reviewed the patient's lab results. 11/03/23 12:49 11/03/23 12:49 Labs: Lab Results 11/03/23 Range/Units 12:18 Urine Color Yellow Urine Appearance Clear Urine pH 5.5 (5.0-9.0) Ur Specific [place] 1.020 (1.005-1.025) Urine Protein Negative (Neg-Trace) mg/dL Urine Glucose (UA) Negative (Negative) mg/dL Urine Ketones Trace (Negative) mg/dL Urine Blood Negative (Negative) Urine Nitrite Negative (Negative) Ur Leukocyte Esterase Trace H (Negative) Urine RBC 0-2 (0-2) /HPF Urine WBC 0-5 (0-5) /HPF Ur Squamous Epith Cells 0-2 (0-2) /HPF Urine Bacteria None Seen (None Seen) Hyaline Casts 0-2 (0-2) /LPF External Record Review External record reviewed: Inpatient record Discharge Plan Discharge Clinical Impression: Acute anxiety Patient Disposition: Home, Self-Care Instructions: Anxiety (ED) Additional Instructions: return for any worsening symptoms or concerns. follow up with your outpatient mental health providers Prescriptions: No Action buspirone 5 mg tablet 5 mg PO BID olanzapine 10 mg tablet 10 mg PO DAILY fluvoxamine 25 mg tablet 50 mg PO BID Interventions: [place]-Suicide Risk Severity Scale Last Done: 11/03/23 12:17 Print Language: Tajik
[2023-11-03 13:06] LABS: Basophils Absolute Auto 0.1 X10*3/uL (0.0-0.2); Basophils Percent Auto 0.7 % (0-2); Eosinophils Absolute Auto 0.1 X10*3/uL (0.0-0.4); Eosinophils Percent Auto 0.7 % (0-4); Hematocrit 42.1 % (37.0-47.0); Hemoglobin 14.3 g/dl (12.0-16.0); Imm Gran Abs Auto 0.04 X10*3/uL (0.00-0.03); Imm Gran Pct Auto 0.5 % (0.0-0.4); Lymphocytes Absolute Auto 1.8 X10*3/uL (1.2-4.9); Lymphocytes Percent Auto 21.9 % (20-40); Mean Corpuscular Hemoglobin 29.6 pg (27.0-33.0); Mean Corpuscular Volume 87.2 fL (80.0-98.0); Mean Platelet Volume 10.2 fL (9.4-12.3); Monocytes Absolute Auto 0.5 X10*3/uL (0.1-1.2); Monocytes Percent Auto 5.8 % (2-11); Neutrophils Absolute Auto 5.7 x10*3/uL (2.0-8.3); Neutrophils Percent Auto 70.4 % (45-73); Platelet Count 332 X10*3/uL (160-400); Red Blood Count 4.83 X10*6/uL (4.20-5.50); Red Cell Distribution Width 12.4 % (11.0-16.0); White Blood Count 8.2 X10*3/uL (4.8-10.8)
--- NOTE | 2023-11-03 13:18 | PC.NURSE ---
MD at bedside, patient is not feeling SI or HI. Patient called her boyfriend who is able to pick her up earliest around 16:00 today. Patient is her voluntarily.
[2023-11-03 13:28] LABS: Alanine Aminotransferase 24 U/L (0-31); Albumin Level 4.5 g/dL (3.5-5.0); Alkaline Phosphatase 83 U/L (39-117); Anion Gap 13 (12-20); Aspartate Amino Transferase 15 U/L (5-31); Bilirubin Total 0.3 mg/dL (0.0-1.0); Blood Urea Nitrogen 10 mg/dL (9-16); Calcium 9.9 mg/dL (8.4-10.2); Carbon Dioxide 22 mmol/L (22-29); Chloride 111 mmol/L (96-108); Estimated Glomerular Filt Rate > 60; Ethanol < 10 mg/dL; Glucose Random 101 mg/dL (60-115); Potassium 3.9 mmol/L (3.3-5.1); Sodium 142 mmol/L (135-145); Total Protein 7.5 g/dL (6.5-8.0)
--- NOTE | 2023-11-03 14:36 | PC.NURSE ---
patient appears much calmer now, reports decreased anxiety
[2023-11-03 15:54] VITALS: BP 124/64; PULSE 89; RESP 18; TEMP 36.6; O2SAT 98
== END 2023-11-03 15:57 | disposition home or self-care (01) ==
PROVIDERS: Emergency Provider Emergency Medicine
DX: F41.1 Generalized anxiety disorder (principal); F43.0 Acute stress reaction; F12.180 Cannabis abuse with cannabis-induced anxiety disorder; F43.9 Reaction to severe stress, unspecified; Z79.899 Other long term (current) drug therapy; F33.1 Major depressive disorder, recurrent, moderate; Z87.891 Personal history of nicotine dependence; Z51.81 Encounter for therapeutic drug level monitoring
CPT/HCPCS: 36415; 80053; 80307; 81001; 85025; 99283; 99285

== ENCOUNTER 2023-11-04 13:31 | Emergency (ER) | payer OTHER, SELFPAY ==
[2023-11-04 13:51] VITALS: BP 104/70; BP 133/64; PULSE 86; PULSE 94; RESP 14; TEMP 35.8; O2SAT 96; BMI 29.0
--- NOTE | 2023-11-04 13:52 | ED_ITS ---
HPI - Psych General Chief Complaint: Psychiatric Symptoms Stated Complaint: CRISIS EVAL PER EMS Time Seen by Provider: 11/04/23 13:33 Source: patient, EMS and old records reviewed Mode of arrival: EMS Limitations: no limitations History of Present Illness ED Provider: MIRZA TOMPKINS Narrative: 62 yo female with PMH of anxiety, schizoaffective disorder, mood disorder, sedative abuse here with c/o anxiety worried she's going to hell. She is crying and pacing. She looks more disheveled and upset than yesterday DO NOT GIVE PATIENT BENZOS ANYMORE ON ARRIVAL PER REVIEW OF CHART AND HER [facility] PACT TEAM THIS IS HER TREATMENT PROTOCOL AND SHE HAS SEDATIVE ABUSE. MD complaint: anxiety Onset (ago): day(s) (few) Duration: getting worse History of same: Yes Relieving factors: none Exacerbating factors: other Context: significant life stressor Associated psychiatric symptoms: depression Associated symptoms: denies other symptoms Related Data Home Medications ?Medication ?Instructions ?Recorded ?Confirmed buspirone 5 mg tablet 5 mg PO BID 11/03/23 11/03/23 fluvoxamine 25 mg tablet 50 mg PO BID 11/03/23 11/03/23 olanzapine 10 mg tablet 10 mg PO DAILY 11/03/23 11/03/23 Allergies Allergy/AdvReac Type Severity Reaction Status Date / Time cephalexin [From Keflex] Allergy Hives Verified 11/04/23 13:53 From KEFLEX Allergy Unknown UNK Uncoded 11/04/23 13:53 From PAXIL Allergy Unknown UNK Uncoded 11/04/23 13:53 Review of Systems Review of Systems: Constitutional : No Fever, No Chills ENT/Mouth : No Ear Pain, No Nasal Congestion, No sore throat Eyes: No Eye Pain, No Swelling, No Redness Cardiovascular : No Chest Pain, No SOB Respiratory : No Cough, No Sputum, No Dyspnea Gastrointestinal : No Nausea, No Vomiting, No Diarrhea, No Hematochezia, No Melena Genitourinary : No Dysuria, No Urinary Frequency, No Hematuria Musculoskeletal : No Myalgias Skin : No Skin Lesions, No rash Neuro : No Weakness, No Numbness, No Paresthesias, No Dizziness, No Headache Psych : positive Anxiety, positive Depression, no SI/HI All other systems reviewed and are negative PMFSH Past Medical History Attestation statement: The following information was validated with the patient. Source: old records reviewed Medical History Opioid use disorder Sedative abuse Mood disorder Anxiety Schizoaffective disorder, depressive type Surgical History S/P appendectomy Social History Social History Household Members: None Household Members Other:: none Housing: Apartment Do you presently have visiting nurse or other home services: No Alcohol intake: never Patient Tobacco Use Status: Former Tobacco user Tobacco use type: Cigarette Second Hand Smoke Exposure: No Substance Use Type: Marijuana Advance Directives: No Advance Directives Information Provided: No Do you have a plan to hurt others: No Plan service: No Sexual orientation: Straight/Heterosexual Physical Exam Vital Signs: Vital Signs: Last Vital Signs Temp 96.5 F L 11/04/23 13:51 Pulse 86 11/04/23 13:51 Resp 14 11/04/23 13:51 BP 133/64 11/04/23 13:51 Pulse Ox 96 11/04/23 13:51 O2 Del Method Room Air 11/04/23 13:51 BMI result Body Mass Index 29.0 Appearance: Alert. Oriented X3. Mild acute distress. pacing around pod, crying, wringing hands Eyes: Pupils equal, round and reactive to light. ENT: Pharynx normal. Neck: Normal inspection. Neck supple. CVS: Normal heart rate and rhythm. Pulses normal. Respiratory: No respiratory distress. Breath sounds normal. Abdomen: Soft and nontender. Skin: Skin warm and dry. Normal skin color. Normal skin turgor. Extremities: No lower extremity edema. No calf ttp Neuro: Oriented X 3. No motor deficit. No sensory deficit. CN2-12 intact Medications Administered Discontinued Medications Generic Name Dose Route Start Last Admin Trade Name Freq PRN Reason Stop Dose Admin Lorazepam 2 mg 11/04/23 13:40 11/04/23 13:58 Lorazepam 1 Mg Tablet PO 11/04/23 13:41 2 mg ONCE ONE Administration Medical Decision Making Medical Decision Making MDM Narrative: 62 yo female with PMH of anxiety, schizoaffective disorder, mood disorder, sedative abuse here with c/o again of severe anxiety she is pacing crying and acting erratic which is different compared to yesterday she was much more calm and with it. at this time labs reassuring yesterday - will repeat drug screen and ethanol then give PO ativan today she will need CARE team consult DO NOT GIVE PATIENT BENZOS ANYMORE ON ARRIVAL PER REVIEW OF CHART AND HER [facility] PACT TEAM THIS IS HER TREATMENT PROTOCOL AND SHE HAS SEDATIVE ABUSE. Differential Diagnosis Differential Diagnoses: The differential diagnosis associated with the presentation includes anxiety, med seeking Admission/Observation Consideration of admission/observation: Escalation of care including admission/observation considered CLEARED BY CARE TEAM Consult Healthcare Provider Management of the patient was discussed with: Behavioral Health Provider Lab Data [facility] Lab Attestation statement: I reviewed the patient's lab results. Independent Historian Clinical information obtained from an independent historian. History obtained from or confirmed by: EMS External Record Review External record reviewed: Inpatient record Social Determinants Patient?s care significantly limited by Social Determinants of Health including: Problems related to primary support group Discharge Plan Discharge Clinical Impression: Sedative abuse Patient Disposition: Home, Self-Care Instructions: Benzodiazepine Abuse (ED) Additional Instructions: please follow up with your outpatient mental health providers. we will now being following [facility] protocol and you will be given alternatives for anxiety here and not any benzodiazepine ie ativan, xanax, valium. Prescriptions: No Action buspirone 5 mg tablet 5 mg PO BID olanzapine 10 mg tablet 10 mg PO DAILY fluvoxamine 25 mg tablet 50 mg PO BID Print Language: Kinyarwanda
[2023-11-04] MEDS: LORazepam 1 MG TABLET 2 MG PO (13:58)
[2023-11-04 14:24] LABS: Ethanol < 10 mg/dL
[2023-11-04 14:34] LABS: Appearance Urine Clear; Color Urine Yellow; Glucose Urine UA Negative (Negative); Leukocyte Esterase Urine Negative (Negative); Nitrite Urine Negative (Negative); Urine Blood Negative (Negative); Urine Ketones Negative (Negative); Urine Protein Negative (Neg-Trace)
[2023-11-04 14:40] LABS: Amphetamine Screen Urine Not Detected (Not Detect); Barbiturates, Urine Not Detected (Not Detect); Benzodiazepines Screen Urine Not Detected (Not Detect); Buprenorphine Scr Not Detected (Not Detect); Cannabinoid Screen Urine POSITIVE (Not Detect); Cocaine Screen Urine Not Detected (Not Detect); Fentanyl, urine Not Detected (Not Detect); Methadone Screen, Urine Not Detected (Not Detect); Opiate Screen Urine Not Detected (Not Detect); Oxycodone Screen Urine Not Detected (Not Detect); Phencyclidine Screen Urine Not Detected (Not Detect)
[2023-11-04 14:53] VITALS: BP 00/00; PULSE 0; RESP 0; TEMP -17.7; TEMP 0; O2SAT 0
== END 2023-11-04 14:57 | disposition home or self-care (01) ==
PROVIDERS: Emergency Provider Emergency Medicine; PCP Family Medicine
DX: F13.10 Sedative, hypnotic or anxiolytic abuse, uncomplicated (principal); F41.9 Anxiety disorder, unspecified; F39 Unspecified mood [affective] disorder; F25.9 Schizoaffective disorder, unspecified; Z79.899 Other long term (current) drug therapy
CPT/HCPCS: 36415; 80307; 81003; 99283; 99284; S9485

== ENCOUNTER 2023-11-11 10:04 | Emergency (ER) | payer OTHER, SELFPAY ==
[2023-11-11 10:09] VITALS: BP 129/63; PULSE 102; RESP 18; O2SAT 98; BMI 28.7
--- NOTE | 2023-11-11 10:27 | MHC.EDTECH ---
BELONGINGS IN LOCKER 9 PER OFFICER DIANA
--- NOTE | 2023-11-11 10:38 | ED.GENADULT ---
HPI - General Adult General Chief complaint: Psychiatric Symptoms Stated complaint: Crisis Time Seen by Provider: 11/11/23 10:38 Source: patient Mode of arrival: ambulatory Limitations: no limitations History of Present Illness ED Provider: Cathy Kohler PA-C HPI narrative: Patient is a 62 year old assigned female at with a history of anxiety and benzo abuse presenting to the emergency department today with increased anxiety. Patient states that she is feeling more anxious and she is concerned that she is going to go to hell after she dies. Patient denies any suicidal or homicidal ideation, dizziness, lightheadedness, abdominal pain, nausea, vomiting, fever, chills, blurry vision, double vision, loss of vision, chest pain, difficulty breathing, shortness of breath, back pain, night sweats, pain with urination, increased urinary frequency, increased urinary urgency, blood in her urine or stool, syncope or a near syncopal episode, recent trauma or falls, bowel incontinence, bladder incontinence, or any other complaints at this time. Relieving factors: none Exacerbating factors: none Associated symptoms: denies other symptoms Treatments prior to arrival: none Related Data Home Medications ?Medication ?Instructions ?Recorded ?Confirmed buspirone 5 mg tablet 5 mg PO BID 11/03/23 11/03/23 fluvoxamine 25 mg tablet 50 mg PO BID 11/03/23 11/03/23 olanzapine 10 mg tablet 10 mg PO DAILY 11/03/23 11/03/23 Allergies Allergy/AdvReac Type Severity Reaction Status Date / Time cephalexin [From Keflex] Allergy Hives Verified 11/11/23 10:10 From KEFLEX Allergy Unknown UNK Uncoded 11/11/23 10:10 From PAXIL Allergy Unknown UNK Uncoded 11/11/23 10:10 Review of Systems Constitutional: Constitutional: Reports no additional constitutional complaints, Denies chills, Denies fever(s) and Denies night sweats Eyes: Eyes: Reports no additional eye complaints, Denies blurry vision, Denies change in vision, Denies diplopia, Denies eye discharge, Denies loss of vision and Denies eye pain ENT: Denies dizziness Cardiovascular: Cardiovascular: Reports no additional cardiovascular complaints, Denies chest pain, Denies lightheadedness, Denies Loss of Consciousness and Denies dyspnea Respiratory: Respiratory: Reports no additional respiratory complaints and Denies dyspnea Gastrointestinal: Gastrointestinal: Reports no additional gastrointestinal complaints, Denies abdominal pain, Denies melena, Denies hematochezia, Denies change in bowel habits and Denies change in stool character Genitourinary: Genitourinary: Denies hematuria, Denies urinary frequency, Denies dysuria, Denies urinary incontinence, Denies urinary hesitancy and Denies urinary urgency Musculoskeletal: Musculoskeletal: Reports no additional musculoskeletal complaints, Denies numbness and Denies tingling Neurologic: Denies dizziness, Denies loss of vision, Denies numbness and Denies tingling Psychiatric: Psychiatric: Reports anxiety Endocrine: Endocrine: Reports no additional endocrine complaints Hematologic/Lymphatic: Hematologic/Lymphatic: Reports no additional hematologic/lymphatic complaints Allergic/Immunologic: Allergic/Immunologic: Reports no additional allergic/immunologic complaints PMFSH Past Medical History Attestation statement: The following information was validated with the patient. Source: old records reviewed and nursing notes reviewed Medical History Opioid use disorder Sedative abuse Mood disorder Anxiety Schizoaffective disorder, depressive type Surgical History S/P appendectomy Social History Social History Household Members: None Household Members Other:: none Housing: Apartment Do you presently have visiting nurse or other home services: No Alcohol intake: never Patient Tobacco Use Status: Former Tobacco user Tobacco use type: Cigarette Second Hand Smoke Exposure: No Substance Use Type: Marijuana Advance Directives: No Advance Directives Information Provided: No Do you have a plan to hurt others: No Plan service: No Sexual orientation: Straight/Heterosexual Physical Exam ED Vital Signs: Vital Signs - 24 hr 11/11/23 10:09 11/11/23 11:41 Temperature 98.5 F Pulse Rate 102 H 102 H Respiratory Rate 18 18 Blood Pressure 129/63 129/63 Pulse Oximetry 98 98 Oxygen Delivery Method Room Air Room Air BMI result Body Mass Index 28.7 Const General: cooperative, no acute distress, alert and awake Nutritional Appearance: well nourished Orientation/consciousness: patient oriented x3 Limitations: no limitations HENMT Head: Yes normal to inspection and Yes atraumatic Ears: hearing grossly normal bilaterally and external ears normal General nose exam: Normal external nose present, no nasal discharge noted and no epistaxis Face and sinus: Yes normal facial exam, No abrasion and No laceration Mouth: Normal oral and palatal mucosa present, no drooling and no muffled voice Eyes General: appearance normal, both eyes and all related structures Periorbital: periorbital findings normal Eyelids: Yes eyelids normal Conjunctivae: conjunctivae normal Pupils: Equal, round and reactive pupils present EOM: EOMs intact bilaterally Neck Neck: Yes normal visual inspection, Yes full ROM and Yes no lymphadenopathy Chest Chest palpation & inspection: normal inspection of the chest Resp Effort & Inspection: normal respiratory effort and able to speak in complete sentences GI Inspection: Yes normal to inspection Neuro General: patient oriented x3 and moves all extremities Cranial nerves: Yes Equal, round and reactive pupils present Cognition (Neuro): normal cognition Extrem General: Yes normal to inspection, Yes full ROM and Yes capillary refill normal Psych Appearance: grossly normal Mental Status: mental status grossly normal Affect: normal affect Attitude: cooperative Thought process: Normal thought process present Thought content: Normal thought content present Insight: Good insight present (Psych) Medications Administered Discontinued Medications Generic Name Dose Route Start Last Admin Trade Name Freq PRN Reason Stop Dose Admin Hydroxyzine HCl 25 mg 11/11/23 10:50 11/11/23 11:08 Hydroxyzine Hcl 25 Mg Tablet PO 11/11/23 10:51 25 mg ONCE ONE Administration Medical Decision Making Medical Decision Making [facility] Narrative: Patient is a 62 year old assigned female at with a history of anxiety and benzo abuse presenting to the emergency department today with increased anxiety. Patient's physical exam was unremarkable. I explained my physical exam findings to the patient. I answered all questions asked by the patient. Patient received hydroxyzine which she stated helped her symptoms significantly. I stressed the importance of the patient taking her medication as directed (either prescribed or as the over the counter packaging recommends). I stressed the importance of the patient following up with her primary care provider. I stressed the importance of the patient returning to the emergency department immediately if her symptoms were to worsen or if she were to develop any dizziness, shortness of breath, difficulty breathing, chest pain, blurry vision, loss of vision, nausea, vomiting, abdominal pain, fever, chills, back pain, or any other complaints. Patient verbalized agreement and understanding with this treatment plan and discharge. Differential Diagnosis Differential Diagnoses: The differential diagnosis associated with the presentation includes Anxiety Benzo seeking Admission/Observation Consideration of admission/observation: Escalation of care including admission/observation considered Patient would have been admitted to the hospital had her clinical presentation warranted hospital admission. Discharge Plan Discharge Clinical Impression: Anxiety Patient Disposition: Home, Self-Care Instructions: Anxiety (ED) Additional Instructions: Follow up with your primary care provider. Return to the emergency department immediately if your symptoms worsen or if you develop any dizziness, shortness of breath, difficulty breathing, chest pain, blurry vision, loss of vision, nausea, vomiting, abdominal pain, fever, chills, back pain, or any other complaints. [facility]: [address] [place] [id number] Walk in hours from 10am - 12pm Open from 10am - 12pm [facility] Crisis Services: [address] [place] [address] Walk in hours from 10am - 12pm Open 16/11 Behavioral [facility]: [address] [place] [id number] [address] [place] [id number] Hours: M-F 8am to 8pm Wednesday and Wednesday 9am to 5pm Prescriptions: No Action buspirone 5 mg tablet 5 mg PO BID olanzapine 10 mg tablet 10 mg PO DAILY fluvoxamine 25 mg tablet 50 mg PO BID Referrals: [facility] [Provider Group] (Call to establish and follow up with a primary care provider. If you already have a primary care provider, please follow up with them.) [facility] [Provider Group] [facility] Felisa Charlton [Provider Group] Interventions: [place]-Suicide Risk Severity Scale Last Done: 11/11/23 10:36 ED Discharge Assessment Last Done: 11/11/23 11:41 Discharge Date/Time: 11/11/23 11:41 Print Language: Faroese
--- NOTE | 2023-11-11 10:47 | PC.NURSE ---
Pt. arrives to ED voluntarily. Drove herself here. Changed over with this RN and security at bedside- belongings secured in POD. Pt. denies HI and/or SI. States that the devil told her to come here. Denies hearing voices, states that these are uncontrollable thoughts she is having. Q15 minute checks.
[2023-11-11] MEDS: hydrOXYzine HCL 25 MG TABLET PO (11:08)
[2023-11-11 11:41] VITALS: BP 129/63; PULSE 102; RESP 18; TEMP 36.9; O2SAT 98
== END 2023-11-11 11:41 | disposition home or self-care (01) ==
PROVIDERS: Emergency Provider Emergency Medicine Emergency Medical Services
DX: F41.9 Anxiety disorder, unspecified (principal)
CPT/HCPCS: 99283; 99284

== ENCOUNTER 2023-11-18 07:54 | Emergency (ER) | payer OTHER, SELFPAY ==
[2023-11-18 08:10] VITALS: BP 118/50; PULSE 80; O2SAT 97
[2023-11-18 08:11] VITALS: BP 118/80; PULSE 80; RESP 20; O2SAT 97; BMI 26.6
[2023-11-18] MEDS: OLANZapine ODT 10 MG TAB.RAPDIS TRANSLINGU (08:21)
--- NOTE | 2023-11-18 08:28 | ED_ITS ---
HPI - Psych General Chief Complaint: Psychiatric Symptoms Stated Complaint: hallucinations Time Seen by Provider: 11/18/23 08:11 Source: patient and EMS Mode of arrival: EMS Limitations: no limitations History of Present Illness ED Provider: DR. Cervantes HPI Narrative: 62-year-old female history of schizoaffective disorder, anxiety, mood disorder, cannabis use came in for evaluation of hearing voices started since yesterday worsening at the [facility] this morning, voices is telling the patient that she is going to hell. Patient is not taking antipsychotic medication home. No SI, no HI. Related Data Home Medications ?Medication ?Instructions ?Recorded ?Confirmed buspirone 5 mg tablet 5 mg PO BID 11/03/23 11/03/23 fluvoxamine 25 mg tablet 50 mg PO BID 11/03/23 11/03/23 olanzapine 10 mg tablet 10 mg PO DAILY 11/03/23 11/03/23 Allergies Allergy/AdvReac Type Severity Reaction Status Date / Time cephalexin [From Keflex] Allergy Hives Verified 11/18/23 08:14 From KEFLEX Allergy Unknown UNK Uncoded 11/18/23 08:14 From PAXIL Allergy Unknown UNK Uncoded 11/18/23 08:14 Review of Systems 2 Review of Systems: All other systems are reviewed and are negative Constitutional: Reports as per HPI and Reports no additional constitutional complaints Eyes: Reports as per HPI and Reports no additional eye complaints Reports system reviewed and no additional complaints, except as documented Cardiovascular: Reports as per HPI and Reports no additional cardiovascular complaints Respiratory: Reports as per HPI and Reports no additional respiratory complaints Gastrointestinal: Reports as per HPI and Reports no additional gastrointestinal complaints Genitourinary: Reports no additional female genitourinary complaints Musculoskeletal: Reports no additional musculoskeletal complaints Skin/Breast: Reports system reviewed and no additional complaints, except as docu Psychiatric: Reports no additional psychiatric complaints Endocrine: Reports no additional endocrine complaints Hematologic/Lymphatic: Reports no additional hematologic/lymphatic complaints Allergic/Immunologic: Reports no additional allergic/immunologic complaints Reports system reviewed and no additional complaints, except as documented and Reports Abnormal speech present PMFSH Past Medical History Medical History Opioid use disorder Sedative abuse Mood disorder Anxiety Schizoaffective disorder, depressive type Surgical History S/P appendectomy Social History Social History Household Members: None Household Members Other:: none Housing: Apartment Do you presently have visiting nurse or other home services: No Alcohol intake: never Patient Tobacco Use Status: Former Tobacco user Tobacco use type: Cigarette Second Hand Smoke Exposure: No Use of substances other than those prescribed or required for medical reasons: Yes Substance Use Type: Marijuana Last Used Substance: Days (ago) Any prior treatment program specific to substance use: No Advance Directives: No Advance Directives Information Provided: No service: No Sexual orientation: Straight/Heterosexual Physical Exam 2 Vital Signs: Vital Signs: Last Vital Signs Temp 97.9 F 11/18/23 08:33 Pulse 96 11/18/23 08:33 Resp 16 11/18/23 08:33 BP 115/66 11/18/23 08:33 Pulse Ox 96 11/18/23 08:33 O2 Del Method Room Air 11/18/23 08:33 BMI result Body Mass Index 26.6 Vital signs have been reviewed and appear to be correct. Blood pressure elevated. Heart rate normal. Respiratory rate normal. Temperature normal. Oxygen saturation normal. Appearance: Alert. Oriented X3. No acute distress. Head: Normal external exam. Normocephalic. Atraumatic. No Friend signs noted. No raccoon eyes noted Eyes: PERRLA. EOMI. Conjunctiva and sclera normal. Eyelids normal. ENT: TM's Normal. Pharynx normal. Uvula midline. Moist mucous membranes. No trismus noted. No drooling noted. No muffled voice noted. Neck: Normal inspection. Neck supple. FROM. No adenopathy. Thyroid Normal. No meningeal signs. No neck mass noted. CVS: Normal heart rate and rhythm. Heart sound normal. No murmurs noted. Pulses normal throughout. Respiratory: No respiratory distress. Painless inspiration. Breath sounds normal. No wheezes/rales/rhonchi noted. Chest nontender. No accessory muscle usage noted or decreased air movement noted. Abdomen: Soft and nontender. Bowel sounds normal in all 4 quadrants. No distention noted. No organomegaly noted. No visible injury noted. Back: No CVA tenderness. Full range of motion noted. Skin: Skin warm and dry. Normal skin color. Normal skin turgor. No rashes/lesions/lacerations noted. Extremities: No lower extremity edema. Extremities exhibit normal range of motion. Extremities nontender. Neuro: Oriented X 3. Cranial nerve exam: II-XII are grossly intact No motor deficit. No sensory deficit. Reflexes normal. Patient Orientation: Person, Place, Time and Situation, okay hygiene and grooming. Anxious, Fair eye contact, attentive, no tics or tremors. Level of Consciousness: Awake, Appropriate and Alert Patient Behavior: Appropriate, Guarded, Cooperative and Anxious Mood Description: Constricted, Blunted and Apprehensive Affect Description: Constricted, Blunted and Apprehensive Patient Cognition Impaired: No Ability to Follow Directions: Excellent Speech Pattern: Clear, Appropriate and Spontaneous Speech, nonpressured, spontaneous with regular rate and rhythm, normal volume and prosody. No dysarthria. Memory Description: Intact, Immediate Intact and Short Term Intact Hallucinations: Presence of auditory hallucination Delusions: Not Present Thought Process: Intact Thought Content:, denies Suicidal Ideation and denies Homicidal Ideation. Depressive Symptoms: Not present. Judgement and Insight: Limited but adequate. Course Reevaluation(s) Reevaluation #1: 62-year-old female history of schizoaffective disorder came in with auditory hallucination patient was given Zyprexa while in the emergency department no patient feels better, no hallucination, no SI, no HI, care team input is appreciated who recommended to the patient's prescriber to start on Zyprexa try to avoid benzos because patient has history of addiction. will discharge the patient. Time: 12:45 Medications Administered Discontinued Medications Generic Name Dose Route Start Last Admin Trade Name Hector PRN Reason Stop Dose Admin Olanzapine 10 mg 11/18/23 08:17 11/18/23 08:21 Olanzapine Odt 10 Mg Tab.Rapdis TRANSLINGU 11/18/23 08:18 10 mg ONCE ONE Administration Medical Decision Making Differential Diagnosis Differential Diagnoses: The differential diagnosis associated with the presentation includes (Anxiety, acute psychosis, medical clearance, electrolyte derangement, severe anemia, UTI, urine drug tox.) Admission/Observation Consideration of admission/observation: Escalation of care including admission/observation considered Lab Data MDM Lab Attestation statement: I reviewed the patient's lab results. 11/18/23 09:44 11/18/23 09:44 Labs: Lab Results 11/18/23 11/18/23 Range/Units 09:44 10:53 WBC 7.3 (4.8-10.8) X10*3/uL RBC 4.48 (4.20-5.50) X10*6/uL Hgb 13.8 (12.0-16.0) g/dl Hct 39.3 (37.0-47.0) % MCV 87.7 (80.0-98.0) fL MCH 30.8 (27.0-33.0) pg MCHC 35.1 H (31.0-35.0) g/dl RDW 12.5 (11.0-16.0) % Plt Count 281 (160-400) X10*3/uL MPV 10.4 (9.4-12.3) fL Immature Gran % (Auto) 0.1 (0.0-0.4) % Neut % (Auto) 69.7 (45-73) % Lymph % (Auto) 21.9 (20-40) % Simpson % (Auto) 5.9 (2-11) % Eos % (Auto) 1.4 (0-4) % Baso % (Auto) 1.0 (0-2) % Lymph # (Auto) 1.6 (1.2-4.9) X10*3/uL Simpson # (Auto) 0.4 (0.1-1.2) X10*3/uL Eos # (Auto) 0.1 (0.0-0.4) X10*3/uL Baso # (Auto) 0.1 (0.0-0.2) X10*3/uL Abs Immat Gran (auto) 0.01 (0.00-0.03) X10*3/uL Absolute Neuts (auto) 5.1 (2.0-8.3) x10*3/uL Absolute Nucleated RBC 0.000 (0.0-0.012) X10*3/uL Nucleated RBC % (auto) 0.0 (0.0-0.2) /100WBC Sodium 142 (135-145) mmol/L Potassium 3.9 (3.3-5.1) mmol/L Chloride 108 (96-108) mmol/L Carbon Dioxide 22 (22-29) mmol/L Anion Gap 16 (12-20) BUN 13 (9-16) mg/dL Creatinine 0.80 (0.5-1.4) mg/dL Estim Creat Clear Calc 74.6 Estimated GFR > 60 Random Glucose 133 H (60-115) mg/dL Calcium 9.2 D (8.4-10.2) mg/dL Total Bilirubin 0.5 (0.0-1.0) mg/dL AST 15 (5-31) U/L ALT 23 (0-31) U/L Alkaline Phosphatase 73 (39-117) U/L Total Protein 6.8 (6.5-8.0) g/dL Albumin 4.2 (3.5-5.0) g/dL Urine Color Dark Yellow Urine Appearance Clear Urine pH 5.5 (5.0-9.0) Ur Specific [place] 1.025 (1.005-1.025) Urine Protein Negative (Neg-Trace) mg/dL Urine Glucose (UA) Negative (Negative) mg/dL Urine Ketones Trace (Negative) mg/dL Urine Blood Negative (Negative) Urine Nitrite Negative (Negative) Ur Leukocyte Esterase Negative (Negative) Urine Opiates Screen Not Detected (Not Detect) Ur Buprenorphine Scrn Not Detected (Not Detect) ng/mL Ur Oxycodone Screen Not Detected (Not Detect) ng/mL Urine Methadone Screen Not Detected (Not Detect) ng/mL Urine Fentanyl Screen Not Detected (Not Detect) Ur Barbiturates Screen Not Detected (Not Detect) Ur Phencyclidine Scrn Not Detected (Not Detect) Ur Amphetamines Screen Not Detected (Not Detect) U Benzodiazepines Scrn Not Detected (Not Detect) Urine Cocaine Screen Not Detected (Not Detect) U Marijuana (THC) Screen POSITIVE H (Not Detect) Ethyl Alcohol < 10 mg/dL Chronic Conditions Patient?s care impacted by: Other (Schizoaffective disorder) Discharge Plan Discharge Clinical Impression: Acute anxiety Patient Disposition: Home, Self-Care Instructions: Anxiety (ED) Prescriptions: No Action buspirone 5 mg tablet 5 mg PO BID olanzapine 10 mg tablet 10 mg PO DAILY fluvoxamine 25 mg tablet 50 mg PO BID Interventions: [place]-Suicide Risk Severity Scale Last Done: 11/18/23 09:55 Print Language: Bahraini
[2023-11-18 08:33] VITALS: BP 115/66; PULSE 96; RESP 16; TEMP 36.6; O2SAT 96
[2023-11-18 09:49] LABS: MANUAL DIFF FLAG NO
[2023-11-18 09:50] LABS: Basophils Absolute Auto 0.1 X10*3/uL (0.0-0.2); Eosinophils Absolute Auto 0.1 X10*3/uL (0.0-0.4); Eosinophils Percent Auto 1.4 % (0-4); Hematocrit 39.3 % (37.0-47.0); Hemoglobin 13.8 g/dl (12.0-16.0); Imm Gran Abs Auto 0.01 X10*3/uL (0.00-0.03); Imm Gran Pct Auto 0.1 % (0.0-0.4); Lymphocytes Absolute Auto 1.6 X10*3/uL (1.2-4.9); Lymphocytes Percent Auto 21.9 % (20-40); Mean Corpuscular HGB Conc 35.1 g/dl (31.0-35.0); Mean Corpuscular Hemoglobin 30.8 pg (27.0-33.0); Mean Corpuscular Volume 87.7 fL (80.0-98.0); Mean Platelet Volume 10.4 fL (9.4-12.3); Monocytes Absolute Auto 0.4 X10*3/uL (0.1-1.2); Monocytes Percent Auto 5.9 % (2-11); Neutrophils Absolute Auto 5.1 x10*3/uL (2.0-8.3); Neutrophils Percent Auto 69.7 % (45-73); Platelet Count 281 X10*3/uL (160-400); Red Blood Count 4.48 X10*6/uL (4.20-5.50); Red Cell Distribution Width 12.5 % (11.0-16.0); White Blood Count 7.3 X10*3/uL (4.8-10.8)
[2023-11-18 10:14] LABS: Alanine Aminotransferase 23 U/L (0-31); Albumin Level 4.2 g/dL (3.5-5.0); Alkaline Phosphatase 73 U/L (39-117); Anion Gap 16 (12-20); Aspartate Amino Transferase 15 U/L (5-31); Bilirubin Total 0.5 mg/dL (0.0-1.0); Blood Urea Nitrogen 13 mg/dL (9-16); Calcium 9.2 mg/dL (8.4-10.2); Carbon Dioxide 22 mmol/L (22-29); Chloride 108 mmol/L (96-108); Creatinine Clr Calc Pharmacy 74.6; Estimated Glomerular Filt Rate > 60; Ethanol < 10 mg/dL; Glucose Random 133 mg/dL (60-115); Potassium 3.9 mmol/L (3.3-5.1); Sodium 142 mmol/L (135-145); Total Protein 6.8 g/dL (6.5-8.0)
[2023-11-18 11:02] LABS: Appearance Urine Clear; Color Urine Dark Yellow; Glucose Urine UA Negative (Negative); Leukocyte Esterase Urine Negative (Negative); Nitrite Urine Negative (Negative); PH 5.5 (5.0-9.0); Specific Gravity - Urine 1.025 (1.005-1.025); Urine Blood Negative (Negative); Urine Ketones Trace mg/dL (Negative); Urine Protein Negative (Neg-Trace)
[2023-11-18 11:09] LABS: Amphetamine Screen Urine Not Detected (Not Detect); Barbiturates, Urine Not Detected (Not Detect); Benzodiazepines Screen Urine Not Detected (Not Detect); Buprenorphine Scr Not Detected (Not Detect); Cannabinoid Screen Urine POSITIVE (Not Detect); Cocaine Screen Urine Not Detected (Not Detect); Fentanyl, urine Not Detected (Not Detect); Methadone Screen, Urine Not Detected (Not Detect); Opiate Screen Urine Not Detected (Not Detect); Oxycodone Screen Urine Not Detected (Not Detect); Phencyclidine Screen Urine Not Detected (Not Detect)
[2023-11-18 12:53] VITALS: BP 115/66; PULSE 96; RESP 16; TEMP 36.6; O2SAT 96
== END 2023-11-18 12:57 | disposition home or self-care (01) ==
PROVIDERS: Emergency Provider Emergency Medicine
DX: R44.0 Auditory hallucinations (principal); F41.9 Anxiety disorder, unspecified; F41.1 Generalized anxiety disorder; F43.0 Acute stress reaction; Z79.899 Other long term (current) drug therapy; Z51.81 Encounter for therapeutic drug level monitoring
CPT/HCPCS: 36415; 80053; 80307; 81003; 85025; 99284; S9485

== ENCOUNTER 2023-11-22 08:05 | Emergency (ER) | payer OTHER, SELFPAY ==
--- NOTE | 2023-11-22 | ECG_ITS ---
Test Reason : REPEAT EKG Blood Pressure : / mmHG Vent. Rate : 076 BPM Atrial Rate : 076 BPM P-R Int : 124 ms QRS Dur : 086 ms QT Int : 382 ms P-R-T Axes : 043 039 035 degrees QTc Int : 429 ms Normal sinus rhythm Normal ECG When compared with ECG of 22-NOV-2023 08:32, No significant change was found Referred By: Kristopher Haney Electronically Signed By:Luis Manuel Banerjee
--- NOTE | 2023-11-22 08:19 | ECG_ITS ---
Test Reason : ingestion Blood Pressure : / mmHG Vent. Rate : 079 BPM Atrial Rate : 079 BPM P-R Int : 132 ms QRS Dur : 094 ms QT Int : 380 ms P-R-T Axes : 037 054 041 degrees QTc Int : 435 ms Normal sinus rhythm Normal ECG When compared with ECG of 05-SEP-2023 15:23, No significant change was found Referred By: Kristopher Haney Electronically Signed By:Luis Manuel Banerjee
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
[2023-11-22] MEDS: Activated charcoaL 50 GM/240 ML ORAL.SUSP PO (08:22)
[2023-11-22 08:25] VITALS: BP 130/88; PULSE 75; RESP 18; TEMP 37.1; O2SAT 98; BMI 28.3
[2023-11-22 08:39] LABS: MANUAL DIFF FLAG NO
[2023-11-22] MEDS: 0.9 % Sodium Chloride 1,000 ML 999 ML IVCONT (08:39)
[2023-11-22 08:43] LABS: Basophils Absolute Auto 0.1 X10*3/uL (0.0-0.2); Basophils Percent Auto 0.8 % (0-2); Eosinophils Absolute Auto 0.1 X10*3/uL (0.0-0.4); Hematocrit 38.9 % (37.0-47.0); Hemoglobin 13.9 g/dl (12.0-16.0); Imm Gran Abs Auto 0.03 X10*3/uL (0.00-0.03); Imm Gran Pct Auto 0.4 % (0.0-0.4); Lymphocytes Absolute Auto 1.7 X10*3/uL (1.2-4.9); Lymphocytes Percent Auto 23.2 % (20-40); Mean Corpuscular HGB Conc 35.7 g/dl (31.0-35.0); Mean Corpuscular Hemoglobin 30.4 pg (27.0-33.0); Mean Corpuscular Volume 85.1 fL (80.0-98.0); Mean Platelet Volume 10.3 fL (9.4-12.3); Monocytes Absolute Auto 0.6 X10*3/uL (0.1-1.2); Monocytes Percent Auto 8.2 % (2-11); Neutrophils Absolute Auto 4.8 x10*3/uL (2.0-8.3); Neutrophils Percent Auto 66.4 % (45-73); Platelet Count 288 X10*3/uL (160-400); Red Blood Count 4.57 X10*6/uL (4.20-5.50); Red Cell Distribution Width 12.2 % (11.0-16.0); White Blood Count 7.2 X10*3/uL (4.8-10.8)
[2023-11-22 08:46] VITALS: BP 129/89; PULSE 86; RESP 20; TEMP 37.1; O2SAT 98
[2023-11-22 08:54] LABS: Ethanol < 10 mg/dL
--- NOTE | 2023-11-22 08:59 | PC.NURSE ---
patient arrives via external triage, was brought in by a friend after ingesting approximately 10 25mg benadryl just prior to arrival, when asking patient why she took the medication patient stated 'i just couldnt take it anymore, i was self medicating, i just cant feel this way anymore when asking patient what she means by that and if she was trying to end her life patient states no i just dont want to feel this way anymore MD immediately to bedside, patient changed over by security. VSS at this time, placed on wiping cloth cutter. patient well known to this ED for suicidal ideation and psychiatric symptoms. this RN attempted to give patient PO activated charcoal per MD order. patient drank approximately 100mL of 240mL, started gagging and spitting up. educated patient that she needs to drink the entirety of the charcoal. PIV placed by this RN and IV fluid bolus started per JUN. blood work drawn and sent to lab and ekg completed. patient fidgety in bed, unable to keep her legs still, asked this RN if i don't want to be here i can leave right educated patient that because she ingested medications she is unable to leave and needs to be seen by our crisis team and medically cleared. 1:1 sitter at bedside. [place] screening attempted to be done on patient, patient stating she is not suicidal, she is scared to , i just self medicate to go to sleep. MD made aware of patient not being able to drink entirety of activated charcoal. This RN called poison control and spoke with associate Lashaun. Per poison control, patient is to be monitored for 6-8hrs with supportive care, Q2H EKGs are to be obtained for the first 3 hours, after it can be switched to Q6H, monitor for [employer] s/s. poison control to be called back if QRS interval is >100 and QTC interval is >500. MD made aware of poison control recommendations. 1:1 sitter remains at bedside. patient resting comfortably on stretcher, remains on wiping cloth cutter. belongings taken by security
[2023-11-22 09:00] LABS: Acetaminophen LAB < 3 mcg/mL (<30); Alanine Aminotransferase 27 U/L (0-31); Albumin Level 4.3 g/dL (3.5-5.0); Alkaline Phosphatase 79 U/L (39-117); Anion Gap 14 (12-20); Aspartate Amino Transferase 16 U/L (5-31); Bilirubin Total 0.4 mg/dL (0.0-1.0); Blood Urea Nitrogen 14 mg/dL (9-16); Calcium 9.4 mg/dL (8.4-10.2); Carbon Dioxide 20 mmol/L (22-29); Chloride 109 mmol/L (96-108); Estimated Glomerular Filt Rate > 60; Glucose Random 116 mg/dL (60-115); Potassium 3.9 mmol/L (3.3-5.1); Salicylate < 5.0 mg/dL (15-30); Sodium 139 mmol/L (135-145)
--- NOTE | 2023-11-22 12:01 | PC.NURSE ---
per MD wheatley, patient medically cleared to go to unit, weigh and charge worker made aware, no beds currently available in behavioral health pod. 1:1 remains at bedside
[2023-11-22 14:23] VITALS: BP 119/82; PULSE 65; RESP 17; TEMP 36.6; O2SAT 97
[2023-11-22] MEDS: OLANZapine ODT 10 MG TAB.RAPDIS TRANSLINGU (14:53)
--- NOTE | 2023-11-22 15:02 | MHC.EDTECH ---
CALLED MIGDALIA AT [facility] TO GET ANY RECENT RECORDS STATED ' LAST RECORD
[2023-11-22 15:19] LABS: Appearance Urine Clear; Color Urine Yellow; Glucose Urine UA Negative (Negative); Leukocyte Esterase Urine Negative (Negative); Nitrite Urine Negative (Negative); PH 5.5 (5.0-9.0); Urine Blood Negative (Negative); Urine Ketones Negative (Negative); Urine Protein Negative (Neg-Trace)
[2023-11-22 15:27] LABS: Amphetamine Screen Urine Not Detected (Not Detect); Barbiturates, Urine Not Detected (Not Detect); Benzodiazepines Screen Urine POSITIVE (Not Detect); Buprenorphine Scr Not Detected (Not Detect); Cannabinoid Screen Urine POSITIVE (Not Detect); Cocaine Screen Urine Not Detected (Not Detect); Fentanyl, urine Not Detected (Not Detect); Methadone Screen, Urine Not Detected (Not Detect); Opiate Screen Urine Not Detected (Not Detect); Oxycodone Screen Urine Not Detected (Not Detect); Phencyclidine Screen Urine Not Detected (Not Detect)
[2023-11-22 15:49] VITALS: BP 119/82; PULSE 65; RESP 17; TEMP 36.6; O2SAT 97
[2023-11-23] MEDS: OLANZapine 5 MG TABLET PO (00:20)
[2023-11-23 00:46] VITALS: BP 124/85; PULSE 65; RESP 16; TEMP 36.4; O2SAT 98
[2023-11-23] MEDS: traZODone HCL 50 MG TABLET PO (02:03)
--- NOTE | 2023-11-23 05:47 | PC.NURSE ---
Pt sleeping at the bedside. No apparent distress noted. Breaths are even regular with equal chest rises. Monitoring is ongoing.
--- NOTE | 2023-11-23 06:52 | PC.NURSE ---
Assumed care of patient at 0645. Patient is observed resting quietly in their bed. No signs of distress. Breathing is even and unlabored.
[2023-11-23 07:19] VITALS: BP 117/86; PULSE 86; RESP 22; TEMP 36.4; O2SAT 99
[2023-11-23] MEDS: OLANZapine 10 MG TABLET PO (08:05)
[2023-11-23] MEDS: busPIRone HCl 5 MG TABLET PO (08:05)
--- NOTE | 2023-11-23 08:33 | PHA.MEDREC ---
Addendum entered by Janiya Briggs RPh 11/23/23 08:45: reviewed by [facility] Original Note: Pharmacy Consult ? Medication Reconciliation Pharmacy has completed the medication reconciliation. Pharmacy reviewed med rec done by nurse.
--- NOTE | 2023-11-23 11:47 | MHC.CARE ---
?When pt was presented with his disposition he was in disagreement.? Pt grew belligerent, accusatory, argumentative, and appeared reluctant to engage in a conversation rather, pt grew increasingly confrontational. Pt repeatedly knocked on the office door, was again confrontational and accusatory.? Pt remained in this state of belligerence until security was called and deescalated pt. Pt requested an Uber ride to [place] and was advised that CARE Team would provide one at the time of discharge.
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
[2023-11-23 13:10] VITALS: BP 117/86; PULSE 86; RESP 22; TEMP 36.4; O2SAT 99
== END 2023-11-23 13:15 | disposition home or self-care (01) ==
PROVIDERS: Emergency Provider Emergency Medicine; PCP Family Medicine
DX: T45.0X1A Poisoning by antiallergic and antiemetic drugs, accidental (unintentional), initial encounter (principal); Y92.098 Other place in other non-institutional residence as the place of occurrence of the external cause; F41.9 Anxiety disorder, unspecified; F33.1 Major depressive disorder, recurrent, moderate; F12.90 Cannabis use, unspecified, uncomplicated; Z79.899 Other long term (current) drug therapy; Z87.891 Personal history of nicotine dependence; Z51.81 Encounter for therapeutic drug level monitoring
CPT/HCPCS: 36415; 80053; 80143; 80179; 80307; 81003; 85025; 93005; 96360; 99285; S9485

== ENCOUNTER → 2023-11-22 08:15 | Outpatient (BNV) | payer OTHER, SELFPAY | PROVIDERS: Emergency Provider Emergency Medicine; PCP Family Medicine; Visit Provider Social Worker | DX: F25.0 Schizoaffective disorder, bipolar type (principal) | CPT/HCPCS: 99499 ==

== ENCOUNTER → 2023-11-22 08:19 | Outpatient (BNV) | payer OTHER, SELFPAY | PROVIDERS: Emergency Provider Emergency Medicine; PCP Family Medicine; Visit Provider Internal Medicine Cardiovascular Disease | DX: T45.0X1A Poisoning by antiallergic and antiemetic drugs, accidental (unintentional), initial encounter (principal) | CPT/HCPCS: 93010 ==

== ENCOUNTER 2023-12-17 06:57 | Emergency (ER) | payer OTHER, SELFPAY ==
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
[2023-12-17 07:11] VITALS: BP 126/69; PULSE 72; RESP 18; TEMP 36.6; O2SAT 97; BMI 23.4
[2023-12-17] MEDS: hydrOXYzine HCL 25 MG TABLET PO (07:34)
[2023-12-17 07:58] LABS: Appearance Urine Clear; Color Urine Yellow; Glucose Urine UA Negative (Negative); Leukocyte Esterase Urine Negative (Negative); Nitrite Urine Negative (Negative); PH 5.5 (5.0-9.0); Urine Blood Negative (Negative); Urine Ketones Negative (Negative); Urine Protein Negative (Neg-Trace)
[2023-12-17 08:08] LABS: Amphetamine Screen Urine Not Detected (Not Detect); Barbiturates, Urine Not Detected (Not Detect); Benzodiazepines Screen Urine Not Detected (Not Detect); Buprenorphine Scr Not Detected (Not Detect); Cannabinoid Screen Urine POSITIVE (Not Detect); Cocaine Screen Urine Not Detected (Not Detect); Fentanyl, urine Not Detected (Not Detect); Methadone Screen, Urine Not Detected (Not Detect); Opiate Screen Urine Not Detected (Not Detect); Oxycodone Screen Urine Not Detected (Not Detect); Phencyclidine Screen Urine Not Detected (Not Detect)
[2023-12-17 08:14] LABS: Bacteria Urine None Seen (None Seen); Calcium Oxalate Crystals Urine Present; Hyaline Casts Urine 0-2 /LPF (0-2); RBC Urine 0-2 /HPF (0-2); Squamous Epithelial Cell Urine 0-2 /HPF (0-2); WBC Urine 0-5 /HPF (0-5)
--- NOTE | 2023-12-17 08:23 | PC.NURSE ---
Pt arrived via EMS, pt at baseline cognition, Prabhu has plan in place, aware, D/c Placed shortly after pt arrived. Pt walked out to waiting room, lyft ride placed by care team
[2023-12-17 08:25] VITALS: BP 126/69; PULSE 72; RESP 18; TEMP 36.6; O2SAT 97
== END 2023-12-17 08:25 | disposition home or self-care (01) ==
PROVIDERS: Emergency Provider Emergency Medicine
DX: F41.9 Anxiety disorder, unspecified (principal); Z76.5 Malingerer [conscious simulation]; F25.0 Schizoaffective disorder, bipolar type; F12.10 Cannabis abuse, uncomplicated; Z79.899 Other long term (current) drug therapy
CPT/HCPCS: 80307; 81001; 99284; S9485

== ENCOUNTER 2024-03-16 21:13 | Inpatient (IN) | payer OTHER, SELFPAY ==
--- NOTE | ~2024-03-16 | XR_ITS ---
EXAMINATION: XR RIBS, LEFT CLINICAL INFORMATION: left thorax pain, s/p fall COMPARISON: None available. TECHNIQUE: 3 views of the left ribs were obtained. FINDINGS: There is a right infrahilar opacity above the right hemidiaphragm could be a patchy infiltrates, cannot rule out lung nodule. No consolidation, pneumothorax, or pleural effusion. The cardiomediastinal silhouette and pulmonary vasculature are normal. Osseous structures are unremarkable. Ribs are intact. No fractures are identified. XR/XR ribs LT min 3V w CXR1V IMPRESSION: 1. No radiographic evidence of rib fracture. 2. Right infrahilar opacity could be a patchy infiltrate, cannot rule out lung nodule. Consider correlation with follow-up chest x-ray in one month. If not performed would recommend follow-up chest CT. Electronically signed by: Jordan Parisi MD 04/09/2024 12:35 PM LAUREN
[2024-03-16 22:00] VITALS: BP 126/72; PULSE 82; RESP 16; TEMP 36.6; O2SAT 98
[2024-03-16 22:17] VITALS: BMI 29.5
[2024-03-16] MEDS: LORazepam 1 MG TABLET PO (22:56)
--- NOTE | 2024-03-17 00:43 | PC.ADMIT ---
Mya is a 63 year old White [place]oc[place] female who was BIBA to [facility] after presenting to [facility] verbalizing SI via toxic ingestion. She arrived on the unit @ 2124 via stretcher, alert/oriented, legal status 12B. Mya medical history includes Basal Cell CA 2017, GERD, HSV and fibroids. Mental Health diagnosis of Schizoaffective disorder. She has a HX of medication non-adherence and a SA via toxic ingestion in 2021. Mya presented on assessment as anxious, disorganized, and hopeless stating I'm suffering. Nothing works. Meds don't work. I'm going to hell. Verbalized no thoughts of self harm or plan, she just wants to declined to elaborate on cause or life changes leading up to admission, denies AVH. Mya stated she was unable to continue with admission process, Ativan given per order, declined scheduled Zyprexa I don't take Zyprexa and she went to bed. Tox screen negative, Hospitalist on-call notified of admission. Placed on 15 min unit safety observation.
[2024-03-17 07:29] VITALS: BP 126/80; PULSE 87; RESP 14; TEMP 36.7; O2SAT 99
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
[2024-03-17 10:28] LABS: Alanine Aminotransferase 26 U/L (0-31); Albumin Level 4.2 g/dL (3.5-5.0); Alkaline Phosphatase 81 U/L (39-117); Anion Gap 11 (12-20); Aspartate Amino Transferase 20 U/L (5-31); Bilirubin Total 0.4 mg/dL (0.0-1.0); Blood Urea Nitrogen 14 mg/dL (9-16); Calcium 10.3 mg/dL (8.4-10.2); Carbon Dioxide 28 mmol/L (22-29); Chloride 106 mmol/L (96-108); Cholesterol 187 mg/dL (<200); Creatinine Clr Calc Pharmacy 82.9; Estimated Glomerular Filt Rate > 60; Glucose Fasting 108 mg/dL (60-99); HDL Cholesterol 38 mg/dL (>40); LDL Cholesterol Calculated 128 mg/dL (<100); Potassium 4.2 mmol/L (3.3-5.1); Sodium 141 mmol/L (135-145); Triglycerides 105 mg/dL (<150)
[2024-03-17] MEDS: OLANZapine 5 MG TABLET PO ×2 (15:48→21:44)
[2024-03-17] MEDS: hydrOXYzine HCL 25 MG TABLET PO (15:48)
[2024-03-17] MEDS: LORazepam 1 MG TABLET PO (16:08)
[2024-03-17 20:00] VITALS: BP 104/70; PULSE 91; RESP 16; TEMP 36.1; O2SAT 97
[2024-03-17] MEDS: OLANZapine 10 MG TABLET PO (21:44)
[2024-03-18] MEDS: OLANZapine 5 MG TABLET PO ×2 (10:18→20:02)
[2024-03-18] MEDS: hydrOXYzine HCL 25 MG TABLET PO ×2 (11:12→20:02)
[2024-03-18] MEDS: OLANZapine 10 MG TABLET PO (20:02)
[2024-03-18] MEDS: traZODone HCL 50 MG TABLET PO (20:02)
--- NOTE | 2024-03-18 20:34 | HO.PSYCHPN ---
Subjective Subjective Date of Service: 03/18/24 Reason For Visit: Schizoaffective d/o bipolar type Interim History: asking for benzos, declined. otherwise no issues or requests. encouraged to take zyprexa. per staff, yelling she's possessed by the devil and going to hell and she's sick of medications, nothing's going to help. took zyprexa last NOC. slept 8 hours. restless, fidgety. Mental Status Exam Mental Status Exam Narrative: Appearance: casually groomed, fair hygiene, in NAD Behavior: calm Speech: soft, able to speak louder when required. decr amount, incr latency. TP: linear TC: preoccupied with ideas of devil, intrusive derogatory thoughts Mood: anxious Affect: constricted, normo-intense, non-labile SI: none expressed HI: none expressed AH/VH: none expressed Insight/judgment:poor x2 Memory/cog: alert, oriented x 3. impaired secondary to psychiatric symptoms. Diagnostics Vital Signs (24Hr): BMI result Body Mass Index 29.5 Labs 03/17/24 09:27 Labs: Laboratory Results - last 48 hr 03/17/24 09:27 Sodium 141 Potassium 4.2 Chloride 106 Carbon Dioxide 28 Anion Gap 11 L BUN 14 Creatinine 0.72 Estim Creat Clear Calc 82.9 Estimated GFR > 60 Fasting Glucose 108 H Calcium 10.3 H D Total Bilirubin 0.4 AST 20 ALT 26 Alkaline Phosphatase 81 Total Protein 7.0 Albumin 4.2 Triglycerides 105 Cholesterol 187 LDL Cholesterol, Calc 128 H HDL Cholesterol 38 L Medications Medications Current Medications Acetaminophen (Acetaminophen 325 Mg Tablet) 650 mg PO Q6H PRN PRN Reason: Pain, Mild (Pain Scale 1-3) Al Hydroxide/Mg Hydroxide (Magnesium Hydrox/Alum Hydrox 30 Ml Oral.Susp) 30 ml PO Q6H PRN PRN Reason: Heartburn/Nausea Hydroxyzine HCl (Hydroxyzine Hcl 25 Mg Tablet) 25 mg PO Q6H PRN PRN Reason: Anxiety Last Admin: 03/18/24 20:02 Dose: 25 mg Magnesium Hydroxide (Milk Of Magnesia 30 Ml Oral.Susp) 30 ml PO DAILY PRN PRN Reason: Constipation Olanzapine (Olanzapine 10 Mg Tablet) 10 mg PO BEDTIME JOSEF Last Admin: 03/18/24 20:02 Dose: 10 mg Olanzapine (Olanzapine 5 Mg Tablet) 5 mg PO TID PRN PRN Reason: Psychosis Last Admin: 03/18/24 20:02 Dose: 5 mg Trazodone HCl (Trazodone Hcl 50 Mg Tablet) 50 mg PO BEDTIME MRX1 PRN PRN Reason: Insomnia Last Admin: 03/18/24 20:02 Dose: 50 mg Allergies Allergies Allergy/AdvReac Type Severity Reaction Status Date / Time cephalexin [From Keflex] Allergy Hives Verified 12/17/23 07:28 From KEFLEX Allergy Unknown UNK Uncoded 12/17/23 07:28 From PAXIL Allergy Unknown UNK Uncoded 12/17/23 07:28 Assessment & Plan Assessment & Plan (1) Schizoaffective disorder, bipolar type: Status: Acute Code(s): F25.0 - Schizoaffective disorder, bipolar type Plan 03/17: offer zyprexa. savage warning provided. 03/18: no benzos, h/o abuse. continue current mgmt. floridly psychotic. Reason for continued inpatient stay Substantial Risk for: harm to self Time Spent With Patient Time: Total time managing care of this patient today ____ minutes.
[2024-03-19 08:00] VITALS: BP 97/63; PULSE 111; RESP 16; TEMP 36.6; O2SAT 96
[2024-03-19] MEDS: OLANZapine 5 MG TABLET PO (11:37)
[2024-03-19] MEDS: hydrOXYzine HCL 25 MG TABLET PO ×2 (11:37→20:08)
--- NOTE | 2024-03-19 18:12 | HO.PSYCHPN ---
Subjective Subjective Date of Service: 03/19/24 Reason For Visit: Schizoaffective d/o bipolar type Interim History: lying in bed. mood not good. no complaints or requests. TD of jaw mvmts visible. per staff, tearful. asking for ativan. using zyprexa and atarax. refused VS eves. 12b up 03/21. Mental Status Exam Mental Status Exam Narrative: Appearance: casually groomed, fair hygiene, in NAD Behavior: calm. TD of jaw mvmts. Speech: soft, able to speak louder when required. decr amount, incr latency. TP: linear TC: preoccupied with ideas of devil, intrusive derogatory thoughts Mood: anxious Affect: constricted, normo-intense, non-labile SI: none expressed HI: none expressed AH/VH: none expressed Insight/judgment:poor x2 Memory/cog: alert, oriented x 3. impaired secondary to psychiatric symptoms. Diagnostics Vital Signs (24Hr): Vital Signs - 24 hr 03/19/24 08:00 Temperature 97.9 F Pulse Rate 111 H Respiratory Rate 16 Blood Pressure 97/63 Pulse Oximetry 96 Oxygen Delivery Method Room Air BMI result Body Mass Index 29.5 Labs 03/17/24 09:27 Medications Medications Current Medications Acetaminophen (Acetaminophen 325 Mg Tablet) 650 mg PO Q6H PRN PRN Reason: Pain, Mild (Pain Scale 1-3) Al Hydroxide/Mg Hydroxide (Magnesium Hydrox/Alum Hydrox 30 Ml Oral.Susp) 30 ml PO Q6H PRN PRN Reason: Heartburn/Nausea Hydroxyzine HCl (Hydroxyzine Hcl 25 Mg Tablet) 25 mg PO Q6H PRN PRN Reason: Anxiety Last Admin: 03/19/24 11:37 Dose: 25 mg Magnesium Hydroxide (Milk Of Magnesia 30 Ml Oral.Susp) 30 ml PO DAILY PRN PRN Reason: Constipation Olanzapine (Olanzapine 10 Mg Tablet) 10 mg PO BEDTIME JOSEF Last Admin: 03/18/24 20:02 Dose: 10 mg Olanzapine (Olanzapine 5 Mg Tablet) 5 mg PO TID PRN PRN Reason: Psychosis Last Admin: 03/19/24 11:37 Dose: 5 mg Trazodone HCl (Trazodone Hcl 50 Mg Tablet) 50 mg PO BEDTIME MRX1 PRN PRN Reason: Insomnia Last Admin: 03/18/24 20:02 Dose: 50 mg Allergies Allergies Allergy/AdvReac Type Severity Reaction Status Date / Time cephalexin [From Keflex] Allergy Hives Verified 12/17/23 07:28 From KEFLEX Allergy Unknown UNK Uncoded 12/17/23 07:28 From PAXIL Allergy Unknown UNK Uncoded 12/17/23 07:28 Assessment & Plan Assessment & Plan (1) Schizoaffective disorder, bipolar type: Status: Acute Code(s): F25.0 - Schizoaffective disorder, bipolar type Plan 03/17: offer zyprexa. savage warning provided. 03/18: no benzos, h/o abuse. continue current mgmt. floridly psychotic. 03/19: taking zyprexa. TD evident in jaw mvmts, T/C ingrezza or other. does not appear appreciably improved, although does refer to having felt briefly better int he past 24H during a period of perspective shift. Reason for continued inpatient stay Substantial Risk for: harm to self Time Spent With Patient Time: Total time managing care of this patient today ____ minutes.
[2024-03-19 20:00] VITALS: BP 116/78; PULSE 98; RESP 16; TEMP 36.4; O2SAT 98
[2024-03-19] MEDS: traZODone HCL 50 MG TABLET PO (20:08)
[2024-03-19] MEDS: OLANZapine 10 MG TABLET PO (20:08)
[2024-03-20 07:34] VITALS: BP 104/71; PULSE 79; RESP 20; TEMP 36.7; O2SAT 97
--- NOTE | 2024-03-20 16:04 | HO.PSYCHPN ---
Subjective Subjective Date of Service: 03/20/24 Reason For Visit: Schizoaffective d/o bipolar type Interim History: disorganized, bizarre, thought-blocked. not appearing to improve on current regimen. per staff, 12b up tomorrow. taking meds. c/o anx/dep. +AH. i am 100% hopeless, i am going to hell and there's nothing you can do about it. slept 7 hours. Mental Status Exam Mental Status Exam Narrative: Appearance: casually groomed, fair hygiene, in NAD Behavior: calm. TD of jaw mvmts. Speech: mute TP: unable to assess TC: unable to assess Mood: unable to assess Affect: constricted, normo-intense, non-labile SI: none expressed HI: none expressed AH/VH: none expressed Insight/judgment:poor x2 Memory/cog: alert, oriented x 3. impaired secondary to psychiatric symptoms. Diagnostics Vital Signs (24Hr): Vital Signs - 24 hr 03/19/24 20:00 03/20/24 07:34 Temperature 97.5 F 98.0 F Pulse Rate 98 79 Respiratory Rate 16 20 Blood Pressure 116/78 104/71 Pulse Oximetry 98 97 Oxygen Delivery Method Room Air Room Air BMI result Body Mass Index 29.5 Labs 03/17/24 09:27 Medications Medications Current Medications Acetaminophen (Acetaminophen 325 Mg Tablet) 650 mg PO Q6H PRN PRN Reason: Pain, Mild (Pain Scale 1-3) Al Hydroxide/Mg Hydroxide (Magnesium Hydrox/Alum Hydrox 30 Ml Oral.Susp) 30 ml PO Q6H PRN PRN Reason: Heartburn/Nausea Hydroxyzine HCl (Hydroxyzine Hcl 25 Mg Tablet) 25 mg PO Q6H PRN PRN Reason: Anxiety Last Admin: 03/19/24 20:08 Dose: 25 mg Magnesium Hydroxide (Milk Of Magnesia 30 Ml Oral.Susp) 30 ml PO DAILY PRN PRN Reason: Constipation Olanzapine (Olanzapine 10 Mg Tablet) 10 mg PO BEDTIME JOSEF Last Admin: 03/19/24 20:08 Dose: 10 mg Olanzapine (Olanzapine 5 Mg Tablet) 5 mg PO TID PRN PRN Reason: Psychosis Last Admin: 03/19/24 11:37 Dose: 5 mg Trazodone HCl (Trazodone Hcl 50 Mg Tablet) 50 mg PO BEDTIME MRX1 PRN PRN Reason: Insomnia Last Admin: 03/19/24 20:08 Dose: 50 mg Allergies Allergies Allergy/AdvReac Type Severity Reaction Status Date / Time cephalexin [From Keflex] Allergy Hives Verified 12/17/23 07:28 From KEFLEX Allergy Unknown UNK Uncoded 12/17/23 07:28 From PAXIL Allergy Unknown UNK Uncoded 12/17/23 07:28 Assessment & Plan Assessment & Plan (1) Schizoaffective disorder, bipolar type: Status: Acute Code(s): F25.0 - Schizoaffective disorder, bipolar type Plan 03/17: offer zyprexa. savage warning provided. 03/18: no benzos, h/o abuse. continue current mgmt. floridly psychotic. 03/19: taking zyprexa. TD evident in jaw mvmts, T/C ingrezza or other. does not appear appreciably improved, although does refer to having felt briefly better in the past 24H during a period of perspective shift. 03/20: worse today than at admission. historically does better with antipsychotic + mood stabilizer. add lithium 450 BID, which she has been on in the past. file for commitment as necessary. Reason for continued inpatient stay Substantial Risk for: harm to self and inability to function Time Spent With Patient Time: Total time managing care of this patient today __35__ minutes.
[2024-03-20] MEDS: OLANZapine 5 MG TABLET PO (16:26)
[2024-03-20] MEDS: hydrOXYzine HCL 25 MG TABLET PO (16:26)
[2024-03-20 20:00] VITALS: BP 107/65; PULSE 69; RESP 16; TEMP 36.4; O2SAT 96
[2024-03-20] MEDS: OLANZapine 10 MG TABLET PO (20:28)
[2024-03-20] MEDS: traZODone HCL 50 MG TABLET PO (20:28)
[2024-03-20] MEDS: Lithium Carbonate ER 450 MG TABLET.ER PO (20:28)
[2024-03-21 08:00] VITALS: RESP 16
[2024-03-21] MEDS: Lithium Carbonate ER 450 MG TABLET.ER PO ×2 (08:39→20:02)
--- NOTE | 2024-03-21 09:05 | HO.PSYCHPN ---
Subjective Subjective Date of Service: 03/21/24 Reason For Visit: Schizoaffective d/o bipolar type Subjective Notes: Conditional Voluntary Interim History: Pt slept through the night. Pt presents with persecutory delusions thinking that she is being punished for all sins she has done. Although she denies hearing voices, she reports that she hears devil telling her that she will go to hell and no one can save her. She reports she wants to . She reports there is nothing anyone can do. She denies any plan to end her life but does not think there is much left for her. She presents as restless, agitated, upset and irritable with this teletypewriter operator because she states this is not a mental illness, this is the devil, you are also going to hell, you don't understand. We discussed that in the past she has done well with haldol. She is currently on olanzapine. Will add haldol 5mg po BID, continue olanzapine. Mental Status Exam Mental Status Exam Narrative: Appearance: wearing casual clothing, fair hygiene, restless, pacing, tapping feet. Behaviors: irritable and guarded Psychomotor: intermittent agitation Speech: clear, regular rate/rhythm/volume, spontaneous TP: mostly linear TC: thinking she is going to hell due to all sins she has committed Mood: angry Affect: congruent, irritable, overwhelmed SI: reports wanting to , not sure how HI: denies VH/AH: hearing voices of devil, Delusions: persecutory and gnosticist delusions Insight/judgment: impaired x 2. memory/cog: alert, oriented not to situation. Diagnostics Vital Signs (24Hr): Vital Signs - 24 hr 03/20/24 20:00 03/21/24 08:00 Temperature 97.6 F Pulse Rate 69 Respiratory Rate 16 16 Blood Pressure 107/65 Pulse Oximetry 96 Oxygen Delivery Method Room Air BMI result Body Mass Index 29.5 Labs 03/17/24 09:27 Medications Medications Current Medications Acetaminophen (Acetaminophen 325 Mg Tablet) 650 mg PO Q6H PRN PRN Reason: Pain, Mild (Pain Scale 1-3) Al Hydroxide/Mg Hydroxide (Magnesium Hydrox/Alum Hydrox 30 Ml Oral.Susp) 30 ml PO Q6H PRN PRN Reason: Heartburn/Nausea Hydroxyzine HCl (Hydroxyzine Hcl 25 Mg Tablet) 25 mg PO Q6H PRN PRN Reason: Anxiety Last Admin: 03/20/24 16:26 Dose: 25 mg [place] Carbonate ([place] Carbonate Er 450 Mg Tablet.Er) 450 mg PO BID JOSEF Last Admin: 03/21/24 08:39 Dose: 450 mg Magnesium Hydroxide (Milk Of Magnesia 30 Ml Oral.Susp) 30 ml PO DAILY PRN PRN Reason: Constipation Olanzapine (Olanzapine 10 Mg Tablet) 10 mg PO BEDTIME JOSEF Last Admin: 03/20/24 20:28 Dose: 10 mg Olanzapine (Olanzapine 5 Mg Tablet) 5 mg PO TID PRN PRN Reason: Psychosis Last Admin: 03/20/24 16:26 Dose: 5 mg Trazodone HCl (Trazodone Hcl 50 Mg Tablet) 50 mg PO BEDTIME MRX1 PRN PRN Reason: Insomnia Last Admin: 03/20/24 20:28 Dose: 50 mg Allergies Allergies Allergy/AdvReac Type Severity Reaction Status Date / Time cephalexin [From Keflex] Allergy Hives Verified 12/17/23 07:28 From KEFLEX Allergy Unknown UNK Uncoded 12/17/23 07:28 From PAXIL Allergy Unknown UNK Uncoded 12/17/23 07:28 Assessment & Plan Assessment & Plan (1) Schizoaffective disorder, bipolar type: Status: Acute Code(s): F25.0 - Schizoaffective disorder, bipolar type Plan 03/17: offer zyprexa. savage warning provided. 03/18: no benzos, h/o abuse. continue current mgmt. floridly psychotic. 03/19: taking zyprexa. TD evident in jaw mvmts, T/C ingrezza or other. does not appear appreciably improved, although does refer to having felt briefly better in the past 24H during a period of perspective shift. 03/20: worse today than at admission. historically does better with antipsychotic + mood stabilizer. add lithium 450 BID, which she has been on in the past. file for commitment as necessary. 03/21 Covering provider- pt continues to present as very paranoid and restless. She has done well on haldol in the past. Will add haldol 5mg po BID in addition to olanzapine 20mg po qhs. SI present. Reason for continued inpatient stay Substantial Risk for: harm to self and inability to function Time Spent With Patient Time: Total time managing care of this patient today ____ minutes.
[2024-03-21] MEDS: HaloperidoL 5 MG TABLET PO ×2 (15:19→20:02)
[2024-03-21 20:00] VITALS: BP 108/60; PULSE 65; RESP 16; TEMP 36.5; O2SAT 98
[2024-03-21] MEDS: OLANZapine 10 MG TABLET PO (20:03)
[2024-03-21] MEDS: traZODone HCL 50 MG TABLET PO (20:03)
[2024-03-22 08:00] VITALS: RESP 16
[2024-03-22] MEDS: Lithium Carbonate ER 450 MG TABLET.ER PO ×2 (08:44→21:55)
[2024-03-22] MEDS: HaloperidoL 5 MG TABLET PO ×2 (08:44→21:55)
--- NOTE | 2024-03-22 12:26 | P.PNPSI_ITS ---
Subjective Subjective Date of Service: 03/22/24 Reason For Visit: Schizoaffective d/o bipolar type Subjective Notes: Conditional Voluntary Interim History: Pt slept through the night. Pt continues to present with persecutory delusions, stating she is being told she is going to hell and has done horrible things during her life. She reports wishes to , no plan. She is upset because she does not think medications will help as she does not believe this is a mental issue but a samaritan and spiritual one. She is taking medications. mostly in her room. Review of Systems Constitutional: Denies chills, Denies fatigue, Denies fever(s) and Denies headache(s) Eyes: Denies change in vision Denies headache(s), Denies nasal congestion, Denies nasal discharge and Denies sore throat Cardiovascular: Denies chest pain, Denies rapid heart rate, Denies leg edema and Denies dyspnea Respiratory: Denies chest congestion, Denies cough, Denies dyspnea and Denies wheezing Gastrointestinal: Denies constipation, Denies diarrhea, Denies nausea and Denies vomiting Musculoskeletal: Denies myalgias, Denies numbness and Denies tingling Skin/Breast: Denies rash Denies confusion, Denies headache(s), Denies memory loss, Denies numbness and Denies tingling Psychiatric: Reports as per HPI, Denies confusion and Denies memory loss Endocrine: Denies fatigue and Denies polyuria Hematologic/Lymphatic: Denies easy bleeding and Denies easy bruising Allergic/Immunologic: Denies wheezing Mental Status Exam Mental Status Exam Narrative: Appearance: wearing casual clothing, fair hygiene, restless, pacing, tapping feet. Behaviors: irritable and guarded Psychomotor: intermittent agitation Speech: clear, regular rate/rhythm/volume, spontaneous TP: mostly linear TC: thinking she is going to hell due to all sins she has committed Mood: angry Affect: congruent, irritable, overwhelmed SI: reports wanting to , not sure how HI: denies VH/AH: hearing voices of devil, Delusions: persecutory and samaritan delusions Insight/judgment: impaired x 2. memory/cog: alert, oriented not to situation. Diagnostics Vital Signs (24Hr): Vital Signs - 24 hr 03/21/24 20:00 03/22/24 08:00 Temperature 97.7 F Pulse Rate 65 Respiratory Rate 16 16 Blood Pressure 108/60 Pulse Oximetry 98 Oxygen Delivery Method Room Air BMI result Body Mass Index 29.5 Labs 03/17/24 09:27 Medications Medications Current Medications Acetaminophen (Acetaminophen 325 Mg Tablet) 650 mg PO Q6H PRN PRN Reason: Pain, Mild (Pain Scale 1-3) Al Hydroxide/Mg Hydroxide (Magnesium Hydrox/Alum Hydrox 30 Ml Oral.Susp) 30 ml PO Q6H PRN PRN Reason: Heartburn/Nausea Haloperidol (Haloperidol 5 Mg Tablet) 5 mg PO BID [facility] Last Admin: 03/22/24 08:44 Dose: 5 mg Hydroxyzine HCl (Hydroxyzine Hcl 25 Mg Tablet) 25 mg PO Q6H PRN PRN Reason: Anxiety Last Admin: 03/20/24 16:26 Dose: 25 mg [place] Carbonate ([place] Carbonate Er 450 Mg Tablet.Er) 450 mg PO BID [facility] Last Admin: 03/22/24 08:44 Dose: 450 mg Magnesium Hydroxide (Milk Of Magnesia 30 Ml Oral.Susp) 30 ml PO DAILY PRN PRN Reason: Constipation Olanzapine (Olanzapine 10 Mg Tablet) 10 mg PO BEDTIME [facility] Last Admin: 03/21/24 20:03 Dose: 10 mg Olanzapine (Olanzapine 5 Mg Tablet) 5 mg PO TID PRN PRN Reason: Psychosis Last Admin: 03/20/24 16:26 Dose: 5 mg Trazodone HCl (Trazodone Hcl 50 Mg Tablet) 50 mg PO BEDTIME MRX1 PRN PRN Reason: Insomnia Last Admin: 03/21/24 20:03 Dose: 50 mg Allergies Allergies Allergy/AdvReac Type Severity Reaction Status Date / Time cephalexin [From Keflex] Allergy Hives Verified 12/17/23 07:28 From KEFLEX Allergy Unknown UNK Uncoded 12/17/23 07:28 From PAXIL Allergy Unknown UNK Uncoded 12/17/23 07:28 Assessment & Plan Assessment & Plan (1) Schizoaffective disorder, bipolar type: Status: Acute Code(s): F25.0 - Schizoaffective disorder, bipolar type Plan 03/17: offer zyprexa. savage warning provided. 03/18: no benzos, h/o abuse. continue current mgmt. floridly psychotic. 03/19: taking zyprexa. TD evident in jaw mvmts, T/C ingrezza or other. does not appear appreciably improved, although does refer to having felt briefly better in the past 24H during a period of perspective shift. 03/20: worse today than at admission. historically does better with antipsychotic + mood stabilizer. add lithium 450 BID, which she has been on in the past. file for commitment as necessary. 03/21 Covering provider- pt continues to present as very paranoid and restless. She has done well on haldol in the past. Will add haldol 5mg po BID in addition to olanzapine 20mg po qhs. SI present. 03/22 continue tx. Reason for continued inpatient stay Substantial Risk for: inability to function Time Spent With Patient Time: Total time managing care of this patient today ____ minutes.
[2024-03-22] MEDS: OLANZapine 10 MG TABLET PO (21:55)
[2024-03-22] MEDS: traZODone HCL 50 MG TABLET PO (21:59)
[2024-03-23 07:00] VITALS: BMI 26.1
[2024-03-23 08:00] VITALS: RESP 18
--- NOTE | 2024-03-23 08:04 | HO.PSYCHPN ---
Documented by User: Nataly nOeal NP 03/23/24 14:43 Subjective Subjective Date of Service: 03/23/24 Reason For Visit: Schizoaffective d/o bipolar type Subjective Notes: Section 7 Interim History: Laying in bed. keeping to self. guarded during assessment. When asked how she is feeling today, pt stated, I'm in hell. I'm suffering for all eternity and nothing can be done . pt then turned away from T/W and would not answer questions. Medication Compliance: Yes Attending Groups: No Review of Systems Review of Systems Yes Unobtainable due to mental status Mental Status Exam Mental Status Exam Narrative: guarded. poor eye contact. brief during assessment. unable to assess mental status. Patient Appearance: Disheveled Level of Consciousness: Awake Patient Behavior: Guarded and Poor Eye Contact Speech Pattern: Clear Diagnostics Vital Signs (24Hr): BMI result Body Mass Index 29.5 Labs 03/17/24 09:27 Medications Medications Current Medications Acetaminophen (Acetaminophen 325 Mg Tablet) 650 mg PO Q6H PRN PRN Reason: Pain, Mild (Pain Scale 1-3) Al Hydroxide/Mg Hydroxide (Magnesium Hydrox/Alum Hydrox 30 Ml Oral.Susp) 30 ml PO Q6H PRN PRN Reason: Heartburn/Nausea Haloperidol (Haloperidol 5 Mg Tablet) 5 mg PO BID [facility] Last Admin: 03/22/24 21:55 Dose: 5 mg Hydroxyzine HCl (Hydroxyzine Hcl 25 Mg Tablet) 25 mg PO Q6H PRN PRN Reason: Anxiety Last Admin: 03/20/24 16:26 Dose: 25 mg [place] Carbonate ([place] Carbonate Er 450 Mg Tablet.Er) 450 mg PO BID [facility] Last Admin: 03/22/24 21:55 Dose: 450 mg Magnesium Hydroxide (Milk Of Magnesia 30 Ml Oral.Susp) 30 ml PO DAILY PRN PRN Reason: Constipation Olanzapine (Olanzapine 10 Mg Tablet) 10 mg PO BEDTIME JOSEF Last Admin: 03/22/24 21:55 Dose: 10 mg Olanzapine (Olanzapine 5 Mg Tablet) 5 mg PO TID PRN PRN Reason: Psychosis Last Admin: 03/20/24 16:26 Dose: 5 mg Trazodone HCl (Trazodone Hcl 50 Mg Tablet) 50 mg PO BEDTIME MRX1 PRN PRN Reason: Insomnia Last Admin: 03/22/24 21:59 Dose: 50 mg Allergies Allergies Allergy/AdvReac Type Severity Reaction Status Date / Time cephalexin [From Keflex] Allergy Hives Verified 12/17/23 07:28 From KEFLEX Allergy Unknown UNK Uncoded 12/17/23 07:28 From PAXIL Allergy Unknown UNK Uncoded 12/17/23 07:28 Assessment & Plan Assessment & Plan (1) Schizoaffective disorder, bipolar type: Status: Acute Code(s): F25.0 - Schizoaffective disorder, bipolar type Plan 03/17: offer zyprexa. savage warning provided. 03/18: no benzos, h/o abuse. continue current mgmt. floridly psychotic. 03/19: taking zyprexa. TD evident in jaw mvmts, T/C ingrezza or other. does not appear appreciably improved, although does refer to having felt briefly better in the past 24H during a period of perspective shift. 03/20: worse today than at admission. historically does better with antipsychotic + mood stabilizer. add lithium 450 BID, which she has been on in the past. file for commitment as necessary. 03/21 Covering provider- pt continues to present as very paranoid and restless. She has done well on haldol in the past. Will add haldol 5mg po BID in addition to olanzapine 20mg po qhs. SI present. 03/23: continue current tx plan. Reason for continued inpatient stay Substantial Risk for: med/psych decompensation Time Spent With Patient Time: Total time managing care of this patient today _10___ minutes. Documented by User: Drew Armas MD 03/24/24 12:41 Subjective Subjective Reason For Visit: Schizoaffective d/o bipolar type Mental Status Exam Mental Status Exam Mood Description: Depressed Diagnostics Labs 03/17/24 09:27 Assessment & Plan Assessment & Plan (1) Schizoaffective disorder, bipolar type: Status: Acute Code(s): F25.0 - Schizoaffective disorder, bipolar type
[2024-03-23] MEDS: Lithium Carbonate ER 450 MG TABLET.ER PO ×2 (08:30→20:53)
[2024-03-23] MEDS: HaloperidoL 5 MG TABLET PO ×2 (08:30→20:53)
[2024-03-23] MEDS: traZODone HCL 50 MG TABLET PO (20:53)
[2024-03-23] MEDS: OLANZapine 10 MG TABLET PO (20:53)
[2024-03-24] MEDS: HaloperidoL 5 MG TABLET PO ×2 (09:43→20:51)
[2024-03-24] MEDS: Lithium Carbonate ER 450 MG TABLET.ER PO ×2 (09:43→20:51)
[2024-03-24] MEDS: OLANZapine 5 MG TABLET PO (10:46)
[2024-03-24] MEDS: OLANZapine 10 MG TABLET PO (20:51)
[2024-03-24 21:00] VITALS: BP 115/67; PULSE 68; RESP 16; TEMP 36.3; O2SAT 95
[2024-03-25 08:00] VITALS: RESP 18
[2024-03-25] MEDS: Lithium Carbonate ER 450 MG TABLET.ER PO ×2 (08:49→20:50)
[2024-03-25] MEDS: HaloperidoL 5 MG TABLET PO ×2 (08:49→20:50)
--- NOTE | 2024-03-25 09:01 | HO.PSYCHPN ---
Subjective Subjective Date of Service: 03/25/24 Reason For Visit: Schizoaffective d/o bipolar type Subjective Notes: Section 7 Interim History: Active on unit, keeping to self. guarded during assessment. watching tv. Declined to meet with T/W. When asked how she is feeling today, pt would look at T/W but not respond. per nursing, slept 7 hours last night. medication compliant. Medication Compliance: Yes Side effects from medications: No Attending Groups: No Review of Systems Review of Systems Yes Unobtainable due to mental status Mental Status Exam Mental Status Exam Narrative: guarded. poor eye contact. brief during assessment. unable to assess mental status. poor eye contact. not responding to questions. Diagnostics Vital Signs (24Hr): Vital Signs - 24 hr 03/24/24 21:00 03/25/24 08:00 Temperature 97.3 F Pulse Rate 68 Respiratory Rate 16 18 Blood Pressure 115/67 Pulse Oximetry 95 Oxygen Delivery Method Room Air BMI result Body Mass Index 26.1 Labs 03/17/24 09:27 Medications Medications Current Medications Acetaminophen (Acetaminophen 325 Mg Tablet) 650 mg PO Q6H PRN PRN Reason: Pain, Mild (Pain Scale 1-3) Al Hydroxide/Mg Hydroxide (Magnesium Hydrox/Alum Hydrox 30 Ml Oral.Susp) 30 ml PO Q6H PRN PRN Reason: Heartburn/Nausea Haloperidol (Haloperidol 5 Mg Tablet) 5 mg PO BID [facility] [place] Last Admin: 03/25/24 08:49 Dose: 5 mg Hydroxyzine HCl (Hydroxyzine Hcl 25 Mg Tablet) 25 mg PO Q6H PRN PRN Reason: Anxiety Last Admin: 03/20/24 16:26 Dose: 25 mg [place] Carbonate ([place] Carbonate Er 450 Mg Tablet.Er) 450 mg PO BID [facility] Last Admin: 03/25/24 08:49 Dose: 450 mg Magnesium Hydroxide (Milk Of Magnesia 30 Ml Oral.Susp) 30 ml PO DAILY PRN PRN Reason: Constipation Olanzapine (Olanzapine 10 Mg Tablet) 10 mg PO BEDTIME [facility] [place] Last Admin: 03/24/24 20:51 Dose: 10 mg Olanzapine (Olanzapine 5 Mg Tablet) 5 mg PO TID PRN PRN Reason: Psychosis Last Admin: 03/24/24 10:46 Dose: 5 mg Trazodone HCl (Trazodone Hcl 50 Mg Tablet) 50 mg PO BEDTIME MRX1 PRN PRN Reason: Insomnia Last Admin: 03/23/24 20:53 Dose: 50 mg Allergies Allergies Allergy/AdvReac Type Severity Reaction Status Date / Time cephalexin [From Keflex] Allergy Hives Verified 12/17/23 07:28 From KEFLEX Allergy Unknown UNK Uncoded 12/17/23 07:28 From PAXIL Allergy Unknown UNK Uncoded 12/17/23 07:28 Assessment & Plan Assessment & Plan (1) Schizoaffective disorder, bipolar type: Status: Acute Code(s): F25.0 - Schizoaffective disorder, bipolar type Plan 03/17: offer zyprexa. savage warning provided. 03/18: no benzos, h/o abuse. continue current mgmt. floridly psychotic. 03/19: taking zyprexa. TD evident in jaw mvmts, T/C ingrezza or other. does not appear appreciably improved, although does refer to having felt briefly better in the past 24H during a period of perspective shift. 03/20: worse today than at admission. historically does better with antipsychotic + mood stabilizer. add lithium 450 BID, which she has been on in the past. file for commitment as necessary. 03/21 Covering provider- pt continues to present as very paranoid and restless. She has done well on haldol in the past. Will add haldol 5mg po BID in addition to olanzapine 20mg po qhs. SI present. 03/23: continue current tx plan. 03/25: continue current tx plan. Reason for continued inpatient stay Substantial Risk for: med/psych decompensation Time Spent With Patient Time: Total time managing care of this patient today _10___ minutes.
[2024-03-25 20:15] VITALS: BP 101/64; PULSE 66; RESP 16; TEMP 36.9; O2SAT 97
[2024-03-25] MEDS: OLANZapine 10 MG TABLET PO (20:50)
[2024-03-26 08:00] VITALS: RESP 18
--- NOTE | 2024-03-26 09:16 | HO.PSYCHPN ---
Subjective Subjective Date of Service: 03/26/24 Reason For Visit: Schizoaffective d/o bipolar type Subjective Notes: Section 7 Interim History: Laying in bed. refused AM medications. declined to meet with T/W. Pt stated, leave me alone. I don't need anything. I'll be in hell for all eternity. It's just the way it is . Pt closed her eyes and would not respond to questions. Medication Compliance: Intermittent Attending Groups: No Review of Systems Review of Systems Yes Unobtainable due to mental status Mental Status Exam Mental Status Exam Patient Appearance: Disheveled Level of Consciousness: Awake Patient Behavior: Guarded and Poor Eye Contact Mood Description: Withdrawn Affect Description: Blunted Ability to Follow Directions: Fair Speech Pattern: Clear Diagnostics Vital Signs (24Hr): Vital Signs - 24 hr 03/25/24 20:15 Temperature 98.4 F Pulse Rate 66 Respiratory Rate 16 Blood Pressure 101/64 Pulse Oximetry 97 Oxygen Delivery Method Room Air BMI result Body Mass Index 26.1 Labs 03/28/24 08:51 Medications Medications Current Medications Acetaminophen (Acetaminophen 325 Mg Tablet) 650 mg PO Q6H PRN PRN Reason: Pain, Mild (Pain Scale 1-3) Al Hydroxide/Mg Hydroxide (Magnesium Hydrox/Alum Hydrox 30 Ml Oral.Susp) 30 ml PO Q6H PRN PRN Reason: Heartburn/Nausea Haloperidol (Haloperidol 5 Mg Tablet) 5 mg PO BID [facility] Last Admin: 03/25/24 20:50 Dose: 5 mg Hydroxyzine HCl (Hydroxyzine Hcl 25 Mg Tablet) 25 mg PO Q6H PRN PRN Reason: Anxiety Last Admin: 03/20/24 16:26 Dose: 25 mg [place] Carbonate ([place] Carbonate Er 450 Mg Tablet.Er) 450 mg PO BID [facility] Last Admin: 03/25/24 20:50 Dose: 450 mg Magnesium Hydroxide (Milk Of Magnesia 30 Ml Oral.Susp) 30 ml PO DAILY PRN PRN Reason: Constipation Olanzapine (Olanzapine 10 Mg Tablet) 10 mg PO BEDTIME [facility] Last Admin: 03/25/24 20:50 Dose: 10 mg Olanzapine (Olanzapine 5 Mg Tablet) 5 mg PO TID PRN PRN Reason: Psychosis Last Admin: 03/24/24 10:46 Dose: 5 mg Trazodone HCl (Trazodone Hcl 50 Mg Tablet) 50 mg PO BEDTIME MRX1 PRN PRN Reason: Insomnia Last Admin: 03/23/24 20:53 Dose: 50 mg Allergies Allergies Allergy/AdvReac Type Severity Reaction Status Date / Time cephalexin [From Keflex] Allergy Hives Verified 12/17/23 07:28 From KEFLEX Allergy Unknown UNK Uncoded 12/17/23 07:28 From PAXIL Allergy Unknown UNK Uncoded 12/17/23 07:28 Assessment & Plan Assessment & Plan (1) Schizoaffective disorder, bipolar type: Status: Acute Code(s): F25.0 - Schizoaffective disorder, bipolar type Plan 03/17: offer zyprexa. savage warning provided. 03/18: no benzos, h/o abuse. continue current mgmt. floridly psychotic. 03/19: taking zyprexa. TD evident in jaw mvmts, T/C ingrezza or other. does not appear appreciably improved, although does refer to having felt briefly better in the past 24H during a period of perspective shift. 03/20: worse today than at admission. historically does better with antipsychotic + mood stabilizer. add lithium 450 BID, which she has been on in the past. file for commitment as necessary. 03/21 Covering provider- pt continues to present as very paranoid and restless. She has done well on haldol in the past. Will add haldol 5mg po BID in addition to olanzapine 20mg po qhs. SI present. 03/23: continue current tx plan. 03/25: continue current tx plan. 03/26: Laying in bed. refused AM medications. declined to meet with T/W. Pt stated, leave me alone. I don't need anything. I'll be in hell for all eternity. It's just the way it is . Pt closed her eyes and would not respond to questions. Patient educated on: medication risk/benefits Reason for continued inpatient stay Substantial Risk for: med/psych decompensation Time Spent With Patient Time: Total time managing care of this patient today _10___ minutes.
--- NOTE | 2024-03-26 09:29 | PC.NURSE ---
Pt swatted medication out of this RNs hand and yelled get the fuck out and refused to take her medication, provider aware
[2024-03-26] MEDS: OLANZapine 5 MG TABLET PO (16:25)
[2024-03-26] MEDS: hydrOXYzine HCL 25 MG TABLET PO (16:25)
[2024-03-26 20:00] VITALS: BP 110/68; PULSE 64; RESP 18; TEMP 36.5; O2SAT 94
[2024-03-26] MEDS: Lithium Carbonate ER 450 MG TABLET.ER PO (20:30)
[2024-03-26] MEDS: HaloperidoL 5 MG TABLET PO (20:30)
[2024-03-26] MEDS: OLANZapine 10 MG TABLET PO (20:30)
[2024-03-27] MEDS: Lithium Carbonate ER 450 MG TABLET.ER PO ×2 (09:20→20:19)
[2024-03-27] MEDS: HaloperidoL 5 MG TABLET PO ×2 (09:20→20:19)
[2024-03-27 19:55] VITALS: BP 113/54; PULSE 65; TEMP 36.7; O2SAT 95
[2024-03-27] MEDS: OLANZapine 10 MG TABLET PO (20:19)
--- NOTE | 2024-03-27 23:06 | HO.PSYCHPN ---
Subjective Subjective Date of Service: 03/27/24 Reason For Visit: Schizoaffective d/o bipolar type Interim History: in bed, states she is hopeless and damned. no questions or complaints. per staff, section 7. swatted RN's hands away. malodorous. poor intake. taking medications. labile, agitated. hearing continued to next week. Mental Status Exam Mental Status Exam Narrative: Appearance: casually groomed, fair hygiene, in NAD Behavior: calm. Speech: terse TP: linear TC: no notable delusions or paranoia Mood: depressed Affect: constricted, normo-intense, non-labile SI: none expressed HI: none expressed AH/VH: none expressed Insight/judgment:poor x2 Memory/cog: alert, oriented x 3. impaired secondary to psychiatric symptoms. Diagnostics Vital Signs (24Hr): Vital Signs - 24 hr 03/27/24 19:55 Temperature 98.0 F Pulse Rate 65 Blood Pressure 113/54 L Pulse Oximetry 95 Oxygen Delivery Method Room Air BMI result Body Mass Index 26.1 Labs 03/17/24 09:27 Medications Medications Current Medications Acetaminophen (Acetaminophen 325 Mg Tablet) 650 mg PO Q6H PRN PRN Reason: Pain, Mild (Pain Scale 1-3) Al Hydroxide/Mg Hydroxide (Magnesium Hydrox/Alum Hydrox 30 Ml Oral.Susp) 30 ml PO Q6H PRN PRN Reason: Heartburn/Nausea Haloperidol (Haloperidol 5 Mg Tablet) 5 mg PO BID [facility] Last Admin: 03/27/24 20:19 Dose: 5 mg Hydroxyzine HCl (Hydroxyzine Hcl 25 Mg Tablet) 25 mg PO Q6H PRN PRN Reason: Anxiety Last Admin: 03/26/24 16:25 Dose: 25 mg [place] Carbonate ([place] Carbonate Er 450 Mg Tablet.Er) 450 mg PO BID [facility] Last Admin: 03/27/24 20:19 Dose: 450 mg Magnesium Hydroxide (Milk Of Magnesia 30 Ml Oral.Susp) 30 ml PO DAILY PRN PRN Reason: Constipation Olanzapine (Olanzapine 10 Mg Tablet) 10 mg PO BEDTIME [facility] Last Admin: 03/27/24 20:19 Dose: 10 mg Olanzapine (Olanzapine 5 Mg Tablet) 5 mg PO TID PRN PRN Reason: Psychosis Last Admin: 03/26/24 16:25 Dose: 5 mg Trazodone HCl (Trazodone Hcl 50 Mg Tablet) 50 mg PO BEDTIME MRX1 PRN PRN Reason: Insomnia Last Admin: 03/23/24 20:53 Dose: 50 mg Allergies Allergies Allergy/AdvReac Type Severity Reaction Status Date / Time cephalexin [From Keflex] Allergy Hives Verified 12/17/23 07:28 From KEFLEX Allergy Unknown UNK Uncoded 12/17/23 07:28 From PAXIL Allergy Unknown UNK Uncoded 12/17/23 07:28 Assessment & Plan Assessment & Plan (1) Schizoaffective disorder, bipolar type: Status: Acute Code(s): F25.0 - Schizoaffective disorder, bipolar type Plan 03/17: offer zyprexa. savage warning provided. 03/18: no benzos, h/o abuse. continue current mgmt. floridly psychotic. 03/19: taking zyprexa. TD evident in jaw mvmts, T/C ingrezza or other. does not appear appreciably improved, although does refer to having felt briefly better in the past 24H during a period of perspective shift. 03/20: worse today than at admission. historically does better with antipsychotic + mood stabilizer. add lithium 450 BID, which she has been on in the past. file for commitment as necessary. 03/21 Covering provider- pt continues to present as very paranoid and restless. She has done well on haldol in the past. Will add haldol 5mg po BID in addition to olanzapine 20mg po qhs. SI present. 03/23: continue current tx plan. 03/25: continue current tx plan. 03/26: Lying in bed. refused AM medications. declined to meet with T/W. Pt stated, leave me alone. I don't need anything. I'll be in hell for all eternity. It's just the way it is . Pt closed her eyes and would not respond to questions. 03/27: more calm today. continues to feel she is hopeless and damned. check labs in the morning, T/C lithium increase as indicated. Reason for continued inpatient stay Substantial Risk for: harm to self and inability to function Time Spent With Patient Time: Total time managing care of this patient today __25__ minutes.
[2024-03-28 07:55] VITALS: BP 123/71; PULSE 70; RESP 16; TEMP 36.9; O2SAT 97
[2024-03-28] MEDS: HaloperidoL 5 MG TABLET PO (09:06)
[2024-03-28] MEDS: Lithium Carbonate ER 450 MG TABLET.ER PO ×2 (09:06→22:03)
[2024-03-28 09:45] LABS: Lithium 0.95 mmol/L (0.60-1.20)
[2024-03-28 09:48] LABS: Anion Gap 8 (12-20); Blood Urea Nitrogen 13 mg/dL (9-16); Calcium 9.7 mg/dL (8.4-10.2); Carbon Dioxide 30 mmol/L (22-29); Chloride 104 mmol/L (96-108); Creatinine Clr Calc Pharmacy 74.1; Estimated Glomerular Filt Rate > 60; Glucose Random 119 mg/dL (60-115); Potassium 4.3 mmol/L (3.3-5.1); Sodium 138 mmol/L (135-145)
--- NOTE | 2024-03-28 10:09 | HO.PSYCHPN ---
Subjective Subjective Date of Service: 03/24/24 Reason For Visit: Schizoaffective d/o bipolar type Subjective Notes: Section 7 Interim History: late entry for 03/24/24 Pt has been withdrawn isolated talking about deserving to . Poor hygeine not wanting medication poor intake Mental Status Exam Mental Status Exam Narrative: Pt seen in her room casually dressed disheveled quite depressed withdrawn saying she is in hell and deserves to denies active plan states she deserves to be punished monotone withdrawn Diagnostics Vital Signs (24Hr): Vital Signs - 24 hr 03/27/24 19:55 03/28/24 07:55 Temperature 98.0 F 98.5 F Pulse Rate 65 70 Respiratory Rate 16 Blood Pressure 113/54 L 123/71 Pulse Oximetry 95 97 Oxygen Delivery Method Room Air Room Air BMI result Body Mass Index 26.1 Labs 03/28/24 08:51 Labs: Laboratory Results - last 48 hr 03/28/24 08:51 Sodium 138 Potassium 4.3 Chloride 104 Carbon Dioxide 30 H Anion Gap 8 L BUN 13 Creatinine 0.76 Estim Creat Clear Calc 74.1 Estimated GFR > 60 Random Glucose 119 H Calcium 9.7 [place] 0.95 Medications Medications Current Medications Acetaminophen (Acetaminophen 325 Mg Tablet) 650 mg PO Q6H PRN PRN Reason: Pain, Mild (Pain Scale 1-3) Al Hydroxide/Mg Hydroxide (Magnesium Hydrox/Alum Hydrox 30 Ml Oral.Susp) 30 ml PO Q6H PRN PRN Reason: Heartburn/Nausea Haloperidol (Haloperidol 5 Mg Tablet) 5 mg PO BID [facility] Last Admin: 03/28/24 09:06 Dose: 5 mg Hydroxyzine HCl (Hydroxyzine Hcl 25 Mg Tablet) 25 mg PO Q6H PRN PRN Reason: Anxiety Last Admin: 03/26/24 16:25 Dose: 25 mg [place] Carbonate ([place] Carbonate Er 450 Mg Tablet.Er) 450 mg PO BID [facility] Last Admin: 03/28/24 09:06 Dose: 450 mg Magnesium Hydroxide (Milk Of Magnesia 30 Ml Oral.Susp) 30 ml PO DAILY PRN PRN Reason: Constipation Olanzapine (Olanzapine 10 Mg Tablet) 10 mg PO BEDTIME [facility] Last Admin: 03/27/24 20:19 Dose: 10 mg Olanzapine (Olanzapine 5 Mg Tablet) 5 mg PO TID PRN PRN Reason: Psychosis Last Admin: 03/26/24 16:25 Dose: 5 mg Trazodone HCl (Trazodone Hcl 50 Mg Tablet) 50 mg PO BEDTIME MRX1 PRN PRN Reason: Insomnia Last Admin: 03/23/24 20:53 Dose: 50 mg Allergies Allergies Allergy/AdvReac Type Severity Reaction Status Date / Time cephalexin [From Keflex] Allergy Hives Verified 12/17/23 07:28 From KEFLEX Allergy Unknown UNK Uncoded 12/17/23 07:28 From PAXIL Allergy Unknown UNK Uncoded 12/17/23 07:28 Assessment & Plan Assessment & Plan (1) Schizoaffective disorder, bipolar type: Status: Acute Code(s): F25.0 - Schizoaffective disorder, bipolar type Plan 03/17: offer zyprexa. savage warning provided. 03/18: no benzos, h/o abuse. continue current mgmt. floridly psychotic. 03/19: taking zyprexa. TD evident in jaw mvmts, T/C ingrezza or other. does not appear appreciably improved, although does refer to having felt briefly better in the past 24H during a period of perspective shift. 03/20: worse today than at admission. historically does better with antipsychotic + mood stabilizer. add lithium 450 BID, which she has been on in the past. file for commitment as necessary. 03/21 Covering provider- pt continues to present as very paranoid and restless. She has done well on haldol in the past. Will add haldol 5mg po BID in addition to olanzapine 20mg po qhs. SI present. 03/23: continue current tx plan. 03/24/24 Depressed hopeless sect 7 encourage acceptance of tx civil commitment tx plan pending. Informed Consent: does not understand Reason for continued inpatient stay Substantial Risk for: harm to self Time Spent With Patient Time: Total time managing care of this patient today ____ minutes.
[2024-03-28 20:00] VITALS: RESP 16
--- NOTE | 2024-03-28 20:16 | P.PNPSI_ITS ---
Subjective Subjective Date of Service: 03/28/24 Reason For Visit: Schizoaffective d/o bipolar type Interim History: in bed, appears depressed. hyper-protestant, hopeless and damned. agreeable to DC haldol and increase zyprexa to 20 QHS. per staff, slept 8 hours. urinating in bed knowingly. lithium 0.95. Mental Status Exam Mental Status Exam Narrative: Appearance: casually groomed, fair hygiene, in NAD Behavior: calm. Speech: terse TP: linear TC: no notable delusions or paranoia Mood: depressed Affect: constricted, normo-intense, non-labile SI: none expressed HI: none expressed AH/VH: none expressed Insight/judgment:poor x2 Memory/cog: alert, oriented x 3. impaired secondary to psychiatric symptoms. Diagnostics Vital Signs (24Hr): Vital Signs - 24 hr 03/28/24 07:55 Temperature 98.5 F Pulse Rate 70 Respiratory Rate 16 Blood Pressure 123/71 Pulse Oximetry 97 Oxygen Delivery Method Room Air BMI result Body Mass Index 26.1 Labs 03/28/24 08:51 Labs: Laboratory Results - last 48 hr 03/28/24 08:51 Sodium 138 Potassium 4.3 Chloride 104 Carbon Dioxide 30 H Anion Gap 8 L BUN 13 Creatinine 0.76 Estim Creat Clear Calc 74.1 Estimated GFR > 60 Random Glucose 119 H Calcium 9.7 [place] 0.95 Medications Medications Current Medications Acetaminophen (Acetaminophen 325 Mg Tablet) 650 mg PO Q6H PRN PRN Reason: Pain, Mild (Pain Scale 1-3) Al Hydroxide/Mg Hydroxide (Magnesium Hydrox/Alum Hydrox 30 Ml Oral.Susp) 30 ml PO Q6H PRN PRN Reason: Heartburn/Nausea Hydroxyzine HCl (Hydroxyzine Hcl 25 Mg Tablet) 25 mg PO Q6H PRN PRN Reason: Anxiety Last Admin: 03/26/24 16:25 Dose: 25 mg [place] Carbonate ([place] Carbonate Er 450 Mg Tablet.Er) 450 mg PO BID [facility] Last Admin: 03/28/24 09:06 Dose: 450 mg Magnesium Hydroxide (Milk Of Magnesia 30 Ml Oral.Susp) 30 ml PO DAILY PRN PRN Reason: Constipation Olanzapine (Olanzapine 5 Mg Tablet) 5 mg PO TID PRN PRN Reason: Psychosis Last Admin: 03/26/24 16:25 Dose: 5 mg Olanzapine (Olanzapine 10 Mg Tablet) 20 mg PO BEDTIME [facility] Trazodone HCl (Trazodone Hcl 50 Mg Tablet) 50 mg PO BEDTIME MRX1 PRN PRN Reason: Insomnia Last Admin: 03/23/24 20:53 Dose: 50 mg Allergies Allergies Allergy/AdvReac Type Severity Reaction Status Date / Time cephalexin [From Keflex] Allergy Hives Verified 12/17/23 07:28 From KEFLEX Allergy Unknown UNK Uncoded 12/17/23 07:28 From PAXIL Allergy Unknown UNK Uncoded 12/17/23 07:28 Assessment & Plan Assessment & Plan (1) Schizoaffective disorder, bipolar type: Status: Acute Code(s): F25.0 - Schizoaffective disorder, bipolar type Plan 03/17: offer zyprexa. savage warning provided. 03/18: no benzos, h/o abuse. continue current mgmt. floridly psychotic. 03/19: taking zyprexa. TD evident in jaw mvmts, T/C ingrezza or other. does not appear appreciably improved, although does refer to having felt briefly better in the past 24H during a period of perspective shift. 03/20: worse today than at admission. historically does better with antipsychotic + mood stabilizer. add lithium 450 BID, which she has been on in the past. file for commitment as necessary. 03/21 Covering provider- pt continues to present as very paranoid and restless. She has done well on haldol in the past. Will add haldol 5mg po BID in addition to olanzapine 20mg po qhs. SI present. 03/23: continue current tx plan. 03/25: continue current tx plan. 03/26: Lying in bed. refused AM medications. declined to meet with T/W. Pt stated, leave me alone. I don't need anything. I'll be in hell for all eternity. It's just the way it is . Pt closed her eyes and would not respond to questions. 03/27: more calm today. continues to feel she is hopeless and damned. check labs in the morning, T/C lithium increase as indicated. 03/28: lithium level 0.95. DC haldol and increase zyprexa to 20 mg QHS. remains depressed and psychotic. Reason for continued inpatient stay Substantial Risk for: harm to self and inability to function Time Spent With Patient Time: Total time managing care of this patient today _25___ minutes.
[2024-03-28] MEDS: OLANZapine 10 MG TABLET 20 MG PO (22:04)
[2024-03-29 08:00] VITALS: RESP 18
[2024-03-29] MEDS: Lithium Carbonate ER 450 MG TABLET.ER PO ×2 (11:14→20:47)
--- NOTE | 2024-03-29 12:52 | P.PNPSI_ITS ---
Subjective Subjective Date of Service: 03/29/24 Reason For Visit: Schizoaffective d/o bipolar type Interim History: calm, cooperative, terse. poverty of thought, PMR. agreeable to continue current mgmt for now. per staff, not attending groups. ate 25% of meals yesterday. depressed mood. Mental Status Exam Mental Status Exam Narrative: Appearance: casually groomed, fair hygiene, in NAD Behavior: calm. PMR. Speech: terse TP: linear. TC: no notable delusions or paranoia. poverty of thought. Mood: depressed Affect: constricted, normo-intense, non-labile SI: none expressed HI: none expressed AH/VH: none expressed Insight/judgment:poor x2 Memory/cog: alert, oriented x 3. impaired secondary to psychiatric symptoms. Diagnostics Vital Signs (24Hr): Vital Signs - 24 hr 03/28/24 20:00 03/29/24 08:00 Respiratory Rate 16 18 BMI result Body Mass Index 26.1 Labs 03/28/24 08:51 Labs: Laboratory Results - last 48 hr 03/28/24 08:51 Sodium 138 Potassium 4.3 Chloride 104 Carbon Dioxide 30 H Anion Gap 8 L BUN 13 Creatinine 0.76 Estim Creat Clear Calc 74.1 Estimated GFR > 60 Random Glucose 119 H Calcium 9.7 [place] 0.95 Medications Medications Current Medications Acetaminophen (Acetaminophen 325 Mg Tablet) 650 mg PO Q6H PRN PRN Reason: Pain, Mild (Pain Scale 1-3) Al Hydroxide/Mg Hydroxide (Magnesium Hydrox/Alum Hydrox 30 Ml Oral.Susp) 30 ml PO Q6H PRN PRN Reason: Heartburn/Nausea Hydroxyzine HCl (Hydroxyzine Hcl 25 Mg Tablet) 25 mg PO Q6H PRN PRN Reason: Anxiety Last Admin: 03/26/24 16:25 Dose: 25 mg [place] Carbonate ([place] Carbonate Er 450 Mg Tablet.Er) 450 mg PO BID [facility] Last Admin: 03/29/24 11:14 Dose: 450 mg Magn[place] Hydroxide (Milk Of Magnesia 30 Ml Oral.Susp) 30 ml PO DAILY PRN PRN Reason: Constipation Olanzapine (Olanzapine 5 Mg Tablet) 5 mg PO TID PRN PRN Reason: Psychosis Last Admin: 03/26/24 16:25 Dose: 5 mg Olanzapine (Olanzapine 10 Mg Tablet) 20 mg PO BEDTIME [facility] Last Admin: 03/28/24 22:04 Dose: 20 mg Trazodone HCl (Trazodone Hcl 50 Mg Tablet) 50 mg PO BEDTIME MRX1 PRN PRN Reason: Insomnia Last Admin: 03/23/24 20:53 Dose: 50 mg Allergies Allergies Allergy/AdvReac Type Severity Reaction Status Date / Time cephalexin [From Keflex] Allergy Hives Verified 12/17/23 07:28 From KEFLEX Allergy Unknown UNK Uncoded 12/17/23 07:28 From PAXIL Allergy Unknown UNK Uncoded 12/17/23 07:28 Assessment & Plan Assessment & Plan (1) Schizoaffective disorder, bipolar type: Status: Acute Code(s): F25.0 - Schizoaffective disorder, bipolar type Plan 03/17: offer zyprexa. savage warning provided. 03/18: no benzos, h/o abuse. continue current mgmt. floridly psychotic. 03/19: taking zyprexa. TD evident in jaw mvmts, T/C ingrezza or other. does not appear appreciably improved, although does refer to having felt briefly better in the past 24H during a period of perspective shift. 03/20: worse today than at admission. historically does better with antipsychotic + mood stabilizer. add lithium 450 BID, which she has been on in the past. file for commitment as necessary. 03/21 Covering provider- pt continues to present as very paranoid and restless. She has done well on haldol in the past. Will add haldol 5mg po BID in addition to olanzapine 20mg po qhs. SI present. 03/23: continue current tx plan. 03/25: continue current tx plan. 03/26: Lying in bed. refused AM medications. declined to meet with T/W. Pt stated, leave me alone. I don't need anything. I'll be in hell for all eternity. It's just the way it is . Pt closed her eyes and would not respond to questions. 03/27: more calm today. continues to feel she is hopeless and damned. check labs in the morning, T/C lithium increase as indicated. 03/28: lithium level 0.95. DC haldol and increase zyprexa to 20 mg QHS. remains depressed and psychotic. 03/29: remains with PMR, poverty of thought, depression. continue current mgmt for now. T/C adding anti-depressant, such as wellbutrin. Reason for continued inpatient stay Substantial Risk for: harm to self and inability to function Time Spent With Patient Time: Total time managing care of this patient today __25__ minutes.
[2024-03-29 20:00] VITALS: BP 113/68; PULSE 67; RESP 17; TEMP 36.7; O2SAT 98
[2024-03-29] MEDS: OLANZapine 10 MG TABLET 20 MG PO (20:47)
[2024-03-30 07:05] VITALS: BP 112/59; PULSE 87; RESP 16; TEMP 36.4; O2SAT 97
[2024-03-30] MEDS: Lithium Carbonate ER 450 MG TABLET.ER PO ×2 (08:50→20:31)
--- NOTE | 2024-03-30 17:00 | P.PNPSI_ITS ---
Subjective Subjective Date of Service: 03/30/24 Reason For Visit: Schizoaffective d/o bipolar type Interim History: in bed, mute. nods and shakes head in response to questions. appears agreeable to start wellbutrin for depression. Mental Status Exam Mental Status Exam Narrative: Appearance: casually groomed, fair hygiene, in NAD Behavior: calm. PMR. Speech: mute TP: nods or shakes head to yes/no questions. TC: no delusions or paranoia expressed. Mood: depressed Affect: constricted, hypo-intense, non-labile SI: none expressed HI: none expressed AH/VH: none expressed Insight/judgment:poor x2 Memory/cog: alert, oriented x 3. impaired secondary to psychiatric symptoms. Diagnostics Vital Signs (24Hr): Vital Signs - 24 hr 03/29/24 20:00 03/30/24 07:05 Temperature 98.1 F 97.6 F Pulse Rate 67 87 Respiratory Rate 17 16 Blood Pressure 113/68 112/59 L Pulse Oximetry 98 97 Oxygen Delivery Method Room Air Room Air BMI result Body Mass Index 26.1 Labs 03/28/24 08:51 Medications Medications Current Medications Acetaminophen (Acetaminophen 325 Mg Tablet) 650 mg PO Q6H PRN PRN Reason: Pain, Mild (Pain Scale 1-3) Al Hydroxide/Mg Hydroxide (Magnesium Hydrox/Alum Hydrox 30 Ml Oral.Susp) 30 ml PO Q6H PRN PRN Reason: Heartburn/Nausea Hydroxyzine HCl (Hydroxyzine Hcl 25 Mg Tablet) 25 mg PO Q6H PRN PRN Reason: Anxiety Last Admin: 03/26/24 16:25 Dose: 25 mg [place] Carbonate ([place] Carbonate Er 450 Mg Tablet.Er) 450 mg PO BID [facility] Last Admin: 03/30/24 08:50 Dose: 450 mg Magnesium Hydroxide (Milk Of Magnesia 30 Ml Oral.Susp) 30 ml PO DAILY PRN PRN Reason: Constipation Olanzapine (Olanzapine 5 Mg Tablet) 5 mg PO TID PRN PRN Reason: Psychosis Last Admin: 03/26/24 16:25 Dose: 5 mg Olanzapine (Olanzapine 10 Mg Tablet) 20 mg PO BEDTIME [facility] Last Admin: 03/29/24 20:47 Dose: 20 mg Trazodone HCl (Trazodone Hcl 50 Mg Tablet) 50 mg PO BEDTIME MRX1 PRN PRN Reason: Insomnia Last Admin: 03/23/24 20:53 Dose: 50 mg Allergies Allergies Allergy/AdvReac Type Severity Reaction Status Date / Time cephalexin [From Keflex] Allergy Hives Verified 12/17/23 07:28 From KEFLEX Allergy Unknown UNK Uncoded 12/17/23 07:28 From PAXIL Allergy Unknown UNK Uncoded 12/17/23 07:28 Assessment & Plan Assessment & Plan (1) Schizoaffective disorder, bipolar type: Status: Acute Code(s): F25.0 - Schizoaffective disorder, bipolar type Plan 03/17: offer zyprexa. savage warning provided. 03/18: no benzos, h/o abuse. continue current mgmt. floridly psychotic. 03/19: taking zyprexa. TD evident in jaw mvmts, T/C ingrezza or other. does not appear appreciably improved, although does refer to having felt briefly better in the past 24H during a period of perspective shift. 03/20: worse today than at admission. historically does better with antipsychotic + mood stabilizer. add lithium 450 BID, which she has been on in the past. file for commitment as necessary. 03/21 Covering provider- pt continues to present as very paranoid and restless. She has done well on haldol in the past. Will add haldol 5mg po BID in addition to olanzapine 20mg po qhs. SI present. 03/23: continue current tx plan. 03/25: continue current tx plan. 03/26: Lying in bed. refused AM medications. declined to meet with T/W. Pt stated, leave me alone. I don't need anything. I'll be in hell for all eternity. It's just the way it is . Pt closed her eyes and would not respond to questions. 03/27: more calm today. continues to feel she is hopeless and damned. check labs in the morning, T/C lithium increase as indicated. 03/28: lithium level 0.95. DC haldol and increase zyprexa to 20 mg QHS. remains depressed and psychotic. 03/29: remains with PMR, poverty of thought, depression. continue current mgmt for now. T/C adding anti-depressant, such as wellbutrin. 03/30: mute today, depressed, PMR, in bed. agrees to wellbutrin. Reason for continued inpatient stay Substantial Risk for: harm to self and inability to function Time Spent With Patient Time: Total time managing care of this patient today __25__ minutes.
[2024-03-30 20:00] VITALS: BP 122/86; PULSE 82; RESP 18; TEMP 36.4; O2SAT 97
[2024-03-30] MEDS: OLANZapine 10 MG TABLET 20 MG PO (20:31)
[2024-03-31] MEDS: Lithium Carbonate ER 450 MG TABLET.ER PO ×2 (09:05→20:26)
[2024-03-31] MEDS: buPROPion HCl XL 150 MG TAB.ER.24H PO (09:05)
[2024-03-31 09:07] VITALS: BP 111/58; PULSE 70; RESP 15; TEMP 36.8; O2SAT 97
--- NOTE | 2024-03-31 15:43 | HO.PSYCHPN ---
Subjective Subjective Date of Service: 03/31/24 Reason For Visit: Schizoaffective d/o bipolar type Interim History: up and about this morning, more verbal and engaging. discuss legal matters, signed CV. per staff, depressed and anxious. +SI, no intent or plan. poor PO intake. taking meds. slept 7 hours. Mental Status Exam Mental Status Exam Narrative: Appearance: casually groomed, fair hygiene, in NAD Behavior: calm. PMR. Speech: nml rate, decr amount TP: linear in brief interaction TC: no delusions or paranoia expressed. Mood: depressed Affect: constricted, hypo-intense, non-labile SI: + HI: none expressed AH/VH: none expressed Insight/judgment:poor x2 Memory/cog: alert, oriented x 3. impaired secondary to psychiatric symptoms. Diagnostics Vital Signs (24Hr): Vital Signs - 24 hr 03/30/24 20:00 03/31/24 09:07 Temperature 97.6 F 98.2 F Pulse Rate 82 70 Respiratory Rate 18 15 Blood Pressure 122/86 111/58 L Pulse Oximetry 97 97 Oxygen Delivery Method Room Air Room Air BMI result Body Mass Index 26.1 Labs 03/28/24 08:51 Medications Medications Current Medications Acetaminophen (Acetaminophen 325 Mg Tablet) 650 mg PO Q6H PRN PRN Reason: Pain, Mild (Pain Scale 1-3) Al Hydroxide/Mg Hydroxide (Magnesium Hydrox/Alum Hydrox 30 Ml Oral.Susp) 30 ml PO Q6H PRN PRN Reason: Heartburn/Nausea Bupropion HCl (Bupropion Hcl Xl 150 Mg Tab.Er.24h) 150 mg PO DAILY [facility] Last Admin: 03/31/24 09:05 Dose: 150 mg Hydroxyzine HCl (Hydroxyzine Hcl 25 Mg Tablet) 25 mg PO Q6H PRN PRN Reason: Anxiety Last Admin: 03/26/24 16:25 Dose: 25 mg [place] Carbonate ([place] Carbonate Er 450 Mg Tablet.Er) 450 mg PO BID [facility] Last Admin: 03/31/24 09:05 Dose: 450 mg Magnesium Hydroxide (Milk Of Magnesia 30 Ml Oral.Susp) 30 ml PO DAILY PRN PRN Reason: Constipation Olanzapine (Olanzapine 5 Mg Tablet) 5 mg PO TID PRN PRN Reason: Psychosis Last Admin: 03/26/24 16:25 Dose: 5 mg Olanzapine (Olanzapine 10 Mg Tablet) 20 mg PO BEDTIME [facility] Last Admin: 03/30/24 20:31 Dose: 20 mg Trazodone HCl (Trazodone Hcl 50 Mg Tablet) 50 mg PO BEDTIME MRX1 PRN PRN Reason: Insomnia Last Admin: 03/23/24 20:53 Dose: 50 mg Allergies Allergies Allergy/AdvReac Type Severity Reaction Status Date / Time cephalexin [From Keflex] Allergy Hives Verified 12/17/23 07:28 From KEFLEX Allergy Unknown UNK Uncoded 12/17/23 07:28 From PAXIL Allergy Unknown UNK Uncoded 12/17/23 07:28 Assessment & Plan Assessment & Plan (1) Schizoaffective disorder, bipolar type: Status: Acute Code(s): F25.0 - Schizoaffective disorder, bipolar type Plan 03/17: offer zyprexa. savage warning provided. 03/18: no benzos, h/o abuse. continue current mgmt. floridly psychotic. 03/19: taking zyprexa. TD evident in jaw mvmts, T/C ingrezza or other. does not appear appreciably improved, although does refer to having felt briefly better in the past 24H during a period of perspective shift. 03/20: worse today than at admission. historically does better with antipsychotic + mood stabilizer. add lithium 450 BID, which she has been on in the past. file for commitment as necessary. 03/21 Covering provider- pt continues to present as very paranoid and restless. She has done well on haldol in the past. Will add haldol 5mg po BID in addition to olanzapine 20mg po qhs. SI present. 03/23: continue current tx plan. 03/25: continue current tx plan. 03/26: Lying in bed. refused AM medications. declined to meet with T/W. Pt stated, leave me alone. I don't need anything. I'll be in hell for all eternity. It's just the way it is . Pt closed her eyes and would not respond to questions. 03/27: more calm today. continues to feel she is hopeless and damned. check labs in the morning, T/C lithium increase as indicated. 03/28: lithium level 0.95. DC haldol and increase zyprexa to 20 mg QHS. remains depressed and psychotic. 03/29: remains with PMR, poverty of thought, depression. continue current mgmt for now. T/C adding anti-depressant, such as wellbutrin. 03/30: mute today, depressed, PMR, in bed. agrees to wellbutrin. 03/31: up and about today, more verbal. signed CV. continue current mgmt. Reason for continued inpatient stay Substantial Risk for: harm to self, inability to function and rapid decompensation Time Spent With Patient Time: Total time managing care of this patient today __25__ minutes.
[2024-03-31 20:00] VITALS: BP 115/76; PULSE 89; RESP 16; TEMP 36.2; O2SAT 99
[2024-03-31] MEDS: traZODone HCL 50 MG TABLET PO (20:25)
[2024-03-31] MEDS: OLANZapine 10 MG TABLET 20 MG PO (20:26)
--- NOTE | 2024-04-01 05:51 | PC.NURSE ---
on 03/31/24 at 2100 Pt had a witnessed fall by [facility] Mckenna Hawkins and Mckenna Freire. Both [facility] reported pt tripped and put her self onto the floor. Pt did not hit head. Pt reported I am not in pain. I am fine. VSS. Neuro WNL. Dr. Perea and Nursing supervisor tumblers Elodia Rodriguez were notified.
[2024-04-01 07:35] VITALS: BP 141/64; PULSE 76; RESP 16; TEMP 36.4; O2SAT 99
--- NOTE | 2024-04-01 07:41 | P.PNPSI_ITS ---
Subjective Subjective Date of Service: 04/01/24 Reason For Visit: Schizoaffective d/o bipolar type Subjective Notes: Conditional Voluntary Interim History: seen in day area. Continues to believe she has been taken over by spirits, is evil and destined for any day now. Does need encouragement around medications. Reports that there is no hope for her. Denied active SI. No HI. Very tearful and endorsed depression. Sleep okay. Medication Compliance: Yes Side effects from medications: No Attending Groups: No Review of Systems Acute medical concerns: No Review of Systems Review of Systems Nothing acute Mental Status Exam Mental Status Exam Narrative: In addition to below, no evidence of SI or HI Patient Appearance: Disheveled Level of Consciousness: Awake Patient Behavior: Guarded, Anxious and Poor Eye Contact Mood Description: Withdrawn Affect Description: Anxious Ability to Follow Directions: Fair Speech Pattern: Clear Delusions: Paranoid Ideation Judgement: Poor Diagnostics Vital Signs (24Hr): Vital Signs - 24 hr 03/31/24 09:07 03/31/24 20:00 Temperature 98.2 F 97.1 F Pulse Rate 70 89 Respiratory Rate 15 16 Blood Pressure 111/58 L 115/76 Pulse Oximetry 97 99 Oxygen Delivery Method Room Air Room Air BMI result Body Mass Index 26.1 Labs 03/28/24 08:51 Medications Medications Current Medications Acetaminophen (Acetaminophen 325 Mg Tablet) 650 mg PO Q6H PRN PRN Reason: Pain, Mild (Pain Scale 1-3) Al Hydroxide/Mg Hydroxide (Magnesium Hydrox/Alum Hydrox 30 Ml Oral.Susp) 30 ml PO Q6H PRN PRN Reason: Heartburn/Nausea Bupropion HCl (Bupropion Hcl Xl 150 Mg Tab.Er.24h) 150 mg PO DAILY [facility] [place] Last Admin: 03/31/24 09:05 Dose: 150 mg Hydroxyzine HCl (Hydroxyzine Hcl 25 Mg Tablet) 25 mg PO Q6H PRN PRN Reason: Anxiety Last Admin: 03/26/24 16:25 Dose: 25 mg [place] Carbonate ([place] Carbonate Er 450 Mg Tablet.Er) 450 mg PO BID [facility] Last Admin: 03/31/24 20:26 Dose: 450 mg Magnesium Hydroxide (Milk Of Magnesia 30 Ml Oral.Susp) 30 ml PO DAILY PRN PRN Reason: Constipation Olanzapine (Olanzapine 5 Mg Tablet) 5 mg PO TID PRN PRN Reason: Psychosis Last Admin: 03/26/24 16:25 Dose: 5 mg Olanzapine (Olanzapine 10 Mg Tablet) 20 mg PO BEDTIME [facility] Last Admin: 03/31/24 20:26 Dose: 20 mg Trazodone HCl (Trazodone Hcl 50 Mg Tablet) 50 mg PO BEDTIME MRX1 PRN PRN Reason: Insomnia Last Admin: 03/31/24 20:25 Dose: 50 mg Allergies Allergies Allergy/AdvReac Type Severity Reaction Status Date / Time cephalexin [From Keflex] Allergy Hives Verified 12/17/23 07:28 From KEFLEX Allergy Unknown UNK Uncoded 12/17/23 07:28 From PAXIL Allergy Unknown UNK Uncoded 12/17/23 07:28 Assessment & Plan Assessment & Plan (1) Schizoaffective disorder, bipolar type: Status: Acute Code(s): F25.0 - Schizoaffective disorder, bipolar type Plan 03/17: offer zyprexa. savage warning provided. 03/18: no benzos, h/o abuse. continue current mgmt. floridly psychotic. 03/19: taking zyprexa. TD evident in jaw mvmts, T/C ingrezza or other. does not appear appreciably improved, although does refer to having felt briefly better in the past 24H during a period of perspective shift. 03/20: worse today than at admission. historically does better with antipsychotic + mood stabilizer. add lithium 450 BID, which she has been on in the past. file for commitment as necessary. 03/21 Covering provider- pt continues to present as very paranoid and restless. She has done well on haldol in the past. Will add haldol 5mg po BID in addition to olanzapine 20mg po qhs. SI present. 03/23: continue current tx plan. 03/25: continue current tx plan. 03/26: Lying in bed. refused AM medications. declined to meet with T/W. Pt stated, leave me alone. I don't need anything. I'll be in hell for all eternity. It's just the way it is . Pt closed her eyes and would not respond to questions. 03/27: more calm today. continues to feel she is hopeless and damned. check labs in the morning, T/C lithium increase as indicated. 03/28: lithium level 0.95. DC haldol and increase zyprexa to 20 mg QHS. remains depressed and psychotic. 03/29: remains with PMR, poverty of thought, depression. continue current mgmt for now. T/C adding anti-depressant, such as wellbutrin. 03/30: mute today, depressed, PMR, in bed. agrees to wellbutrin. 03/31: up and about today, more verbal. signed CV. continue current mgmt. 04/01/2024: Continue to encourage medication adherence. Ongoing admission needed as unable to care for self due to level of psychosis Reason for continued inpatient stay Substantial Risk for: inability to function Time Spent With Patient Time: Total time managing care of this patient today ____ minutes.
[2024-04-01] MEDS: Lithium Carbonate ER 450 MG TABLET.ER PO ×2 (09:50→20:40)
[2024-04-01] MEDS: buPROPion HCl XL 150 MG TAB.ER.24H PO (09:50)
[2024-04-01] MEDS: OLANZapine 10 MG TABLET 20 MG PO (20:40)
[2024-04-01] MEDS: hydrOXYzine HCL 25 MG TABLET PO (20:44)
[2024-04-01] MEDS: traZODone HCL 50 MG TABLET PO (20:44)
[2024-04-02 08:00] VITALS: BP 138/60; PULSE 83; RESP 18; TEMP 36.8; O2SAT 97
[2024-04-02] MEDS: Lithium Carbonate ER 450 MG TABLET.ER PO ×2 (08:41→20:00)
[2024-04-02] MEDS: buPROPion HCl XL 150 MG TAB.ER.24H PO (08:41)
--- NOTE | 2024-04-02 10:17 | P.PNPSI_ITS ---
Subjective Subjective Date of Service: 04/02/24 Reason For Visit: Schizoaffective d/o bipolar type Subjective Notes: Conditional Voluntary Interim History: Seen in day area and also interview room. Continues to believe she has been taken over by spirits, is evil and destined for any day now I dont know why but its true, I know it . Sightly less intense today and not crying. Ongoing encouragement around medications. Feels depressed and hopeless. Denied active SI. No HI. Sleep okay. Medication Compliance: Yes Side effects from medications: No Attending Groups: Yes Review of Systems Acute medical concerns: No Review of Systems Review of Systems Nothing acute Mental Status Exam Mental Status Exam Narrative: In addition to below, no evidence of SI or HI Patient Appearance: Appropriate Level of Consciousness: Awake Patient Behavior: Guarded, Anxious and Poor Eye Contact Mood Description: Withdrawn Affect Description: Anxious Ability to Follow Directions: Fair Speech Pattern: Clear Diagnostics Vital Signs (24Hr): Vital Signs - 24 hr 04/02/24 08:00 Temperature 98.2 F Pulse Rate 83 Respiratory Rate 18 Blood Pressure 138/60 Pulse Oximetry 97 Oxygen Delivery Method Room Air BMI result Body Mass Index 26.1 Labs 03/28/24 08:51 Medications Medications Current Medications Acetaminophen (Acetaminophen 325 Mg Tablet) 650 mg PO Q6H PRN PRN Reason: Pain, Mild (Pain Scale 1-3) Al Hydroxide/Mg Hydroxide (Magnesium Hydrox/Alum Hydrox 30 Ml Oral.Susp) 30 ml PO Q6H PRN PRN Reason: Heartburn/Nausea Bupropion HCl (Bupropion Hcl Xl 150 Mg Tab.Er.24h) 150 mg PO DAILY [facility] [place] Last Admin: 04/02/24 08:41 Dose: 150 mg Hydroxyzine HCl (Hydroxyzine Hcl 25 Mg Tablet) 25 mg PO Q6H PRN PRN Reason: Anxiety Last Admin: 04/01/24 20:44 Dose: 25 mg [place] Carbonate ([place] Carbonate Er 450 Mg Tablet.Er) 450 mg PO BID [facility] [place] [place] Last Admin: 04/02/24 08:41 Dose: 450 mg Magnesium Hydroxide (Milk Of Magnesia 30 Ml Oral.Susp) 30 ml PO DAILY PRN PRN Reason: Constipation Olanzapine (Olanzapine 5 Mg Tablet) 5 mg PO TID PRN PRN Reason: Psychosis Last Admin: 03/26/24 16:25 Dose: 5 mg Olanzapine (Olanzapine 10 Mg Tablet) 20 mg PO BEDTIME [facility] [place] Last Admin: 04/01/24 20:40 Dose: 20 mg Trazodone HCl (Trazodone Hcl 50 Mg Tablet) 50 mg PO BEDTIME MRX1 PRN PRN Reason: Insomnia Last Admin: 04/01/24 20:44 Dose: 50 mg Allergies Allergies Allergy/AdvReac Type Severity Reaction Status Date / Time cephalexin [From Keflex] Allergy Hives Verified 12/17/23 07:28 From KEFLEX Allergy Unknown UNK Uncoded 12/17/23 07:28 From PAXIL Allergy Unknown UNK Uncoded 12/17/23 07:28 Assessment & Plan Assessment & Plan (1) Schizoaffective disorder, bipolar type: Status: Acute Code(s): F25.0 - Schizoaffective disorder, bipolar type Plan 03/17: offer zyprexa. savage warning provided. 03/18: no benzos, h/o abuse. continue current mgmt. floridly psychotic. 03/19: taking zyprexa. TD evident in jaw mvmts, T/C ingrezza or other. does not appear appreciably improved, although does refer to having felt briefly better in the past 24H during a period of perspective shift. 03/20: worse today than at admission. historically does better with antipsychotic + mood stabilizer. add lithium 450 BID, which she has been on in the past. file for commitment as necessary. 03/21 Covering provider- pt continues to present as very paranoid and restless. She has done well on haldol in the past. Will add haldol 5mg po BID in addition to olanzapine 20mg po qhs. SI present. 03/23: continue current tx plan. 03/25: continue current tx plan. 03/26: Lying in bed. refused AM medications. declined to meet with T/W. Pt stated, leave me alone. I don't need anything. I'll be in hell for all eternity. It's just the way it is . Pt closed her eyes and would not respond to questions. 03/27: more calm today. continues to feel she is hopeless and damned. check labs in the morning, T/C lithium increase as indicated. 03/28: lithium level 0.95. DC haldol and increase zyprexa to 20 mg QHS. remains depressed and psychotic. 03/29: remains with PMR, poverty of thought, depression. continue current mgmt for now. T/C adding anti-depressant, such as wellbutrin. 03/30: mute today, depressed, PMR, in bed. agrees to wellbutrin. 03/31: up and about today, more verbal. signed CV. continue current mgmt. 04/02/2024: Continue to encourage medication adherence. Ongoing admission needed as unable to care for self due to level of psychosis Reason for continued inpatient stay Substantial Risk for: inability to function Time Spent With Patient Time: Total time managing care of this patient today ____ minutes.
[2024-04-02 19:44] VITALS: BP 123/72; PULSE 80; RESP 17; TEMP 36.7; O2SAT 97
[2024-04-02] MEDS: traZODone HCL 50 MG TABLET PO ×2 (19:59→20:35)
[2024-04-02] MEDS: hydrOXYzine HCL 25 MG TABLET PO (20:00)
[2024-04-02] MEDS: OLANZapine 10 MG TABLET 20 MG PO (20:00)
[2024-04-03] MEDS: Lithium Carbonate ER 450 MG TABLET.ER PO ×2 (08:25→20:41)
[2024-04-03] MEDS: buPROPion HCl XL 150 MG TAB.ER.24H PO (08:25)
--- NOTE | 2024-04-03 14:42 | P.PNPSI_ITS ---
Subjective Subjective Date of Service: 04/03/24 Reason For Visit: Schizoaffective d/o bipolar type Interim History: no change in presentation. in bed, irritable, depressed, religiously preoccupied. agreeable to increase wellbutrin to 300 mg daily. per staff, taking meds. c/o poor sleep. angry with BF for bringing her snacks. watching TV. appeared to have slept. Mental Status Exam Mental Status Exam Narrative: Appearance: casually groomed, fair hygiene, in NAD Behavior: calm. no PMA/PMR. Speech: nml rate, decr amount TP: linear in brief interaction TC: religiously preoccupied Mood: depressed Affect: constricted, hypo-intense, non-labile SI: + HI: none expressed AH/VH: none expressed Insight/judgment:poor x2 Memory/cog: alert, oriented x 3. impaired secondary to psychiatric symptoms. Diagnostics Vital Signs (24Hr): Vital Signs - 24 hr 04/02/24 19:44 Temperature 98.0 F Pulse Rate 80 Respiratory Rate 17 Blood Pressure 123/72 Pulse Oximetry 97 Oxygen Delivery Method Room Air BMI result Body Mass Index 26.1 Labs 03/28/24 08:51 Medications Medications Current Medications Acetaminophen (Acetaminophen 325 Mg Tablet) 650 mg PO Q6H PRN PRN Reason: Pain, Mild (Pain Scale 1-3) Al Hydroxide/Mg Hydroxide (Magnesium Hydrox/Alum Hydrox 30 Ml Oral.Susp) 30 ml PO Q6H PRN PRN Reason: Heartburn/Nausea Bupropion HCl (Bupropion Hcl Xl 300 Mg Tab.Er.24h) 300 mg PO DAILY [facility] Hydroxyzine HCl (Hydroxyzine Hcl 25 Mg Tablet) 25 mg PO Q6H PRN PRN Reason: Anxiety Last Admin: 04/02/24 20:00 Dose: 25 mg [place] Carbonate ([place] Carbonate Er 450 Mg Tablet.Er) 450 mg PO BID [facility] Last Admin: 04/03/24 08:25 Dose: 450 mg Magnesium Hydroxide (Milk Of Magnesia 30 Ml Oral.Susp) 30 ml PO DAILY PRN PRN Reason: Constipation Olanzapine (Olanzapine 5 Mg Tablet) 5 mg PO TID PRN PRN Reason: Psychosis Last Admin: 03/26/24 16:25 Dose: 5 mg Olanzapine (Olanzapine 10 Mg Tablet) 20 mg PO BEDTIME [facility] Last Admin: 04/02/24 20:00 Dose: 20 mg Trazodone HCl (Trazodone Hcl 50 Mg Tablet) 50 mg PO BEDTIME MRX1 PRN PRN Reason: Insomnia Last Admin: 04/02/24 20:35 Dose: 50 mg Allergies Allergies Allergy/AdvReac Type Severity Reaction Status Date / Time cephalexin [From Keflex] Allergy Hives Verified 12/17/23 07:28 From KEFLEX Allergy Unknown UNK Uncoded 12/17/23 07:28 From PAXIL Allergy Unknown UNK Uncoded 12/17/23 07:28 Assessment & Plan Assessment & Plan (1) Schizoaffective disorder, bipolar type: Status: Acute Code(s): F25.0 - Schizoaffective disorder, bipolar type Plan 03/17: offer zyprexa. savage warning provided. 03/18: no benzos, h/o abuse. continue current mgmt. floridly psychotic. 03/19: taking zyprexa. TD evident in jaw mvmts, T/C ingrezza or other. does not appear appreciably improved, although does refer to having felt briefly better in the past 24H during a period of perspective shift. 03/20: worse today than at admission. historically does better with antipsychotic + mood stabilizer. add lithium 450 BID, which she has been on in the past. file for commitment as necessary. 03/21 Covering provider- pt continues to present as very paranoid and restless. She has done well on haldol in the past. Will add haldol 5mg po BID in addition to olanzapine 20mg po qhs. SI present. 03/23: continue current tx plan. 03/25: continue current tx plan. 03/26: Lying in bed. refused AM medications. declined to meet with T/W. Pt stated, leave me alone. I don't need anything. I'll be in hell for all eternity. It's just the way it is . Pt closed her eyes and would not respond to questions. 03/27: more calm today. continues to feel she is hopeless and damned. check labs in the morning, T/C lithium increase as indicated. 03/28: lithium level 0.95. DC haldol and increase zyprexa to 20 mg QHS. remains depressed and psychotic. 03/29: remains with PMR, poverty of thought, depression. continue current mgmt for now. T/C adding anti-depressant, such as wellbutrin. 03/30: mute today, depressed, PMR, in bed. agrees to wellbutrin. 03/31: up and about today, more verbal. signed CV. continue current mgmt. 04/02/2024: Continue to encourage medication adherence. Ongoing admission needed as unable to care for self due to level of psychosis 04/03: increase wellbutrin to 300 mg daily. continues depressed and psychotic. Reason for continued inpatient stay Substantial Risk for: harm to self and inability to function Time Spent With Patient Time: Total time managing care of this patient today __25__ minutes.
[2024-04-03 20:00] VITALS: BP 108/64; PULSE 77; RESP 16; TEMP 36.6; O2SAT 98
[2024-04-03] MEDS: OLANZapine 10 MG TABLET 20 MG PO (20:41)
[2024-04-04] MEDS: buPROPion HCl XL 300 MG TAB.ER.24H PO (08:49)
[2024-04-04] MEDS: Lithium Carbonate ER 450 MG TABLET.ER PO ×2 (08:49→19:59)
--- NOTE | 2024-04-04 16:04 | HO.PSYCHPN ---
Subjective Subjective Date of Service: 04/04/24 Reason For Visit: Schizoaffective d/o bipolar type Interim History: up and about the unit. appears a bit more animated, says she is depressed and no change in mood. c/o poor sleep overnight. per staff, +dep/anx. +SI. no plan or intent. slept 8 hours. Mental Status Exam Mental Status Exam Narrative: Appearance: casually groomed, fair hygiene, in NAD Behavior: calm. no PMA/PMR. Speech: nml rate, amount, loudness TP: linear TC: hoahaoism delusions Mood: depressed Affect: constricted, hypo-intense, non-labile SI: + HI: none expressed AH/VH: none expressed Insight/judgment:poor x2 Memory/cog: alert, oriented x 3. impaired secondary to psychiatric symptoms. Diagnostics Vital Signs (24Hr): Vital Signs - 24 hr 04/03/24 20:00 Temperature 97.8 F Pulse Rate 77 Respiratory Rate 16 Blood Pressure 108/64 Pulse Oximetry 98 Oxygen Delivery Method Room Air BMI result Body Mass Index 26.1 Labs 03/28/24 08:51 Medications Medications Current Medications Acetaminophen (Acetaminophen 325 Mg Tablet) 650 mg PO Q6H PRN PRN Reason: Pain, Mild (Pain Scale 1-3) Al Hydroxide/Mg Hydroxide (Magnesium Hydrox/Alum Hydrox 30 Ml Oral.Susp) 30 ml PO Q6H PRN PRN Reason: Heartburn/Nausea Bupropion HCl (Bupropion Hcl Xl 300 Mg Tab.Er.24h) 300 mg PO DAILY [facility] Last Admin: 04/04/24 08:49 Dose: 300 mg Hydroxyzine HCl (Hydroxyzine Hcl 25 Mg Tablet) 25 mg PO Q6H PRN PRN Reason: Anxiety Last Admin: 04/02/24 20:00 Dose: 25 mg [place] Carbonate ([place] Carbonate Er 450 Mg Tablet.Er) 450 mg PO BID [facility] Last Admin: 04/04/24 08:49 Dose: 450 mg Magnesium Hydroxide (Milk Of Magnesia 30 Ml Oral.Susp) 30 ml PO DAILY PRN PRN Reason: Constipation Olanzapine (Olanzapine 5 Mg Tablet) 5 mg PO TID PRN PRN Reason: Psychosis Last Admin: 03/26/24 16:25 Dose: 5 mg Olanzapine (Olanzapine 10 Mg Tablet) 20 mg PO BEDTIME [facility] Last Admin: 04/03/24 20:41 Dose: 20 mg Trazodone HCl (Trazodone Hcl 50 Mg Tablet) 50 mg PO BEDTIME MRX1 PRN PRN Reason: Insomnia Last Admin: 04/02/24 20:35 Dose: 50 mg Allergies Allergies Allergy/AdvReac Type Severity Reaction Status Date / Time cephalexin [From Keflex] Allergy Hives Verified 12/17/23 07:28 From KEFLEX Allergy Unknown UNK Uncoded 12/17/23 07:28 From PAXIL Allergy Unknown UNK Uncoded 12/17/23 07:28 Assessment & Plan Assessment & Plan (1) Schizoaffective disorder, bipolar type: Status: Acute Code(s): F25.0 - Schizoaffective disorder, bipolar type Plan 03/17: offer zyprexa. savage warning provided. 03/18: no benzos, h/o abuse. continue current mgmt. floridly psychotic. 03/19: taking zyprexa. TD evident in jaw mvmts, T/C ingrezza or other. does not appear appreciably improved, although does refer to having felt briefly better in the past 24H during a period of perspective shift. 03/20: worse today than at admission. historically does better with antipsychotic + mood stabilizer. add lithium 450 BID, which she has been on in the past. file for commitment as necessary. 03/21 Covering provider- pt continues to present as very paranoid and restless. She has done well on haldol in the past. Will add haldol 5mg po BID in addition to olanzapine 20mg po qhs. SI present. 03/23: continue current tx plan. 03/25: continue current tx plan. 03/26: Lying in bed. refused AM medications. declined to meet with T/W. Pt stated, leave me alone. I don't need anything. I'll be in hell for all eternity. It's just the way it is . Pt closed her eyes and would not respond to questions. 03/27: more calm today. continues to feel she is hopeless and damned. check labs in the morning, T/C lithium increase as indicated. 03/28: lithium level 0.95. DC haldol and increase zyprexa to 20 mg QHS. remains depressed and psychotic. 03/29: remains with PMR, poverty of thought, depression. continue current mgmt for now. T/C adding anti-depressant, such as wellbutrin. 03/30: mute today, depressed, PMR, in bed. agrees to wellbutrin. 03/31: up and about today, more verbal. signed CV. continue current mgmt. 04/02/2024: Continue to encourage medication adherence. Ongoing admission needed as unable to care for self due to level of psychosis 04/03: increase wellbutrin to 300 mg daily. continues depressed and psychotic. 04/04: out and about on the unit more, appearing brighter. reports mood unchanged. continue current mgmt. Reason for continued inpatient stay Substantial Risk for: harm to self and inability to function Time Spent With Patient Time: Total time managing care of this patient today __25__ minutes.
[2024-04-04] MEDS: OLANZapine 10 MG TABLET 20 MG PO (19:59)
[2024-04-04 20:00] VITALS: BP 119/72; PULSE 84; RESP 16; TEMP 36.5; O2SAT 99
[2024-04-05 09:05] VITALS: BP 101/66; PULSE 75; RESP 14; TEMP 36.8; O2SAT 96
[2024-04-05] MEDS: Lithium Carbonate ER 450 MG TABLET.ER PO ×2 (09:20→20:24)
[2024-04-05] MEDS: buPROPion HCl XL 300 MG TAB.ER.24H PO (09:20)
--- NOTE | 2024-04-05 16:15 | HO.PSYCHPN ---
Subjective Subjective Date of Service: 04/05/24 Reason For Visit: Schizoaffective d/o bipolar type Interim History: up and about today, less dysphoric, no hyper-orthodox statements although maintains she is still religiously preoccupied. still pretty depressed. anxious re dispo planning. per staff, dep 10, anxious. +SI. withdrawn, irritable. concerned about dispo. attended all groups. Mental Status Exam Mental Status Exam Narrative: Appearance: casually groomed, fair hygiene, in NAD Behavior: PMA of leg bouncing throughout Speech: nml rate, amount, loudness TP: linear TC: orthodox delusions Mood: depressed Affect: constricted, hypo-intense, non-labile SI: none expressed HI: none expressed AH/VH: none expressed Insight/judgment:poor x2 Memory/cog: alert, oriented x 3. impaired secondary to psychiatric symptoms. Diagnostics Vital Signs (24Hr): Vital Signs - 24 hr 04/04/24 20:00 04/05/24 09:05 Temperature 97.7 F 98.2 F Pulse Rate 84 75 Respiratory Rate 16 14 Blood Pressure 119/72 101/66 Pulse Oximetry 99 96 Oxygen Delivery Method Room Air Room Air BMI result Body Mass Index 26.1 Labs 03/28/24 08:51 Medications Medications Current Medications Acetaminophen (Acetaminophen 325 Mg Tablet) 650 mg PO Q6H PRN PRN Reason: Pain, Mild (Pain Scale 1-3) Al Hydroxide/Mg Hydroxide (Magnesium Hydrox/Alum Hydrox 30 Ml Oral.Susp) 30 ml PO Q6H PRN PRN Reason: Heartburn/Nausea Bupropion HCl (Bupropion Hcl Xl 300 Mg Tab.Er.24h) 300 mg PO DAILY [facility] Last Admin: 04/05/24 09:20 Dose: 300 mg Hydroxyzine HCl (Hydroxyzine Hcl 25 Mg Tablet) 25 mg PO Q6H PRN PRN Reason: Anxiety Last Admin: 04/02/24 20:00 Dose: 25 mg [place] Carbonate ([place] Carbonate Er 450 Mg Tablet.Er) 450 mg PO BID [facility] Last Admin: 04/05/24 09:20 Dose: 450 mg Magnesium Hydroxide (Milk Of Magnesia 30 Ml Oral.Susp) 30 ml PO DAILY PRN PRN Reason: Constipation Olanzapine (Olanzapine 5 Mg Tablet) 5 mg PO TID PRN PRN Reason: Psychosis Last Admin: 03/26/24 16:25 Dose: 5 mg Olanzapine (Olanzapine 10 Mg Tablet) 20 mg PO BEDTIME [facility] Last Admin: 04/04/24 19:59 Dose: 20 mg Trazodone HCl (Trazodone Hcl 50 Mg Tablet) 50 mg PO BEDTIME MRX1 PRN PRN Reason: Insomnia Last Admin: 04/02/24 20:35 Dose: 50 mg Allergies Allergies Allergy/AdvReac Type Severity Reaction Status Date / Time cephalexin [From Keflex] Allergy Hives Verified 12/17/23 07:28 From KEFLEX Allergy Unknown UNK Uncoded 12/17/23 07:28 From PAXIL Allergy Unknown UNK Uncoded 12/17/23 07:28 Assessment & Plan Assessment & Plan (1) Schizoaffective disorder, bipolar type: Status: Acute Code(s): F25.0 - Schizoaffective disorder, bipolar type Plan 03/17: offer zyprexa. savage warning provided. 03/18: no benzos, h/o abuse. continue current mgmt. floridly psychotic. 03/19: taking zyprexa. TD evident in jaw mvmts, T/C ingrezza or other. does not appear appreciably improved, although does refer to having felt briefly better in the past 24H during a period of perspective shift. 03/20: worse today than at admission. historically does better with antipsychotic + mood stabilizer. add lithium 450 BID, which she has been on in the past. file for commitment as necessary. 03/21 Covering provider- pt continues to present as very paranoid and restless. She has done well on haldol in the past. Will add haldol 5mg po BID in addition to olanzapine 20mg po qhs. SI present. 03/23: continue current tx plan. 03/25: continue current tx plan. 03/26: Lying in bed. refused AM medications. declined to meet with T/W. Pt stated, leave me alone. I don't need anything. I'll be in hell for all eternity. It's just the way it is . Pt closed her eyes and would not respond to questions. 03/27: more calm today. continues to feel she is hopeless and damned. check labs in the morning, T/C lithium increase as indicated. 03/28: lithium level 0.95. DC haldol and increase zyprexa to 20 mg QHS. remains depressed and psychotic. 03/29: remains with PMR, poverty of thought, depression. continue current mgmt for now. T/C adding anti-depressant, such as wellbutrin. 03/30: mute today, depressed, PMR, in bed. agrees to wellbutrin. 03/31: up and about today, more verbal. signed CV. continue current mgmt. 04/02/2024: Continue to encourage medication adherence. Ongoing admission needed as unable to care for self due to level of psychosis 04/03: increase wellbutrin to 300 mg daily. continues depressed and psychotic. 04/04: out and about on the unit more, appearing brighter. reports mood unchanged. continue current mgmt. 04/05: as for yesterday. more visible, more energetic, less orthodox preoccupation. yet depressed and anxious. started attending groups. continue current mgmt. Reason for continued inpatient stay Substantial Risk for: harm to self, inability to function and rapid decompensation Time Spent With Patient Time: Total time managing care of this patient today __25__ minutes.
[2024-04-05 20:00] VITALS: BP 127/76; PULSE 82; RESP 16; TEMP 36.2; O2SAT 97
[2024-04-05] MEDS: OLANZapine 10 MG TABLET 20 MG PO (20:23)
[2024-04-05] MEDS: traZODone HCL 50 MG TABLET PO (20:24)
[2024-04-06 07:00] VITALS: BMI 26.6
[2024-04-06 07:57] VITALS: RESP 16
[2024-04-06] MEDS: Lithium Carbonate ER 450 MG TABLET.ER PO ×2 (08:50→20:27)
[2024-04-06] MEDS: buPROPion HCl XL 300 MG TAB.ER.24H PO (08:50)
--- NOTE | 2024-04-06 16:32 | P.PNPSI_ITS ---
Subjective Subjective Date of Service: 04/06/24 Reason For Visit: Schizoaffective d/o bipolar type Interim History: in bed, more irritable and negativistic than past two days. endorsed SI to surgery assistant yesterday, noted to have said, i will kill myself when i leave here. Mental Status Exam Mental Status Exam Narrative: Appearance: casually groomed, fair hygiene, in NAD Behavior: lying in bed Speech: decr rate, amount, loudness TP: linear TC: restorationist delusions Mood: depressed Affect: constricted, hypo-intense, non-labile SI: + HI: none expressed AH/VH: none expressed Insight/judgment:poor x2 Memory/cog: alert, oriented x 3. impaired secondary to psychiatric symptoms. Diagnostics Vital Signs (24Hr): Vital Signs - 24 hr 04/05/24 20:00 04/06/24 07:57 Temperature 97.1 F Pulse Rate 82 Respiratory Rate 16 16 Blood Pressure 127/76 Pulse Oximetry 97 Oxygen Delivery Method Room Air BMI result Body Mass Index 26.6 Labs 03/28/24 08:51 Medications Medications Current Medications Acetaminophen (Acetaminophen 325 Mg Tablet) 650 mg PO Q6H PRN PRN Reason: Pain, Mild (Pain Scale 1-3) Al Hydroxide/Mg Hydroxide (Magnesium Hydrox/Alum Hydrox 30 Ml Oral.Susp) 30 ml PO Q6H PRN PRN Reason: Heartburn/Nausea Bupropion HCl (Bupropion Hcl Xl 300 Mg Tab.Er.24h) 300 mg PO DAILY [facility] Last Admin: 04/06/24 08:50 Dose: 300 mg Hydroxyzine HCl (Hydroxyzine Hcl 25 Mg Tablet) 25 mg PO Q6H PRN PRN Reason: Anxiety Last Admin: 04/02/24 20:00 Dose: 25 mg [place] Carbonate ([place] Carbonate Er 450 Mg Tablet.Er) 450 mg PO BID [facility] Last Admin: 04/06/24 08:50 Dose: 450 mg Magnesium Hydroxide (Milk Of Magnesia 30 Ml Oral.Susp) 30 ml PO DAILY PRN PRN Reason: Constipation Olanzapine (Olanzapine 5 Mg Tablet) 5 mg PO TID PRN PRN Reason: Psychosis Last Admin: 03/26/24 16:25 Dose: 5 mg Olanzapine (Olanzapine 10 Mg Tablet) 20 mg PO BEDTIME [facility] Last Admin: 04/05/24 20:23 Dose: 20 mg Trazodone HCl (Trazodone Hcl 50 Mg Tablet) 50 mg PO BEDTIME MRX1 PRN PRN Reason: Insomnia Last Admin: 04/05/24 20:24 Dose: 50 mg Allergies Allergies Allergy/AdvReac Type Severity Reaction Status Date / Time cephalexin [From Keflex] Allergy Hives Verified 12/17/23 07:28 From KEFLEX Allergy Unknown UNK Uncoded 12/17/23 07:28 From PAXIL Allergy Unknown UNK Uncoded 12/17/23 07:28 Assessment & Plan Assessment & Plan (1) Schizoaffective disorder, bipolar type: Status: Acute Code(s): F25.0 - Schizoaffective disorder, bipolar type Plan 03/17: offer zyprexa. savage warning provided. 03/18: no benzos, h/o abuse. continue current mgmt. floridly psychotic. 03/19: taking zyprexa. TD evident in jaw mvmts, T/C ingrezza or other. does not appear appreciably improved, although does refer to having felt briefly better in the past 24H during a period of perspective shift. 03/20: worse today than at admission. historically does better with antipsychotic + mood stabilizer. add lithium 450 BID, which she has been on in the past. file for commitment as necessary. 03/21 Covering provider- pt continues to present as very paranoid and restless. She has done well on haldol in the past. Will add haldol 5mg po BID in addition to olanzapine 20mg po qhs. SI present. 03/23: continue current tx plan. 03/25: continue current tx plan. 03/26: Lying in bed. refused AM medications. declined to meet with T/W. Pt stated, leave me alone. I don't need anything. I'll be in hell for all eternity. It's just the way it is . Pt closed her eyes and would not respond to questions. 03/27: more calm today. continues to feel she is hopeless and damned. check labs in the morning, T/C lithium increase as indicated. 03/28: lithium level 0.95. DC haldol and increase zyprexa to 20 mg QHS. remains depressed and psychotic. 03/29: remains with PMR, poverty of thought, depression. continue current mgmt for now. T/C adding anti-depressant, such as wellbutrin. 03/30: mute today, depressed, PMR, in bed. agrees to wellbutrin. 03/31: up and about today, more verbal. signed CV. continue current mgmt. 04/02/2024: Continue to encourage medication adherence. Ongoing admission needed as unable to care for self due to level of psychosis 04/03: increase wellbutrin to 300 mg daily. continues depressed and psychotic. 04/04: out and about on the unit more, appearing brighter. reports mood unchanged. continue current mgmt. 04/05: as for yesterday. more visible, more energetic, less restorationist preoccupation. yet depressed and anxious. started attending groups. continue current mgmt. 04/06: in bed again today, less out and about on the unit. depressed, suicidal. continue current mgmt. Reason for continued inpatient stay Substantial Risk for: harm to self, inability to function and rapid decompensation Time Spent With Patient Time: Total time managing care of this patient today __25__ minutes.
[2024-04-06 20:00] VITALS: BP 118/68; PULSE 83; RESP 18; TEMP 36.8; O2SAT 98
[2024-04-06] MEDS: traZODone HCL 50 MG TABLET PO (20:27)
[2024-04-06] MEDS: OLANZapine 10 MG TABLET 20 MG PO (20:27)
[2024-04-06] MEDS: OLANZapine 5 MG TABLET PO (20:27)
[2024-04-07 07:44] VITALS: BP 114/56; PULSE 79; RESP 16; TEMP 36.3; O2SAT 98
[2024-04-07] MEDS: buPROPion HCl XL 300 MG TAB.ER.24H PO (09:23)
[2024-04-07] MEDS: Lithium Carbonate ER 450 MG TABLET.ER PO ×2 (09:23→21:23)
--- NOTE | 2024-04-07 19:54 | P.PNPSI_ITS ---
Subjective Subjective Date of Service: 04/07/24 Reason For Visit: Schizoaffective d/o bipolar type Interim History: up and about, brighter, quicker. says she is still very depressed, however. 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 concerned she will soon be homeless. per staff, retrieved personal numbers from her phone. had visit from her BF [place]. Mental Status Exam Mental Status Exam Narrative: Appearance: casually groomed, fair hygiene, in NAD Behavior: calm. no PMA/PMR. Speech: nml rate, amount, loudness TP: linear TC: anxious preoccupations - work, money, housing Mood: depressed Affect: constricted, normo-intense, non-labile SI: none expressed HI: none expressed AH/VH: none expressed Insight/judgment:poor x2 Memory/cog: alert, oriented x 3. impaired secondary to psychiatric symptoms. Diagnostics Vital Signs (24Hr): Vital Signs - 24 hr 04/06/24 20:00 04/07/24 07:44 Temperature 98.2 F 97.3 F Pulse Rate 83 79 Respiratory Rate 18 16 Blood Pressure 118/68 114/56 L Pulse Oximetry 98 98 Oxygen Delivery Method Room Air BMI result Body Mass Index 26.6 Labs 03/28/24 08:51 Medications Medications Current Medications Acetaminophen (Acetaminophen 325 Mg Tablet) 650 mg PO Q6H PRN PRN Reason: Pain, Mild (Pain Scale 1-3) Al Hydroxide/Mg Hydroxide (Magnesium Hydrox/Alum Hydrox 30 Ml Oral.Susp) 30 ml PO Q6H PRN PRN Reason: Heartburn/Nausea Bupropion HCl (Bupropion Hcl Xl 300 Mg Tab.Er.24h) 300 mg PO DAILY [facility] Last Admin: 04/07/24 09:23 Dose: 300 mg Hydroxyzine HCl (Hydroxyzine Hcl 25 Mg Tablet) 25 mg PO Q6H PRN PRN Reason: Anxiety Last Admin: 04/02/24 20:00 Dose: 25 mg [place] Carbonate ([place] Carbonate Er 450 Mg Tablet.Er) 450 mg PO BID [facility] Last Admin: 04/07/24 09:23 Dose: 450 mg Lorazepam (Lorazepam 1 Mg Tablet) 2 mg PO BEDTIME [facility] Magnesium Hydroxide (Milk Of Magnesia 30 Ml Oral.Susp) 30 ml PO DAILY PRN PRN Reason: Constipation Olanzapine (Olanzapine 5 Mg Tablet) 5 mg PO TID PRN PRN Reason: Psychosis Last Admin: 04/06/24 20:27 Dose: 5 mg Olanzapine (Olanzapine 10 Mg Tablet) 20 mg PO BEDTIME [facility] Last Admin: 04/06/24 20:27 Dose: 20 mg Trazodone HCl (Trazodone Hcl 50 Mg Tablet) 50 mg PO BEDTIME MRX1 PRN PRN Reason: Insomnia Last Admin: 04/06/24 20:27 Dose: 50 mg Allergies Allergies Allergy/AdvReac Type Severity Reaction Status Date / Time cephalexin [From Keflex] Allergy Hives Verified 12/17/23 07:28 From KEFLEX Allergy Unknown UNK Uncoded 12/17/23 07:28 From PAXIL Allergy Unknown UNK Uncoded 12/17/23 07:28 Assessment & Plan Assessment & Plan (1) Schizoaffective disorder, bipolar type: Status: Acute Code(s): F25.0 - Schizoaffective disorder, bipolar type Plan 03/17: offer zyprexa. savage warning provided. 03/18: no benzos, h/o abuse. continue current mgmt. floridly psychotic. 03/19: taking zyprexa. TD evident in jaw mvmts, T/C ingrezza or other. does not appear appreciably improved, although does refer to having felt briefly better in the past 24H during a period of perspective shift. 03/20: worse today than at admission. historically does better with antipsychotic + mood stabilizer. add lithium 450 BID, which she has been on in the past. file for commitment as necessary. 03/21 Covering provider- pt continues to present as very paranoid and restless. She has done well on haldol in the past. Will add haldol 5mg po BID in addition to olanzapine 20mg po qhs. SI present. 03/23: continue current tx plan. 03/25: continue current tx plan. 03/26: Lying in bed. refused AM medications. declined to meet with T/W. Pt stated, leave me alone. I don't need anything. I'll be in hell for all eternity. It's just the way it is . Pt closed her eyes and would not respond to questions. 03/27: more calm today. continues to feel she is hopeless and damned. check labs in the morning, T/C lithium increase as indicated. 03/28: lithium level 0.95. DC haldol and increase zyprexa to 20 mg QHS. remains depressed and psychotic. 03/29: remains with PMR, poverty of thought, depression. continue current mgmt for now. T/C adding anti-depressant, such as wellbutrin. 03/30: mute today, depressed, PMR, in bed. agrees to wellbutrin. 03/31: up and about today, more verbal. signed CV. continue current mgmt. 04/02/2024: Continue to encourage medication adherence. Ongoing admission needed as unable to care for self due to level of psychosis 04/03: increase wellbutrin to 300 mg daily. continues depressed and psychotic. 04/04: out and about on the unit more, appearing brighter. reports mood unchanged. continue current mgmt. 04/05: as for yesterday. more visible, more energetic, less methodist preoccupation. yet depressed and anxious. started attending groups. continue current mgmt. 04/06: in bed again today, less out and about on the unit. depressed, suicidal. continue current mgmt. 04/07: out and about, appearing brighter and more energetic than prior. c/o ongoing severely depressed mood. trending better, still quite symptomatic. continue current mgmt. Reason for continued inpatient stay Substantial Risk for: harm to self and inability to function Time Spent With Patient Time: Total time managing care of this patient today __25__ minutes.
[2024-04-07 21:19] VITALS: BP 131/73; PULSE 80; RESP 16; TEMP 36.3; O2SAT 99
[2024-04-07] MEDS: OLANZapine 10 MG TABLET 20 MG PO (21:23)
[2024-04-07] MEDS: LORazepam 1 MG TABLET 2 MG PO (21:23)
[2024-04-08 08:00] VITALS: RESP 16
[2024-04-08] MEDS: buPROPion HCl XL 300 MG TAB.ER.24H PO (09:17)
[2024-04-08] MEDS: Lithium Carbonate ER 450 MG TABLET.ER PO ×2 (09:17→21:29)
--- NOTE | 2024-04-08 10:18 | P.PNPSI_ITS ---
Subjective Subjective Date of Service: 04/08/24 Reason For Visit: Schizoaffective d/o bipolar type Interim History: overall reports things are getting better. Feels positive she can return to her apartment. Is less depressed and less anxious. Still feels that she is doomed to go to hell sometime in the future, but also did not seem to perseverate on this and was not crying. Feels that she is now starting to be ready for discharge planning and hopes to visit that with her team after the weekend. Otherwise sleep energy and appetite okay. No SI. No med concerns. Medication Compliance: Yes Side effects from medications: No Attending Groups: Intermittent Review of Systems Acute medical concerns: No Review of Systems Review of Systems Nothing acute Mental Status Exam Mental Status Exam Patient Appearance: Appropriate Level of Consciousness: Awake Patient Behavior: Anxious and Poor Eye Contact Mood Description: Withdrawn Affect Description: Anxious Ability to Follow Directions: Fair Speech Pattern: Clear Diagnostics Vital Signs (24Hr): Vital Signs - 24 hr 04/07/24 21:19 04/08/24 08:00 Temperature 97.4 F Pulse Rate 80 Respiratory Rate 16 16 Blood Pressure 131/73 Pulse Oximetry 99 Oxygen Delivery Method Room Air BMI result Body Mass Index 26.6 Labs 03/28/24 08:51 Medications Medications Current Medications Acetaminophen (Acetaminophen 325 Mg Tablet) 650 mg PO Q6H PRN PRN Reason: Pain, Mild (Pain Scale 1-3) Al Hydroxide/Mg Hydroxide (Magnesium Hydrox/Alum Hydrox 30 Ml Oral.Susp) 30 ml PO Q6H PRN PRN Reason: Heartburn/Nausea Bupropion HCl (Bupropion Hcl Xl 300 Mg Tab.Er.24h) 300 mg PO DAILY [facility] Last Admin: 04/08/24 09:17 Dose: 300 mg Hydroxyzine HCl (Hydroxyzine Hcl 25 Mg Tablet) 25 mg PO Q6H PRN PRN Reason: Anxiety Last Admin: 04/02/24 20:00 Dose: 25 mg [place] Carbonate ([place] Carbonate Er 450 Mg Tablet.Er) 450 mg PO BID [facility] Last Admin: 04/08/24 09:17 Dose: 450 mg Lorazepam (Lorazepam 1 Mg Tablet) 2 mg PO BEDTIME [facility] Last Admin: 04/07/24 21:23 Dose: 2 mg Magnesium Hydroxide (Milk Of Magnesia 30 Ml Oral.Susp) 30 ml PO DAILY PRN PRN Reason: Constipation Olanzapine (Olanzapine 5 Mg Tablet) 5 mg PO TID PRN PRN Reason: Psychosis Last Admin: 04/06/24 20:27 Dose: 5 mg Olanzapine (Olanzapine 10 Mg Tablet) 20 mg PO BEDTIME [facility] Last Admin: 04/07/24 21:23 Dose: 20 mg Trazodone HCl (Trazodone Hcl 50 Mg Tablet) 50 mg PO BEDTIME MRX1 PRN PRN Reason: Insomnia Last Admin: 04/06/24 20:27 Dose: 50 mg Allergies Allergies Allergy/AdvReac Type Severity Reaction Status Date / Time cephalexin [From Keflex] Allergy Hives Verified 12/17/23 07:28 From KEFLEX Allergy Unknown UNK Uncoded 12/17/23 07:28 From PAXIL Allergy Unknown UNK Uncoded 12/17/23 07:28 Assessment & Plan Assessment & Plan (1) Schizoaffective disorder, bipolar type: Status: Acute Code(s): F25.0 - Schizoaffective disorder, bipolar type Plan 03/17: offer zyprexa. savage warning provided. 03/18: no benzos, h/o abuse. continue current mgmt. floridly psychotic. 03/19: taking zyprexa. TD evident in jaw mvmts, T/C ingrezza or other. does not appear appreciably improved, although does refer to having felt briefly better in the past 24H during a period of perspective shift. 03/20: worse today than at admission. historically does better with antipsychotic + mood stabilizer. add lithium 450 BID, which she has been on in the past. file for commitment as necessary. 03/21 Covering provider- pt continues to present as very paranoid and restless. She has done well on haldol in the past. Will add haldol 5mg po BID in addition to olanzapine 20mg po qhs. SI present. 03/23: continue current tx plan. 03/25: continue current tx plan. 03/26: Lying in bed. refused AM medications. declined to meet with T/W. Pt stated, leave me alone. I don't need anything. I'll be in hell for all eternity. It's just the way it is . Pt closed her eyes and would not respond to questions. 03/27: more calm today. continues to feel she is hopeless and damned. check labs in the morning, T/C lithium increase as indicated. 03/28: lithium level 0.95. DC haldol and increase zyprexa to 20 mg QHS. remains depressed and psychotic. 03/29: remains with PMR, poverty of thought, depression. continue current mgmt for now. T/C adding anti-depressant, such as wellbutrin. 03/30: mute today, depressed, PMR, in bed. agrees to wellbutrin. 03/31: up and about today, more verbal. signed CV. continue current mgmt. 04/02/2024: Continue to encourage medication adherence. Ongoing admission needed as unable to care for self due to level of psychosis 04/03: increase wellbutrin to 300 mg daily. continues depressed and psychotic. 04/04: out and about on the unit more, appearing brighter. reports mood unchanged. continue current mgmt. 04/05: as for yesterday. more visible, more energetic, less worship preoccupation. yet depressed and anxious. started attending groups. continue current mgmt. 04/06: in bed again today, less out and about on the unit. depressed, suicidal. continue current mgmt. 04/07: out and about, appearing brighter and more energetic than prior. c/o ongoing severely depressed mood. trending better, still quite symptomatic. continue current mgmt. 04/08/2024: Appears to be improving and reports feeling ready to start disposition planning with team after the weekend Reason for continued inpatient stay Substantial Risk for: rapid decompensation Time Spent With Patient Time: Total time managing care of this patient today ____ minutes.
[2024-04-08 20:00] VITALS: BP 122/72; PULSE 94; RESP 16; TEMP 35.9; O2SAT 96
[2024-04-08] MEDS: LORazepam 1 MG TABLET 2 MG PO (21:29)
[2024-04-08] MEDS: traZODone HCL 50 MG TABLET PO (21:30)
[2024-04-08] MEDS: OLANZapine 10 MG TABLET 20 MG PO (21:30)
[2024-04-09] VITALS (7 sets, daily range): BP systolic 104–138; BP diastolic 60–93; PULSE 79–98; RESP 12–18; TEMP 36.1–36.8; O2SAT 94–99
--- NOTE | 2024-04-09 | ECG_ITS ---
Test Reason : Left chest pain Blood Pressure : / mmHG Vent. Rate : 084 BPM Atrial Rate : 084 BPM P-R Int : 130 ms QRS Dur : 162 ms QT Int : 406 ms P-R-T Axes : 000 078 007 degrees QTc Int : 479 ms Sinus rhythm with Fusion complexes Non-specific intra-ventricular conduction block Minimal voltage criteria for LVH, may be normal variant ( [place] product ) Abnormal ECG When compared with ECG of 22-NOV-2023 10:59, Fusion complexes are now Present QRS duration has increased ST elevation now present in Anterior leads T wave inversion now evident in Inferior leads T wave inversion now evident in Lateral leads Referred By: Jenniffer Baker Electronically Signed By:
[2024-04-09] MEDS: Magnesium Hydrox/Alum Hydrox 30 ML ORAL.SUSP PO (01:02)
[2024-04-09] MEDS: Acetaminophen 325 MG TABLET 650 MG PO (01:02)
--- NOTE | 2024-04-09 01:16 | PC.NURSE ---
c/o pain under l breast. no diaphoresis. no dyspnea or SOB. color is pink. is oriented and communicating well. no radiating pain. denies dizziness or lightheadedness. reports that when she coughs it hurts. afebrile.
--- NOTE | 2024-04-09 01:35 | PC.NURSE ---
rapid response called after patient fell in bathroom. reports she fell from the toilet reaching for the tissue paper. continues with c/o l breast area pain.
--- NOTE | 2024-04-09 01:35 | PM.EVENT ---
Event Note Date of Service: 04/09/24 Event Note: S/O: Rapid response activated. Patient is sitting in bed very anxious and crying. Patient is complaining of thorax pain (inflammatory region) that has been increasing during the day. The pain increases with inspiration. She just sustaining a fall. Vital signs are normal. A: Pleuritic chest pain, likely musculoskeletal. Plan: -Get ECG -CXR stat -troponin -Toradol 30 mg IM. Time Spent With Patient Time: Total time managing care of this patient today ____ minutes.
[2024-04-09] MEDS: Ketorolac Tromethamine 30 MG/ML VIAL IM (01:50)
[2024-04-09] MEDS: LORazepam 1 MG TABLET 2 MG PO ×2 (02:07→21:58)
--- NOTE | 2024-04-09 02:14 | PC.NURSE ---
s/p rapid response. lab results pending, ekg complete, ketorolac and ativan administered. hold tylenol as patient had received 2 tablets at 0102. no change in orthostatic BP. is currently in radiology, no injury related to fall in bathroom at 0120.Dr. Piyush Baker aware.
[2024-04-09 02:35] LABS: Troponin-I High Sensitivity < 2.7 ng/L (<3.5-17.0)
[2024-04-09] MEDS: Lithium Carbonate ER 450 MG TABLET.ER PO ×2 (09:21→21:58)
[2024-04-09] MEDS: buPROPion HCl XL 300 MG TAB.ER.24H PO (09:21)
[2024-04-09 09:25] LABS: Troponin-I High Sensitivity < 2.7 ng/L (<3.5-17.0)
--- NOTE | 2024-04-09 10:27 | HO.PSYCHPN ---
Subjective Subjective Date of Service: 04/09/24 Reason For Visit: Schizoaffective d/o bipolar type Medical Problems Affecting Mental Status: No Interim History: In room. Isolating today. Had fall last night- mechanical in nature as per patient I tripped . No injuries or concern noted as per patient. Still feels depressed (less) and positive she can return to her apartment. Less perseverative on going to hell. Otherwise sleep energy and appetite okay. No SI. No med concerns. Still feeling more ready for discharge planning and hopes to visit that with her team after the weekend. Medication Compliance: Yes Side effects from medications: No Attending Groups: Intermittent Review of Systems Acute medical concerns: No Review of Systems Review of Systems Nothing acute Mental Status Exam Mental Status Exam Patient Appearance: Appropriate Level of Consciousness: Awake Patient Behavior: Anxious and Poor Eye Contact Mood Description: Withdrawn Affect Description: Anxious Ability to Follow Directions: Fair Speech Pattern: Clear Diagnostics Vital Signs (24Hr): Vital Signs - 24 hr 04/08/24 20:00 04/09/24 00:55 04/09/24 01:25 Temperature 96.6 F L 97 F Pulse Rate 94 79 98 Respiratory Rate 16 18 16 Blood Pressure 122/72 138/80 121/93 H Pulse Oximetry 96 98 99 Oxygen Delivery Method Room Air Room Air Room Air 04/09/24 01:43 04/09/24 01:44 04/09/24 01:46 Temperature Pulse Rate 79 84 91 Respiratory Rate 16 16 Blood Pressure 109/64 104/60 110/65 Pulse Oximetry 97 97 97 Oxygen Delivery Method Room Air Room Air Room Air 04/09/24 08:58 Temperature 98.2 F Pulse Rate 87 Respiratory Rate 12 Blood Pressure 132/62 Pulse Oximetry 94 Oxygen Delivery Method Room Air BMI result Body Mass Index 26.6 Labs 03/28/24 08:51 Labs: Laboratory Results - last 48 hr 04/09/24 04/09/24 04/09/24 02:06 02:11 08:44 Hold Purple Top SEE NOTE Troponin I High Sens < 2.7 < 2.7 Medications Medications Current Medications Acetaminophen (Acetaminophen 325 Mg Tablet) 650 mg PO Q6H PRN PRN Reason: Pain, Mild (Pain Scale 1-3) Last Admin: 04/09/24 01:02 Dose: 650 mg Al Hydroxide/Mg Hydroxide (Magnesium Hydrox/Alum Hydrox 30 Ml Oral.Susp) 30 ml PO Q6H PRN PRN Reason: Heartburn/Nausea Last Admin: 04/09/24 01:02 Dose: 30 ml Bupropion HCl (Bupropion Hcl Xl 300 Mg Tab.Er.24h) 300 mg PO DAILY [facility] Last Admin: 04/09/24 09:21 Dose: 300 mg Hydroxyzine HCl (Hydroxyzine Hcl 25 Mg Tablet) 25 mg PO Q6H PRN PRN Reason: Anxiety Last Admin: 04/02/24 20:00 Dose: 25 mg Lidocaine (Lidocaine 4 % Patch Adh..Patch) 1 patch TRANSDERMA DAILY [facility]; Protocol Last Admin: 04/09/24 09:23 Dose: Not Given [place] Carbonate ([place] Carbonate Er 450 Mg Tablet.Er) 450 mg PO BID [facility] Last Admin: 04/09/24 09:21 Dose: 450 mg Lorazepam (Lorazepam 1 Mg Tablet) 2 mg PO BEDTIME JOSEF Last Admin: 04/08/24 21:29 Dose: 2 mg Magnesium Hydroxide (Milk Of Magnesia 30 Ml Oral.Susp) 30 ml PO DAILY PRN PRN Reason: Constipation Olanzapine (Olanzapine 5 Mg Tablet) 5 mg PO TID PRN PRN Reason: Psychosis Last Admin: 04/06/24 20:27 Dose: 5 mg Olanzapine (Olanzapine 10 Mg Tablet) 20 mg PO BEDTIME JOSEF Last Admin: 04/08/24 21:30 Dose: 20 mg Trazodone HCl (Trazodone Hcl 50 Mg Tablet) 50 mg PO BEDTIME MRX1 PRN PRN Reason: Insomnia Last Admin: 04/08/24 21:30 Dose: 50 mg Allergies Allergies Allergy/AdvReac Type Severity Reaction Status Date / Time cephalexin [From Keflex] Allergy Hives Verified 12/17/23 07:28 From KEFLEX Allergy Unknown UNK Uncoded 12/17/23 07:28 From PAXIL Allergy Unknown UNK Uncoded 12/17/23 07:28 Assessment & Plan Assessment & Plan (1) Schizoaffective disorder, bipolar type: Status: Acute Code(s): F25.0 - Schizoaffective disorder, bipolar type Plan 03/17: offer zyprexa. savage warning provided. 03/18: no benzos, h/o abuse. continue current mgmt. floridly psychotic. 03/19: taking zyprexa. TD evident in jaw mvmts, T/C ingrezza or other. does not appear appreciably improved, although does refer to having felt briefly better in the past 24H during a period of perspective shift. 03/20: worse today than at admission. historically does better with antipsychotic + mood stabilizer. add lithium 450 BID, which she has been on in the past. file for commitment as necessary. 03/21 Covering provider- pt continues to present as very paranoid and restless. She has done well on haldol in the past. Will add haldol 5mg po BID in addition to olanzapine 20mg po qhs. SI present. 03/23: continue current tx plan. 03/25: continue current tx plan. 03/26: Lying in bed. refused AM medications. declined to meet with T/W. Pt stated, leave me alone. I don't need anything. I'll be in hell for all eternity. It's just the way it is . Pt closed her eyes and would not respond to questions. 03/27: more calm today. continues to feel she is hopeless and damned. check labs in the morning, T/C lithium increase as indicated. 03/28: lithium level 0.95. DC haldol and increase zyprexa to 20 mg QHS. remains depressed and psychotic. 03/29: remains with PMR, poverty of thought, depression. continue current mgmt for now. T/C adding anti-depressant, such as wellbutrin. 03/30: mute today, depressed, PMR, in bed. agrees to wellbutrin. 03/31: up and about today, more verbal. signed CV. continue current mgmt. 04/02/2024: Continue to encourage medication adherence. Ongoing admission needed as unable to care for self due to level of psychosis 04/03: increase wellbutrin to 300 mg daily. continues depressed and psychotic. 04/04: out and about on the unit more, appearing brighter. reports mood unchanged. continue current mgmt. 04/05: as for yesterday. more visible, more energetic, less scientologist preoccupation. yet depressed and anxious. started attending groups. continue current mgmt. 04/06: in bed again today, less out and about on the unit. depressed, suicidal. continue current mgmt. 04/07: out and about, appearing brighter and more energetic than prior. c/o ongoing severely depressed mood. trending better, still quite symptomatic. continue current mgmt. 04/08/2024: Appears to be improving and reports feeling ready to start disposition planning with team after the weekend 04/09: no changes Reason for continued inpatient stay Substantial Risk for: rapid decompensation Time Spent With Patient Time: Total time managing care of this patient today ____ minutes.
[2024-04-09] MEDS: OLANZapine 10 MG TABLET 20 MG PO (21:57)
[2024-04-10] MEDS: Lithium Carbonate ER 450 MG TABLET.ER PO ×2 (08:54→21:03)
[2024-04-10] MEDS: Lidocaine 4 % Patch ADH..PATCH 1 PATCH TRANSDERMA (08:54)
[2024-04-10] MEDS: buPROPion HCl XL 300 MG TAB.ER.24H PO (08:54)
[2024-04-10 09:00] VITALS: BP 115/59; PULSE 87; RESP 16; TEMP 36.7; O2SAT 97
--- NOTE | 2024-04-10 15:01 | HO.PSYCHPN ---
Subjective Subjective Date of Service: 04/10/24 Reason For Visit: Schizoaffective d/o bipolar type Interim History: c/o poor sleep overnight. feeling much improved and ready to discuss discharge. set tentative date for this wednesday. per staff, denies dep/anx. taking meds. denies SI/HI/AVH. not social, but visible in milieu. Mental Status Exam Mental Status Exam Narrative: Appearance: casually groomed, fair hygiene, in NAD Behavior: calm. no PMA/PMR. Speech: nml rate, amount, loudness TP: linear TC: far less anxious. no paranoid delusions noted. Mood: much improved Affect: constricted, normo-intense, non-labile SI: none expressed HI: none expressed AH/VH: none expressed Insight/judgment: fair x2 Memory/cog: alert, oriented x 3. Diagnostics Vital Signs (24Hr): Vital Signs - 24 hr 04/09/24 19:20 04/10/24 09:00 Temperature 97.1 F 98.0 F Pulse Rate 93 87 Respiratory Rate 16 16 Blood Pressure 119/71 115/59 L Pulse Oximetry 98 97 Oxygen Delivery Method Room Air Room Air BMI result Body Mass Index 26.6 Labs 03/28/24 08:51 Labs: Laboratory Results - last 48 hr 04/09/24 04/09/24 04/09/24 02:06 02:11 08:44 Hold Purple Top SEE NOTE Troponin I High Sens < 2.7 < 2.7 Imaging Radiology Impressions: ITS Impressions Ribs X-Ray 04/09/24 02:00 IMPRESSION: 1. No radiographic evidence of rib fracture. 2. Right infrahilar opacity could be a patchy infiltrate, cannot rule out lung nodule. Consider correlation with follow-up chest x-ray in one month. If not performed would recommend follow-up chest CT. Electronically signed by: Jordan Parisi MD 04/09/2024 12:35 PM [facility] Medications Medications Current Medications Acetaminophen (Acetaminophen 325 Mg Tablet) 650 mg PO Q6H PRN PRN Reason: Pain, Mild (Pain Scale 1-3) Last Admin: 04/09/24 01:02 Dose: 650 mg Al Hydroxide/Mg Hydroxide (Magnesium Hydrox/Alum Hydrox 30 Ml Oral.Susp) 30 ml PO Q6H PRN PRN Reason: Heartburn/Nausea Last Admin: 04/09/24 01:02 Dose: 30 ml Bupropion HCl (Bupropion Hcl Xl 300 Mg Tab.Er.24h) 300 mg PO DAILY [facility] Last Admin: 04/10/24 08:54 Dose: 300 mg Hydroxyzine HCl (Hydroxyzine Hcl 25 Mg Tablet) 25 mg PO Q6H PRN PRN Reason: Anxiety Last Admin: 04/02/24 20:00 Dose: 25 mg Lidocaine (Lidocaine 4 % Patch Adh..Patch) 1 patch TRANSDERMA DAILY [facility]; Protocol Last Admin: 04/10/24 08:54 Dose: 1 patch [place] Carbonate ([place] Carbonate Er 450 Mg Tablet.Er) 450 mg PO BID [facility] Last Admin: 04/10/24 08:54 Dose: 450 mg Lorazepam (Lorazepam 1 Mg Tablet) 2 mg PO BEDTIME [facility] Last Admin: 04/09/24 21:58 Dose: 2 mg Magnesium Hydroxide (Milk Of Magnesia 30 Ml Oral.Susp) 30 ml PO DAILY PRN PRN Reason: Constipation Olanzapine (Olanzapine 5 Mg Tablet) 5 mg PO TID PRN PRN Reason: Psychosis Last Admin: 04/06/24 20:27 Dose: 5 mg Olanzapine (Olanzapine 10 Mg Tablet) 20 mg PO BEDTIME [facility] Last Admin: 04/09/24 21:57 Dose: 20 mg Trazodone HCl (Trazodone Hcl 50 Mg Tablet) 50 mg PO BEDTIME MRX1 PRN PRN Reason: Insomnia Allergies Allergies Allergy/AdvReac Type Severity Reaction Status Date / Time cephalexin [From Keflex] Allergy Hives Verified 12/17/23 07:28 From KEFLEX Allergy Unknown UNK Uncoded 12/17/23 07:28 From PAXIL Allergy Unknown UNK Uncoded 12/17/23 07:28 Assessment & Plan Assessment & Plan (1) Schizoaffective disorder, bipolar type: Status: Acute Code(s): F25.0 - Schizoaffective disorder, bipolar type Plan 03/17: offer zyprexa. savage warning provided. 03/18: no benzos, h/o abuse. continue current mgmt. floridly psychotic. 03/19: taking zyprexa. TD evident in jaw mvmts, T/C ingrezza or other. does not appear appreciably improved, although does refer to having felt briefly better in the past 24H during a period of perspective shift. 03/20: worse today than at admission. historically does better with antipsychotic + mood stabilizer. add lithium 450 BID, which she has been on in the past. file for commitment as necessary. 03/21 Covering provider- pt continues to present as very paranoid and restless. She has done well on haldol in the past. Will add haldol 5mg po BID in addition to olanzapine 20mg po qhs. SI present. 03/23: continue current tx plan. 03/25: continue current tx plan. 03/26: Lying in bed. refused AM medications. declined to meet with T/W. Pt stated, leave me alone. I don't need anything. I'll be in hell for all eternity. It's just the way it is . Pt closed her eyes and would not respond to questions. 03/27: more calm today. continues to feel she is hopeless and damned. check labs in the morning, T/C lithium increase as indicated. 03/28: lithium level 0.95. DC haldol and increase zyprexa to 20 mg QHS. remains depressed and psychotic. 03/29: remains with PMR, poverty of thought, depression. continue current mgmt for now. T/C adding anti-depressant, such as wellbutrin. 03/30: mute today, depressed, PMR, in bed. agrees to wellbutrin. 03/31: up and about today, more verbal. signed CV. continue current mgmt. 04/02/2024: Continue to encourage medication adherence. Ongoing admission needed as unable to care for self due to level of psychosis 04/03: increase wellbutrin to 300 mg daily. continues depressed and psychotic. 04/04: out and about on the unit more, appearing brighter. reports mood unchanged. continue current mgmt. 04/05: as for yesterday. more visible, more energetic, less oriental orthodox preoccupation. yet depressed and anxious. started attending groups. continue current mgmt. 04/06: in bed again today, less out and about on the unit. depressed, suicidal. continue current mgmt. 04/07: out and about, appearing brighter and more energetic than prior. c/o ongoing severely depressed mood. trending better, still quite symptomatic. continue current mgmt. 04/08/2024: Appears to be improving and reports feeling ready to start disposition planning with team after the weekend 04/09: no changes 04/10: much improved from last week, talking about discharge. planning tentatively for wednesday discharge. Reason for continued inpatient stay Substantial Risk for: inability to function and rapid decompensation Time Spent With Patient Time: Total time managing care of this patient today __25__ minutes.
[2024-04-10 19:56] VITALS: BP 119/75; PULSE 78; RESP 18; TEMP 36.6; O2SAT 99
[2024-04-10] MEDS: traZODone HCL 50 MG TABLET PO ×2 (21:03→23:48)
[2024-04-10] MEDS: OLANZapine 10 MG TABLET 20 MG PO (21:03)
[2024-04-10] MEDS: LORazepam 1 MG TABLET 2 MG PO (21:03)
[2024-04-11 07:58] VITALS: BP 130/80; PULSE 86; RESP 16; TEMP 36.2; O2SAT 97
[2024-04-11] MEDS: buPROPion HCl XL 300 MG TAB.ER.24H PO (09:12)
[2024-04-11] MEDS: Lithium Carbonate ER 450 MG TABLET.ER PO ×2 (09:12→20:36)
--- NOTE | 2024-04-11 14:38 | HO.PSYCHPN ---
Subjective Subjective Date of Service: 04/11/24 Reason For Visit: Schizoaffective d/o bipolar type Interim History: up and about. dressed, well-groomed. talking about discharge wednesday. calm and cooperative, not labile. no hyper-religiosity or delusional material. discuss ativan taper prior to discharge. per staff, labile. incontinent of urine x1. tearful at times. eves increased dep/anx. traz x2. slept 6.5 hours. Mental Status Exam Mental Status Exam Narrative: Appearance: casually groomed, fair hygiene, in NAD Behavior: calm. no PMA/PMR. Speech: nml rate, amount, loudness TP: linear TC: no paranoid delusions noted. Mood: much improved Affect: constricted, normo-intense, non-labile SI: none expressed HI: none expressed AH/VH: none expressed Insight/judgment: fair x2 Memory/cog: alert, oriented x 3. Diagnostics Vital Signs (24Hr): Vital Signs - 24 hr 04/10/24 19:56 04/11/24 07:58 Temperature 97.8 F 97.1 F Pulse Rate 78 86 Respiratory Rate 18 16 Blood Pressure 119/75 130/80 Pulse Oximetry 99 97 Oxygen Delivery Method Room Air Room Air BMI result Body Mass Index 26.6 Labs 03/28/24 08:51 Imaging Radiology Impressions: ITS Impressions Ribs X-Ray 04/09/24 02:00 IMPRESSION: 1. No radiographic evidence of rib fracture. 2. Right infrahilar opacity could be a patchy infiltrate, cannot rule out lung nodule. Consider correlation with follow-up chest x-ray in one month. If not performed would recommend follow-up chest CT. Electronically signed by: Jordan Parisi MD 04/09/2024 12:35 PM [facility] Medications Medications Current Medications Acetaminophen (Acetaminophen 325 Mg Tablet) 650 mg PO Q6H PRN PRN Reason: Pain, Mild (Pain Scale 1-3) Last Admin: 04/09/24 01:02 Dose: 650 mg Al Hydroxide/Mg Hydroxide (Magnesium Hydrox/Alum Hydrox 30 Ml Oral.Susp) 30 ml PO Q6H PRN PRN Reason: Heartburn/Nausea Last Admin: 04/09/24 01:02 Dose: 30 ml Bupropion HCl (Bupropion Hcl Xl 300 Mg Tab.Er.24h) 300 mg PO DAILY JOSEF Last Admin: 04/11/24 09:12 Dose: 300 mg Hydroxyzine HCl (Hydroxyzine Hcl 25 Mg Tablet) 25 mg PO Q6H PRN PRN Reason: Anxiety Last Admin: 04/02/24 20:00 Dose: 25 mg Lidocaine (Lidocaine 4 % Patch Adh..Patch) 1 patch TRANSDERMA DAILY [facility]; Protocol Last Admin: 04/11/24 09:18 Dose: Not Given [place] Carbonate ([place] Carbonate Er 450 Mg Tablet.Er) 450 mg PO BID JOSEF Last Admin: 04/11/24 09:12 Dose: 450 mg Lorazepam (Lorazepam 1 Mg Tablet) 1 mg PO BEDTIME JOSEF Magnesium Hydroxide (Milk Of Magnesia 30 Ml Oral.Susp) 30 ml PO DAILY PRN PRN Reason: Constipation Olanzapine (Olanzapine 5 Mg Tablet) 5 mg PO TID PRN PRN Reason: Psychosis Last Admin: 04/06/24 20:27 Dose: 5 mg Olanzapine (Olanzapine 10 Mg Tablet) 20 mg PO BEDTIME JOSEF Last Admin: 04/10/24 21:03 Dose: 20 mg Trazodone HCl (Trazodone Hcl 50 Mg Tablet) 50 mg PO BEDTIME MRX1 PRN PRN Reason: Insomnia Last Admin: 04/10/24 23:48 Dose: 50 mg Allergies Allergies Allergy/AdvReac Type Severity Reaction Status Date / Time cephalexin [From Keflex] Allergy Hives Verified 12/17/23 07:28 From KEFLEX Allergy Unknown UNK Uncoded 12/17/23 07:28 From PAXIL Allergy Unknown UNK Uncoded 12/17/23 07:28 Assessment & Plan Assessment & Plan (1) Schizoaffective disorder, bipolar type: Status: Acute Code(s): F25.0 - Schizoaffective disorder, bipolar type Plan 03/17: offer zyprexa. savage warning provided. 03/18: no benzos, h/o abuse. continue current mgmt. floridly psychotic. 03/19: taking zyprexa. TD evident in jaw mvmts, T/C ingrezza or other. does not appear appreciably improved, although does refer to having felt briefly better in the past 24H during a period of perspective shift. 03/20: worse today than at admission. historically does better with antipsychotic + mood stabilizer. add lithium 450 BID, which she has been on in the past. file for commitment as necessary. 03/21 Covering provider- pt continues to present as very paranoid and restless. She has done well on haldol in the past. Will add haldol 5mg po BID in addition to olanzapine 20mg po qhs. SI present. 03/23: continue current tx plan. 03/25: continue current tx plan. 03/26: Lying in bed. refused AM medications. declined to meet with T/W. Pt stated, leave me alone. I don't need anything. I'll be in hell for all eternity. It's just the way it is . Pt closed her eyes and would not respond to questions. 03/27: more calm today. continues to feel she is hopeless and damned. check labs in the morning, T/C lithium increase as indicated. 03/28: lithium level 0.95. DC haldol and increase zyprexa to 20 mg QHS. remains depressed and psychotic. 03/29: remains with PMR, poverty of thought, depression. continue current mgmt for now. T/C adding anti-depressant, such as wellbutrin. 03/30: mute today, depressed, PMR, in bed. agrees to wellbutrin. 03/31: up and about today, more verbal. signed CV. continue current mgmt. 04/02/2024: Continue to encourage medication adherence. Ongoing admission needed as unable to care for self due to level of psychosis 04/03: increase wellbutrin to 300 mg daily. continues depressed and psychotic. 04/04: out and about on the unit more, appearing brighter. reports mood unchanged. continue current mgmt. 04/05: as for yesterday. more visible, more energetic, less confucianism preoccupation. yet depressed and anxious. started attending groups. continue current mgmt. 04/06: in bed again today, less out and about on the unit. depressed, suicidal. continue current mgmt. 04/07: out and about, appearing brighter and more energetic than prior. c/o ongoing severely depressed mood. trending better, still quite symptomatic. continue current mgmt. 04/08/2024: Appears to be improving and reports feeling ready to start disposition planning with team after the weekend 04/09: no changes 04/10: much improved from last week, talking about discharge. planning tentatively for wednesday discharge. 04/11: asking about wednesday discharge. much improved. decrease HS ativan to 1 mg as of tonight. Reason for continued inpatient stay Substantial Risk for: inability to function and rapid decompensation Time Spent With Patient Time: Total time managing care of this patient today __25__ minutes.
[2024-04-11 20:00] VITALS: BP 131/70; PULSE 90; RESP 18; TEMP 36.4; O2SAT 98
[2024-04-11] MEDS: LORazepam 1 MG TABLET PO (20:36)
[2024-04-11] MEDS: OLANZapine 10 MG TABLET 20 MG PO (20:36)
[2024-04-11] MEDS: traZODone HCL 50 MG TABLET PO ×2 (20:36→21:41)
[2024-04-11] MEDS: Acetaminophen 325 MG TABLET 650 MG PO (22:09)
[2024-04-12 07:36] VITALS: BP 115/69; PULSE 89; RESP 16; TEMP 36.4; O2SAT 97
[2024-04-12] MEDS: Lithium Carbonate ER 450 MG TABLET.ER PO ×2 (08:28→21:15)
[2024-04-12] MEDS: buPROPion HCl XL 300 MG TAB.ER.24H PO (08:28)
--- NOTE | 2024-04-12 13:54 | P.PNPSI_ITS ---
Subjective Subjective Date of Service: 04/12/24 Reason For Visit: Schizoaffective d/o bipolar type Interim History: bright, more optimistic. reports she slept adequately. planning for wednesday discharge. agreeable to decrease HS ativan to 0.5 mg through discharge. agreeable to check labs tomorrow night. per staff, tearful after call with [employer] re her job. attending groups, slept 6 hours. Mental Status Exam Mental Status Exam Narrative: Appearance: casually groomed, fair hygiene, in NAD Behavior: calm. no PMA/PMR. Speech: nml rate, amount, loudness TP: linear TC: no paranoid delusions noted. Mood: much improved Affect: more flexible, normo-intense, non-labile SI: none expressed HI: none expressed AH/VH: none expressed Insight/judgment: fair x2 Memory/cog: alert, oriented x 3. Diagnostics Vital Signs (24Hr): Vital Signs - 24 hr 04/11/24 20:00 04/12/24 07:36 Temperature 97.5 F 97.6 F Pulse Rate 90 89 Respiratory Rate 18 16 Blood Pressure 131/70 115/69 Pulse Oximetry 98 97 Oxygen Delivery Method Room Air Room Air BMI result Body Mass Index 26.6 Labs 03/28/24 08:51 Imaging Radiology Impressions: ITS Impressions Ribs X-Ray 04/09/24 02:00 IMPRESSION: 1. No radiographic evidence of rib fracture. 2. Right infrahilar opacity could be a patchy infiltrate, cannot rule out lung nodule. Consider correlation with follow-up chest x-ray in one month. If not performed would recommend follow-up chest CT. Electronically signed by: Jordan Parisi MD 04/09/2024 12:35 PM [facility] Medications Medications Current Medications Acetaminophen (Acetaminophen 325 Mg Tablet) 650 mg PO Q6H PRN PRN Reason: Pain, Mild (Pain Scale 1-3) Last Admin: 04/11/24 22:09 Dose: 650 mg Al Hydroxide/Mg Hydroxide (Magnesium Hydrox/Alum Hydrox 30 Ml Oral.Susp) 30 ml PO Q6H PRN PRN Reason: Heartburn/Nausea Last Admin: 04/09/24 01:02 Dose: 30 ml Bupropion HCl (Bupropion Hcl Xl 300 Mg Tab.Er.24h) 300 mg PO DAILY JOSEF Last Admin: 04/12/24 08:28 Dose: 300 mg Hydroxyzine HCl (Hydroxyzine Hcl 25 Mg Tablet) 25 mg PO Q6H PRN PRN Reason: Anxiety Last Admin: 04/02/24 20:00 Dose: 25 mg Lidocaine (Lidocaine 4 % Patch Adh..Patch) 1 patch TRANSDERMA DAILY [facility]; Protocol Last Admin: 04/12/24 08:29 Dose: Not Given [place] Carbonate ([place] Carbonate Er 450 Mg Tablet.Er) 450 mg PO BID [facility] Last Admin: 04/12/24 08:28 Dose: 450 mg Lorazepam (Lorazepam 0.5 Mg Tablet) 0.5 mg PO BEDTIME JOSEF Magnesium Hydroxide (Milk Of Magnesia 30 Ml Oral.Susp) 30 ml PO DAILY PRN PRN Reason: Constipation Olanzapine (Olanzapine 5 Mg Tablet) 5 mg PO TID PRN PRN Reason: Psychosis Last Admin: 04/06/24 20:27 Dose: 5 mg Olanzapine (Olanzapine 10 Mg Tablet) 20 mg PO BEDTIME JOSEF Last Admin: 04/11/24 20:36 Dose: 20 mg Trazodone HCl (Trazodone Hcl 50 Mg Tablet) 50 mg PO BEDTIME MRX1 PRN PRN Reason: Insomnia Last Admin: 04/11/24 21:41 Dose: 50 mg Allergies Allergies Allergy/AdvReac Type Severity Reaction Status Date / Time cephalexin [From Keflex] Allergy Hives Verified 12/17/23 07:28 From KEFLEX Allergy Unknown UNK Uncoded 12/17/23 07:28 From PAXIL Allergy Unknown UNK Uncoded 12/17/23 07:28 Assessment & Plan Assessment & Plan (1) Schizoaffective disorder, bipolar type: Status: Acute Code(s): F25.0 - Schizoaffective disorder, bipolar type Plan 03/17: offer zyprexa. savage warning provided. 03/18: no benzos, h/o abuse. continue current mgmt. floridly psychotic. 03/19: taking zyprexa. TD evident in jaw mvmts, T/C ingrezza or other. does not appear appreciably improved, although does refer to having felt briefly better in the past 24H during a period of perspective shift. 03/20: worse today than at admission. historically does better with antipsychotic + mood stabilizer. add lithium 450 BID, which she has been on in the past. file for commitment as necessary. 03/21 Covering provider- pt continues to present as very paranoid and restless. She has done well on haldol in the past. Will add haldol 5mg po BID in addition to olanzapine 20mg po qhs. SI present. 03/23: continue current tx plan. 03/25: continue current tx plan. 03/26: Lying in bed. refused AM medications. declined to meet with T/W. Pt stated, leave me alone. I don't need anything. I'll be in hell for all eternity. It's just the way it is . Pt closed her eyes and would not respond to questions. 03/27: more calm today. continues to feel she is hopeless and damned. check labs in the morning, T/C lithium increase as indicated. 03/28: lithium level 0.95. DC haldol and increase zyprexa to 20 mg QHS. remains depressed and psychotic. 03/29: remains with PMR, poverty of thought, depression. continue current mgmt for now. T/C adding anti-depressant, such as wellbutrin. 03/30: mute today, depressed, PMR, in bed. agrees to wellbutrin. 03/31: up and about today, more verbal. signed CV. continue current mgmt. 04/02/2024: Continue to encourage medication adherence. Ongoing admission needed as unable to care for self due to level of psychosis 04/03: increase wellbutrin to 300 mg daily. continues depressed and psychotic. 04/04: out and about on the unit more, appearing brighter. reports mood unchanged. continue current mgmt. 04/05: as for yesterday. more visible, more energetic, less muslim preoccupation. yet depressed and anxious. started attending groups. continue current mgmt. 04/06: in bed again today, less out and about on the unit. depressed, suicidal. continue current mgmt. 04/07: out and about, appearing brighter and more energetic than prior. c/o ongoing severely depressed mood. trending better, still quite symptomatic. continue current mgmt. 04/08/2024: Appears to be improving and reports feeling ready to start disposition planning with team after the weekend 04/09: no changes 04/10: much improved from last week, talking about discharge. planning tentatively for wednesday discharge. 04/11: asking about wednesday discharge. much improved. decrease HS ativan to 1 mg as of tonight. 04/12: looking brighter, more hopeful/positive. looking forward to returning to working. decrease ativan to 0.5 mg tonight through discharge. check labs tomorrow night. planning for wednesday discharge. Reason for continued inpatient stay Substantial Risk for: inability to function and rapid decompensation Time Spent With Patient Time: Total time managing care of this patient today __25__ minutes.
[2024-04-12] MEDS: hydrOXYzine HCL 25 MG TABLET PO (15:18)
[2024-04-12 20:00] VITALS: BP 108/57; PULSE 84; RESP 16; TEMP 36.4; O2SAT 95
[2024-04-12] MEDS: OLANZapine 10 MG TABLET 20 MG PO (21:15)
[2024-04-12] MEDS: LORazepam 0.5 MG TABLET PO (21:16)
[2024-04-12] MEDS: traZODone HCL 50 MG TABLET PO (21:16)
[2024-04-13] MEDS: traZODone HCL 50 MG TABLET PO ×2 (00:38→21:19)
[2024-04-13 07:35] VITALS: BP 115/73; PULSE 104; RESP 16; TEMP 36.3; O2SAT 98
[2024-04-13] MEDS: buPROPion HCl XL 300 MG TAB.ER.24H PO (08:50)
[2024-04-13] MEDS: Lithium Carbonate ER 450 MG TABLET.ER PO ×2 (08:50→21:18)
[2024-04-13] MEDS: Lidocaine 4 % Patch ADH..PATCH 1 PATCH TRANSDERMA (08:51)
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
[2024-04-13 20:00] VITALS: BP 119/74; PULSE 83; RESP 16; TEMP 36.6; O2SAT 97
[2024-04-13 20:16] LABS: Anion Gap 11 (12-20); Blood Urea Nitrogen 11 mg/dL (9-16); Calcium 9.7 mg/dL (8.4-10.2); Carbon Dioxide 28 mmol/L (22-29); Chloride 107 mmol/L (96-108); Creatinine Clr Calc Pharmacy 67.7; Estimated Glomerular Filt Rate > 60; Glucose Random 125 mg/dL (60-115); Lithium 0.71 mmol/L (0.60-1.20); Potassium 4.1 mmol/L (3.3-5.1); Sodium 142 mmol/L (135-145)
[2024-04-13] MEDS: LORazepam 0.5 MG TABLET PO (21:19)
[2024-04-13] MEDS: OLANZapine 10 MG TABLET 20 MG PO (21:19)
[2024-04-13] MEDS: OLANZapine 5 MG TABLET PO (21:19)
[2024-04-14 07:41] VITALS: BP 123/65; PULSE 81; RESP 18; TEMP 36.4; O2SAT 98
[2024-04-14] MEDS: Lidocaine 4 % Patch ADH..PATCH 1 PATCH TRANSDERMA (09:19)
[2024-04-14] MEDS: buPROPion HCl XL 300 MG TAB.ER.24H PO (09:20)
[2024-04-14] MEDS: Lithium Carbonate ER 450 MG TABLET.ER PO (09:21)
== END 2024-04-14 12:25 | disposition home or self-care (01) | DRG 885 ==
PROVIDERS: Internal Medicine; Psychiatry & Neurology Psychiatry; Admitting Provider Psychiatry & Neurology Psychiatry; PCP Family Medicine; Visit Provider Psychiatry & Neurology Psychiatry
DX: F25.0 Schizoaffective disorder, bipolar type (principal); R45.851 Suicidal ideations; B00.9 Herpesviral infection, unspecified; K21.9 Gastro-esophageal reflux disease without esophagitis; Z85.828 Personal history of other malignant neoplasm of skin; Z62.810 Personal history of physical and sexual abuse in childhood; Z87.891 Personal history of nicotine dependence; Z79.899 Other long term (current) drug therapy
CPT/HCPCS: 36415; 71101; 80048; 80053; 80061; 80178; 84484; 93005; J1885

== ENCOUNTER → 2024-03-16 21:13 | Outpatient (BNV) | payer OTHER, SELFPAY | PROVIDERS: Admitting Provider Psychiatry & Neurology Psychiatry; PCP Family Medicine; Visit Provider Psychiatry & Neurology Psychiatry | DX: F25.0 Schizoaffective disorder, bipolar type (principal) | CPT/HCPCS: 99499 ==

== ENCOUNTER → 2024-03-16 21:13 | Outpatient (BNV) | payer OTHER, SELFPAY | PROVIDERS: Admitting Provider Psychiatry & Neurology Psychiatry; PCP Family Medicine; Visit Provider Physician Assistant | DX: K21.9 Gastro-esophageal reflux disease without esophagitis (principal); R45.851 Suicidal ideations | CPT/HCPCS: 99221 ==

== ENCOUNTER → 2024-03-16 21:13 | Outpatient (BNV) | payer OTHER, SELFPAY | PROVIDERS: Admitting Provider Psychiatry & Neurology Psychiatry; PCP Family Medicine; Visit Provider Psychiatry & Neurology Psychiatry | DX: F25.0 Schizoaffective disorder, bipolar type (principal) | CPT/HCPCS: 90792; 99231; 99232 ==